=== PATIENT | female | born 1940 | race Caucasian/White ===

== ENCOUNTER 2023-12-08 14:39 | Outpatient (AMB) | payer OTHER, SELFPAY ==
[2023-12-08 15:06] VITALS: BP 145/82; PULSE 72; RESP 16; O2SAT 90; BMI 27.3
--- NOTE | 2023-12-08 15:06 | A.OFFVIS_ITS ---
Intake Vital Signs 3 12/08/23 15:06 Height 4 ft 11 in Weight 135 lb BMI 27.3 BP 145/82 H Blood Pressure Location Lt brachial Position Sitting Respiration 16 Pulse 72 Pulse Source Pulse Oximeter Pulse Oximetry (%) 90 L Oxygen Delivery Method Room Air Intake Visit Reasons: B/l SI Joint Pain HPI HPI Comments 2 History of Present Illness0 Details Kait is a very pleasant 83-year-old female who presents the office today for evaluation management of her chronic lower back pain. Patient was seen at [facility], she was referred here for treatment. Complaining of pain across the lower back into bilateral thighs. This has been going on for 3 years and started after a fall. Pain is worse with sitting, standing, walking. Increased pain with lumbar extension Denies pain past the level of the knee, denies shooting, stinging, burning numbness or tingling. Patient has tried msrp-znp-zhpoofl medications, nonsteroidal anti-inflammatory medications, physical therapy, reports that it does not work. She is doing home exercise program but reports difficulty secondary to pain. Up into 1 year ago she was going to a chiropractor which did provide a little help. She is currently taking gabapentin and Vicodin for pain. Recently discussed with her primary care doctor and Vicodin dose was increased. She states that she has been on Vicodin for many years and is not receiving much benefit from the medication. Pain today is rated as 10/10, aching and stabbing. She was offered injections with local anesthetic at [facility], she states she has tried that in the past and suffering terribly. She requested referral here to have injections under sedation and also for potential radiofrequency ablation to treat the lumbar arthropathy. Patient denies red flag symptoms including new loss of bowel, bladder or saddle anesthesia In terms of muscle damage condition is described as aching, stabbing, dull, sore, hurting, heavy. Pain is negatively impacting patient's sleep, ability to perform activities of daily living, ability to function normally. Patient has a history of COPD, she is currently using oxygen at 2 L nasal cannula while at rest and 4 L nasal cannula with ambulation [facility] Medical History (Updated 12/08/23 @ 16:33 by Salome Roa, HEAD GRINDER, [employer] SHARPSHOOTER) Degeneration of lumbar or lumbosacral intervertebral disc Chronic pain syndrome Review of Systems Const All systems reviewed & are unremarkable except as noted in HPI and below Physical Exam Vital Signs: Last Vital Signs Pulse 72 12/08/23 15:06 Resp 16 12/08/23 15:06 BP 145/82 H 12/08/23 15:06 Pulse Ox 90 L 12/08/23 15:06 Oxygen Delivery Method Room Air 12/08/23 15:06 BMI result Body Mass Index 27.3 General: awake, alert, oriented. Answers questions appropriately. Fully engaged in examination. Skin: warm, dry, intact HEENT: Normocephalic. Hearing intact. Cardiac: External chest normal in appearance. Respiratory: No cough, audible wheezing or stridor. Wearing continuous oxygen at 2 L nasal cannula, 4 L with ambulation Abdomen: without gross distension. MS: No obvious swelling or deformities. Able to transition from sit to stand unassisted. Ambulates with bilaterally normal heel strike and toe off Strength: 5/5 BLE Sensation: intact and symmetric BLE Tender to palpation over lumbar paraspinal muscles Doris finger test is positive bilaterally Gaenslen test is positive bilaterally Antonio test is positive bilaterally SI compression positive bilaterally SLR is negative bilaterally. Facet loading test is positive bilaterally. Neurological: Oriented to person, place, time and situation. Thought process intact. No gait abnormalities appreciated. Psychiatric: Appropriate mood and affect. Good judgment and insight. Results Reviewed Results Reviewed: Assessment & Plan Assessment & Plan (1) Sacroiliac joint dysfunction of both sides: Code(s): M53.3 - Sacrococcygeal disorders, not elsewhere classified (2) Lumbar spondylosis: Code(s): M47.816 - Spondylosis without myelopathy or radiculopathy, lumbar region Plan Kait yap is an 83-year-old female who presented to the office today for evaluation management of her chronic lower back pain History, physical exam and provocative testing consistent with bilateral sacroiliac joint dysfunction and lumbar spondylosis Patient would like to focus on her sacroiliac joint dysfunction 1st and then proceed with treatment for her lumbar axial back pain Patient has exhausted conservative therapy including rmlq-xpi-orsxnwz medications, nonsteroidal anti-inflammatory medications, PT, chiropractor, home exercise program, prescription medications and opioid medications Discussed in length the patient's diagnosis and options for treatment including diagnostic interventional testing, epidural steroid injections, peripheral nerve stimulation with Sprint, RFA and more permanent neuromodulation. Will schedule for fluoroscopy guided bilateral diagnostic sacroiliac joint injections with propofol sedation. All questions and concerns have been answered and patient agrees with the plan. Follow up after injections and sooner if needed. Coding Level of Care Code New Pt Level 4 (33830) Diagnoses Sacroiliac joint dysfunction of both sides M53.3 Lumbar spondylosis M47.816
== END 2023-12-08 15:46 | disposition home or self-care (01) ==
PROVIDERS: Visit Provider Registered Nurse Emergency
DX: M53.3 Sacrococcygeal disorders, not elsewhere classified (principal); M47.816 Spondylosis without myelopathy or radiculopathy, lumbar region
CPT/HCPCS: 99204

== ENCOUNTER → 2023-12-08 14:39 | Outpatient (BNVA) | payer OTHER, SELFPAY | PROVIDERS: Visit Provider Registered Nurse Emergency | DX: M53.3 Sacrococcygeal disorders, not elsewhere classified (principal); M47.816 Spondylosis without myelopathy or radiculopathy, lumbar region | CPT/HCPCS: 99202 ==

== ENCOUNTER 2024-04-14 05:49 | Day surgery (SDC) | payer OTHER, SELFPAY ==
--- NOTE | 2024-04-12 13:50 | P.CONAN_ITS ---
Documented by User: Chetna Marques NP 04/12/24 13:53 HPI - Anesthesia Eval Consult details Narrative: 83yo F for Bilateral Diagnostic Sacroiliac Joint Steroid Injection PMFSH Active Problems Active Problems: All Active Problems Lumbar spondylosis (Acute) Sacroiliac joint dysfunction of both sides (Acute) Past Medical History Medical History (Updated 04/12/24 @ 13:53 by Chetna Marques NP) Salivary gland tumor Osteoporosis HTN (hypertension) Hypothyroid Degeneration of lumbar or lumbosacral intervertebral disc Chronic pain syndrome Social History Social History Patient Tobacco Use Status: Former Tobacco user Use of substances other than those prescribed or required for medical reasons: No Are you DNR?: No Advance Directives: No Advance Directives Information Provided: Yes Meds Allergies Allergy/AdvReac Type Severity Reaction Status Date / Time alendronate sodium Allergy Unknown Unknown Verified 04/14/24 06:28 amoxicillin Allergy Unknown Unknown Verified 04/14/24 06:28 ibuprofen [From Motrin] Allergy Unknown Unknown Verified 04/14/24 06:28 Penicillins Allergy Unknown Unknown Verified 04/14/24 06:28 pregabalin [From Lyrica] Allergy Unknown Unknown Verified 04/14/24 06:28 metoprolol AdvReac Unknown Unknown Verified 04/14/24 06:28 Home Medications ?Medication ?Instructions ?Recorded ?Confirmed ?Last Taken ?Type alprazolam 0.5 mg tablet 0.5 mg PO DAILY 12/08/23 04/14/24 Unknown History buspirone 15 mg tablet 15 mg PO TID 12/08/23 04/14/24 Unknown History cetirizine 10 mg tablet 10 mg PO DAILY PRN allergies 12/08/23 04/14/24 Unknown History famotidine 40 mg tablet 40 mg PO DAILY 12/08/23 04/14/24 Unknown History gabapentin 300 mg capsule 300 mg PO TID 12/08/23 04/14/24 04/14/24 History levothyroxine 112 mcg capsule 112 mcg PO DAILY 12/08/23 04/14/24 04/14/24 History lisinopril 40 mg tablet 40 mg PO DAILY 12/08/23 04/14/24 Unknown History montelukast 10 mg tablet 10 mg PO DAILY 12/08/23 04/14/24 Unknown History simvastatin 40 mg tablet 40 mg PO DAILY 12/08/23 04/14/24 Unknown History trazodone 150 mg tablet 150 mg PO BEDTIME PRN Insomnia 12/08/23 04/14/24 Unknown History Assessment and Plan Assessment Anesthesia Assessment: Chart Reviewed Documented by User: Dennis Ladd MD 04/14/24 07:20 [facility] Past Medical History Medical History (Updated 04/12/24 @ 13:53 by Chetna Marques NP) Salivary gland tumor Osteoporosis HTN (hypertension) Hypothyroid Degeneration of lumbar or lumbosacral intervertebral disc Chronic pain syndrome Family History Family history of problems with anesthesia: No Surgical History History of Problems with Anesthesia: No Social History Social History Patient Tobacco Use Status: Former Tobacco user Use of substances other than those prescribed or required for medical reasons: No Are you DNR?: No Advance Directives: No Advance Directives Information Provided: Yes Meds Allergies Allergy/AdvReac Type Severity Reaction Status Date / Time alendronate sodium Allergy Unknown Unknown Verified 04/14/24 06:28 amoxicillin Allergy Unknown Unknown Verified 04/14/24 06:28 ibuprofen [From Motrin] Allergy Unknown Unknown Verified 04/14/24 06:28 Penicillins Allergy Unknown Unknown Verified 04/14/24 06:28 pregabalin [From Lyrica] Allergy Unknown Unknown Verified 04/14/24 06:28 metoprolol AdvReac Unknown Unknown Verified 04/14/24 06:28 Home Medications ?Medication ?Instructions ?Recorded ?Confirmed ?Last Taken ?Type alprazolam 0.5 mg tablet 0.5 mg PO DAILY 12/08/23 04/14/24 Unknown History buspirone 15 mg tablet 15 mg PO TID 12/08/23 04/14/24 Unknown History cetirizine 10 mg tablet 10 mg PO DAILY PRN allergies 12/08/23 04/14/24 Unknown History famotidine 40 mg tablet 40 mg PO DAILY 12/08/23 04/14/24 Unknown History gabapentin 300 mg capsule 300 mg PO TID 12/08/23 04/14/24 04/14/24 History levothyroxine 112 mcg capsule 112 mcg PO DAILY 12/08/23 04/14/24 04/14/24 History lisinopril 40 mg tablet 40 mg PO DAILY 12/08/23 04/14/24 Unknown History montelukast 10 mg tablet 10 mg PO DAILY 12/08/23 04/14/24 Unknown History simvastatin 40 mg tablet 40 mg PO DAILY 12/08/23 04/14/24 Unknown History trazodone 150 mg tablet 150 mg PO BEDTIME PRN Insomnia 12/08/23 04/14/24 Unknown History Exam Airway Mallampati Class: III TM Dist: >3cm Neck ROM: Limited Denture: Upper and Lower Assessment and Plan Assessment Anesthesia Assessment: Anesthesia Plan Discussed Final Anesthetic Review Family History of Problems with Anesthesia: No History of Problems with Anesthesia: No NPO: Yes ASA Class: IV Final Preanesthetic Review: No Changes in Pt Med Stat, Meds/Allgs Chart Reviewed, Consent Obtained/Reviewed and Anes Risks/Benef Reviewed Patient Risk: High Procedure Risk: Low Anesthetic Plan Anesthetic Plan: TIVA Disposition: Standard PACU
--- NOTE | ~2024-04-14 | FL_ITS ---
EXAMINATION: XR FLUOROSCOPY WITH IMAGES CLINICAL INFORMATION: Bilateral SI joint steroid injection COMPARISON: None available. TECHNIQUE: Fluoroscopy provided to: Dr. Humphrey Fluoroscopy time: 0.2 minutes DAP: 0.988 Gycm2 Images: 2 FINDINGS: 2 images demonstrate needles laced within the central bilateral SI joints with contrast injection and venous intravasation. FL/FL guidance in OR IMPRESSION: Fluoroscopic guidance. Please refer to the full operative report for details. Electronically signed by: Jean Block MD 06/14/2024 04:45 PM EDT
[2024-04-14 06:30] VITALS: BP 159/92; PULSE 65; RESP 20; TEMP 36.2; O2SAT 95; BMI 25.2
--- NOTE | 2024-04-14 07:03 | MHC.SHP ---
Pre-Procedural Eval Section A - 24 Hr Update-Section A only Date of Service: 04/14/24 The patient is an INPATIENT: No Changes since office visit: Yes Patient answered all questions The patient has been examined within 24 hours of the surgical procedure. The History & Physical has been completed within 30 days and I have reviewed it.: No Section B - Complete if H&P > 30 days Chief Complaint: Sacrococcygeal disorders, not elsewhere classified Details of Present Illness: as above Relevant Family History (Specify if Yes): No Relevant Social History: None Present Medications: None Medical History: No relevant PMH History of Previous Operations: No relevant previous surgery Allergies: Allergies Allergy/AdvReac Type Severity Reaction Status Date / Time alendronate sodium Allergy Unknown Unknown Verified 04/14/24 06:28 amoxicillin Allergy Unknown Unknown Verified 04/14/24 06:28 ibuprofen [From Motrin] Allergy Unknown Unknown Verified 04/14/24 06:28 Penicillins Allergy Unknown Unknown Verified 04/14/24 06:28 pregabalin [From Lyrica] Allergy Unknown Unknown Verified 04/14/24 06:28 metoprolol AdvReac Unknown Unknown Verified 04/14/24 06:28 Review of Systems Sugical H&P ROS: Negative: Constitution, Cardiovascular, Neurological, Psychiatric, Hem-Onc, Allergic/Immunologic, Gastrointestinal, Genitourinary, Integumentary, Endocrine and Eyes/Ears/Nose/Throat and Yes, Specify: Respiratory (COPD) and Musculoskeletal (sacroiliitis, spondylosdis lumbar) Exam Surgical H&P Exam: Normal: HEENT, Normal: Heart, Normal: Extremities, Normal: Abdomen, Normal: Skin and Normal: Neurological and Significant Findings: Lungs (on oxygen 4 l/ min.) Plan Diagnosis/Plan: Unchanged I have reviewed the history and physical and performed a pertinent physical examination on my patient. No changes have occurred unless specified. Time Spent With Patient Time: Total time managing care of this patient today ____ minutes.
[2024-04-14] MEDS: Lactated Ringers 1,000 ML 100 ML IVCONT (07:12)
[2024-04-14 08:08] VITALS: BP 186/86; PULSE 71; RESP 16; TEMP 36.6; O2SAT 97
--- NOTE | 2024-04-14 08:16 | PM.OP ---
Brief Operative Note Date of Service: 04/14/24 Pre-op diagnosis: sacroiliitis Post-op diagnosis: same Procedure: bilateral sacroiliac joint diagnostic injection. Surgeon: Paul Humphrey MD Was an Tree Trimming Supervisor used for this Procedure?: No Estimated blood loss (mL): 1 Condition: stable Disposition: PACU
[2024-04-14 08:23] VITALS: BP 192/82; PULSE 69; RESP 16; O2SAT 96
--- NOTE | 2024-04-14 08:26 | W.PM.OPN ---
Operative Note Operative Note Date of Service: 04/14/24 Narrative: Bilateral diagnostic sacroiliac joint injection. Informed consent was explained thoroughly to the patient. All questions about benefits and risks for the procedure were answered. Patient came to the operating room and was positioned prone on the operating table with the pillow under the pelvis. ASA monitors were applied and the patient was deeply sedated. Time out was performed delineating name and of the patient, allergies and the nature of the procedure. The lower back and buttocks of the patient were prepped with ChloraPrep prepped and draped with sterile utility towels. C-arm was brought over the operating field and sq picture of patient's pelvis was demonstrated on the screen. For the right joint tilting C-arm contralateral to the site of the joint the most posterior portion of the joints was superimposed with anterior silhouette of the joint. Skin was injected in the projection of the joint slightly medial to the location of the joint with 25 gauge 1/2 inch needle using local lidocaine 2% .After that 22 gauge 3 and 1/2 inch needle was driven to the right joint in tunnel vision fashion. When needle entered the joint capsule injection of the contrast was performed demonstrating intra-articular and minimally periarticular spread of the contrast. After that 4 cc. of ropivacaine 0.5% was injected into the joint. Upon completion of the injections the needle was removed and procedure was repeated on the left sacroiliac joint in mirroring fashion. Sterile dressing was applied. Upon completion of the injection patient was taken outside of the operating room to the recovery room where recovered uneventfully.
== END 2024-04-14 10:00 | disposition home or self-care (01) ==
PROVIDERS: PCP Family Medicine; Visit Provider Anesthesiology
PROC: 3E0U33Z Introduction of Anti-inflammatory into Joints, Percutaneous Approach (ICD-10-PCS; CPT 27096; principal; 2024-04-14 07:30)
DX: M53.3 Sacrococcygeal disorders, not elsewhere classified (principal); G89.4 Chronic pain syndrome; M47.816 Spondylosis without myelopathy or radiculopathy, lumbar region; I10 Essential (primary) hypertension; J44.9 Chronic obstructive pulmonary disease, unspecified; Z99.81 Dependence on supplemental oxygen; Z79.899 Other long term (current) drug therapy; Z88.0 Allergy status to penicillin; Z88.6 Allergy status to analgesic agent; Z88.8 Allergy status to other drugs, medicaments and biological substances; Z87.891 Personal history of nicotine dependence
CPT/HCPCS: G0260; J0665; J2704; J3301; Q9967

== ENCOUNTER → 2024-04-14 05:49 | Outpatient (BNV) | payer OTHER, SELFPAY | PROVIDERS: PCP Family Medicine; Visit Provider Anesthesiology | DX: M53.3 Sacrococcygeal disorders, not elsewhere classified (principal) | CPT/HCPCS: 27096 ==

== ENCOUNTER 2024-04-21 15:00 | Outpatient (AMB) | payer OTHER, SELFPAY ==
--- NOTE | 2024-04-21 15:04 | MHC.OFFVIS ---
Vital Signs 04/21/24 15:09 Height 5 ft 2 in BP 156/65 H Blood Pressure Location Rt brachial Position Sitting Pulse 76 Pulse Source Pulse Oximeter Intake Visit Reasons: S/p B/l Dx SI Injection 04/14/24 Intake Note: Pain today 02/27 Certified Prosthetist/Orthotist Required: No Accompanied by: Family/Other Allergies alendronate sodium Allergy (Unknown, Verified 04/21/24 15:10) Unknown amoxicillin Allergy (Unknown, Verified 04/21/24 15:10) Unknown ibuprofen [From Motrin] Allergy (Unknown, Verified 04/21/24 15:10) Unknown Penicillins Allergy (Unknown, Verified 04/21/24 15:10) Unknown pregabalin [From Lyrica] Allergy (Unknown, Verified 04/21/24 15:10) Unknown metoprolol Adverse Reaction (Unknown, Verified 04/21/24 15:10) Unknown HPI Comments Details: Patient presents back to the office today for follow-up, one-week status post bilateral diagnostic sacroiliac joint injections Reports 100% pain relief in the 8 hours after the procedure. 24 hours after the procedure patient had 90% pain relief with improvement in functional mobility. She was able to assist the telephone coin box collector with cleaning of the home and she has been walking more. Denies any untoward effects of the injection She would like to proceed with therapeutic injections with sedation Prior: Kait is a very pleasant 83-year-old female who presents the office today for evaluation management of her chronic lower back pain. Patient was seen at [facility], she was referred here for treatment. Complaining of pain across the lower back into bilateral thighs. This has been going on for 3 years and started after a fall. Pain is worse with sitting, standing, walking. Increased pain with lumbar extension Denies pain past the level of the knee, denies shooting, stinging, burning numbness or tingling. Patient has tried abrs-pma-stxrxzi medications, nonsteroidal anti-inflammatory medications, physical therapy, reports that it does not work. She is doing home exercise program but reports difficulty secondary to pain. Up into 1 year ago she was going to a chiropractor which did provide a little help. She is currently taking gabapentin and Vicodin for pain. Recently discussed with her primary care doctor and Vicodin dose was increased. She states that she has been on Vicodin for many years and is not receiving much benefit from the medication. Pain today is rated as 10/10, aching and stabbing. She was offered injections with local anesthetic at [facility], she states she has tried that in the past and suffering terribly. She requested referral here to have injections under sedation and also for potential radiofrequency ablation to treat the lumbar arthropathy. Patient denies red flag symptoms including new loss of bowel, bladder or saddle anesthesia In terms of muscle damage condition is described as aching, stabbing, dull, sore, hurting, heavy. Pain is negatively impacting patient's sleep, ability to perform activities of daily living, ability to function normally. Patient has a history of COPD, she is currently using oxygen at 2 L nasal cannula while at rest and 4 L nasal cannula with ambulation [facility] Medical History (Updated 04/12/24 @ 13:53 by Chetna Marques NP) Salivary gland tumor Osteoporosis HTN (hypertension) Hypothyroid Degeneration of lumbar or lumbosacral intervertebral disc Chronic pain syndrome Social History Patient Tobacco Use Status: Former Tobacco user Review of Systems Const All systems reviewed & are unremarkable except as noted in HPI and below Physical Exam Vital Signs: Last Vital Signs Pulse 76 04/21/24 15:09 BP 156/65 H 04/21/24 15:09 General: awake, alert, oriented. Answers questions appropriately. Fully engaged in examination. Skin: warm, dry, intact HEENT: Normocephalic. Hearing intact. Cardiac: External chest normal in appearance. Respiratory: No cough, audible wheezing or stridor. Wearing continuous oxygen at 2 L nasal cannula, 4 L with ambulation Abdomen: without gross distension. MS: No obvious swelling or deformities. Able to transition from sit to stand unassisted. Gaenslen test is positive bilaterally Thigh thrust is positive bilaterally SI compression positive bilaterally SLR is negative bilaterally. Neurological: Oriented to person, place, time and situation. Thought process intact. Utilizing wheelchair Psychiatric: Appropriate mood and affect. Good judgment and insight. Results Reviewed Results Reviewed: Assessment & Plan Assessment & Plan (1) Sacroiliac joint dysfunction of both sides: Code(s): M53.3 - Sacrococcygeal disorders, not elsewhere classified Category: Medical (2) Lumbar spondylosis: Code(s): M47.816 - Spondylosis without myelopathy or radiculopathy, lumbar region Category: Medical Plan Kait presented back to the office today for follow-up, one-week status post bilateral diagnostic sacroiliac joint injections under sedation Reports 100% pain relief in the 10 hours after the procedure with improvement in functional mobility. Denies any untoward effects. Patient has exhausted conservative therapy including krez-chi-qeuqsed medications, nonsteroidal anti-inflammatory medications, PT, chiropractor, home exercise program, prescription medications and opioid medications Discussed in length the patient's diagnosis and options for treatment including diagnostic interventional testing, epidural steroid injections, peripheral nerve stimulation with Sprint, RFA and more permanent neuromodulation. Will schedule for fluoroscopy guided bilateral therapeutic sacroiliac joint injections with propofol sedation. All questions and concerns have been answered and patient agrees with the plan. Follow up after injections and sooner if needed. Coding Level of Care Code Est Pt Level 3 (96180) Diagnoses Sacroiliac joint dysfunction of both sides M53.3 Lumbar spondylosis M47.816
[2024-04-21 15:09] VITALS: BP 156/65; PULSE 76
== END 2024-04-21 15:32 | disposition home or self-care (01) ==
PROVIDERS: PCP Family Medicine; Visit Provider Registered Nurse Emergency
DX: M53.3 Sacrococcygeal disorders, not elsewhere classified (principal); M47.816 Spondylosis without myelopathy or radiculopathy, lumbar region
CPT/HCPCS: 99213

== ENCOUNTER → 2024-04-21 15:00 | Outpatient (BNVA) | payer OTHER, SELFPAY | PROVIDERS: PCP Family Medicine; Visit Provider Registered Nurse Emergency | DX: M53.3 Sacrococcygeal disorders, not elsewhere classified (principal); M47.816 Spondylosis without myelopathy or radiculopathy, lumbar region | CPT/HCPCS: 99212 ==

== ENCOUNTER 2024-06-30 12:34 | Outpatient (BNV) | payer OTHER, SELFPAY | END 2024-07-10 07:00 | PROVIDERS: Admitting Provider Internal Medicine Critical Care Medicine; PCP Family Medicine; Visit Provider Internal Medicine Cardiovascular Disease | DX: I42.8 Other cardiomyopathies (principal) | CPT/HCPCS: 93308 ==

== ENCOUNTER 2024-06-30 12:34 | Outpatient (BNV) | payer OTHER, SELFPAY | END 2024-07-08 09:15 | PROVIDERS: Admitting Provider Internal Medicine Critical Care Medicine; PCP Family Medicine; Visit Provider Internal Medicine | DX: R00.0 Tachycardia, unspecified (principal); I44.4 Left anterior fascicular block | CPT/HCPCS: 93010 ==

== ENCOUNTER 2024-06-30 12:34 | Outpatient (BNV) | payer OTHER, SELFPAY | END 2024-07-01 10:38 | PROVIDERS: Admitting Provider Internal Medicine Critical Care Medicine; PCP Family Medicine; Visit Provider Internal Medicine Cardiovascular Disease | DX: R94.31 Abnormal electrocardiogram [ECG] [EKG] (principal) | CPT/HCPCS: 93010 ==

== ENCOUNTER 2024-06-30 12:34 | Outpatient (BNV) | payer OTHER, SELFPAY | END 2024-07-03 07:46 | PROVIDERS: Admitting Provider Internal Medicine Critical Care Medicine; PCP Family Medicine; Visit Provider Internal Medicine | DX: R00.0 Tachycardia, unspecified (principal); I44.4 Left anterior fascicular block | CPT/HCPCS: 93010 ==

== ENCOUNTER 2024-06-30 12:34 | Inpatient (IN) | payer OTHER, SELFPAY ==
[2024-06-28 09:57] VITALS: BMI 25.2
--- NOTE | 2024-06-29 13:00 | P.CONAN_ITS ---
Documented by User: Chetna Marques NP 06/29/24 13:02 HPI - Anesthesia Eval Consult details Narrative: 83yo F for Bilateral Therapeutic Sacroiliac Joint Steroid Injection COPD, O2 dependant @ 2L at rest, 4L with activity s/p Bilateral Diagnostic Sacroiliac Joint Steroid Injection 03/2024 with TIVA PMFSH Active Problems Active Problems: All Active Problems Lumbar spondylosis (Acute) Sacroiliac joint dysfunction of both sides (Acute) Past Medical History Medical History Oxygen dependent COPD (chronic obstructive pulmonary disease) Elevated cholesterol Salivary gland tumor Osteoporosis HTN (hypertension) Hypothyroid Degeneration of lumbar or lumbosacral intervertebral disc Chronic pain syndrome Family History Family history of problems with anesthesia: No Surgical History Surgical History Hx of excision of mass History of surgery History of Problems with Anesthesia: No Social History Social History Patient Tobacco Use Status: Former Tobacco user Use of substances other than those prescribed or required for medical reasons: No Are you DNR?: No Advance Directives: No Advance Directives Information Provided: Yes Recently lost weight without trying: No Nutrition Risks: No Nutritional Risk Meds Allergies Allergy/AdvReac Type Severity Reaction Status Date / Time alendronate sodium Allergy Unknown Unknown Verified 04/21/24 15:10 amoxicillin Allergy Unknown Unknown Verified 04/21/24 15:10 ibuprofen [From Motrin] Allergy Unknown Unknown Verified 04/21/24 15:10 Penicillins Allergy Unknown Unknown Verified 04/21/24 15:10 pregabalin [From Lyrica] Allergy Unknown Unknown Verified 04/21/24 15:10 metoprolol AdvReac Unknown Unknown Verified 04/21/24 15:10 Home Medications ?Medication ?Instructions ?Recorded ?Confirmed ?Last Taken ?Type alprazolam 0.5 mg tablet 0.5 mg PO DAILY 12/08/23 06/28/24 Unknown History buspirone 15 mg tablet 15 mg PO TID 12/08/23 06/28/24 Unknown History cetirizine 10 mg tablet 10 mg PO DAILY PRN allergies 12/08/23 06/28/24 Unknown History famotidine 40 mg tablet 40 mg PO DAILY 12/08/23 06/28/24 Unknown History gabapentin 300 mg capsule 300 mg PO TID 12/08/23 06/28/24 04/14/24 History levothyroxine 112 mcg capsule 112 mcg PO DAILY 12/08/23 06/28/24 04/14/24 History lisinopril 40 mg tablet 40 mg PO DAILY 12/08/23 06/28/24 Unknown History montelukast 10 mg tablet 10 mg PO DAILY 12/08/23 06/28/24 Unknown History simvastatin 40 mg tablet 40 mg PO DAILY 12/08/23 06/28/24 Unknown History trazodone 150 mg tablet 150 mg PO BEDTIME PRN Insomnia 12/08/23 06/28/24 Unknown History diclofenac sodium 1 % topical gel 1 ea topical BID 04/21/24 06/28/24 Unknown History loratadine 10 mg tablet 10 mg PO DAILY 04/21/24 06/28/24 Unknown History naloxone 4 mg/actuation nasal spray intranasal 04/21/24 Unknown History umeclidinium 62.5 mcg/actuation 1 inh inhalation DAILY 04/21/24 06/28/24 Unknown History blister powder for inhalation (Incruse Ellipta) Exam Height,Weight and Vital Signs: Height 5 ft 2 in Weight 62.596 kg Assessment and Plan Assessment Anesthesia Assessment: Chart Reviewed Final Anesthetic Review Family History of Problems with Anesthesia: No History of Problems with Anesthesia: No Documented by User: Kimmy Eubanks MD 06/30/24 11:05 [facility] Past Medical History Medical History Oxygen dependent COPD (chronic obstructive pulmonary disease) Elevated cholesterol Salivary gland tumor Osteoporosis HTN (hypertension) Hypothyroid Degeneration of lumbar or lumbosacral intervertebral disc Chronic pain syndrome Surgical History Surgical History Hx of excision of mass History of surgery Social History Social History Patient Tobacco Use Status: Former Tobacco user Use of substances other than those prescribed or required for medical reasons: No Are you DNR?: No Advance Directives: No Advance Directives Information Provided: Yes Recently lost weight without trying: No Nutrition Risks: No Nutritional Risk Meds Allergies Allergy/AdvReac Type Severity Reaction Status Date / Time alendronate sodium Allergy Unknown Unknown Verified 04/21/24 15:10 amoxicillin Allergy Unknown Unknown Verified 04/21/24 15:10 ibuprofen [From Motrin] Allergy Unknown Unknown Verified 04/21/24 15:10 Penicillins Allergy Unknown Unknown Verified 04/21/24 15:10 pregabalin [From Lyrica] Allergy Unknown Unknown Verified 04/21/24 15:10 metoprolol AdvReac Unknown Unknown Verified 04/21/24 15:10 Home Medications ?Medication ?Instructions ?Recorded ?Confirmed ?Last Taken ?Type alprazolam 0.5 mg tablet 0.5 mg PO DAILY 12/08/23 06/28/24 Unknown History buspirone 15 mg tablet 15 mg PO TID 12/08/23 06/28/24 Unknown History cetirizine 10 mg tablet 10 mg PO DAILY PRN allergies 12/08/23 06/28/24 Unknown History famotidine 40 mg tablet 40 mg PO DAILY 12/08/23 06/28/24 Unknown History gabapentin 300 mg capsule 300 mg PO TID 12/08/23 06/28/24 04/14/24 History levothyroxine 112 mcg capsule 112 mcg PO DAILY 12/08/23 06/28/24 04/14/24 History lisinopril 40 mg tablet 40 mg PO DAILY 12/08/23 06/28/24 Unknown History montelukast 10 mg tablet 10 mg PO DAILY 12/08/23 06/28/24 Unknown History simvastatin 40 mg tablet 40 mg PO DAILY 12/08/23 06/28/24 Unknown History trazodone 150 mg tablet 150 mg PO BEDTIME PRN Insomnia 12/08/23 06/28/24 Unknown History diclofenac sodium 1 % topical gel 1 ea topical BID 04/21/24 06/28/24 Unknown History loratadine 10 mg tablet 10 mg PO DAILY 04/21/24 06/28/24 Unknown History naloxone 4 mg/actuation nasal spray intranasal 04/21/24 Unknown History umeclidinium 62.5 mcg/actuation 1 inh inhalation DAILY 04/21/24 06/28/24 Unknown History blister powder for inhalation (Incruse Ellipta) Exam Airway Mallampati Class: II TM Dist: >3cm Neck ROM: Limited Heart: rrr Assessment and Plan Assessment Anesthesia Assessment: Anesthesia Plan Discussed Final Anesthetic Review NPO: Yes ASA Class: III Final Preanesthetic Review: No Changes in Pt Med Stat, Meds/Allgs Chart Reviewed, Consent Obtained/Reviewed and Anes Risks/Benef Reviewed Procedure Risk: Low Anesthetic Plan Anesthetic Plan: MAC: Disposition: Standard PACU
[2024-06-30] VITALS (22 sets, daily range): BP systolic 103–167; BP diastolic 54–86; PULSE 66–133; RESP 12–20; TEMP 34.5–36.4; O2SAT 87–99; BMI 26.0
--- NOTE | 2024-06-30 | ECG_ITS ---
Test Reason : NSTEMI Blood Pressure : / mmHG Vent. Rate : 072 BPM Atrial Rate : 072 BPM P-R Int : 216 ms QRS Dur : 096 ms QT Int : 468 ms P-R-T Axes : 061 -45 -70 degrees QTc Int : 512 ms Sinus rhythm with 1st degree A-V block Left anterior fascicular block Cannot rule out Inferior infarct (masked by fascicular block?) , age undetermined T wave abnormality, consider lateral ischemia Prolonged QT Abnormal ECG When compared to the previous EKG of No significant changes seen Referred By: Gilmar Celaya Electronically Signed By:JULEE GOSS MD
--- NOTE | 2024-06-30 | ECG_ITS ---
Test Reason : NSTEMI Blood Pressure : / mmHG Vent. Rate : 074 BPM Atrial Rate : 074 BPM P-R Int : 212 ms QRS Dur : 098 ms QT Int : 450 ms P-R-T Axes : 078 -51 -81 degrees QTc Int : 499 ms Sinus rhythm with 1st degree A-V block Left axis deviation Minimal voltage criteria for LVH, may be normal variant ( Devon product ) Inferior infarct (cited on or before 30-JUN-2024) T wave abnormality, consider lateral ischemia Abnormal ECG When compared with ECG of 30-JUN-2024 11:33, Vent. rate has decreased Right bundle branch block is no longer Present Questionable change in initial forces of Inferior leads Referred By: Oh Jeffries Electronically Signed By:JULEE GOSS MD
--- NOTE | ~2024-06-30 | XR_ITS ---
EXAMINATION: XR CHEST CLINICAL INFORMATION: Intubated COMPARISON: None available. TECHNIQUE: Frontal view of the chest was obtained. FINDINGS: Endotracheal tube in good position above the level of padma. Dense airspace consolidation and small pleural effusion seen in the left lung base. Diffuse interstitial thickening and diffuse groundglass. Heart is top normal in size. Atherosclerotic calcifications seen in the thoracic aorta. XR/XR chest 1V IMPRESSION: 1. Endotracheal tube in good position. 2. Dense airspace consolidation and small pleural effusion in the left lung base. Diffuse interstitial thickening and groundglass opacities. Electronically signed by: Santo Hwang MD 06/30/2024 08:18 PM EDT
--- NOTE | ~2024-06-30 | XR_ITS ---
EXAMINATION: XR CHEST CLINICAL INFORMATION: Shortness of breath. COMPARISON: Chest x-ray and CT dated June 30, 2024. TECHNIQUE: Portable AP view of the chest was obtained. FINDINGS: The study is limited by portable technique and overlying leads. Diffuse, coarse, bilateral interstitial prominence appears grossly similar compared with 2 days prior. Small bibasilar patchy and hazy densities suggest superimposed pleural fluid, pleural thickening, atelectasis, and/or infiltrates, also grossly similar. Bilateral emphysema appears similar. The cardiac silhouette is suboptimally evaluated. Mildly atherosclerotic aorta. Amorphous calcification projecting over the expected location of the right supraspinatus tendon on the humeral head suggests calcific bursitis versus calcific tendinitis. Removal of previously seen endotracheal tube. XR/XR chest 1V IMPRESSION: Findings as above. Electronically signed by: Hermilo Ho MD 07/02/2024 10:53 AM EDT
--- NOTE | ~2024-06-30 | CT_ITS ---
EXAMINATION: CT ABDOMEN AND PELVIS WITH CONTRAST CLINICAL INFORMATION: Lactic acidosis COMPARISON: None available. TECHNIQUE: Multidetector volumetric images were obtained from the superior aspect of the liver through the pubic symphysis following administration 85 mL of Omnipaque 350 intravenous contrast. Sagittal and coronal reformatted images were obtained on the technologist's workstation. Oral contrast: No This CT examination was performed using dose optimization techniques as appropriate, variously including the following: *Automated exposure control *Adjustment of mA and/or kV according to patient size (this includes techniques or standardized protocols for targeted exams where dose is matched to indication/reason for exam; i.e. extremities or head) *Use of iterative reconstruction technique DLP: 849 mGy-cm FINDINGS: LUNG BASES: Consolidation seen in the bilateral lung bases. LIVER, GALLBLADDER, AND BILIARY TREE: The liver is normal in size, shape, and attenuation. No focal hepatic lesion is present. Calcified stones seen within the gallbladder. Gallbladder is nondistended without significant wall thickening. Common bile duct is dilated measuring 1 cm. There is intrahepatic biliary ductal dilatation. PANCREAS: Unremarkable. SPLEEN: There is a patchy enhancement of the spleen which could represent underlying splenic infarcts. ADRENAL GLANDS: Unremarkable. KIDNEYS AND URETERS: Lateral kidneys demonstrate areas of cortical scarring and thinning. There is a simple cyst in the upper pole of the right kidney measuring 1.8 cm. There is a simple cyst in the lower pole of the left kidney measuring 1.1 cm. No follow-up indicated. There is nonenhancement and mild cortical atrophy in the upper pole of the left kidney consistent with a subacute infarct. BLADDER: Decompressed by a Drummond catheter GASTROINTESTINAL TRACT: The small bowel are unremarkable. Scattered diverticula seen in the sigmoid colon without wall thickening or inflammatory stranding. The appendix is unremarkable. ABDOMINAL WALL: No significant hernia is appreciated. LYMPH NODES: Normal. VASCULAR: Extensive calcified and noncalcified atherosclerotic plaque throughout the abdominal aorta and branch vessels. There is a severe focal infrarenal abdominal aortic stenosis at the level of the inferior mesenteric artery. Calcified plaque at the celiac artery with mild stenosis. There is severe calcified plaque in the splenic artery and cannot exclude areas of short segment occlusion. Calcified and noncalcified plaque at the ostium of the superior mesenteric artery with moderate to severe stenosis. Distal branches all appear patent. Inferior mesenteric artery appears patent. Heavily calcified plaque is seen at the aortoiliac bifurcation with areas of severe/critical stenosis. PELVIC VISCERA: Uterus is atrophied with a few small calcified fibroids. No adnexal mass lesions. OSSEOUS STRUCTURES: No acute process. Degenerative disc disease at L1/2 CT/CT abdomen pelvis w IV con IMPRESSION: 1. Extensive atherosclerotic disease throughout the abdominal aorta and branch vessels. There is a focal severe stenosis of the infrarenal abdominal aorta at the level of the inferior mesenteric artery. There is severe calcified plaque in the splenic artery and cannot exclude areas of short segment occlusion. There is moderate to severe stenosis at the ostium of the superior mesenteric artery. Distal branches all appear patent. 2. Patchy enhancement of the spleen which could represent underlying splenic infarcts. 3. 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 4. Cholelithiasis. Intrahepatic and extrahepatic biliary ductal dilatation. 5. Bilateral lower lobe consolidation. Electronically signed by: Santo Hwang MD 06/30/2024 08:15 PM EDT
--- NOTE | ~2024-06-30 | CT_ITS ---
EXAMINATION: CT ANGIOGRAM OF THE CHEST WITH AND WITHOUT CONTRAST (CT PULMONARY ANGIOGRAM FOR PE) CLINICAL INFORMATION: Respiratory distress, rule out PE COMPARISON: None available. TECHNIQUE: Prior to contrast administration, noncontrast localization images were obtained. Subsequently, multidetector volumetric imaging was performed from the thoracic inlet to below the diaphragms following the administration of 85 mL Omnipaque 350 intravenous contrast. No contrast reaction reported Sagittal, coronal, and MIP oblique sagittal reformatted images were obtained on the CT workstation, uploaded to PACS, and reviewed. This CT examination was performed using dose optimization techniques as appropriate, variously including the following: *Automated exposure control *Adjustment of mA and/or kV according to patient size (this includes techniques or standardized protocols for targeted exams where dose is matched to indication/reason for exam; i.e. extremities or head) *Use of iterative reconstruction technique Total exam dose-length product 446 mGy-cm FINDINGS: QUALITY OF STUDY/CONTRAST BOLUS: Satisfactory. PULMONARY ARTERIES: No pulmonary emboli. THORACIC AORTA: No aneurysm. Diffuse atherosclerotic wall calcifications LUNG: Endotracheal tube in good position. Severe paraseptal and centrilobular emphysema. Airspace consolidations seen in the dependent portions of the bilateral lower lobes. PLEURA: No pleural effusion or pneumothorax. MEDIASTINUM: Normal heart size. No pericardial effusion. No hilar or mediastinal lymphadenopathy. No evidence of septal bowing or right heart strain. CORONARY ARTERY CALCIFICATION: Severe CHEST WALL/AXILLA: No axillary or internal mammary lymphadenopathy. OSSEOUS STRUCTURES: No acute or suspicious osseous abnormality. UPPER ABDOMEN: There is a 1.7 cm simple fluid density cyst in the upper pole of the right kidney. No reflux of contrast into the hepatic veins to suggest elevated right heart pressures. CT/CT angio chest PE protocol IMPRESSION: 1. No evidence of pulmonary embolism. 2. Severe emphysema. Bilateral lower lobe airspace consolidations. VTE: negative. Electronically signed by: Santo Hwang MD 06/30/2024 07:56 PM EDT
--- OUTSIDE RECORDS SUMMARY | 2024-06-30 09:51 | XMS_ITS | Continuity of Care Document ---
Author Organization [facility] Address [address] [place] [address]- Care Team Providers Care Chick Grader Name Role Phone Jeffrey ANDREW, Margot Lowe Primary Care Physician [phone] [place] [facility] [place] 07/[place]/23 [facility] [address] [place] [address]- Allergies, Adverse Reactions, Alerts Substance Reaction Severity Status NSAIDs Entire stomach Active Medications acetaminophen-hydrocodone 325 mg-10 mg oral tablet 1 tablet, By Mouth, Every 8 hours, PRN Pain , Moderate, 0 Refills, Maintenance, 03/31/23 16:59:00 EDT, Partial fill upon patient request if the prescription is for a schedule II opioid drug. Start Date: 03/31/23 Status: Ordered albuterol CFC free 90 mcg/inh inhalation aerosol 180 mcg, 2, puffs, Inhalation, Every 4 hours, PRN, # 18 Gm, Refills 1, Tot. Refills 1, Maintenance,04/02/23 10:37:00 EDT, Inhaler, Route to Pharmacy Electronically, [id number][id number], 153, cm, 04/02/23 7:38:00 EDT, Height,... Start Date: 04/02/23 Stop Date: 06/01/23 Status: Ordered ALPRAZolam 0.5 mg oral tablet 0.25 mg, 0.5, tablet, By Mouth, Daily at bedtime, PRN, Refills 0, Maintenance, Insomnia, 03/31/23 16:59:00 EDT, Partial fill upon patient request if the prescription is for a schedule II opioid drug. Start Date: 03/31/23 Status: Ordered busPIRone 10 mg oral tablet 10 mg, 1, tablet, By Mouth, 2 times a day, PRN, Refills 0, Maintenance, Anxiety, 03/31/23 17:00:00 EDT, Partial fill upon patient request if the prescription is for a schedule II opioid drug. Start Date: 03/31/23 Status: Ordered Cetirizine = 10 mg, Daily, 0 Refills, Maintenance, 03/31/23 17:00:00 EDT, Partial fill upon patient request ifthe prescription is for a schedule II opioid drug. Start Date: 03/31/23 Status: Ordered DilTIAZem (Eqv-Dilacor XR) 120 mg/24 hours oral capsule, extended release 1 capsule = 120 mg, By Mouth, Daily, 0 Refills, Maintenance, 03/31/23 17:05:00 EDT, Partial fill upon patient request if the prescription is for a schedule II opioid drug. Start Date: 03/31/23 Status: Ordered famotidine 20 mg oral tablet 20 mg, 1, tablet, By Mouth, Daily, Refills 0, Maintenance, 04/01/23 15:05:00 EDT, Partial fill uponpatient request if the prescription is for a schedule II opioid drug. Start Date: 04/01/23 Status: Ordered Flonase 2 sprays, Daily, 0 Refills, Maintenance, 03/31/23 17:01:00 EDT, Partial fill upon patient request if the prescription is for a schedule II opioid drug. Start Date: 03/31/23 Status: Ordered gabapentin 300 mg oral capsule 300 mg, 1, capsule, By Mouth, 2 times a day, Refills 0, Maintenance, 03/31/23 17:01:00 EDT, Partialfill upon patient request if the prescription is for a schedule II opioid drug. Start Date: 03/31/23 Status: Ordered Incruse Ellipta 62.5 mcg/inh inhalation powder 1 each, Inhalation, Every 24 hours, doses should be taken at least 24 hours apart, # 1 each, 11 Refills, Maintenance, 06/14/23 15:32:00 EDT, [facility], Partial fill upon patient request if the prescription is for a schedule II opioid... Start Date: 06/14/23 Stop Date: 06/08/24 Status: Ordered levothyroxine 0.112 mg oral tablet 1 tablet = 112 mcg, By Mouth, Daily, 0 Refills, Maintenance, 03/31/23 17:01:00 EDT, Partial fill upon patient request if the prescription is for a schedule II opioid drug. Start Date: 03/31/23 Status: Ordered Lisinopril = 40 mg, By Mouth, Daily, 0 Refills, Maintenance, 04/01/23 15:04:00 EDT, Partial fill upon patient request if the prescription is for a schedule II opioid drug. Start Date: 04/01/23 Status: Ordered Montelukast = 10 mg, By Mouth, Daily at bedtime, 0 Refills, Maintenance, 03/31/23 17:02:00 EDT, Partial fill upon patient request if the prescription is for a schedule II opioid drug. Start Date: 03/31/23 Status: Ordered Omeprazole = 20 mg, By Mouth, Daily, 0 Refills, Maintenance, 03/31/23 17:02:00 EDT, Partial fill upon patient request if the prescription is for a schedule II opioid drug. Start Date: 03/31/23 Status: Ordered POC Evaluation POC Evaluation, See Instructions, # 1 each, Refills 0, Tot. Refills 0, Maintenance, DME: [facility]. Diagnosis: COPD, J44.9. Please evaluate the patient for a portable oxygen concentrator, maintain O2 saturation greater than 90%. Please dispe... Start Date: 06/07/23 Status: Ordered Simvastatin = 40 mg, By Mouth, Daily, 0 Refills, Maintenance, 03/31/23 17:02:00 EDT, Partial fill upon patient request if the prescription is for a schedule II opioid drug. Start Date: 03/31/23 Status: Ordered Trazodone = 150 mg, By Mouth, Daily at bedtime, 0 Refills, Maintenance, 03/31/23 17:02:00 EDT, Partial fill upon patient request if the prescription is for a schedule II opioid drug. Start Date: 03/31/23 Status: Ordered Problem List Condition Confirmation Course Effective Dates Status Health St atus Informant Anxiety Confirmed Active Fibromyalgia Confirmed Active Hypertension Confirmed Active Hypothyroidism Confirmed Active Patient Care team information Care Team Personnel Name: Margot Murphy MD Position: S Outreach Member Role: PCP Address: Address: [address] [place] [address] Care Team Related Persons Name: BELLA LEO Address: home [address] [facility] [address] [place] [address] Name: KARELY LANIER Address: [place] [address]
--- OUTSIDE RECORDS SUMMARY | 2024-06-30 09:51 | XMS_ITS | Continuity of Care Document ---
Author Organization [facility] Address [address] [place] [address]- Care Team Providers Care Chief Arson Division Name Role Phone Jeffrey ANDREW, Margot Lowe Primary Care Physician [phone] Encounter [facility] [place] Date(s): 04/18/24 - 05/18/24 [facility] [address] [place] [id number] Allergies, Adverse Reactions, Alerts Substance Reaction Severity [...] 10:37:00 EDT, Inhaler, Route to Pharmacy Electronically, NCPDP_[id number], [id number], 153, cm, 04/02/23 7:38:00 EDT, Height,... Start [...] Ordered Incruse Ellipta 62.5 mcg/inh inhalation powder See Instructions, INHALE 1 INHALATION EVERY 24 HOURS INSTR: DOSES SHOULD BE TAKEN AT LEAST 24 HOURSAPART (BULK), # 30 each, 11 Refills, Maintenance, 04/18/24 14:04:00 EDT, [facility], 153, cm, 12/20/23 15:30:00 EDT, Height, 36.8, kg, 03/31/23... Start Date: 04/18/24 Status: Ordered levothyroxine 0.112 mg oral tablet [...] Refills 0, Tot. Refills 0, Maintenance, DME: [facility]. Diagnosis: COPD, J44.9. Please evaluate the [...] Team Personnel Name: Margot Murphy MD Position: [facility] Outreach Member Role: PCP Address: Address: [address] [place], [place] [address] [address]- Care Team Related Persons Name: BELLA LEO Address: home [address] [facility] [address] [place] [address] Name: KARELY LANIER Address: [place] [address]
--- OUTSIDE RECORDS SUMMARY | 2024-06-30 09:51 | XMS_ITS | Continuity of Care Document ---
Author Organization [facility] [place] [address] [facility] [place] [address] [place] [address]- Care Team Providers Care Linseed Oil Boiler Name Role Phone Jeffrey ANDREW, Margot Lowe Primary Care Physician Encounter 05/11/24 - 05/18/24 [facility] [address], [facility] [address] [place] [address]- Attending Physician: Kimo Reinoso MD Admitting Physician: Kimo Reinoso MD Referring Physician: Kimo Reinoso MD Allergies, Adverse Reactions, Alerts Substance Reaction Severity [...] 10:37:00 EDT, Inhaler, Route to Pharmacy Electronically, NCPDP[facility][id number], [id number], 153, cm, 04/02/23 7:38:00 EDT, Height,... Start [...] each, 11 Refills, Maintenance, 04/18/24 14:04:00 EDT, [facility], 153, cm, 12/20/23 15:30:00 EDT, Height, [...] Refills 0, Tot. Refills 0, Maintenance, DME: [facility]. Diagnosis: COPD, J44.9. Please evaluate the patient [...] Active Hypertension Confirmed Active Hypothyroidism Confirmed Active Results Radiology Reports * Exam Date Time Procedure Performing Provider Status 05/11/24 3:[address] Chest W/O Contrast Jose Nix; [facility] (Verified) Notes: (CT Chest W/O Contrast) Reason For Exam: Undiagnosed Mass/Nodule RESULT: CT Chest W/O Contrast CT Chest W/O Contrast INDICATION: Reason: Undiagnosed Mass Nodule TECHNIQUE: Helical CT scan of the chest without IV contrast, formatted in 3 planes. Weight-based protocol was performed using automatic exposure control. CTDIvol Body: 10.04 mGy, DLP Body: 361 mGy*cm. COMPARISON: CTA of chest 03/31/2023 FINDINGS: Welder Journeyman view findings, lines and tubes: None. Trachea and airways: Patent without evidence of tracheal or endobronchial lesion. Lungs and pleura: Severe centrilobular emphysema. Mild bilateral lower lobe scarring. 4 mm noncalcified nodule in the superior segment of the right lower lobe in series 3 image 35, unchanged. 6 mm nodule in the medial aspect of the right lower lobe in image 42, abutting the pleura, unchanged 5 mm nodule in the right major interlobar fissure in image 49, likely a lymph node, unchanged. 10 mm slightly linear area of opacification in the periphery of the right lower lobe in image 61, unchanged. Stable 7 mm pleural-based nodular density in the anterior aspect of the lung in image 62. 3 mm nodule in the left lower lobe in series 3 image 53, unchanged. No effusion or pneumothorax. Mediastinum and spencer: No mass or hematoma. No mediastinal or hilar lymphadenopathy. No esophageal abnormality. Normal thyroid. Heart: Heart is normal in size. No pericardial effusion. Severe coronary artery calcification. Aorta: No aortic aneurysm. Pulmonary arteries: Normal caliber. Chest wall soft tissues: No acute abnormality. Diaphragm: Intact. Upper abdomen: Multiple small calcified granulomata in the spleen. Exophytic cyst in the upper poleof the right kidney. Extensive renal vascular calcification. Bones: No acute abnormality. IMPRESSION: No acute abnormality. Stable extensive centrilobular emphysema. Mild bilateral lower lobe scarring. Multiple stable small noncalcified nodules in both lungs. No new or enlarging nodule is apparent. Multiple calcified granulomata in the spleen. WSN: [id number] Ordering Physician: Kimo Reinoso Dictated By: John Hollingsworth MD Dictated Date/Time: 05/11/24 4:17 pm Reviewed By: John Hollingsworth MD Signed By: John Hollingsworth MD Signed Date/Time: 05/11/24 4:17 pm Transcribed By: GORDON Transcribed Date/Time: 05/11/24 3:57 pm Patient Care team information Care Team Personnel Name: Margot Murphy MD Position: [facility] Outreach Member Role: PCP Address: Address: [address] [place] [address]- Name: Kimo Reinoso MD Position: [facility] Physician - Pulm/Critical Care Med Service: Pulmonology Member Role: Referring Physician Address: Address: [address] [facility], 1st [address] [facility] [place] [address]- Care Team Related Persons Name: BELLA LEO Address: home [address] [place] [address] [address] [place] [address] Name: KARELY LANIER Address: [place] [address]
--- OUTSIDE RECORDS SUMMARY | 2024-06-30 09:51 | XMS_ITS | Continuity of Care Document ---
Author Organization [facility] Address [address] [place] [address]- Care Team Providers Care Chief Librarian Circulation Department Name Role Phone Jeffrey ANDREW, Margot Lowe Primary Care Physician [place] [facility] [place]): 06/10/23 - 07/10/23 [facility] [address] [place] [id number] Allergies, Adverse Reactions, Alerts Substance Reaction [...] 10:37:00 EDT, Inhaler, Route to Pharmacy Electronically, NCPDP_ID-[id number], [facility] #[id number], 153, cm, 04/02/23 7:38:00 EDT, Height,... Start [...] 11 Refills, Maintenance, 06/14/23 15:32:00 EDT, Powder, [facility], Partial fill upon patient request if [...] Refills 0, Tot. Refills 0, Maintenance, DME: [facility]. Diagnosis: COPD, J44.9. Please evaluate the [...] Team Personnel Name: Margot Murphy MD Position: [facility] Outreach Member Role: PCP Address: Address: [address] [place] [address] Care Team Related Persons Name: BELLA LEO Address: home [address] [facility] [address] [place] [address] Name: KARELY LANIER Address: [place] [address]
--- OUTSIDE RECORDS SUMMARY | 2024-06-30 09:51 | XMS_ITS | Continuity of Care Document ---
Author Organization [facility] Address [address] [place] [address]- Care Team Providers Care Research Executive Name Role Phone Jeffrey ANDREW, Margot Lowe Primary Care Physician [place] [facility] [place]07[place]23 [facility] [address] [place] [id number] Allergies, Adverse Reactions, Alerts Substance [...] 10:37:00 EDT, Inhaler, Route to Pharmacy Electronically, NCPDP_[id number], [facility] #[id number], 153, cm, 04/02/23 7:38:00 EDT, Height,... Start [...] Refills 0, Tot. Refills 0, Maintenance, DME: [facility]. Diagnosis: COPD, J44.9. Please evaluate the [...] Team Personnel Name: Margot Murphy MD Position: [facility] Outreach Member Role: PCP Address: Address: [address] [place] [address] Care Team Related Persons Name: BELLA LEO Address: home [address] [facility] [address] [place] [address] Name: KARELY LANIER Address: [place] [address]
--- OUTSIDE RECORDS SUMMARY | 2024-06-30 09:51 | XMS_ITS | Continuity of Care Document ---
Author Organization [facility] Address [address] [place] [address]- Care Team Providers Care Ceramic Tile Setter Name Role Phone Jeffrey ANDREW, Margot Lowe Primary Care Physician [place] [facility] [place](s): 06/14/23 - 07/14/23 [facility] [address] [place] [id number] Allergies, Adverse Reactions, Alerts Substance Reaction Severity [...] 10:37:00 EDT, Inhaler, Route to Pharmacy Electronically, NCPDP_[id number], [facility] #[id number], 153, cm, 04/02/23 7:38:00 EDT, Height,... Start [...] Refills 0, Tot. Refills 0, Maintenance, DME: [facility]. Diagnosis: COPD, J44.9. Please evaluate [...] Team Personnel Name: Margot Murphy MD Position: [facility] Outreach Member Role: PCP Address: Address: [address] [place] [address] Care Team Related Persons Name: BELLA LEO Address: home [address] [facility] [address] [place] [address] Name: KARELY LANIER Address: [place] [address]
[2024-06-30] MEDS: Lactated Ringers 1,000 ML 100 ML IVCONT (10:38)
--- NOTE | 2024-06-30 10:49 | MHC.SHP ---
Pre-Procedural Eval Section A - 24 Hr Update-Section A only Date of Service: 06/30/24 The patient is an INPATIENT: No Changes since office visit: Yes Patient answered all questions The patient has been examined within 24 hours of the surgical procedure. The History & Physical has been completed within 30 days and I have reviewed it.: No Section B - Complete if H&P > 30 days Chief Complaint: Sacrococcygeal disorders, not elsewhere classified Details of Present Illness: As above Relevant Family History (Specify if Yes): No Relevant Social History: None Present Medications: see Short Stay Collaborative assessment Medical History: No relevant PMH History of Previous Operations: No relevant previous surgery Allergies: Allergies Allergy/AdvReac Type Severity Reaction Status Date / Time alendronate sodium Allergy Unknown Unknown Verified 04/21/24 15:10 amoxicillin Allergy Unknown Unknown Verified 04/21/24 15:10 ibuprofen [From Motrin] Allergy Unknown Unknown Verified 04/21/24 15:10 Penicillins Allergy Unknown Unknown Verified 04/21/24 15:10 pregabalin [From Lyrica] Allergy Unknown Unknown Verified 04/21/24 15:10 metoprolol AdvReac Unknown Unknown Verified 04/21/24 15:10 Review of Systems Sugical H&P ROS: Negative: Constitution, Cardiovascular, Neurological, Psychiatric, Hem-Onc, Allergic/Immunologic, Gastrointestinal, Genitourinary, Musculoskeletal, Integumentary, Endocrine and Eyes/Ears/Nose/Throat and Yes, Specify: Respiratory (COPD) Exam Surgical H&P Exam: Normal: HEENT, Normal: Heart, Normal: Lungs, Normal: Extremities, Normal: Abdomen, Normal: Skin and Normal: Neurological Plan Diagnosis/Plan: Unchanged I have reviewed the history and physical and performed a pertinent physical examination on my patient. No changes have occurred unless specified. Time Spent With Patient Time: Total time managing care of this patient today ____ minutes.
--- NOTE | 2024-06-30 11:34 | ECG_ITS ---
Test Reason : CARD ARREST Blood Pressure : / mmHG Vent. Rate : 164 BPM Atrial Rate : 000 BPM P-R Int : 000 ms QRS Dur : 140 ms QT Int : 270 ms P-R-T Axes : 000 -80 070 degrees QTc Int : 445 ms Sinus tachycardia Left axis deviation Right bundle branch block Inferior infarct , age undetermined Abnormal ECG No previous ECGs available Referred By: Paul Humphrey Electronically Signed By:JULEE GOSS MD
[2024-06-30 11:58] LABS: MANUAL DIFF FLAG NO
[2024-06-30 12:00] LABS: Basophils Absolute Auto 0.1 X10*3/uL (0.0-0.2); Basophils Percent Auto 0.8 % (0-2); Eosinophils Absolute Auto 0.3 X10*3/uL (0.0-0.4); Eosinophils Percent Auto 2.3 % (0-4); Hematocrit 36.1 % (37.0-47.0); Hemoglobin 11.9 g/dl (12.0-16.0); Imm Gran Abs Auto 0.27 X10*3/uL (0.00-0.03); Imm Gran Pct Auto 2.2 % (0.0-0.4); Lymphocytes Percent Auto 40.9 % (20-40); Mean Corpuscular Hemoglobin 30.6 pg (27.0-33.0); Mean Corpuscular Volume 92.8 fL (80.0-98.0); Mean Platelet Volume 8.6 fL (9.4-12.3); Monocytes Absolute Auto 0.4 X10*3/uL (0.1-1.2); Monocytes Percent Auto 3.2 % (2-11); Neutrophils Absolute Auto 6.1 x10*3/uL (2.0-8.3); Neutrophils Percent Auto 50.6 % (45-73); Platelet Count 145 X10*3/uL (160-400); Red Blood Count 3.89 X10*6/uL (4.20-5.50); Red Cell Distribution Width 13.3 % (11.0-16.0); White Blood Count 12.1 X10*3/uL (4.8-10.8)
--- NOTE | 2024-06-30 12:10 | CA_ITS ---
Transthoracic Echocardiogram Patient (Last, First, Middle): Kait Pickard, Gender: Female Date of : 1940 Age: 83 Procedure Date: 06/30/2024 Procedure Type: Transthoracic Echocardiogram Location: ICU Height: 157.48 cm Weight: 64.41 kg BSA: 1.65 m2 Heart Rate: bpm BP: 153 / 82 mmHg Health Information Managers: Referring MD: Paul Humphrey MD Dynamics Ax Technical Architect: Ej Kraft MD Symptoms: CARDIAC ARREST Study Quality: Fair ECG Rhythm: Sinus tachycardia Conclusions: - 1. Normal biventricular function with moderate left ventricular hypertrophy 2. Calcific aortic valve changes noted with severe mitral annular calcification with normal cardiac valvular Dopplers 3. Upper limits of normal RV systolic pressure 4. Trivial pericardial effusion Findings Left Ventricle Normal left ventricular size and systolic function. There is moderately increased left ventricular wall thickness. The visually estimated ejection fraction is between 65-70%. Diastolic function is indeterminate on the basis of available data. Right Ventricle Normal right ventricular cavity size and systolic function. Atria The left atrium is normal in size. There is no evidence of interatrial shunt. The right atrium is normal in size. Aortic Valve There is mild calcification of the aortic valve. There is mild thickening of the aortic valve. There is no aortic valve stenosis. There is no aortic valve regurgitation. Mitral Valve There is mild anterior and severe posterior mitral leaflet thickening. There is severe mitral annular calcification. There is trace mitral valve regurgitation. There is no mitral valve stenosis. Pulmonic Valve The pulmonic valve was not well visualized. There is trace pulmonic valve regurgitation. Tricuspid Valve Normal tricuspid valve structure. There is mild tricuspid valve regurgitation. The right ventricular systolic pressure is normal. The right ventricular systolic pressure is 39 mmHg. Normal right atrial pressure. There is no evidence of pulmonary hypertension. Great Vessels All visible segments of the aorta are normal in size. The pulmonary artery was not well visualized. There is no dilatation of the ascending aorta measuring 3.20 cm. Venous The inferior vena cava is normal in size and collapses greater than 50% with inspiration. Pericardium/Pleural There is a trivial circumferential pericardial effusion. Prior Study Comparison No prior study available for comparison. Measurements 2D Linear Measurements IVSd: 1.55 0.6-0.9/0.6-1.0 cm LVIDd: 2.79 3.9-5.3/4.2-5.9 cm LVIDd Index: 1.69 2.4-3.2/2.2-3.1 cm/m2 LVIDs: 1.92 2.0-3.6 cm LVPWd: 1.44 0.7-1.1 cm Ao Root: 2.70 2.1-3.5 cm LA Diam: 3.50 2.7-3.8/3.0-4.0 cm LAIDs Index: 2.12 1.5-2.3 cm/m2 LV Mass: 178.24 67-162/88-224 g LV Mass Index: 108.02 43-95/49-115 g/m2 LVOT Diam: 2.00 3.0+(-)1.3 cm Mitral Valve MV VTI: 0.14 MV Pk Mamadou: 1.25 MV Mn Mamadou: 0.76 MV Pk Grad: 6.00 MV Mn Grad: 3.00 MV Pk E: 1.41 MV Decel Time: 108.00 E'Lateral: 9.46 E'Medial: 6.09 E/E' Med: 23.20 E/E' Lat: 14.90 PHT: 32.00 MVA PHT: 6.88 MVA Continuity: 4.33 Decel Kerr: 13.08 Aortic Valve AoV Pk Mamadou: 1.17 AoV Mn Mamadou: 0.77 AoV VTI: 0.21 AoV Pk Grad: 5.00 Aov Mn Grad: 3.00 POLY Cont.VTI: 3.02 LVOT LVOT Pk Mamadou: 0.91 LVOT Mn Mamadou: 0.66 LVOT VTI: 0.20 LVOT Pk Grad: 3.00 LVOT Mn Grad: 2.00 LVOT Diam: 2.00 LVOT Area: 3.14 Diastolic Function MV Pk E: 1.41 E'Medial: 6.09 E/E' Med: 23.20 E' Laterial: 9.46 E/E' Lat: 14.90 Tricuspid Valve TR Pk Mamadou: 3.02 TR Pk Grad: 36.00 RA Press: 3.00 RVSP: 39.00 Great Vessels Aorta Ao Root-2D: 2.70 2.0-3.7 cm Ao Asc: 3.20 2.1-3.4 cm Pulmonary Valve PV Pk Mamadou: 1.45 Peak PV Grad: 8.00 Updated in Other Vendor System with Status of Final Ej Kraft MD electronically signed on 06/30/2024 3:42:20 PM with status of Final
[2024-06-30 12:12] LABS: Anion Gap 14 (12-20); Carbon Dioxide 24 mmol/L (22-29); Chloride 106 mmol/L (96-108); Potassium 3.9 mmol/L (3.3-5.1); Sodium 140 mmol/L (135-145)
[2024-06-30 12:22] LABS: B Type Natriuretic Peptide 125 pg/mL (<100)
[2024-06-30 12:24] LABS: Troponin-I High Sensitivity 14.7 ng/L (<3.5-17.0)
[2024-06-30 12:32] LABS: Glucose, i-STAT 43 mg/dL (60-115); HCO3 Bedside Calculated < 8 mmol/L (22-26); Hematocrit Bedside < 15 %PCV (37-47); Sodium Bedside 132 mmol/L (135-145); pCO2 Bedside 21 mmhg (35-48); pH Bedside 7.06 (7.35-7.45)
--- NOTE | 2024-06-30 12:36 | PM.OP ---
Brief Operative Note Date of Service: 06/30/24 Pre-op diagnosis: Sacroiliitis bilateral sacroiliac joint pain. Post-op diagnosis: same Procedure: Sacroiliac joint steroid injection bilateral, cardiopulmonary resuscitation. Surgeon: Paul Humphrey MD Anesthesia: MAC Was an Tunnel Kiln Firer used for this Procedure?: No Estimated blood loss (mL): 0 Condition: critical Disposition: ICU Complications (if any): Bradycardia, respiratory arrest, cardiopulmonary resuscitation.
--- NOTE | 2024-06-30 12:38 | P.OP_ITS ---
Operative Note Operative Note Date of Service: 06/30/24 Narrative: Bilateral therapeutic sacroiliac joint injection. Informed consent was explained thoroughly to the patient.? All questions about benefits and risks for the procedure were answered. Patient came to the operating room and was positioned prone on the operating table with the pillow under the abdomen. [employer] monitors were applied and patient was deeply sedated. Time-out was performed delineating correct side and site of the procedure name and date of of the patient nature of the procedure, allergies of the patient. The lower back and buttocks of the patient were prepped with ChloraPrep prepped and draped with sterile utility towels.? Sterilely draped C-arm was brought over the operating field and sq picture of patient's pelvis was demonstrated on the screen.? For the right joint tilting C-arm contralateral to the site of the joint the most posterior portion of the joints was superimposed with anterior silhouette of the joint.? Skin was injected in the projection of the joint slightly medial to the location of the joint with 25 gauge 1/2 inch needle using local lidocaine 2% . After that 22 gauge 3 and 1/2 inch needle was driven to the right joint in tunnel vision fashion.? When needle entered the joint capsule injection of the contrast was performed demonstrating intravascular spread of the contrast, the needle was repositioned and driven slightly more cephalad. This time intra- articular and minimally periarticular spread of the contrast was demonstrated.? After that 4 cc. of ropivacaine 0.5% mixed with Kenalog 40 mg was injected in the joint. After that procedure was repeated on the left side in mirroring fashion. No intravascular injection was observed on the left side.. Same dose of ropivacaine and Kenalog was injected into the joint. Upon completion of the injections the needle was removed and Band-Aid was applied. I stepped out of the room and then I was called back because patient became bradycardic and cyanotic. We quickly flipped the patient on the stretcher and because her heart rate was below 20 started chest compressions. Ventilation was applied and resuscitation started. Epinephrine and atropine were injected by anesthesia per protocol. Patient was endotracheally intubated, cardiology consult was called stat labs were obtained and patient was transferred to ICU for further evaluation and continuous treatment. After the procedure I spoke with the niece of the patient who told me that patient might have taken although did not disclose it to anesthesia the night before the procedure extended release morphine. Attention was attracted that prescription of naloxine was given to the patient. I examined [facility] and on [facility] she was prescribed extended-release morphine for 28 days on May 30 and then on June 09 ten days later the patient was prescribed hydrocodone 10 mg for another 28 days.
[2024-06-30] MEDS: dexmedeTOMIDidine HCL/NS 400 MCG/100 ML INFUS..BTL 16.1 MCG IVCONT (12:48)
[2024-06-30] MEDS: Phenylephrine HCL 20 MG in 0.9 % Sodium Chloride 250 ML 24.35 MG IVCONT (12:48)
--- NOTE | 2024-06-30 12:56 | PM.CCHP ---
History of Present Illness Date of Service: 06/30/24 Chief Complaint: Cardiac arrest 83-year-old lady past medical history of COPD, hypertension, hypothyroidism chronic pain syndrome was seen by pain medicine for bilateral sacroiliac joint pain. She was brought to the hospital for an elective sacroiliac joint injections, patient received propofol for sedation for the procedure, during the patient procedure well the patient was turned around she went into PEA cardiac arrest, code lasted for about 5 minutes before ROSC receiving 2 doses of epinephrine and intubated during the code. She was also found to be hypotensive post code received few pushes of phenylephrine and is being transferred to medical ICU Review of Systems Review of Systems: Yes Unobtainable due to mental condition and Unobtainable due to mental status PMFSH Past Medical History Medical History Oxygen dependent COPD (chronic obstructive pulmonary disease) Elevated cholesterol Salivary gland tumor Osteoporosis HTN (hypertension) Hypothyroid Degeneration of lumbar or lumbosacral intervertebral disc Chronic pain syndrome Surgical History Surgical History Hx of excision of mass History of surgery Social History Social History Household Members: Unknown / Unable to assess Housing: Unknown / Unable to assess Unable to assess alcohol history related to: Unable to respond Patient Tobacco Use Status: Former Tobacco user Use of substances other than those prescribed or required for medical reasons: Unknown Are you DNR?: No Advance Directives: No Advance Directives Information Provided: Yes Recently lost weight without trying: Unsure Nutrition Risks: No Nutritional Risk Patient : No Meds Allergies Allergy/AdvReac Type Severity Reaction Status Date / Time alendronate sodium Allergy Unknown Unknown Verified 04/21/24 15:10 amoxicillin Allergy Unknown Unknown Verified 04/21/24 15:10 ibuprofen [From Motrin] Allergy Unknown Unknown Verified 04/21/24 15:10 Penicillins Allergy Unknown Unknown Verified 04/21/24 15:10 pregabalin [From Lyrica] Allergy Unknown Unknown Verified 04/21/24 15:10 metoprolol AdvReac Unknown Unknown Verified 04/21/24 15:10 Active Medications: Current Medications Albuterol Sulfate (Albuterol Sulfate (0.083%) 2.5 Mg/3 Ml Vial.Neb) 2.5 mg INHALE ONCE PRN PRN Reason: Shortness of Breath/Wheezing Buspirone HCl (Buspirone Hcl 5 Mg Tablet) 15 mg PO TID [facility] Enoxaparin Sodium (Enoxaparin Sodium 30 Mg/0.3 Ml Syringe) 30 mg SUBCUT Q24H [facility] Gabapentin (Gabapentin 300 Mg Capsule) 300 mg PO TID [facility] Dexmedetomidine HCl (Precedex) 400 mcg in 100 mls @ 0 mls/hr IVCONT .Q0M [facility]; Protocol Last Admin: 06/30/24 12:48 Dose: 1 mcg/kg/hr, 16.1 mls/hr Phenylephrine HCl 20 mg/ (Sodium Chloride) 252 mls @ 0 mls/hr IVCONT .Q0M [facility]; Protocol Last Admin: 06/30/24 12:48 Dose: 0.5 mcg/kg/min, 24.35 mls/hr Piperacillin Sod/Tazobactam (Sod 4.5 gm/ Sodium Chloride) 100 mls @ 200 mls/hr IV Q6H [facility] Lactated Ringer's (Lr) 1,932.3 mls @ 1,932.3 mls/hr 30 ml/kg infuse over 1 hr (1932.3 ml) IV .Q1H ONE Stop: 06/30/24 13:48 Levothyroxine Sodium (Levothyroxine Sodium 112 Mcg Tablet) 112 mcg PO DAILY [facility] Naloxone HCl (Naloxone Hcl 0.4 Mg/Ml Vial) 0.04 mg IVPUSH Q5M PRN PRN Reason: Excessive sedation or RR < 8 Non-Formulary Medication (Simvastatin) 40 mg PO DAILY [facility] Pantoprazole Sodium (Pantoprazole Sodium 40 Mg/10 Ml Vial) 40 mg IVPUSH DAILY@0630 [facility] Home Medications ?Medication ?Instructions ?Recorded ?Confirmed ?Last Taken ?Type alprazolam 0.5 mg tablet 0.5 mg PO DAILY 12/08/23 06/28/24 Unknown History buspirone 15 mg tablet 15 mg PO TID 12/08/23 06/28/24 Unknown History cetirizine 10 mg tablet 10 mg PO DAILY PRN allergies 12/08/23 06/28/24 Unknown History famotidine 40 mg tablet 40 mg PO DAILY 12/08/23 06/28/24 Unknown History gabapentin 300 mg capsule 300 mg PO TID 12/08/23 06/28/24 04/14/24 History levothyroxine 112 mcg capsule 112 mcg PO DAILY 12/08/23 06/28/24 04/14/24 History lisinopril 40 mg tablet 40 mg PO DAILY 12/08/23 06/28/24 Unknown History montelukast 10 mg tablet 10 mg PO DAILY 12/08/23 06/28/24 Unknown History simvastatin 40 mg tablet 40 mg PO DAILY 12/08/23 06/28/24 Unknown History trazodone 150 mg tablet 150 mg PO BEDTIME PRN Insomnia 12/08/23 06/28/24 Unknown History diclofenac sodium 1 % topical gel 1 ea topical BID 04/21/24 06/28/24 Unknown History loratadine 10 mg tablet 10 mg PO DAILY 04/21/24 06/28/24 Unknown History naloxone 4 mg/actuation nasal spray intranasal 04/21/24 Unknown History umeclidinium 62.5 mcg/actuation 1 inh inhalation DAILY 04/21/24 06/28/24 Unknown History blister powder for inhalation (Incruse Ellipta) Physical Exam Vital Signs: Vital Signs: Last Vital Signs Temp 97.5 F 06/30/24 10:35 Pulse 124 H 06/30/24 12:48 Resp 18 06/30/24 12:30 BP 125/76 06/30/24 12:48 Pulse Ox 92 06/30/24 12:39 O2 Del Method Mechanical Ventil ation 06/30/24 12:39 O2 Flow Rate 4 06/30/24 10:35 FiO2 60 06/30/24 12:34 BMI result Body Mass Index 26.0 General: Patient isn't acute distress, ill appearing and tired appearing Nutritional Appearance: well nourished and normal weight Eyes: appearance normal, both eyes and all related structures; Alignment and Position: alignment normal and position normal Neck: No lymphadenopathy, no thyromegaly Resp: bilateral air entry equal, occasional wheezes heard bilaterally Cardio: Regular rate, regular rhythm; Heart sounds: S1 normal heart sound present and S2 normal heart sound present GI: soft, nontender, no guarding, no hepatosplenomegaly : bladder normal to inspection, bladder normal to palpation, no renal angle tenderness Skin: no rashes or lesions noted and elasticity normal Neuro: Unresponsive, stuporous, paralyzed in the OR. Unable to do a complete neurological assessment Results Labs 06/30/24 11:53 06/30/24 11:53 Labs: Laboratory Results - last 24 hr 06/30/24 06/30/24 11:46 11:53 POC Hgb (Calc) TNP POC Hct < 15 L* MCV 92.8 MCH 30.6 MCHC 33.0 RDW 13.3 Plt Count 145 L MPV 8.6 L Immature Gran % (Auto) 2.2 H Neut % (Auto) 50.6 Lymph % (Auto) 40.9 H Bent % (Auto) 3.2 Eos % (Auto) 2.3 Baso % (Auto) 0.8 Lymph # (Auto) 5.0 H Bent # (Auto) 0.4 Eos # (Auto) 0.3 Baso # (Auto) 0.1 Abs Immat Gran (auto) 0.27 H Absolute Neuts (auto) 6.1 Absolute Nucleated RBC 0.000 Nucleated RBC % (auto) 0.0 POC Std Base Excess TNP POC O2 Sat (Calc) TNP POC ABG Total CO2 TNP POC Capillary pH 7.06 L* POC Capillary pCO2 21 L POC Cap HCO3 (Calc) < 8 L POC Sodium 132 L POC Potassium 4.0 Anion Gap 14 POC Glucose 43 L* Troponin I High Sens 14.7 B-Natriuretic Peptide 125 H Assessment and Plan (1) Cardiac arrest: Status: Acute (2) Cardiogenic shock: Status: Acute (3) Acute hypoxemic respiratory failure: Status: Acute (4) Lumbar spondylosis: Status: Acute Plan Neuro: Acute encephalopathy possibly due to medication. Risk for hypoxic ischemic injury is low given the short duration of the code and happened in the operating room intubated immediately and circulation maintained. If the patient has very poor mental status we will get a CT or MRI of the brain Precedex drip for anxiolysis and sedation Close neurological status monitoring in the ICU every hour Unable to access neurological status as the patient is paralyzed with rocuronium in the OR. Cardiac: Cardiogenic Shock: Possibly secondary to cardiac arrest Bedside echo showed small RV, collapsing IVCs We will give her 30 mL/kg of IV fluids Started on Noah-Synephrine for vasopressor support as the patient is tachycardic, titrate to keep the map above 65 mm Hg Cardiac arrest: PE cardiac arrest with downtime of about 5 minutes receiving 2 doses of epinephrine Bedside echo showing normal LV systolic function, small RV, collapsing IVCs Possible reason for the code is poor venous return Respiratory: Acute hypoxemic respiratory failure due to aspiration pneumonia Currently on ventilator support On PRVC mode FiO2 50%, PEEP 5,, TV 350, RR 20 Peak pressures and plateau pressures are under the curve Ventilator management bundle with head end elevation, aspiration precaution, chlorhexidine mouthwash, daily awakening trials, daily spontaneous breathing trials If the patient's mental status improves we will put her on pressor support for weaning from ventilator GI: We will start on tube feeds tomorrow Renal: Baseline creatinine normal We will closely monitor I's and O's Avoid nephrotoxic medications Heme: Chronic anemia, closely monitor H&H, transfuse for hemoglobin less than 7 grams/deciliter Endocrine: Blood sugars under control Sliding scale insulin as needed Hypothyroidism: We will restart home levothyroxine Infectious disease: We will send pancultures Started on Zosyn for empiric antibiotics Initial lactate and lactate after 6 hours sent Sepsis dose of IV fluid boluses ordered Musculoskeletal: Decubitus ulcer prevention protocol Lines: Peripheral Prophylaxis: Lovenox, pantoprazole This patient is critical ill status post cardiac arrest on ventilator support, in shock needing vasopressor support. Total critical care time spent is about 60 on evaluating and admitting the patient to critical care unit, formulating critical care plan and management, chart review, review of images, ventilator management, sedation management, post cardiac arrest resuscitation, close hemodynamic monitoring, vasopressor management Total time managing care of this patient today: 60 minutes.
[2024-06-30 12:57] LABS: Glucose, Whole Blood 190 mg/dL (60-115)
[2024-06-30] MEDS: Enoxaparin Sodium 30 MG/0.3 ML SYRINGE SUBCUT (12:57)
[2024-06-30] MEDS: Pantoprazole Sodium 40 MG/10 ML VIAL IVPUSH (12:58)
--- NOTE | 2024-06-30 13:17 | P.CONCA_ITS ---
History of Present Illness History of Present Illness Date of Service: 06/30/24 Requesting physician: Kimmy Eubanks Consult reason: other (Cardiac arrest) Chief complaint: cardiac arrest Narrative: I was consulted emergently to see this patient in the operating room after patient had hypoxemic events leading to bradycardic arrest. Patient with past medical history appears to be severe COPD on home oxygen, hypertension, hypothyroidism, hyperlipidemia. Other history not available from the chart. Patient was intubated by the time he came to the patient's bedside in the operating room. Patient had already received some CPR due to slow heart rate and subsequently received 2 rounds of epinephrine and atropine and by the time I came to patient's bedside her heart rate was 130 sinus tachycardia along with systolic blood pressure about 100. Patient was already intubated and received paralytics as well as sedation. Patient remained tachycardic with soft blood pressure. No other history is available at this point time. Sequence of events seems like patient came as an outpatient on oxygen for sacroiliac injection. Patient on in prone position received sedation with propofol 100 mg and subsequently while turning over patient became cyanotic and very quickly her pulse dropped to the 10. There was also hypotension. CPR was started although patient never lost the pulse. Patient was then immediately treated by the OR team and revived very quickly after quick intubation oxygen initially improve. After quick epinephrine atropine in the heart rate improved and blood pressure improved. After resuscitation we performed at bedside echo, which rhythm generally shows normal biventricular function collapsible IVC despite positive pressure ventilation suggestive of low preload. Patient remains borderline hypotensive with persistent sinus tachycardia receiving IV fluids Review of Systems 2 Review of Systems: Yes unobtainable due to endotracheal tube PMFSH Past Medical History Medical History Oxygen dependent COPD (chronic obstructive pulmonary disease) Elevated cholesterol Salivary gland tumor Osteoporosis HTN (hypertension) Hypothyroid Degeneration of lumbar or lumbosacral intervertebral disc Chronic pain syndrome Surgical History Surgical History Hx of excision of mass History of surgery Social History Social History Household Members: Unknown / Unable to assess Housing: Unknown / Unable to assess Unable to assess alcohol history related to: Unable to respond Patient Tobacco Use Status: Former Tobacco user Use of substances other than those prescribed or required for medical reasons: Unknown Are you DNR?: No Advance Directives: No Advance Directives Information Provided: Yes Recently lost weight without trying: Unsure Nutrition Risks: No Nutritional Risk Patient : No Meds Allergies Allergy/AdvReac Type Severity Reaction Status Date / Time alendronate sodium Allergy Unknown Unknown Verified 04/21/24 15:10 amoxicillin Allergy Unknown Unknown Verified 04/21/24 15:10 ibuprofen [From Motrin] Allergy Unknown Unknown Verified 04/21/24 15:10 Penicillins Allergy Unknown Unknown Verified 04/21/24 15:10 pregabalin [From Lyrica] Allergy Unknown Unknown Verified 04/21/24 15:10 metoprolol AdvReac Unknown Unknown Verified 04/21/24 15:10 Active Medications: Current Medications Albuterol Sulfate (Albuterol Sulfate (0.083%) 2.5 Mg/3 Ml Vial.Neb) 2.5 mg INHALE ONCE PRN PRN Reason: Shortness of Breath/Wheezing Buspirone HCl (Buspirone Hcl 5 Mg Tablet) 15 mg PO TID SURYA Enoxaparin Sodium (Enoxaparin Sodium 30 Mg/0.3 Ml Syringe) 30 mg SUBCUT Q24H SURYA Last Admin: 06/30/24 12:57 Dose: 30 mg Gabapentin (Gabapentin 300 Mg Capsule) 300 mg PO TID SURYA Dexmedetomidine HCl (Precedex) 400 mcg in 100 mls @ 0 mls/hr IVCONT .Q0M SURYA; Protocol Last Admin: 06/30/24 12:48 Dose: 1 mcg/kg/hr, 16.1 mls/hr Phenylephrine HCl 20 mg/ (Sodium Chloride) 252 mls @ 0 mls/hr IVCONT .Q0M SURYA; Protocol Last Admin: 06/30/24 12:48 Dose: 0.5 mcg/kg/min, 24.35 mls/hr Piperacillin Sod/Tazobactam (Sod 4.5 gm/ Sodium Chloride) 100 mls @ 200 mls/hr IV Q6H SURYA Lactated Ringer's (Lr) 1,932.3 mls @ 1,932.3 mls/hr 30 ml/kg infuse over 1 hr (1932.3 ml) IV .Q1H ONE Stop: 06/30/24 13:48 Last Admin: 06/30/24 12:58 Dose: 1,932.3 mls/hr Levothyroxine Sodium (Levothyroxine Sodium 112 Mcg Tablet) 112 mcg PO DAILY@0600 [facility] Naloxone HCl (Naloxone Hcl 0.4 Mg/Ml Vial) 0.04 mg IVPUSH Q5M PRN PRN Reason: Excessive sedation or RR < 8 Non-Formulary Medication (Simvastatin) 40 mg PO DAILY [facility] Pantoprazole Sodium (Pantoprazole Sodium 40 Mg/10 Ml Vial) 40 mg IVPUSH DAILY@0630 [facility] Last Admin: 06/30/24 12:58 Dose: 40 mg Home Medications ?Medication ?Instructions ?Recorded ?Confirmed ?Last Taken ?Type alprazolam 0.5 mg tablet 0.5 mg PO DAILY 12/08/23 06/28/24 Unknown History buspirone 15 mg tablet 15 mg PO TID 12/08/23 06/28/24 Unknown History cetirizine 10 mg tablet 10 mg PO DAILY PRN allergies 12/08/23 06/28/24 Unknown History famotidine 40 mg tablet 40 mg PO DAILY 12/08/23 06/28/24 Unknown History gabapentin 300 mg capsule 300 mg PO TID 12/08/23 06/28/24 04/14/24 History levothyroxine 112 mcg capsule 112 mcg PO DAILY 12/08/23 06/28/24 04/14/24 History lisinopril 40 mg tablet 40 mg PO DAILY 12/08/23 06/28/24 Unknown History montelukast 10 mg tablet 10 mg PO DAILY 12/08/23 06/28/24 Unknown History simvastatin 40 mg tablet 40 mg PO DAILY 12/08/23 06/28/24 Unknown History trazodone 150 mg tablet 150 mg PO BEDTIME PRN Insomnia 12/08/23 06/28/24 Unknown History diclofenac sodium 1 % topical gel 1 ea topical BID 04/21/24 06/28/24 Unknown History loratadine 10 mg tablet 10 mg PO DAILY 04/21/24 06/28/24 Unknown History naloxone 4 mg/actuation nasal spray intranasal 04/21/24 Unknown History umeclidinium 62.5 mcg/actuation 1 inh inhalation DAILY 04/21/24 06/28/24 Unknown History blister powder for inhalation (Incruse Ellipta) Physical Exam 2 Vital Signs: Vital Signs: Last Vital Signs Temp 96.7 F L 06/30/24 13:00 Pulse 118 H 06/30/24 13:00 Resp 16 06/30/24 13:00 BP 122/76 06/30/24 13:00 Pulse Ox 94 06/30/24 13:00 O2 Del Method Mechanical Ventil ation 06/30/24 13:00 O2 Flow Rate 4 06/30/24 10:35 FiO2 60 06/30/24 12:34 BMI result Body Mass Index 26.0 Const: General: other (Intubated and sedated) Nutritional Appearance: a verage body habitus HEENT: Head: Yes normocephalic and Yes atraumatic Neck: Neck: Yes trachea midline, Yes supple and Yes no JVD Resp: Effort & Inspection: other (Intubated) Auscultation: no rales, no wheezes and diminished lung sounds Cardio: Jugular venous distension: no JVD Rate: tachycardic Rhythm: r egular rhythm Heart sounds: S1 normal heart sound present, S2 normal heart sound present, no click, no gallops, no murmurs and no rubs GI: Auscultation: normal bowel sounds Skin: General skin exam: no rashes or lesions noted Extrem: General: Yes no clubbing, cyanosis or edema Objective Labs and Meds 06/30/24 11:53 06/30/24 13:09 Lab results: Laboratory Results - last 24 hr 06/30/24 06/30/24 06/30/24 11:46 11:53 12:49 WBC 12.1 H RBC 3.89 L Hgb 11.9 L POC Hgb (Calc) TNP Hct 36.1 L POC Hct < 15 L* MCV 92.8 MCH 30.6 MCHC 33.0 RDW 13.3 Plt Count 145 L MPV 8.6 L Immature Gran % (Auto) 2.2 H Neut % (Auto) 50.6 Lymph % (Auto) 40.9 H [place] % (Auto) 3.2 Eos % (Auto) 2.3 Baso % (Auto) 0.8 Lymph # (Auto) 5.0 H [place] # (Auto) 0.4 Eos # (Auto) 0.3 Baso # (Auto) 0.1 Abs Immat Gran (auto) 0.27 H Absolute Neuts (auto) 6.1 Absolute Nucleated RBC 0.000 Nucleated RBC % (auto) 0.0 POC Std Base Excess TNP POC O2 Sat (Calc) TNP POC ABG Total CO2 TNP POC Capillary pH 7.06 L* POC Capillary pCO2 21 L POC Cap HCO3 (Calc) < 8 L POC Sodium 132 L Sodium 140 POC Potassium 4.0 Potassium 3.9 Chloride 106 Carbon Dioxide 24 Anion Gap 14 POC Glucose 43 L* 190 H Troponin I High Sens 14.7 B-Natriuretic Peptide 125 H Assessment and Plan (1) Cardiac arrest: Status: Acute Patient had bradycardia arrest which was quickly aborted by quick action by the anesthesia and OR team most likely related to acute hypoxemic event and respiratory failure probably in a patient with advanced COPD receiving sedation. Possibility of mucus plug and V/Q mismatch causing hypoxemia exist. Patient was quickly revived with epinephrine and atropine and responded appropriately now having sinus tachycardia and borderline blood pressure. Echocardiogram reveals collapsible IVC suggestive of decreased preload most likely from vaso dilatation from anesthetic agents and relative hypovolemia. I would continue with supportive respiratory care at this point in time with positive facet ventilation maintaining her oxygen status. Agree with IV hydration. I do not think patient has any evidence of cardiac event. Less likely that she has a pulmonary embolism. There is no evidence of pericardial effusion. The no wall motion abnormality suggestive of any ischemic event. Supportive care. Greater than 1 hours was spent in managing this patient's care at bedside and reviewing her test. Will sign of the care to ICU team Procedures Date of Service Date of Service: 06/30/24
--- NOTE | 2024-06-30 13:19 | PC.NURSE ---
Addendum entered by Masoud Lugo RN 06/30/24 17:10: placed blank per verbal order for critical output monitoring. informed md of pt's core temp. and ABGs. per do not start ashish hugger at this time Addendum entered by Masoud Lugo RN 06/30/24 16:26: Per MD, plan is to keep pt intubated, start prop and d/c dex, complete CT Addendum entered by Masoud Lugo RN 06/30/24 14:48: informed md of pt's bp. per d/c dip Addendum entered by Masoud Lugo RN 06/30/24 14:41: per do not place OGT or blank at this time Original Note: pt arrived from OR. team at bedside. drips started pr md verbal order. family member at bedside soon after the echo was completed. MD updated family member. per md plan is to extubate pt this afternoon if pt is awake and stable
--- NOTE | 2024-06-30 13:22 | PHA.MEDREC ---
Pharmacy Consult ? Medication Reconciliation RN has completed the medication reconciliation,pharmacy reviewed.
[2024-06-30 13:41] LABS: Alanine Aminotransferase 143 U/L (0-31); Albumin Level 4.1 g/dL (3.5-5.0); Alkaline Phosphatase 73 U/L (39-117); Anion Gap 16 (12-20); Aspartate Amino Transferase 183 U/L (5-31); Bilirubin Total 0.3 mg/dL (0.0-1.0); Blood Urea Nitrogen 13 mg/dL (9-16); Calcium 9.7 mg/dL (8.4-10.2); Carbon Dioxide 27 mmol/L (22-29); Chloride 103 mmol/L (96-108); Creatinine Clr Calc Pharmacy 31.3; Estimated Glomerular Filt Rate 42; Glucose Random 189 mg/dL (60-115); Magnesium 1.8 mg/dL (1.6-2.6); Phosphorus 3.3 mg/dL (2.7-4.5); Potassium 3.6 mmol/L (3.3-5.1); Sodium 142 mmol/L (135-145)
--- NOTE | 2024-06-30 13:42 | P.ENANES_ITS ---
Anesthesia Event Note Date of Service: 06/30/24 Event Note: called to OR stat, found patient supine, blue, CPR in progress, epinephrine apparantly given prior to calling for help x 2 doses as pt was bradycardic HR 20, and trending down still prone soon after procedure completed. immediately intubated , hooked to ventillator, CPR suspended for one sec to assess rythm and pulse, noted to have pulse, AND IN S.TACH. B.P ADEQUATE, NO WHEEZE OR RASH cpr STOPPED 12 LEAD EKG ORDERED HR noted to be trending down again and atropine was given i.v 1mg.. Continued monitoring of vitals which now noted to be stable but with ST AND CHANGES SUGGESTIVE OF EPI EFFECT. [facility] CALLED FOR BEDSIDE ECHO TO RULE OUT WALL MOTION ABN SUSPECT PT WITH VERY LOW PULM RESERVE AND VQ MISMATCH,??? HYPOXIA AND OR BRADYCARDIA LEADING TO THE EVENT PT TRANSFERRED TO ICU INTUBATED, PARALYSED AND SEDATED PHENYLEPHRINE 2 DOSES GIVEN 100 MCGS EACH PRIOR TO TRANSPORT to ICU FOR SBP _90 . report given to installation manager.bedside echo by cards in icu. was able to reach her niece and talk to her , it was relayed that pt took unknown dose of unprescribed morphine prior coming to hospital for procedure today. This combined with intra op propofol for sedation could decrease her resp effort overall further decreasing her reserve increasing risk of hypoxia ppt by a short vasovagal event due to procedure. Time Spent With Patient Time: Total time managing care of this patient today ____ minutes.
[2024-06-30 13:50] LABS: Lactic Acid 2.8 mmol/L (0.5-2.0)
[2024-06-30] MEDS: Piperacillin Sodium/Tazobactam 4.5 GM in 0.9 % Sodium Chloride 100 ML IV ×2 (14:37→22:52)
[2024-06-30 15:14] LABS: Reflex Lactate? Lactic Acid Added
[2024-06-30 16:20] LABS: ~Lactic Acid-LAB USE ONLY 3.5 mmol/L (0.5-2.0)
[2024-06-30 16:49] LABS: ABG Base Excess 2.4 mmol/L; ABG HCO3 28 mmol/L (22-26); ABG pCO2 47 mmHg (32-45); ABG pH 7.38 (7.35-7.45); ABG pO2 79 mmHg (83-108)
[2024-06-30] MEDS: propofoL 1,000 MG/100 ML VIAL 11.59 MG IVCONT ×2 (17:00→21:17)
[2024-06-30 17:53] LABS: Appearance Urine Clear; Color Urine Yellow; Glucose Urine UA Negative (Negative); Leukocyte Esterase Urine Negative (Negative); Nitrite Urine Negative (Negative); Specific Gravity - Urine <= 1.005 (1.005-1.025); UMIC TRIGGER UA YES; Urine Blood Trace (Negative); Urine Ketones Negative (Negative); Urine Protein Trace mg/dL (Neg-Trace)
[2024-06-30 17:59] LABS: Reflex Lactate? 2 Y
[2024-06-30 17:59] LABS: Bacteria Urine None Seen (None Seen); Hyaline Casts Urine 0-2 /LPF (0-2); Squamous Epithelial Cell Urine 0-2 /HPF (0-2); WBC Urine 0-5 /HPF (0-5)
[2024-06-30 18:43] LABS: ~Lactic Acid-LAB USE ONLY 3.8 mmol/L (0.5-2.0)
[2024-06-30] MEDS: iohexoL 350 MG/ML 100 ML INFUS..BTL IV (18:48)
[2024-06-30 19:11] LABS: ABG Refer to POC result
[2024-06-30 19:36] LABS: Glucose, Whole Blood 185 mg/dL (60-115)
[2024-06-30] MEDS: Lactated Ringers 1,000 ML 80 ML IVCONT (20:12)
[2024-06-30 20:56] LABS: MANUAL DIFF FLAG NO
[2024-06-30 20:57] LABS: Basophils Absolute Auto 0.1 X10*3/uL (0.0-0.2); Basophils Percent Auto 0.4 % (0-2); Eosinophils Percent Auto 0.1 % (0-4); Hematocrit 38.2 % (37.0-47.0); Hemoglobin 12.6 g/dl (12.0-16.0); Imm Gran Abs Auto 0.09 X10*3/uL (0.00-0.03); Imm Gran Pct Auto 0.7 % (0.0-0.4); Lymphocytes Absolute Auto 0.8 X10*3/uL (1.2-4.9); Lymphocytes Percent Auto 6.2 % (20-40); Mean Corpuscular Hemoglobin 29.9 pg (27.0-33.0); Mean Corpuscular Volume 90.7 fL (80.0-98.0); Mean Platelet Volume 8.4 fL (9.4-12.3); Monocytes Absolute Auto 0.5 X10*3/uL (0.1-1.2); Monocytes Percent Auto 3.9 % (2-11); Neutrophils Absolute Auto 11.5 x10*3/uL (2.0-8.3); Neutrophils Percent Auto 88.7 % (45-73); Platelet Count 157 X10*3/uL (160-400); Red Blood Count 4.21 X10*6/uL (4.20-5.50); Red Cell Distribution Width 13.2 % (11.0-16.0)
[2024-06-30 21:00] LABS: VBG Base Excess 2.5 mmol/L; VBG HCO3 26 mmol/L (22-26); VBG pCO2 39 mmHg; VBG pH 7.43 (7.32-7.43); VBG pO2 162 mmHg
[2024-06-30 21:01] LABS: Venous Blood Gas Refer to POC result
[2024-06-30 21:19] LABS: Alanine Aminotransferase 114 U/L (0-31); Albumin Level 3.8 g/dL (3.5-5.0); Alkaline Phosphatase 67 U/L (39-117); Anion Gap 16 (12-20); Aspartate Amino Transferase 117 U/L (5-31); Bilirubin Total 0.4 mg/dL (0.0-1.0); Blood Urea Nitrogen 13 mg/dL (9-16); Calcium 9.2 mg/dL (8.4-10.2); Carbon Dioxide 25 mmol/L (22-29); Chloride 101 mmol/L (96-108); Creatinine Clr Calc Pharmacy 30.3; Estimated Glomerular Filt Rate 41; Glucose Random 169 mg/dL (60-115); Magnesium 1.8 mg/dL (1.6-2.6); Phosphorus 2.5 mg/dL (2.7-4.5); Potassium 4.3 mmol/L (3.3-5.1); Sodium 138 mmol/L (135-145); Total Protein 6.5 g/dL (6.5-8.0)
[2024-06-30 21:36] LABS: Troponin-I High Sensitivity 1387.6 ng/L (<3.5-17.0)
[2024-06-30 22:12] LABS: PTT Heparin Drip 31.4 SEC (53-77.9)
[2024-06-30] MEDS: Heparin Sodium,Porcine 5,000 UNIT/ML VIAL 3900 UNIT IVPUSH (22:13)
[2024-06-30] MEDS: Heparin Sodium,Porcine/1/2NS 25,000 UNIT/250 ML IV.SOLN 7.73 UNIT IVCONT (22:18)
[2024-07-01] VITALS (37 sets, daily range): BP systolic 110–190; BP diastolic 53–109; PULSE 62–119; RESP 14–35; TEMP 34.7–38; O2SAT 88–95; BMI 26.6
--- NOTE | 2024-07-01 | ECG_ITS ---
Test Reason : nstemi Blood Pressure : / mmHG Vent. Rate : 075 BPM Atrial Rate : 075 BPM P-R Int : 208 ms QRS Dur : 098 ms QT Int : 474 ms P-R-T Axes : 100 228 -83 degrees QTc Int : 529 ms Suspect limb lead reversal, interpretation assumes no reversal Normal sinus rhythm Right superior axis deviation Pulmonary disease pattern Inferior infarct (cited on or before 30-JUN-2024) T wave abnormality, consider anterolateral ischemia Prolonged QT Abnormal ECG When compared with ECG of 30-JUN-2024 21:52, No significant change was found Referred By: Oh Jeffries Electronically Signed By:JULEE GOSS MD
[2024-07-01] MEDS: propofoL 1,000 MG/100 ML VIAL 15.46 MG IVCONT (02:36)
[2024-07-01] MEDS: fentaNYL citrate/PF 100 MCG/2 ML VIAL 25 MCG IVPUSH ×5 (03:45→23:28)
[2024-07-01 04:42] LABS: MANUAL DIFF FLAG NO
[2024-07-01 04:44] LABS: Basophils Absolute Auto 0.1 X10*3/uL (0.0-0.2); Basophils Percent Auto 0.4 % (0-2); Hematocrit 35.6 % (37.0-47.0); Imm Gran Abs Auto 0.07 X10*3/uL (0.00-0.03); Imm Gran Pct Auto 0.6 % (0.0-0.4); Lymphocytes Absolute Auto 1.1 X10*3/uL (1.2-4.9); Lymphocytes Percent Auto 9.4 % (20-40); Mean Corpuscular HGB Conc 33.7 g/dl (31.0-35.0); Mean Corpuscular Hemoglobin 30.1 pg (27.0-33.0); Mean Corpuscular Volume 89.2 fL (80.0-98.0); Mean Platelet Volume 8.6 fL (9.4-12.3); Monocytes Absolute Auto 0.7 X10*3/uL (0.1-1.2); Monocytes Percent Auto 5.7 % (2-11); Neutrophils Absolute Auto 9.8 x10*3/uL (2.0-8.3); Neutrophils Percent Auto 83.9 % (45-73); Platelet Count 158 X10*3/uL (160-400); Red Blood Count 3.99 X10*6/uL (4.20-5.50); Red Cell Distribution Width 13.2 % (11.0-16.0); White Blood Count 11.7 X10*3/uL (4.8-10.8)
[2024-07-01 04:46] LABS: VBG Base Excess 3.4 mmol/L; VBG HCO3 28 mmol/L (22-26); VBG pCO2 45 mmHg; VBG pO2 56 mmHg
[2024-07-01 04:49] LABS: Venous Blood Gas Refer to POC result
[2024-07-01 04:59] LABS: PTT Heparin Drip 105.7 SEC (53-77.9)
[2024-07-01 05:02] LABS: Alanine Aminotransferase 100 U/L (0-31); Albumin Level 3.9 g/dL (3.5-5.0); Alkaline Phosphatase 68 U/L (39-117); Anion Gap 16 (12-20); Aspartate Amino Transferase 87 U/L (5-31); Bilirubin Total 0.4 mg/dL (0.0-1.0); Blood Urea Nitrogen 14 mg/dL (9-16); Calcium 9.8 mg/dL (8.4-10.2); Carbon Dioxide 28 mmol/L (22-29); Chloride 99 mmol/L (96-108); Creatinine Clr Calc Pharmacy 30.8; Estimated Glomerular Filt Rate 41; Glucose Random 141 mg/dL (60-115); Magnesium 1.7 mg/dL (1.6-2.6); Potassium 4.2 mmol/L (3.3-5.1); Sodium 139 mmol/L (135-145); Total Protein 6.9 g/dL (6.5-8.0)
[2024-07-01 05:07] LABS: Troponin-I High Sensitivity 1533.8 ng/L (<3.5-17.0)
[2024-07-01] MEDS: Pantoprazole Sodium 40 MG/10 ML VIAL IVPUSH (05:45)
[2024-07-01] MEDS: Piperacillin Sodium/Tazobactam 4.5 GM in 0.9 % Sodium Chloride 100 ML IV ×3 (06:34→22:23)
[2024-07-01] MEDS: propofoL 1,000 MG/100 ML VIAL 19.32 MG IVCONT (06:40)
--- NOTE | 2024-07-01 07:14 | PC.NURSE ---
Assumed care at 1900. 2136- critical lab reported to this RN of troponin 1,387.6. HERIBERTO Celaya notified. EKG ordered, HERIBERTO Celaya interpreted EKG changes and initiated NSTEMI Heparin protocol. 3900 units Heparin IVP given per MAR, Heparin gtt started per protocol, see NOV. Pt tolerating, no s/s bleeding. 0507- critical lab reported to this RN of repeat troponin 1,533.8. HERIBERTO Celaya notified, continue heparin gtt protocol. Patient repositioned Q2HR for comfort, bed locked in lowest position, HCP updated on plan of care.
[2024-07-01 08:59] LABS: MRSA Nasal PCR NEGATIVE (Negative); SA Nasal PCR NEGATIVE (Negative)
--- NOTE | 2024-07-01 09:11 | PC.NURSE ---
Primary contact Alicia expressed mild frustration that she is currently the only point of contact for patient. She states she does not want any decision-making power and that power should be with pt's daughter. Education given regarding to whom staff is allowed to give information. Alicia stated that family will be arriving late Wednesday and hope that this issue can be resolved then.
[2024-07-01] MEDS: Lactated Ringers 1,000 ML 80 ML IVCONT ×2 (09:36→22:03)
--- NOTE | 2024-07-01 10:07 | HO.POSTANES ---
Post Anesthesia Evaluation Post Anesthesia Evaluation Date of Service: 07/01/24 Vital Signs: Vital Signs Temp Pulse Resp BP Pulse Ox O2 Del Method FiO2 07/01/24 10:00 98.1 F 70 25 H 161/72 H 95 Mechanical Ventilation 60 07/01/24 08:59 97.9 F 74 18 161/83 H 92 Mechanical Ventilation 60 07/01/24 08:00 50 07/01/24 08:00 95 50 07/01/24 08:00 97.9 F 91 18 110/55 L Mechanical Ventilation 60 07/01/24 07:00 97.7 F 66 20 148/68 H 92 Mechanical Ventilation 60 07/01/24 06:00 97.7 F 67 18 153/75 H 92 Mechanical Ventilation 60 07/01/24 05:00 97.7 F 65 17 148/74 H 92 Mechanical Ventilation 60 07/01/24 04:51 60 07/01/24 04:17 14 07/01/24 04:00 93 60 07/01/24 04:00 97.7 F 66 14 153/71 H 93 Mechanical Ventilation 60 07/01/24 03:45 24 H 07/01/24 03:00 97.7 F 70 18 156/70 H 93 Mechanical Ventilation 60 07/01/24 02:46 81 24 H 157/69 H 93 07/01/24 02:00 96.8 F 77 15 149/71 H 95 Mechanical Ventilation 60 07/01/24 01:00 97.3 F 70 15 155/79 H 95 Mechanical Ventilation 60 07/01/24 00:00 94 60 07/01/24 00:00 96.8 F 71 20 163/83 H 93 Mechanical Ventilation 60 06/30/24 23:00 96.9 F 73 17 155/82 H 99 Mechanical Ventilation 60 06/30/24 22:55 60 Anesthesia: TIVA Mental Status: Sedated Pain Control: Satisfactory Nausea/Vomiting: None Hydration: Adequate Anesthesia-Related Issues: No Anes. Related Issues Comments: still intubated, plans to extubate today, otherwiswe stable
--- NOTE | 2024-07-01 10:31 | PM.CCPN ---
Subjective Subjective Date of Service: 07/01/24 Critical Care Time (minutes): 40 Comment: On ventilator support this morning Propofol for sedation Improvement in ventilator settings Physical Exam Vital Signs: Vital Signs: Last Vital Signs Temp 98.1 F 07/01/24 10:00 Pulse 62 07/01/24 10:15 Resp 25 H 07/01/24 10:00 BP 161/72 H 07/01/24 10:15 Pulse Ox 95 07/01/24 10:00 O2 Del Method Mechanical Ventil ation 07/01/24 10:00 O2 Flow Rate 4 06/30/24 10:35 FiO2 60 07/01/24 10:00 BMI result Body Mass Index 26.6 General: Not in acute distress, ill appearing Nutritional Appearance: well nourished and overweight Eyes: appearance normal, both eyes and all related structures; Alignment and Position: alignment normal and position normal Neck: No lymphadenopathy, no thyromegaly Resp: bilateral air entry equal, occasional added sounds present Cardio: Regular rate, regular rhythm; Heart sounds: S1 normal heart sound present and S2 normal heart sound present GI: soft, nontender, no guarding, no hepatosplenomegaly : bladder normal to inspection, bladder normal to palpation, no renal angle tenderness Skin: no rashes or lesions noted and elasticity normal Neuro: More awake, no focal deficits and moves all extremities Objective Data Labs 07/01/24 04:29 07/01/24 04:29 Labs: Laboratory Results - last 24 hr 06/30/24 06/30/24 06/30/24 11:46 11:53 12:49 WBC 12.1 H RBC 3.89 L Hgb 11.9 L POC Hgb (Calc) TNP Hct 36.1 L POC Hct < 15 L* MCV 92.8 MCH 30.6 MCHC 33.0 RDW 13.3 Plt Count 145 L MPV 8.6 L Immature Gran % (Auto) 2.2 H Neut % (Auto) 50.6 Lymph % (Auto) 40.9 H [place] % (Auto) 3.2 Eos % (Auto) 2.3 Baso % (Auto) 0.8 Lymph # (Auto) 5.0 H [place] # (Auto) 0.4 Eos # (Auto) 0.3 Baso # (Auto) 0.1 Abs Immat Gran (auto) 0.27 H Absolute Neuts (auto) 6.1 Absolute Nucleated RBC 0.000 Nucleated RBC % (auto) 0.0 aPTT Heparin Protocol POC Std Base Excess TNP POC O2 Sat (Calc) TNP O2 Saturation ABG pH at Pt Temp ABG pCO2 at Pt Temp ABG pO2 at Pt Temp ABG HCO3 POC ABG Total CO2 TNP ABG Base Excess (Actual) VBG pH VBG pCO2 VBG pO2 VBG HCO3 VBG O2 Saturation VBG Base Excess POC Capillary pH 7.06 L* POC Capillary pCO2 21 L POC Cap HCO3 (Calc) < 8 L POC Sodium 132 L Sodium 140 POC Potassium 4.0 Potassium 3.9 Chloride 106 Carbon Dioxide 24 Anion Gap 14 BUN Creatinine Estim Creat Clear Calc Estimated GFR POC Glucose 43 L* 190 H Random Glucose Lactic Acid Lactic Acid F/U @ 2Hr Lactic Acid F/U @ 4Hr Calcium Phosphorus Magnesium Total Bilirubin AST ALT Alkaline Phosphatase Troponin I High Sens 14.7 B-Natriuretic Peptide 125 H Total Protein Albumin Urine Color Urine Appearance Urine pH Ur Specific [place] Urine Protein Urine Glucose (UA) Urine Ketones Urine Blood Urine Nitrite Ur Leukocyte Esterase Urine RBC Urine WBC Ur Squamous Epith Cells Urine Bacteria Hyaline Casts Nasal Screen MRSA (PCR) Nasal S. aureus Screen Nasal MRSA/S.aureus Interp 06/30/24 06/30/24 06/30/24 13:09 15:51 16:39 WBC RBC Hgb POC Hgb (Calc) Hct POC Hct MCV MCH MCHC RDW Plt Count MPV Immature Gran % (Auto) Neut % (Auto) Lymph % (Auto) [place] % (Auto) Eos % (Auto) Baso % (Auto) Lymph # (Auto) [place] # (Auto) Eos # (Auto) Baso # (Auto) Abs Immat Gran (auto) Absolute Neuts (auto) Absolute Nucleated RBC Nucleated RBC % (auto) aPTT Heparin Protocol POC Std Base Excess POC O2 Sat (Calc) O2 Saturation 96.0 ABG pH at Pt Temp 7.38 ABG pCO2 at Pt Temp 47 H ABG pO2 at Pt Temp 79 L ABG HCO3 28 H POC ABG Total CO2 ABG Base Excess (Actual) 2.4 VBG pH VBG pCO2 VBG pO2 VBG HCO3 VBG O2 Saturation VBG Base Excess POC Capillary pH POC Capillary pCO2 POC Cap HCO3 (Calc) POC Sodium Sodium 142 POC Potassium Potassium 3.6 Chloride 103 Carbon Dioxide 27 Anion Gap 16 BUN 13 Creatinine 1.22 Estim Creat Clear Calc 31.3 Estimated GFR 42 POC Glucose Random Glucose 189 H Lactic Acid 2.8 H* Lactic Acid F/U @ 2Hr 3.5 H* Lactic Acid F/U @ 4Hr Calcium 9.7 Phosphorus 3.3 Magnesium 1.8 Total Bilirubin 0.3 AST 183 H ALT 143 H Alkaline Phosphatase 73 Troponin I High Sens 406.0 H* D B-Natriuretic Peptide Total Protein 7.0 Albumin 4.1 Urine Color Urine Appearance Urine pH Ur Specific [place] Urine Protein Urine Glucose (UA) Urine Ketones Urine Blood Urine Nitrite Ur Leukocyte Esterase Urine RBC Urine WBC Ur Squamous Epith Cells Urine Bacteria Hyaline Casts Nasal Screen MRSA (PCR) Nasal S. aureus Screen Nasal MRSA/S.aureus Interp 06/30/24 06/30/24 06/30/24 17:14 17:24 18:12 WBC RBC Hgb POC Hgb (Calc) Hct POC Hct MCV MCH MCHC RDW Plt Count MPV Immature Gran % (Auto) Neut % (Auto) Lymph % (Auto) [place] % (Auto) Eos % (Auto) Baso % (Auto) Lymph # (Auto) [place] # (Auto) Eos # (Auto) Baso # (Auto) Abs Immat Gran (auto) Absolute Neuts (auto) Absolute Nucleated RBC Nucleated RBC % (auto) aPTT Heparin Protocol POC Std Base Excess POC O2 Sat (Calc) O2 Saturation ABG pH at Pt Temp ABG pCO2 at Pt Temp ABG pO2 at Pt Temp ABG HCO3 POC ABG Total CO2 ABG Base Excess (Actual) VBG pH VBG pCO2 VBG pO2 VBG HCO3 VBG O2 Saturation VBG Base Excess POC Capillary pH POC Capillary pCO2 POC Cap HCO3 (Calc) POC Sodium Sodium POC Potassium Potassium Chloride Carbon Dioxide Anion Gap BUN Creatinine Estim Creat Clear Calc Estimated GFR POC Glucose Random Glucose Lactic Acid Lactic Acid F/U @ 2Hr Lactic Acid F/U @ 4Hr 3.8 H* Calcium Phosphorus Magnesium Total Bilirubin AST ALT Alkaline Phosphatase Troponin I High Sens B-Natriuretic Peptide Total Protein Albumin Urine Color Yellow Urine Appearance Clear Urine pH 8.0 Ur Specific [place] <= 1.005 Urine Protein Trace Urine Glucose (UA) Negative Urine Ketones Negative Urine Blood Trace H Urine Nitrite Negative Ur Leukocyte Esterase Negative Urine RBC 3-5 H Urine WBC 0-5 Ur Squamous Epith Cells 0-2 Urine Bacteria None Seen Hyaline Casts 0-2 Nasal Screen MRSA (PCR) NEGATIVE Nasal S. aureus Screen NEGATIVE Nasal MRSA/S.aureus Interp SEE NOTE 06/30/24 06/30/24 06/30/24 19:31 20:47 20:56 WBC 13.0 H RBC 4.21 Hgb 12.6 POC Hgb (Calc) Hct 38.2 POC Hct MCV 90.7 MCH 29.9 MCHC 33.0 RDW 13.2 Plt Count 157 L MPV 8.4 L Immature Gran % (Auto) 0.7 H Neut % (Auto) 88.7 H Lymph % (Auto) 6.2 L [place] % (Auto) 3.9 Eos % (Auto) 0.1 Baso % (Auto) 0.4 Lymph # (Auto) 0.8 L [place] # (Auto) 0.5 Eos # (Auto) 0.0 Baso # (Auto) 0.1 Abs Immat Gran (auto) 0.09 H Absolute Neuts (auto) 11.5 H Absolute Nucleated RBC 0.000 Nucleated RBC % (auto) 0.0 aPTT Heparin Protocol POC Std Base Excess POC O2 Sat (Calc) O2 Saturation ABG pH at Pt Temp ABG pCO2 at Pt Temp ABG pO2 at Pt Temp ABG HCO3 POC ABG Total CO2 ABG Base Excess (Actual) VBG pH 7.43 VBG pCO2 39 VBG pO2 162 VBG HCO3 26 VBG O2 Saturation 100.0 VBG Base Excess 2.5 POC Capillary pH POC Capillary pCO2 POC Cap HCO3 (Calc) POC Sodium Sodium 138 POC Potassium Potassium 4.3 Chloride 101 Carbon Dioxide 25 Anion Gap 16 BUN 13 Creatinine 1.26 Estim Creat Clear Calc 30.3 Estimated GFR 41 POC Glucose 185 H Random Glucose 169 H Lactic Acid Lactic Acid F/U @ 2Hr Lactic Acid F/U @ 4Hr Calcium 9.2 Phosphorus 2.5 L Magnesium 1.8 Total Bilirubin 0.4 AST 117 H ALT 114 H Alkaline Phosphatase 67 Troponin I High Sens 1387.6 H* D B-Natriuretic Peptide Total Protein 6.5 Albumin 3.8 Urine Color Urine Appearance Urine pH Ur Specific [place] Urine Protein Urine Glucose (UA) Urine Ketones Urine Blood Urine Nitrite Ur Leukocyte Esterase Urine RBC Urine WBC Ur Squamous Epith Cells Urine Bacteria Hyaline Casts Nasal Screen MRSA (PCR) Nasal S. aureus Screen Nasal MRSA/S.aureus Interp 06/30/24 07/01/24 07/01/24 21:58 04:29 04:36 WBC 11.7 H RBC 3.99 L Hgb 12.0 POC Hgb (Calc) Hct 35.6 L POC Hct MCV 89.2 MCH 30.1 MCHC 33.7 RDW 13.2 Plt Count 158 L MPV 8.6 L Immature Gran % (Auto) 0.6 H Neut % (Auto) 83.9 H Lymph % (Auto) 9.4 L [place] % (Auto) 5.7 Eos % (Auto) 0.0 Baso % (Auto) 0.4 Lymph # (Auto) 1.1 L [place] # (Auto) 0.7 Eos # (Auto) 0.0 Baso # (Auto) 0.1 Abs Immat Gran (auto) 0.07 H Absolute Neuts (auto) 9.8 H Absolute Nucleated RBC 0.000 Nucleated RBC % (auto) 0.0 aPTT Heparin Protocol 31.4 L 105.7 H D POC Std Base Excess POC O2 Sat (Calc) O2 Saturation ABG pH at Pt Temp ABG pCO2 at Pt Temp ABG pO2 at Pt Temp ABG HCO3 POC ABG Total CO2 ABG Base Excess (Actual) VBG pH 7.40 VBG pCO2 45 VBG pO2 56 VBG HCO3 28 H VBG O2 Saturation 86.0 VBG Base Excess 3.4 POC Capillary pH POC Capillary pCO2 POC Cap HCO3 (Calc) POC Sodium Sodium 139 POC Potassium Potassium 4.2 Chloride 99 Carbon Dioxide 28 Anion Gap 16 BUN 14 Creatinine 1.24 Estim Creat Clear Calc 30.8 Estimated GFR 41 POC Glucose Random Glucose 141 H Lactic Acid Lactic Acid F/U @ 2Hr Lactic Acid F/U @ 4Hr Calcium 9.8 D Phosphorus Magnesium 1.7 Total Bilirubin 0.4 AST 87 H ALT 100 H Alkaline Phosphatase 68 Troponin I High Sens 1533.8 H* B-Natriuretic Peptide Total Protein 6.9 Albumin 3.9 Urine Color Urine Appearance Urine pH Ur Specific [place] Urine Protein Urine Glucose (UA) Urine Ketones Urine Blood Urine Nitrite Ur Leukocyte Esterase Urine RBC Urine WBC Ur Squamous Epith Cells Urine Bacteria Hyaline Casts Nasal Screen MRSA (PCR) Nasal S. aureus Screen Nasal MRSA/S.aureus Interp 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: Status: Acute Plan Neuro: Acute encephalopathy possibly due to medication. Risk for hypoxic ischemic injury is low given the short duration of the code and happened in the operating room intubated immediately and circulation maintained. If the patient has very poor mental status we will get a CT or MRI of the brain On propofol for sedation this morning, we will wean off propofol to assist with pressor support trials Close neurological status monitoring in the ICU every hour Cardiac: Cardiogenic Shock: Improved, Possibly secondary to cardiac arrest. Currently off vasopressor support NSTEMI: Troponin continued to increase, most recent being 1500 EKG shows poor progression of R-wave and inverted T-waves in the lateral leads TTE showed no regional wall motion abnormalities Started on heparin drip, continue heparin drip Cardiac arrest: PE cardiac arrest with downtime of about 5 minutes receiving 2 doses of epinephrine Bedside echo showing normal LV systolic function, small RV, collapsing IVCs Possible reason for the code is poor venous return Respiratory: Acute hypoxemic respiratory failure due to aspiration pneumonia Currently on ventilator support On PRVC mode FiO2 50%, PEEP 5,, TV 350, RR 20 placed on pressor support trials if she does well we will extubate the patient Peak pressures and plateau pressures are under the curve Ventilator management bundle with head end elevation, aspiration precaution, chlorhexidine mouthwash, daily awakening trials, daily spontaneous breathing trials CTA ruled out any pulmonary embolism, shows bilateral aspiration pneumonia in the lung bases GI: No issues Renal: Baseline creatinine normal We will closely monitor I's and O's Avoid nephrotoxic medications Heme: Chronic anemia, closely monitor H&H, transfuse for hemoglobin less than 7 grams/deciliter Endocrine: Blood sugars under control Sliding scale insulin as needed Hypothyroidism: We will restart home levothyroxine Infectious disease: Pending pancultures on Zosyn for aspiration pneumonia Musculoskeletal: Decubitus ulcer prevention protocol Lines: Peripheral Prophylaxis: Lovenox, pantoprazole This patient is critical ill status post cardiac arrest on ventilator support, in shock needing vasopressor support. Total critical care time spent is about 45 on evaluating and admitting the patient to critical care unit, formulating critical care plan and management, chart review, review of images, ventilator management, sedation management, close hemodynamic monitoring, weaning trials, postextubation care Quality Stroke Does the patient have a stroke diagnosis?: No VTE Prior VTE?: No VTE Risk Level:: Medical - low VTE Device Contraindication: N/A - Device Ordered VTE Drug Contraindication: N/A - Med Ordered
--- NOTE | 2024-07-01 11:07 | PC.NURSE ---
Sedation stopped at 1014. Pt sson able to follow commands and indicate yes/no appropriately. MD ordered extubatyion. Concrete Floater and RT at bedside. Oral suction provided upon extubation. Pt able to cough. Pt placed on 4L via nasal cannula.
[2024-07-01] MEDS: Heparin Sodium,Porcine 5,000 UNIT/ML VIAL 2600 UNIT IVPUSH (12:12)
[2024-07-01] MEDS: busPIRone HCl 5 MG TABLET 15 MG PO ×2 (13:47→20:53)
[2024-07-01] MEDS: Gabapentin 300 MG CAPSULE PO ×2 (13:47→20:53)
[2024-07-01] MEDS: Atorvastatin Calcium 40 MG TABLET 20 MG PO (13:47)
[2024-07-01] MEDS: Albuterol/Iprat 2.5/0.5MG 3 ML AMPUL.NEB INHALE ×2 (15:04→19:00)
[2024-07-01] MEDS: oxyCODONE HCl Immed Release 5 MG TABLET 10 MG PO ×2 (15:07→20:54)
[2024-07-01] MEDS: Acetaminophen 325 MG TABLET PO ×2 (15:09→20:53)
[2024-07-01] MEDS: Sodium,Potassium Phosphates POWD.PACK 2 PACKET PO (15:15)
[2024-07-01 18:30] LABS: PTT Heparin Drip 64.6 SEC (53-77.9)
[2024-07-01] MEDS: hydrALAZINE HCl 20 MG/ML VIAL 10 MG IVPUSH (21:19)
[2024-07-01] MEDS: Heparin Sodium,Porcine/1/2NS 25,000 UNIT/250 ML IV.SOLN 7.09 UNIT IVCONT (22:30)
[2024-07-01] MEDS: ALPRAZolam 0.5 MG TABLET PO (23:19)
[2024-07-02] VITALS (34 sets, daily range): BP systolic 118–181; BP diastolic 50–104; PULSE 98–136; RESP 17–37; TEMP 36.1–38.4; O2SAT 88–95; BMI 30.8
--- NOTE | 2024-07-02 | ECG_ITS ---
Test Reason : NSTEMI Blood Pressure : / mmHG Vent. Rate : 121 BPM Atrial Rate : 121 BPM P-R Int : 144 ms QRS Dur : 092 ms QT Int : 370 ms P-R-T Axes : 000 -43 157 degrees QTc Int : 525 ms Artifact in tracing Sinus tachycardia Left axis deviation Inferior infarct (cited on or before 30-JUN-2024) T wave abnormality, consider anterolateral ischemia Abnormal ECG When compared with ECG of 01-JUL-2024 10:38, Vent. rate has increased BY 46 BPM Questionable change in QRS axis Referred By: Jory Lyman Electronically Signed By:LUIS MANUEL THORNTON
[2024-07-02 00:45] LABS: PTT Heparin Drip 50.3 SEC (53-77.9)
[2024-07-02] MEDS: Heparin Sodium,Porcine 5,000 UNIT/ML VIAL 2600 UNIT IVPUSH ×2 (00:54→12:52)
[2024-07-02] MEDS: fentaNYL citrate/PF 100 MCG/2 ML VIAL 25 MCG IVPUSH ×5 (03:29→21:16)
[2024-07-02] MEDS: Ketorolac Tromethamine 15 MG/ML VIAL IVPUSH (04:09)
[2024-07-02] MEDS: hydrALAZINE HCl 20 MG/ML VIAL 10 MG IVPUSH (04:10)
[2024-07-02 04:42] LABS: VBG Base Excess 3.3 mmol/L; VBG HCO3 25 mmol/L (22-26); VBG pCO2 30 mmHg; VBG pH 7.53 (7.32-7.43); VBG pO2 76 mmHg
[2024-07-02 04:56] LABS: Venous Blood Gas Refer to POC result
[2024-07-02 05:37] LABS: MANUAL DIFF FLAG NO
[2024-07-02 05:43] LABS: Basophils Absolute Auto 0.1 X10*3/uL (0.0-0.2); Basophils Percent Auto 0.5 % (0-2); Eosinophils Percent Auto 0.1 % (0-4); Hematocrit 35.7 % (37.0-47.0); Hemoglobin 11.9 g/dl (12.0-16.0); Imm Gran Abs Auto 0.17 X10*3/uL (0.00-0.03); Lymphocytes Absolute Auto 1.3 X10*3/uL (1.2-4.9); Lymphocytes Percent Auto 7.3 % (20-40); Mean Corpuscular HGB Conc 33.3 g/dl (31.0-35.0); Mean Corpuscular Hemoglobin 29.2 pg (27.0-33.0); Mean Corpuscular Volume 87.7 fL (80.0-98.0); Mean Platelet Volume 9.4 fL (9.4-12.3); Monocytes Absolute Auto 1.5 X10*3/uL (0.1-1.2); Monocytes Percent Auto 8.4 % (2-11); Neutrophils Absolute Auto 14.5 x10*3/uL (2.0-8.3); Neutrophils Percent Auto 82.7 % (45-73); Platelet Count 181 X10*3/uL (160-400); Red Blood Count 4.07 X10*6/uL (4.20-5.50); Red Cell Distribution Width 14.1 % (11.0-16.0); White Blood Count 17.5 X10*3/uL (4.8-10.8)
[2024-07-02] MEDS: Levothyroxine Sodium 112 MCG TABLET PO (05:53)
[2024-07-02] MEDS: Omeprazole 20 MG CAPSULE.DR PO (05:53)
[2024-07-02 05:59] LABS: Alanine Aminotransferase 64 U/L (0-31); Albumin Level 3.9 g/dL (3.5-5.0); Alkaline Phosphatase 68 U/L (39-117); Anion Gap 17 (12-20); Aspartate Amino Transferase 53 U/L (5-31); Bilirubin Total 0.4 mg/dL (0.0-1.0); Blood Urea Nitrogen 14 mg/dL (9-16); Calcium 9.4 mg/dL (8.4-10.2); Carbon Dioxide 25 mmol/L (22-29); Chloride 101 mmol/L (96-108); Creatinine Clr Calc Pharmacy 32.4; Estimated Glomerular Filt Rate 43; Glucose Random 133 mg/dL (60-115); Magnesium 1.6 mg/dL (1.6-2.6); Phosphorus 3.3 mg/dL (2.7-4.5); Potassium 3.1 mmol/L (3.3-5.1); Sodium 140 mmol/L (135-145); Total Protein 6.7 g/dL (6.5-8.0)
[2024-07-02 06:08] LABS: PTT Heparin Drip 107.6 SEC (53-77.9)
[2024-07-02] MEDS: Piperacillin Sodium/Tazobactam 4.5 GM in 0.9 % Sodium Chloride 100 ML IV ×3 (07:29→23:31)
[2024-07-02] MEDS: Potassium Chloride Packet 20 MEQ PACKET 40 MEQ PO (07:30)
[2024-07-02] MEDS: busPIRone HCl 5 MG TABLET 15 MG PO ×3 (08:04→21:19)
[2024-07-02] MEDS: Gabapentin 300 MG CAPSULE PO ×3 (08:04→21:20)
[2024-07-02] MEDS: Atorvastatin Calcium 40 MG TABLET 20 MG PO (08:04)
[2024-07-02] MEDS: Albuterol/Iprat 2.5/0.5MG 3 ML AMPUL.NEB INHALE ×3 (08:42→20:34)
--- NOTE | 2024-07-02 10:09 | P.PNCC_ITS ---
Subjective Subjective Date of Service: 07/02/24 Critical Care Time (minutes): 35 Comment: Complaints of shortness of breath this morning Also complains of pain in her lower ribs Physical Exam 2 Vital Signs: Vital Signs: Last Vital Signs Temp 99.9 F 07/02/24 10:00 Pulse 115 H 07/02/24 09:00 Resp 30 H 07/02/24 09:00 BP 165/75 H 07/02/24 10:00 Pulse Ox 91 L 07/02/24 10:00 O2 Del Method Nasal Cannula, Ox ymask 07/02/24 10:00 O2 Flow Rate 10 07/02/24 10:00 FiO2 60 07/01/24 10:00 BMI result Body Mass Index 26.6 General: In mild acute distress, tired appearing Nutritional Appearance: well nourished and normal weight Eyes: appearance normal, both eyes and all related structures; Alignment and Position: alignment normal and position normal Neck: No lymphadenopathy, no thyromegaly Resp: bilateral air entry equal, bilateral lung base crackles heard Cardio: Regular rate, regular rhythm; Heart sounds: S1 normal heart sound present and S2 normal heart sound present GI: soft, nontender, no guarding, no hepatosplenomegaly : bladder normal to inspection, bladder normal to palpation, no renal angle tenderness Skin: no rashes or lesions noted and elasticity normal Neuro: oriented to person, oriented to place, oriented to time and moves all extremities Objective Data Labs 07/02/24 04:29 07/02/24 04:30 Labs: Laboratory Results - last 24 hr 07/01/24 07/01/24 07/02/24 11:12 18:16 00:25 WBC RBC Hgb Hct MCV MCH MCHC RDW Plt Count MPV Immature Gran % (Auto) Neut % (Auto) Lymph % (Auto) [place] % (Auto) Eos % (Auto) Baso % (Auto) Lymph # (Auto) [place] # (Auto) Eos # (Auto) Baso # (Auto) Abs Immat Gran (auto) Absolute Neuts (auto) Absolute Nucleated RBC Nucleated RBC % (auto) aPTT Heparin Protocol 51.0 L D 64.6 D 50.3 L D VBG pH VBG pCO2 VBG pO2 VBG HCO3 VBG O2 Saturation VBG Base Excess Sodium Potassium Chloride Carbon Dioxide Anion Gap BUN Creatinine Estim Creat Clear Calc Estimated GFR Random Glucose Calcium Phosphorus Magnesium Total Bilirubin AST ALT Alkaline Phosphatase Total Protein Albumin 07/02/24 07/02/24 07/02/24 04:29 04:30 04:32 WBC 17.5 H RBC 4.07 L Hgb 11.9 L Hct 35.7 L MCV 87.7 MCH 29.2 MCHC 33.3 RDW 14.1 Plt Count 181 MPV 9.4 Immature Gran % (Auto) 1.0 H Neut % (Auto) 82.7 H Lymph % (Auto) 7.3 L [place] % (Auto) 8.4 Eos % (Auto) 0.1 Baso % (Auto) 0.5 Lymph # (Auto) 1.3 [place] # (Auto) 1.5 H Eos # (Auto) 0.0 Baso # (Auto) 0.1 Abs Immat Gran (auto) 0.17 H Absolute Neuts (auto) 14.5 H Absolute Nucleated RBC 0.000 Nucleated RBC % (auto) 0.0 aPTT Heparin Protocol 107.6 H* D VBG pH 7.53 H VBG pCO2 30 VBG pO2 76 VBG HCO3 25 VBG O2 Saturation 96.0 VBG Base Excess 3.3 Sodium 140 Potassium 3.1 L D Chloride 101 Carbon Dioxide 25 Anion Gap 17 BUN 14 Creatinine 1.19 Estim Creat Clear Calc 32.4 Estimated GFR 43 Random Glucose 133 H Calcium 9.4 Phosphorus 3.3 Magnesium 1.6 Total Bilirubin 0.4 AST 53 H ALT 64 H Alkaline Phosphatase 68 Total Protein 6.7 Albumin 3.9 Microbiology Microbiology Results: Microbiology 06/30/24 13:09 Blood - Venous Blood Culture - Preliminary No growth after 24 hours. 06/30/24 13:09 Blood - Venous Blood Culture - Preliminary No growth after 24 hours. 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: Status: Acute Plan NSTEMI: Troponin continued to increase, most recent being 1500 EKG shows poor progression of R-wave and inverted T-waves in the lateral leads TTE showed no regional wall motion abnormalities on heparin drip, continue heparin drip will add aspirin and atorvastatin Cardiac arrest: PE cardiac arrest with downtime of about 5 minutes receiving 2 doses of epinephrine Bedside echo showing normal LV systolic function, small RV, collapsing IVCs Possible reason for the code is poor venous return Hypertension: Started on lisinopril yesterday, dose increased to 20 mg today As needed p.r.n. hydralazine Respiratory: Acute hypoxemic respiratory failure due to aspiration pneumonia CTA ruled out any pulmonary embolism, shows bilateral aspiration pneumonia in the lung bases Complaints of shortness of breaths this morning, IV fluid stopped. Given her a push of Lasix GI: On oral feeds Renal: Baseline creatinine normal We will closely monitor I's and O's Avoid nephrotoxic medications Heme: Chronic anemia, closely monitor H&H, transfuse for hemoglobin less than 7 grams/deciliter Endocrine: Blood sugars under control Sliding scale insulin as needed Hypothyroidism: Continue home levothyroxine Infectious disease: Leukocytosis this morning to 17,000 Pending pancultures on Zosyn for aspiration pneumonia Musculoskeletal: Decubitus ulcer prevention protocol Lines: Peripheral Prophylaxis: Lovenox, pantoprazole Quality Stroke Does the patient have a stroke diagnosis?: No VTE Prior VTE?: No VTE Risk Level:: Medical - low VTE Device Contraindication: N/A - Device Ordered VTE Drug Contraindication: N/A - Med Ordered
[2024-07-02] MEDS: lisinopriL 20 MG TABLET PO (10:12)
[2024-07-02] MEDS: oxyCODONE HCl Immed Release 5 MG TABLET 10 MG PO ×3 (10:12→23:19)
[2024-07-02] MEDS: Furosemide 40 MG/4 ML VIAL IVPUSH (10:33)
[2024-07-02] MEDS: Aspirin 81 MG TAB.CHEW PO (10:34)
[2024-07-02 12:36] LABS: PTT Heparin Drip 43.6 SEC (53-77.9)
[2024-07-02] MEDS: ALPRAZolam 0.5 MG TABLET PO (13:02)
--- NOTE | 2024-07-02 14:29 | MHC.CM.PN ---
Met with patient in regards to discharge planning. Patient lives alone, ambulates with a walker occasionally, has a PYROGLAZER through [facility] and gets oxygen through [employer]. PCP verified. Copy of HCP obtained from [facility] and verified. IMM explained and signed. Patient states her niece will transport her home when medically stable. Patient denies ever going to short term rehab and doesn't feel it will be necessary. Physical therapy for home safety should be ordered when medically stable. Continue to monitor for d/c needs.
[2024-07-02] MEDS: Acetaminophen 325 MG TABLET PO ×2 (17:03→23:19)
[2024-07-02 19:15] LABS: PTT Heparin Drip 58.4 SEC (53-77.9)
[2024-07-02 19:26] LABS: Troponin-I High Sensitivity 1466.4 ng/L (<3.5-17.0)
[2024-07-02] MEDS: traZODone HCL 50 MG TABLET 150 MG PO (21:20)
[2024-07-02] MEDS: Heparin Sodium,Porcine/1/2NS 25,000 UNIT/250 ML IV.SOLN 7.73 UNIT IVCONT (23:42)
[2024-07-03] VITALS (24 sets, daily range): BP systolic 119–168; BP diastolic 48–95; PULSE 97–116; RESP 20–33; TEMP 36.6–38; O2SAT 88–95; BMI 28.1; BMI 29.3
[2024-07-03] MEDS: fentaNYL citrate/PF 100 MCG/2 ML VIAL 25 MCG IVPUSH ×3 (01:18→05:49)
[2024-07-03 01:37] LABS: PTT Heparin Drip 48.1 SEC (53-77.9)
[2024-07-03] MEDS: Heparin Sodium,Porcine 5,000 UNIT/ML VIAL 2600 UNIT IVPUSH (01:46)
[2024-07-03 02:00] LABS: Troponin-I High Sensitivity 1315.1 ng/L (<3.5-17.0)
[2024-07-03] MEDS: Lidocaine 4 % Patch ADH..PATCH 1 PATCH TRANSDERMA (03:55)
[2024-07-03] MEDS: oxyCODONE HCl Immed Release 5 MG TABLET 10 MG PO ×3 (04:53→19:51)
[2024-07-03] MEDS: Levothyroxine Sodium 112 MCG TABLET PO (04:55)
[2024-07-03] MEDS: Acetaminophen 325 MG TABLET PO (04:55)
[2024-07-03 05:05] LABS: VBG HCO3 28 mmol/L (22-26); VBG pCO2 35 mmHg; VBG pH 7.51 (7.32-7.43); VBG pO2 104 mmHg
[2024-07-03] MEDS: Omeprazole 20 MG CAPSULE.DR PO (05:05)
[2024-07-03 05:09] LABS: Venous Blood Gas Refer to POC result
[2024-07-03 05:17] LABS: MANUAL DIFF FLAG NO
[2024-07-03 05:21] LABS: Basophils Absolute Auto 0.1 X10*3/uL (0.0-0.2); Basophils Percent Auto 0.5 % (0-2); Eosinophils Percent Auto 0.1 % (0-4); Hematocrit 34.7 % (37.0-47.0); Hemoglobin 11.9 g/dl (12.0-16.0); Imm Gran Abs Auto 0.19 X10*3/uL (0.00-0.03); Imm Gran Pct Auto 1.2 % (0.0-0.4); Lymphocytes Absolute Auto 1.3 X10*3/uL (1.2-4.9); Lymphocytes Percent Auto 8.1 % (20-40); Mean Corpuscular HGB Conc 34.3 g/dl (31.0-35.0); Mean Corpuscular Hemoglobin 30.1 pg (27.0-33.0); Mean Corpuscular Volume 87.6 fL (80.0-98.0); Mean Platelet Volume 9.6 fL (9.4-12.3); Monocytes Absolute Auto 1.3 X10*3/uL (0.1-1.2); Monocytes Percent Auto 8.1 % (2-11); Neutrophils Absolute Auto 12.9 x10*3/uL (2.0-8.3); Platelet Count 151 X10*3/uL (160-400); Red Blood Count 3.96 X10*6/uL (4.20-5.50); White Blood Count 15.7 X10*3/uL (4.8-10.8)
[2024-07-03 05:38] LABS: Alanine Aminotransferase 42 U/L (0-31); Albumin Level 3.7 g/dL (3.5-5.0); Alkaline Phosphatase 67 U/L (39-117); Anion Gap 18 (12-20); Aspartate Amino Transferase 30 U/L (5-31); Bilirubin Total 0.7 mg/dL (0.0-1.0); Blood Urea Nitrogen 16 mg/dL (9-16); Carbon Dioxide 27 mmol/L (22-29); Chloride 99 mmol/L (96-108); Creatinine Clr Calc Pharmacy 35.8; Estimated Glomerular Filt Rate 45; Glucose Random 133 mg/dL (60-115); Potassium 3.2 mmol/L (3.3-5.1); Sodium 141 mmol/L (135-145); Total Protein 6.8 g/dL (6.5-8.0)
[2024-07-03 05:43] LABS: B Type Natriuretic Peptide 1766 pg/mL (<100)
--- NOTE | 2024-07-03 07:46 | ECG_ITS ---
Test Reason : Troponinemia Blood Pressure : / mmHG Vent. Rate : 112 BPM Atrial Rate : 112 BPM P-R Int : 178 ms QRS Dur : 096 ms QT Int : 330 ms P-R-T Axes : 063 -45 105 degrees QTc Int : 450 ms Sinus tachycardia Left anterior fascicular block Minimal voltage criteria for LVH, may be normal variant ( [place] product ) Cannot rule out Inferior infarct (cited on or before 30-JUN-2024) T wave abnormality, consider lateral ischemia Abnormal ECG When compared with ECG of 02-JUL-2024 11:30, No significant changes seen Referred By: Jory Lyman Electronically Signed By:LUIS MANUEL THORNTON
--- NOTE | 2024-07-03 07:49 | P.PNCC_ITS ---
Subjective Subjective Date of Service: 07/03/24 Critical Care Time (minutes): 0 Physical Exam 2 Vital Signs: Vital Signs: Last Vital Signs Temp 100.2 F 07/03/24 07:00 Pulse 104 H 07/03/24 07:00 Resp 24 H 07/03/24 07:00 BP 153/85 H 07/03/24 07:00 Pulse Ox 93 07/03/24 07:00 O2 Del Method Nasal Cannula 07/03/24 07:00 O2 Flow Rate 8 07/03/24 07:00 FiO2 60 07/01/24 10:00 Oxygen Flow Rate 8 07/02/24 11:00 BMI result Body Mass Index 28.1 Const: General: cooperative, healthy appearing, comfortable, no acute distress, well developed, alert, awake and Physically active O rientation/consciousness: patient oriented x3 HEENT: Head: Yes normal to inspection, Yes normocephalic and Yes atraumatic Eyes: General: appearance normal, both eyes and all related structures Neck: Neck: Yes normal visual inspection, Yes full ROM, Yes no meningeal signs, Yes trachea midline and Yes supple Chest: Chest palpation & inspection: normal inspection of the chest Resp: Other: no appreciable rales, rhonchi, wheezing Effort & Inspection: normal respiratory effort Cardio: Rate: regular rate Rhythm: regular rhythm GI: Inspection: Yes normal to inspection, No Abdominal wall edema and No distended Palpation (GI): Soft to palpation, not firm, nontender, no guarding and not rigid Skin: General skin exam: no rashes or lesions noted Neuro: General: patient oriented x3, tone normal, moves all extremities, no meningeal signs and no focal motor deficits Extrem: General: Yes normal to inspection, Yes full ROM and Yes capillary refill normal Psych: Appearance: grossly normal Objective Data Labs 07/03/24 04:41 07/03/24 04:41 Labs: Laboratory Results - last 24 hr 07/02/24 07/02/24 07/03/24 12:11 18:55 00:59 WBC RBC Hgb Hct MCV MCH MCHC RDW Plt Count MPV Immature Gran % (Auto) Neut % (Auto) Lymph % (Auto) [place] % (Auto) Eos % (Auto) Baso % (Auto) Lymph # (Auto) [place] # (Auto) Eos # (Auto) Baso # (Auto) Abs Immat Gran (auto) Absolute Neuts (auto) Absolute Nucleated RBC Nucleated RBC % (auto) Hold Purple Top SEE NOTE SEE NOTE aPTT Heparin Protocol 43.6 L D 58.4 D 48.1 L VBG pH VBG pCO2 VBG pO2 VBG HCO3 VBG O2 Saturation VBG Base Excess Sodium Potassium Chloride Carbon Dioxide Anion Gap BUN Creatinine Estim Creat Clear Calc Estimated GFR Random Glucose Calcium Total Bilirubin AST ALT Alkaline Phosphatase Troponin I High Sens 1729.0 H* 1466.4 H* 1315.1 H* B-Natriuretic Peptide Total Protein Albumin 07/03/24 07/03/24 07/03/24 04:40 04:41 04:54 WBC 15.7 H RBC 3.96 L Hgb 11.9 L Hct 34.7 L MCV 87.6 MCH 30.1 MCHC 34.3 RDW 14.0 Plt Count 151 L MPV 9.6 Immature Gran % (Auto) 1.2 H Neut % (Auto) 82.0 H Lymph % (Auto) 8.1 L [place] % (Auto) 8.1 Eos % (Auto) 0.1 Baso % (Auto) 0.5 Lymph # (Auto) 1.3 [place] # (Auto) 1.3 H Eos # (Auto) 0.0 Baso # (Auto) 0.1 Abs Immat Gran (auto) 0.19 H Absolute Neuts (auto) 12.9 H Absolute Nucleated RBC 0.000 Nucleated RBC % (auto) 0.0 Hold Purple Top aPTT Heparin Protocol VBG pH 7.51 H VBG pCO2 35 VBG pO2 104 VBG HCO3 28 H VBG O2 Saturation 99.0 VBG Base Excess 6.0 Sodium 141 Potassium 3.2 L Chloride 99 Carbon Dioxide 27 Anion Gap 18 BUN 16 Creatinine 1.16 Estim Creat Clear Calc 35.8 Estimated GFR 45 Random Glucose 133 H Calcium 9.0 Total Bilirubin 0.7 AST 30 ALT 42 H Alkaline Phosphatase 67 Troponin I High Sens B-Natriuretic Peptide 1766 H Total Protein 6.8 Albumin 3.7 Microbiology Microbiology Results: Microbiology 06/30/24 13:09 Blood - Venous Blood Culture - Preliminary No growth after 48 hours. 06/30/24 13:09 Blood - Venous Blood Culture - Preliminary No growth after 48 hours. Progress Note: A&P Assessment and plan (1) Cardiac arrest: Status: Acute Plan Patient is a 83 Y F w/ hypertension, hypothyroidism, COPD, and chronic pain, presenting initially on 06/30 for elective sacroiliac joint injection, c/b PEA in setting of propofol gtt N: no acute issues CV: PEA on 06/30, c/b hypotension, improved; troponinemia, peaked at 1700; on heparin gtt; cardiology consulted R: no acute issues GI: cardiac diet : no acute issues H: on heparin gtt in setting of possible ACS; mild anemia, thrombocytopenia, to monitor ID: possible aspiration pneumonia, on empiric zosyn E: hypothyrodism, on home levothyroxine P: chronic pain; judicious use of pain medications in advanced age Quality Stroke Does the patient have a stroke diagnosis?: No VTE Prior VTE?: No VTE Risk Level:: Medical - moderate - high VTE Device Contraindication: N/A - Device Ordered VTE Drug Contraindication: N/A - Med Ordered
[2024-07-03] MEDS: Furosemide 40 MG/4 ML VIAL IVPUSH (07:57)
[2024-07-03] MEDS: Piperacillin Sodium/Tazobactam 4.5 GM in 0.9 % Sodium Chloride 100 ML IV ×3 (07:58→22:37)
[2024-07-03] MEDS: Albuterol/Iprat 2.5/0.5MG 3 ML AMPUL.NEB INHALE ×3 (08:00→19:26)
[2024-07-03] MEDS: Potassium Chloride ER 20 MEQ TAB.ER.PRT 40 MEQ PO (08:00)
[2024-07-03] MEDS: Lidocaine 4 % Patch ADH..PATCH 2 PATCH TRANSDERMA (08:01)
[2024-07-03] MEDS: Aspirin 81 MG TAB.CHEW PO (08:02)
[2024-07-03] MEDS: Atorvastatin Calcium 40 MG TABLET 20 MG PO (08:02)
[2024-07-03] MEDS: lisinopriL 20 MG TABLET PO (08:02)
[2024-07-03] MEDS: busPIRone HCl 5 MG TABLET 15 MG PO (08:02)
[2024-07-03] MEDS: ALPRAZolam 0.5 MG TABLET PO (08:02)
[2024-07-03] MEDS: Gabapentin 300 MG CAPSULE PO ×3 (08:02→19:52)
[2024-07-03 08:35] LABS: Magnesium 1.6 mg/dL (1.6-2.6); Phosphorus 3.1 mg/dL (2.7-4.5)
[2024-07-03 08:43] LABS: PTT Heparin Drip 66.3 SEC (53-77.9)
[2024-07-03 11:17] LABS: Troponin-I High Sensitivity 787.9 ng/L (<3.5-17.0)
[2024-07-03] MEDS: Heparin Sodium,Porcine/1/2NS 25,000 UNIT/250 ML IV.SOLN 9.02 UNIT IVCONT (12:05)
--- NOTE | 2024-07-03 12:59 | P.EN_ITS ---
Event Note Date of Service: 07/03/24 Event Note: Chart reviewed. Patient remains on IV heparin drip. Case discussed with cardiology who will see the patient tomorrow. For now recommended discontinuation of IV heparin. Continue remainder of care as outlined in the wildlife ecology professor note. Time Spent With Patient Time: Total time managing care of this patient today ____ minutes.
[2024-07-03] MEDS: Acetaminophen 325 MG TABLET 975 MG PO (15:18)
[2024-07-03 15:30] LABS: pO2 Bedside < 50 mmhg (83-108)
[2024-07-03 16:47] LABS: Glucose, Whole Blood 124 mg/dL (60-115)
[2024-07-04] VITALS (12 sets, daily range): BP systolic 115–162; BP diastolic 56–99; PULSE 103–142; RESP 16–24; TEMP 36.2–36.8; O2SAT 83–98; BMI 28.7
[2024-07-04] MEDS: oxyCODONE HCl Immed Release 5 MG TABLET 10 MG PO ×3 (04:15→22:19)
[2024-07-04] MEDS: Acetaminophen 325 MG TABLET 975 MG PO ×3 (04:17→20:02)
[2024-07-04] MEDS: Omeprazole 20 MG CAPSULE.DR PO (06:30)
[2024-07-04] MEDS: Levothyroxine Sodium 112 MCG TABLET PO (06:30)
[2024-07-04 07:10] LABS: MANUAL DIFF FLAG NO
[2024-07-04 07:14] LABS: Basophils Absolute Auto 0.1 X10*3/uL (0.0-0.2); Basophils Percent Auto 0.6 % (0-2); Eosinophils Absolute Auto 0.1 X10*3/uL (0.0-0.4); Eosinophils Percent Auto 0.9 % (0-4); Hematocrit 34.4 % (37.0-47.0); Hemoglobin 11.6 g/dl (12.0-16.0); Imm Gran Abs Auto 0.26 X10*3/uL (0.00-0.03); Imm Gran Pct Auto 1.9 % (0.0-0.4); Lymphocytes Absolute Auto 1.2 X10*3/uL (1.2-4.9); Lymphocytes Percent Auto 8.6 % (20-40); Mean Corpuscular HGB Conc 33.7 g/dl (31.0-35.0); Mean Corpuscular Hemoglobin 29.7 pg (27.0-33.0); Mean Corpuscular Volume 88.2 fL (80.0-98.0); Mean Platelet Volume 9.9 fL (9.4-12.3); Monocytes Absolute Auto 1.1 X10*3/uL (0.1-1.2); Monocytes Percent Auto 8.2 % (2-11); NRBC Pct Auto 0.1 /100WBC (0.0-0.2); Neutrophils Absolute Auto 11.1 x10*3/uL (2.0-8.3); Neutrophils Percent Auto 79.8 % (45-73); Platelet Count 164 X10*3/uL (160-400); Red Cell Distribution Width 13.9 % (11.0-16.0); White Blood Count 13.9 X10*3/uL (4.8-10.8)
[2024-07-04] MEDS: Albuterol/Iprat 2.5/0.5MG 3 ML AMPUL.NEB INHALE ×3 (07:20→19:19)
[2024-07-04 07:34] LABS: Anion Gap 16 (12-20); Blood Urea Nitrogen 21 mg/dL (9-16); Calcium 9.9 mg/dL (8.4-10.2); Carbon Dioxide 26 mmol/L (22-29); Chloride 100 mmol/L (96-108); Estimated Glomerular Filt Rate 41; Glucose Random 126 mg/dL (60-115); Magnesium 1.7 mg/dL (1.6-2.6); Phosphorus 3.1 mg/dL (2.7-4.5); Potassium 3.3 mmol/L (3.3-5.1); Sodium 139 mmol/L (135-145)
[2024-07-04] MEDS: Atorvastatin Calcium 40 MG TABLET 20 MG PO (07:57)
[2024-07-04] MEDS: Gabapentin 300 MG CAPSULE PO ×3 (07:57→20:02)
[2024-07-04] MEDS: busPIRone HCl 5 MG TABLET 15 MG PO ×2 (07:57→20:03)
[2024-07-04] MEDS: ALPRAZolam 0.5 MG TABLET PO (07:57)
[2024-07-04] MEDS: Furosemide 40 MG/4 ML VIAL IVPUSH (07:58)
[2024-07-04] MEDS: Piperacillin Sodium/Tazobactam 4.5 GM in 0.9 % Sodium Chloride 100 ML IV ×3 (07:58→22:14)
[2024-07-04] MEDS: Aspirin 81 MG TAB.CHEW PO (07:58)
[2024-07-04] MEDS: lisinopriL 20 MG TABLET PO (07:58)
[2024-07-04] MEDS: Lidocaine 4 % Patch ADH..PATCH 2 PATCH TRANSDERMA (07:58)
[2024-07-04] MEDS: Tamsulosin HCL 0.4 MG CAPSULE PO (10:17)
--- NOTE | 2024-07-04 10:20 | MHC.CM.PN ---
Per ROUNDS discussion, Patient is not yet medically cleared for dc (still hypoxic); Patient may benefit from a PT Eval to assist with disposition. CM will follow.
--- NOTE | 2024-07-04 10:46 | PM.PNCARD ---
Subjective Subjective Date of Service: 07/04/24 Interval history: Requested by hospitalist to follow-up on this patient. Initial consultation and events reviewed. Patient currently denying any chest pain and denies any previous cardiac history as well. She just says she is tired from all the events. Review of Systems Review of Systems Yes all other systems are reviewed and are negative Constitutional: Reports as per HPI and Reports no additional constitutional complaints Eyes: Reports as per HPI and Denies no additional eye complaints Denies system reviewed and no additional complaints, except as documented and Reports as per HPI Cardiovascular: Reports as per HPI, Reports no additional cardiovascular complaints, Denies acrocyanosis, Denies cool extremities, Denies chest pain, Denies leg edema, Denies lightheadedness, Denies palpitations and Denies dyspnea Respiratory: Reports as per HPI, Denies no additional respiratory complaints and Denies dyspnea Gastrointestinal: Reports as per HPI and Denies no additional gastrointestinal complaints Genitourinary: Reports as per HPI Musculoskeletal: Reports no additional musculoskeletal complaints and Reports as per HPI Skin/Breast: Reports system reviewed and no additional complaints, except as docu Reports system reviewed and no additional complaints, except as documented and Reports as per HPI Psychiatric: Reports no additional psychiatric complaints and Reports as per HPI Endocrine: Reports no additional endocrine complaints, Reports as per HPI and Denies palpitations Hematologic/Lymphatic: Reports no additional hematologic/lymphatic complaints and Reports as per HPI Allergic/Immunologic: Reports no additional allergic/immunologic complaints and Reports as per HPI Physical Exam Vital Signs: Last Vital Signs Temp 97.2 F 07/04/24 07:43 Pulse 107 H 07/04/24 07:43 Resp 18 07/04/24 07:43 BP 152/72 H 07/04/24 07:43 Pulse Ox 91 L 07/04/24 07:43 O2 Del Method Nasal Cannula 07/04/24 07:43 O2 Flow Rate 5 07/04/24 07:43 FiO2 60 07/01/24 10:00 Oxygen Flow Rate 8 07/02/24 11:00 BMI result Body Mass Index 28.7 Const General: comfortable and no acute distress Orientation/consciousness: patient oriented x3 HEENT Other: Unremarkable Head: Yes normal to inspection Neck Neck: Yes normal visual inspection Chest Chest palpation & inspection: normal inspection of the chest Resp Auscultation: diminished lung sounds Cardio Palpation: normal PMI Heart sounds: S1 normal heart sound present, S2 normal heart sound present, no gallops, no murmurs and no rubs GI Palpation (GI): Soft to palpation Back/Spine/Pelvis Other: unremarkable Skin General skin exam: no rashes or lesions noted Neuro General: patient oriented x3 Extrem General: Yes normal to inspection Psych Mental Status: mental status grossly normal Objective Labs and Meds 07/04/24 06:33 07/04/24 06:33 Lab results: Laboratory Results - last 24 hr 06/30/24 07/03/24 07/03/24 11:46 08:16 10:38 WBC RBC Hgb Hct MCV MCH MCHC RDW Plt Count MPV Immature Gran % (Auto) Neut % (Auto) Lymph % (Auto) [place] % (Auto) Eos % (Auto) Baso % (Auto) Lymph # (Auto) [place] # (Auto) Eos # (Auto) Baso # (Auto) Abs Immat Gran (auto) Absolute Neuts (auto) Absolute Nucleated RBC Nucleated RBC % (auto) Hold Purple Top SEE NOTE POC ABG pO2 < 50 L* Sodium Potassium Chloride Carbon Dioxide Anion Gap BUN Creatinine Estim Creat Clear Calc Estimated GFR POC Glucose Random Glucose Calcium Phosphorus Magnesium Troponin I High Sens 787.9 H* 07/03/24 07/04/24 16:35 06:33 WBC 13.9 H RBC 3.90 L Hgb 11.6 L Hct 34.4 L MCV 88.2 MCH 29.7 MCHC 33.7 RDW 13.9 Plt Count 164 MPV 9.9 Immature Gran % (Auto) 1.9 H Neut % (Auto) 79.8 H Lymph % (Auto) 8.6 L [place] % (Auto) 8.2 Eos % (Auto) 0.9 Baso % (Auto) 0.6 Lymph # (Auto) 1.2 [place] # (Auto) 1.1 Eos # (Auto) 0.1 Baso # (Auto) 0.1 Abs Immat Gran (auto) 0.26 H Absolute Neuts (auto) 11.1 H Absolute Nucleated RBC 0.020 H Nucleated RBC % (auto) 0.1 Hold Purple Top POC ABG pO2 Sodium 139 Potassium 3.3 Chloride 100 Carbon Dioxide 26 Anion Gap 16 BUN 21 H Creatinine 1.26 Estim Creat Clear Calc 32.0 Estimated GFR 41 POC Glucose 124 H Random Glucose 126 H Calcium 9.9 D Phosphorus 3.1 Magnesium 1.7 Troponin I High Sens Progress Note: A&P Assessment and plan (1) Cardiac arrest: Status: Acute (2) Acute hypoxemic respiratory failure: Status: Acute (3) NSTEMI (non-ST elevated myocardial infarction): Status: Acute Plan Suspected second-degree NSTEMI in the setting of a acute hypoxic respiratory failure in the setting of advanced lung disease. Patient denies any prior cardiac history but suspect that she probably does have some coronary disease especially with her age and comorbidities. At the current time, she has completed several days IV heparin and does not have any chest pain or any clear cardiac symptoms. Echocardiogram with preserved LVEF, 65-70%; severe mitral annular calcification. She remains on aspirin and statins. With advanced lung disease, overall guarded prognosis. Additionally, workup for any concurrent cardiac issues including obstructive CAD we will also be limited. Most likely, will need to just treat empirically for underlying coronary disease. Continue her usual blood pressure medications; statins. We will arrange follow-up in clinic. Time Spent With Patient Time: Total time managing care of this patient today ____ minutes. Progress Note: Quality Stroke Does the patient have a stroke diagnosis?: No Procedures Date of Service Date of Service: 07/04/24
--- NOTE | 2024-07-04 14:23 | PC.NURSE ---
Patient blank removed 07/03, pt straight cathed twice overnight. pt feels the need to void but unable to void. dr. ocx made aware, flomax ordered and given, pt still cannot void despite walking and sitting on toilet. bladder scanned for 840mls. order for blank. blank replaced. initial output 600mls clear yellow urine no odor
--- NOTE | 2024-07-04 15:41 | MHC.CM.PN ---
Per PT, Patient may benefit from inpatient pulmonary rehab; CM will follow.
--- NOTE | 2024-07-04 15:44 | P.PNIM_ITS ---
Subjective Subjective Date of Service: 07/04/24 Interval History: ahrf s/p cardiac arrest Review of Systems sob somewhat improving Physical Exam 2 Vital Signs: Vital Signs: Last Vital Signs Temp 97.5 F 07/04/24 15:37 Pulse 103 H 07/04/24 15:37 Resp 19 07/04/24 15:37 BP 115/56 L 07/04/24 15:37 Pulse Ox 94 07/04/24 15:37 O2 Del Method Nasal Cannula 07/04/24 15:37 O2 Flow Rate 6 07/04/24 15:37 FiO2 60 07/01/24 10:00 Oxygen Flow Rate 8 07/02/24 11:00 BMI result Body Mass Index 28.7 Appearance: Alert.? Oriented X3.?sob seems somewhat improving cvs: rrr, [id number] . res: air entry fair , few faint rhonchii at bases. abd: no rebound or guarding ,nt, bs present. ext pulses present , no cyanosis. neuro: axo3 , nonfocal. Objective Data Active Medications Acetaminophen (Acetaminophen 325 Mg Tablet) 975 mg PO Q6H PRN PRN Reason: Pain, Moderate(Pain Scale 4-6) Last Admin: 07/04/24 10:17 Dose: 975 mg Documented By: JOANNE Albuterol Sulfate (Albuterol Sulfate (0.083%) 2.5 Mg/3 Ml Vial.Neb) 2.5 mg INHALE ONCE PRN PRN Reason: Shortness of Breath/Wheezing Albuterol/Ipratropium (Albuterol/Iprat 2.5/0.5mg 3 Ml Ampul.Neb) 3 ml INHALE RQ6H WHILE AWAKE [facility] Last Admin: 07/04/24 13:04 Dose: 3 ml Documented By: SORAIDA Alprazolam (Alprazolam 0.5 Mg Tablet) 0.5 mg PO DAILY [facility] Last Admin: 07/04/24 07:57 Dose: 0.5 mg Documented By: JOANNE Aspirin (Aspirin 81 Mg Tab.Chew) 81 mg PO DAILY [facility] Last Admin: 07/04/24 07:58 Dose: 81 mg Documented By: JOANNE Atorvastatin Calcium (Atorvastatin Calcium 40 Mg Tablet) 20 mg PO DAILY [facility] Last Admin: 07/04/24 07:57 Dose: 20 mg Documented By: JOANNE Buspirone HCl (Buspirone Hcl 5 Mg Tablet) 15 mg PO TID PRN PRN Reason: Anxiety Last Admin: 07/04/24 07:57 Dose: 15 mg Documented By: COTEMA Furosemide (Furosemide 40 Mg/4 Ml Vial) 40 mg IVPUSH DAILY [facility]; Protocol Last Admin: 07/04/24 07:58 Dose: 40 mg Documented By: COTEMA Gabapentin (Gabapentin 300 Mg Capsule) 300 mg PO TID [facility] Last Admin: 07/04/24 14:38 Dose: 300 mg Documented By: COTEMA Hydralazine HCl (Hydralazine Hcl 20 Mg/Ml Vial) 10 mg IVPUSH Q4H PRN; Protocol PRN Reason: SBP > 160 Last Admin: 07/02/24 04:10 Dose: 10 mg Documented By: SUPPLEK Piperacillin Sod/Tazobactam (Sod 4.5 gm/ Sodium Chloride) 100 mls @ 200 mls/hr IV Q8H [facility] Last Infusion: 07/04/24 15:19 Dose: Infused Documented By: JOANNE Levothyroxine Sodium (Levothyroxine Sodium 112 Mcg Tablet) 112 mcg PO DAILY@0600 [facility] Last Admin: 07/04/24 06:30 Dose: 112 mcg Documented By: BONITA Lidocaine (Lidocaine 4 % Patch Adh..Patch) 2 patch TRANSDERMA DAILY [facility] Last Admin: 07/04/24 07:58 Dose: 2 patch Documented By: COTEMA Lisinopril (Lisinopril 20 Mg Tablet) 20 mg PO DAILY [facility]; Protocol Last Admin: 07/04/24 07:58 Dose: 20 mg Documented By: JOANNE Omeprazole (Omeprazole 20 Mg Capsule.Dr) 20 mg PO DAILY@0630 [facility] Last Admin: 07/04/24 06:30 Dose: 20 mg Documented By: BONITA Oxycodone HCl (Oxycodone Hcl Immed Release 5 Mg Tablet) 10 mg PO QID PRN PRN Reason: Pain, Moderate(Pain Scale 4-6) Last Admin: 07/04/24 10:17 Dose: 10 mg Documented By: DAVIDEMA Tamsulosin HCl (Tamsulosin Hcl 0.4 Mg Capsule) 0.4 mg PO DAILY [facility] Last Admin: 07/04/24 10:17 Dose: 0.4 mg Documented By: COTARGENIS Trazodone HCl (Trazodone Hcl 50 Mg Tablet) 150 mg PO BEDTIME PRN PRN Reason: Insomnia Last Admin: 07/02/24 21:20 Dose: 150 mg Documented By: NAUMOC Labs 07/04/24 06:33 07/04/24 06:33 Labs: Laboratory Results - last 24 hr 07/03/24 07/04/24 16:35 06:33 MCV 88.2 MCH 29.7 MCHC 33.7 RDW 13.9 Plt Count 164 MPV 9.9 Immature Gran % (Auto) 1.9 H Neut % (Auto) 79.8 H Lymph % (Auto) 8.6 L [place] % (Auto) 8.2 Eos % (Auto) 0.9 Baso % (Auto) 0.6 Lymph # (Auto) 1.2 [place] # (Auto) 1.1 Eos # (Auto) 0.1 Baso # (Auto) 0.1 Abs Immat Gran (auto) 0.26 H Absolute Neuts (auto) 11.1 H Absolute Nucleated RBC 0.020 H Nucleated RBC % (auto) 0.1 Anion Gap 16 Estim Creat Clear Calc 32.0 Estimated GFR 41 POC Glucose 124 H Random Glucose 126 H Calcium 9.9 D Phosphorus 3.1 Magnesium 1.7 Microbiology Microbiology Results: Microbiology 07/03/24 03:40 Gram Stain - Final Sputum - Expectorated Sputum Culture - Preliminary Culture in progress. Assessment and Plan (1) Acute hypoxemic respiratory failure: Status: Acute Assessment and Plan: day-5 83-year-old lady past medical history of COPD, hypertension, hypothyroidism chronic pain syndrome was seen by pain medicine for bilateral sacroiliac joint pain. She was brought to the hospital for an elective sacroiliac joint injections, patient received propofol for sedation for the procedure, during the patient procedure well the patient was turned around she went into PEA cardiac arrest, code lasted for about 5 minutes before ROSC receiving 2 doses of epinephrine and intubated during the code. She was also found to be hypotensive post code received few pushes of phenylephrine and is being transferred to medical ICU. Acute metabolic encephalopathy possibly due to medication. per chart review from icu-Risk for hypoxic ischemic injury is low given the short duration of the code and happened in the operating room intubated immediately and circulation maintained. mental status seems improving nstemi -Suspected second-degree NSTEMI in the setting of a acute hypoxic respiratory failure in the setting of advanced lung disease and s/p cardiac arrest. echo showed small RV, collapsing IVCs off heparin drip, continue asa ,added lipid panel for am. Cardiology evaluation Acute hypoxemic respiratory failure due to aspiration pneumonia-intubated and extubated ,tranferred to floor continue zosyn(intiated on 06/30/24), tpaer oxygen, nebs htn : on lisinopril Hypothyroidism: on levothyroxine Prophylaxis: Lovenox, pantoprazole Ongoing need of hospitalization: Acute hypoxemic respiratory failure secondary to aspiration pneumonia: Need IV antibiotics, oxygen tapering, cardiology evaluation Quality Stroke Does the patient have a stroke diagnosis?: No VTE Prior VTE?: No VTE Risk Level:: Medical - moderate - high VTE Device Contraindication: N/A - Device Ordered VTE Drug Contraindication: N/A - Med Ordered
--- NOTE | 2024-07-04 15:59 | PC.NURSE ---
PT wears home oxygen 2L at rest and 4L with ambulation. Per Dr. cox O2 sat goal 88%-92%. Pt placed on 4L NC current O2 sat 88%.
[2024-07-05] VITALS (8 sets, daily range): BP systolic 115–172; BP diastolic 67–92; PULSE 92–135; RESP 20; TEMP 36.2–36.6; O2SAT 88–93
[2024-07-05] MEDS: Acetaminophen 325 MG TABLET 975 MG PO ×2 (02:06→20:02)
[2024-07-05] MEDS: Levothyroxine Sodium 112 MCG TABLET PO (06:31)
[2024-07-05] MEDS: Omeprazole 20 MG CAPSULE.DR PO (06:31)
[2024-07-05 06:58] LABS: MANUAL DIFF FLAG NO
[2024-07-05 07:09] LABS: Basophils Absolute Auto 0.1 X10*3/uL (0.0-0.2); Basophils Percent Auto 0.8 % (0-2); Eosinophils Absolute Auto 0.3 X10*3/uL (0.0-0.4); Eosinophils Percent Auto 2.2 % (0-4); Hematocrit 35.1 % (37.0-47.0); Hemoglobin 11.5 g/dl (12.0-16.0); Imm Gran Abs Auto 0.26 X10*3/uL (0.00-0.03); Imm Gran Pct Auto 2.1 % (0.0-0.4); Lymphocytes Absolute Auto 1.2 X10*3/uL (1.2-4.9); Lymphocytes Percent Auto 9.9 % (20-40); Mean Corpuscular HGB Conc 32.8 g/dl (31.0-35.0); Mean Corpuscular Hemoglobin 29.1 pg (27.0-33.0); Mean Corpuscular Volume 88.9 fL (80.0-98.0); Mean Platelet Volume 10.2 fL (9.4-12.3); Monocytes Absolute Auto 1.1 X10*3/uL (0.1-1.2); Monocytes Percent Auto 8.6 % (2-11); Neutrophils Absolute Auto 9.5 x10*3/uL (2.0-8.3); Neutrophils Percent Auto 76.4 % (45-73); Platelet Count 196 X10*3/uL (160-400); Red Blood Count 3.95 X10*6/uL (4.20-5.50); Red Cell Distribution Width 13.8 % (11.0-16.0); White Blood Count 12.4 X10*3/uL (4.8-10.8)
[2024-07-05] MEDS: Albuterol/Iprat 2.5/0.5MG 3 ML AMPUL.NEB INHALE ×2 (07:22→18:49)
[2024-07-05 07:27] LABS: Cholesterol 185 mg/dL (<200); HDL Cholesterol 59 mg/dL (>40); LDL Cholesterol Calculated 91 mg/dL (<100); Triglycerides 177 mg/dL (<150)
[2024-07-05 07:34] LABS: Anion Gap 17 (12-20); Blood Urea Nitrogen 22 mg/dL (9-16); Carbon Dioxide 26 mmol/L (22-29); Chloride 99 mmol/L (96-108); Estimated Glomerular Filt Rate 41; Glucose Random 121 mg/dL (60-115); Magnesium 1.7 mg/dL (1.6-2.6); Phosphorus 3.4 mg/dL (2.7-4.5); Potassium 3.4 mmol/L (3.3-5.1); Sodium 139 mmol/L (135-145)
[2024-07-05] MEDS: Furosemide 40 MG/4 ML VIAL IVPUSH (08:09)
[2024-07-05] MEDS: Lidocaine 4 % Patch ADH..PATCH 2 PATCH TRANSDERMA (08:09)
[2024-07-05] MEDS: Atorvastatin Calcium 40 MG TABLET 20 MG PO (08:10)
[2024-07-05] MEDS: Tamsulosin HCL 0.4 MG CAPSULE PO (08:10)
[2024-07-05] MEDS: Aspirin 81 MG TAB.CHEW PO (08:10)
[2024-07-05] MEDS: Gabapentin 300 MG CAPSULE PO ×3 (08:10→20:02)
[2024-07-05] MEDS: lisinopriL 20 MG TABLET PO (08:10)
[2024-07-05] MEDS: ALPRAZolam 0.5 MG TABLET PO ×2 (08:10→12:44)
[2024-07-05] MEDS: Piperacillin Sodium/Tazobactam 4.5 GM in 0.9 % Sodium Chloride 100 ML IV ×3 (08:16→23:38)
--- NOTE | 2024-07-05 10:38 | MHC.CM.PN ---
PT recommends Pulmonary rehab at discharge. The patient prefers to discharge to home. A call was placed to the patients Alicia alexander. Alicia states that prior to this admission the patient was registered for outpatient pulmonary rehab at [facility]. The patient lives alone but family members will stay with her overnight @ discharge. The DP is home with family support and transport. Pulmonary rehab @ [facility]. Alicia will provide transportation to outpt pulmonary rehab. A Vascular surgery consult is planned prior to discharge.
[2024-07-05 12:27] LABS: Adenovirus F 40/41 Not Detected (Not Detect.); Astrovirus Not Detected (Not Detect.); Campylobacter Not Detected (Not Detect.); Cryptosporidium Not Detected (Not Detect.); Cyclospora cayetanensis Not Detected (Not Detect.); E. coli EAEC Not Detected (Not Detect.); E. coli EPEC Not Detected (Not Detect.); E. coli ETEC Not Detected (Not Detect.); E. coli STEC Not Detected (Not Detect.); Entamoeba histolytica Not Detected (Not Detect.); Giardia lamblia Not Detected (Not Detect.); Norovirus GI/GII Not Detected (Not Detect.); Plesiomonas shigelloides Not Detected (Not Detect.); Rotavirus A Not Detected (Not Detect.); Salmonella Not Detected (Not Detect.); Sapovirus Not Detected (Not Detect.); Shigella sp./EIEC Not Detected (Not Detect.); Vibrio Not Detected (Not Detect.); Vibrio Cholerae Not Detected (Not Detect.); Yersinia enterocolitica Not Detected (Not Detect.)
--- NOTE | 2024-07-05 12:29 | P.CONGS_ITS ---
<Statement entered by Víctor Mcclure MD - 07/06/24 09:27> I have seen and evaluated the patient and agree with history, findings, assessment and plan documented by Leticia Guillen PA-c. Patient with significant atherosclerotic disease. Does not appear to be an acute issue. We can follow- up as an outpatient. Thank you for allowing us to assist in her care History of Present Illness Consult details Consult date: 07/05/24 Narrative: Consulted by Hospitalist team due to findings on abd CT of several areas of stenosis with the abdominal aorta, splenic artery, ostium of the SMA, and at the aortoiliac bifurcation. The pt initially presented for a procedure and had a reaction to medication and went into cardiac arrest. She remains on O2. She denies any abd pain, nausea, vomiting. She does endorse all over weakness but states she has not been out of bed/chair much. She states prior to this procedure she denied any abd pain/nausea/weakness. She is a former smoker, quit about 8-10y ago but was a 1ppd smoker for 40+ years. She is not a diabetic. Review of Systems 2 Constitutional: Constitutional: Reports as per HPI and Reports weakness ENT: Reports Normal hearing present and Denies dizziness Cardiovascular: Cardiovascular: Reports as per HPI, Denies chest pain, Denies chest pain at rest, Denies chest pain with activity, Denies dyspnea and Denies dyspnea on exertion Respiratory: Respiratory: Reports as per HPI, Denies cough, Denies dyspnea and Denies dyspnea on exertion Gastrointestinal: Gastrointestinal: Reports as per HPI, Denies abdominal pain, Denies nausea and Denies vomiting Musculoskeletal: Musculoskeletal: Denies numbness Integumentary/Breasts: Skin/Breast: Reports as per HPI, Denies erythema and Denies wounds Neurologic: Reports Normal hearing present, Denies dizziness, Denies numbness, Denies Sensory deficit (Neuro) and Reports weakness Psychiatric: Psychiatric: Reports no additional psychiatric complaints Endocrine: Endocrine: Reports no additional endocrine complaints [facility] Past Medical History Medical History (Updated 07/05/24 @ 12:48 by Leticia Guillen PA-C) Oxygen dependent COPD (chronic obstructive pulmonary disease) Elevated cholesterol Salivary gland tumor Osteoporosis HTN (hypertension) Hypothyroid Degeneration of lumbar or lumbosacral intervertebral disc Chronic pain syndrome Surgical History Surgical History Hx of excision of mass History of surgery Social History Social History Household Members: Unknown / Unable to assess Housing: Unknown / Unable to assess Unable to assess alcohol history related to: Unable to respond Patient Tobacco Use Status: Former Tobacco user service: No Meds Allergies Allergy/AdvReac Type Severity Reaction Status Date / Time alendronate sodium Allergy Unknown Unknown Verified 06/30/24 13:34 pregabalin [From Lyrica] Allergy Unknown Unknown Verified 06/30/24 13:34 metoprolol AdvReac Unknown Unknown Verified 06/30/24 13:34 Active Medications: Current Medications Acetaminophen (Acetaminophen 325 Mg Tablet) 975 mg PO Q6H PRN PRN Reason: Pain, Moderate(Pain Scale 4-6) Last Admin: 07/05/24 02:06 Dose: 975 mg Albuterol Sulfate (Albuterol Sulfate (0.083%) 2.5 Mg/3 Ml Vial.Neb) 2.5 mg INHALE ONCE PRN PRN Reason: Shortness of Breath/Wheezing Albuterol/Ipratropium (Albuterol/Iprat 2.5/0.5mg 3 Ml Ampul.Neb) 3 ml INHALE RQ6H WHILE AWAKE [facility] Last Admin: 07/05/24 07:22 Dose: 3 ml Alprazolam (Alprazolam 0.5 Mg Tablet) 0.5 mg PO DAILY [facility] Last Admin: 07/05/24 08:10 Dose: 0.5 mg Aspirin (Aspirin 81 Mg Tab.Chew) 81 mg PO DAILY [facility] Last Admin: 07/05/24 08:10 Dose: 81 mg Atorvastatin Calcium (Atorvastatin Calcium 40 Mg Tablet) 20 mg PO DAILY [facility] Last Admin: 07/05/24 08:10 Dose: 20 mg Buspirone HCl (Buspirone Hcl 5 Mg Tablet) 15 mg PO TID PRN PRN Reason: Anxiety Last Admin: 07/04/24 20:03 Dose: 15 mg Furosemide (Furosemide 40 Mg/4 Ml Vial) 40 mg IVPUSH DAILY [facility]; Protocol Last Admin: 07/05/24 08:09 Dose: 40 mg Gabapentin (Gabapentin 300 Mg Capsule) 300 mg PO TID [facility] Last Admin: 07/05/24 08:10 Dose: 300 mg Hydralazine HCl (Hydralazine Hcl 20 Mg/Ml Vial) 10 mg IVPUSH Q4H PRN; Protocol PRN Reason: SBP > 160 Last Admin: 07/02/24 04:10 Dose: 10 mg Piperacillin Sod/Tazobactam (Sod 4.5 gm/ Sodium Chloride) 100 mls @ 200 mls/hr IV Q8H [facility] Last Infusion: 07/05/24 08:59 Dose: Infused Levothyroxine Sodium (Levothyroxine Sodium 112 Mcg Tablet) 112 mcg PO DAILY@0600 [facility] Last Admin: 07/05/24 06:31 Dose: 112 mcg Lidocaine (Lidocaine 4 % Patch Adh..Patch) 2 patch TRANSDERMA DAILY [facility] Last Admin: 07/05/24 08:09 Dose: 2 patch Lisinopril (Lisinopril 20 Mg Tablet) 20 mg PO DAILY [facility]; Protocol Last Admin: 07/05/24 08:10 Dose: 20 mg Omeprazole (Omeprazole 20 Mg Capsule.Dr) 20 mg PO DAILY@0630 [facility] Last Admin: 07/05/24 06:31 Dose: 20 mg Oxycodone HCl (Oxycodone Hcl Immed Release 5 Mg Tablet) 10 mg PO QID PRN PRN Reason: Pain, Moderate(Pain Scale 4-6) Last Admin: 07/04/24 22:19 Dose: 10 mg Tamsulosin HCl (Tamsulosin Hcl 0.4 Mg Capsule) 0.4 mg PO DAILY [facility] Last Admin: 07/05/24 08:10 Dose: 0.4 mg Trazodone HCl (Trazodone Hcl 50 Mg Tablet) 150 mg PO BEDTIME PRN PRN Reason: Insomnia Last Admin: 07/02/24 21:20 Dose: 150 mg Home Medications ?Medication ?Instructions ?Recorded ?Confirmed ?Last Taken ?Type alprazolam 0.5 mg tablet 0.5 mg PO DAILY 12/08/23 06/30/24 06/29/24 History buspirone 15 mg tablet 15 mg PO TID 12/08/23 06/30/24 06/29/24 History cetirizine 10 mg tablet 10 mg PO DAILY PRN allergies 12/08/23 06/30/24 06/29/24 History famotidine 40 mg tablet 40 mg PO DAILY 12/08/23 06/28/24 Unknown History gabapentin 300 mg capsule 300 mg PO TID 12/08/23 06/30/24 06/29/24 History levothyroxine 112 mcg capsule 112 mcg PO DAILY 12/08/23 06/30/24 06/29/24 History lisinopril 40 mg tablet 40 mg PO DAILY 12/08/23 06/30/24 06/29/24 History montelukast 10 mg tablet 10 mg PO DAILY 12/08/23 06/30/24 06/29/24 History simvastatin 40 mg tablet 40 mg PO DAILY 12/08/23 06/30/24 06/29/24 History trazodone 150 mg tablet 150 mg PO BEDTIME PRN Insomnia 12/08/23 06/30/24 06/29/24 History diclofenac sodium 1 % topical gel 1 ea topical BID 04/21/24 06/28/24 Unknown History loratadine 10 mg tablet 10 mg PO DAILY 04/21/24 06/30/24 06/29/24 History naloxone 4 mg/actuation nasal spray intranasal 04/21/24 Unknown History umeclidinium 62.5 mcg/actuation 1 inh inhalation DAILY 04/21/24 06/30/24 06/29/24 History blister powder for inhalation (Incruse Ellipta) hydrocodone 10 mg-acetaminophen 1 tab PO QID PRN Pain 06/30/24 06/30/24 06/30/24 History 325 mg tablet Physical Exam 2 Vital Signs: Vital Signs: Last Vital Signs Temp 97.2 F 07/05/24 12:00 Pulse 135 H 07/05/24 12:02 Resp 20 07/05/24 12:00 BP 126/78 07/05/24 12:00 Pulse Ox 88 L 07/05/24 12:02 O2 Del Method Nasal Cannula 07/05/24 12:00 O2 Flow Rate 4 07/05/24 12:00 FiO2 60 07/01/24 10:00 Oxygen Flow Rate 8 07/02/24 11:00 BMI result Body Mass Index 28.7 Const: General: healthy appearing and no acute distress O rientation/consciousness: patient oriented x3 HEENT: Head: Yes normal to inspection Ears: hearing grossly normal bilaterally Mouth: Normal oral and palatal mucosa present Resp: Effort & Inspection: normal respiratory effort and able to speak in complete sentences Auscultation: clear to auscultation bilaterally Cardio: Jugular venous distension: no JVD Rate: regular rate Rhythm: r egular rhythm Heart sounds: S1 normal heart sound present and S2 normal heart sound present Bruits: no abdominal aortic bruits, no carotid bruits, no femoral bruits and no renal bruits Peripheral pulses: Peripheral pulses 2+ throughout GI: Inspection: Yes normal to inspection Palpation (GI): No Abdominal aortic bruit present Skin: Other: Bilateral palpable DP/PT pulses. General skin exam: no rashes or lesions noted Wounds: no wounds Hair: normal Neuro: General: patient oriented x3 Cranial nerves: Yes Normal hearing present Cognition (Neuro): normal cognition Gait exam (Neuro): Normal gait present Motor exam (neuro): 5/5 motor strength present throughout Sensory Exam: No Sensory deficit (Neuro) Extrem: General: Yes normal to inspection, Yes full ROM, Yes capillary refill normal and Yes normal gait Results Labs 07/05/24 06:25 07/05/24 06:25 Labs: Abnormal lab results 07/05/24 Range/Units 06:25 WBC 12.4 H (4.8-10.8) X10*3/uL RBC 3.95 L (4.20-5.50) X10*6/uL Hgb 11.5 L (12.0-16.0) g/dl Hct 35.1 L (37.0-47.0) % Immature Gran % (Auto) 2.1 H (0.0-0.4) % Neut % (Auto) 76.4 H (45-73) % Lymph % (Auto) 9.9 L (20-40) % Abs Immat Gran (auto) 0.26 H (0.00-0.03) X10*3/uL Absolute Neuts (auto) 9.5 H (2.0-8.3) x10*3/uL BUN 22 H (9-16) mg/dL Random Glucose 121 H (60-115) mg/dL Triglycerides 177 H (<150) mg/dL Short CBC 07/05/24 Range/Units 06:25 WBC 12.4 H (4.8-10.8) X10*3/uL Hgb 11.5 L (12.0-16.0) g/dl Hct 35.1 L (37.0-47.0) % Plt Count 196 (160-400) X10*3/uL BMP 07/05/24 06:25 Sodium 139 Potassium 3.4 Chloride 99 Carbon Dioxide 26 BUN 22 H Creatinine 1.25 Calcium 10.0 Urine 06/30/24 Range/Units 17:24 Urine Color Yellow Urine Appearance Clear Urine pH 8.0 (5.0-9.0) Ur Specific [place] <= 1.005 (1.005-1.025) Urine Protein Trace (Neg-Trace) mg/dL Urine Glucose (UA) Negative (Negative) mg/dL All other labs normal. Assessment and Plan (1) Atherosclerosis of abdominal aorta: Status: Acute Plan Kait remains stable from a vascular standpoint. At this point there is no acute intervention required. We would like to follow her outpatient, once she recovers from the resp failure and pneumonia. If the pt becomes symptomatic, we would gladly see her again. We would like her to continue on the ASA and statin. We would like her to follow up with us in the office appx 2w after discharge. We can determine at that point if there is further imaging to be done. If there are other questions or concerns, please do hesitate to reach out to us.Thank you for allowing us to participate in her care. Total time managing care of this patient today: 25 minutes. Procedures Date of Service Date of Service: 07/05/24
--- NOTE | 2024-07-05 15:34 | P.PNIM_ITS ---
Subjective Subjective Date of Service: 07/05/24 Interval History: ahrf Review of Systems sob somewhat improving seems anxious also,hr flactuates Physical Exam 2 Vital Signs: Vital Signs: Last Vital Signs Temp 97.2 F 07/05/24 12:00 Pulse 135 H 07/05/24 12:02 Resp 20 07/05/24 12:00 BP 126/78 07/05/24 12:00 Pulse Ox 88 L 07/05/24 12:02 O2 Del Method Nasal Cannula 07/05/24 12:00 O2 Flow Rate 4 07/05/24 12:00 FiO2 60 07/01/24 10:00 Oxygen Flow Rate 8 07/02/24 11:00 BMI result Body Mass Index 28.7 Appearance: Alert.? Oriented X3.?sob seems somewhat improving cvs: rrr, [id number] . res: air entry fair , few faint rhonchii at bases. abd: no rebound or guarding ,nt, bs present. ext pulses present , no cyanosis. neuro: axo3 , nonfocal. Objective Data Active Medications Acetaminophen (Acetaminophen 325 Mg Tablet) 975 mg PO Q6H PRN PRN Reason: Pain, Moderate(Pain Scale 4-6) Last Admin: 07/05/24 02:06 Dose: 975 mg Documented By: ASHLEY Albuterol Sulfate (Albuterol Sulfate (0.083%) 2.5 Mg/3 Ml Vial.Neb) 2.5 mg INHALE ONCE PRN PRN Reason: Shortness of Breath/Wheezing Albuterol/Ipratropium (Albuterol/Iprat 2.5/0.5mg 3 Ml Ampul.Neb) 3 ml INHALE RQ6H WHILE AWAKE [facility] Last Admin: 07/05/24 13:43 Dose: Not Given Documented By: SORAIDA Non-Admin Reason: pt eating, refused Alprazolam (Alprazolam 0.5 Mg Tablet) 0.5 mg PO DAILY [facility] Last Admin: 07/05/24 08:10 Dose: 0.5 mg Documented By: KYLAH Aspirin (Aspirin 81 Mg Tab.Chew) 81 mg PO DAILY [facility] Last Admin: 07/05/24 08:10 Dose: 81 mg Documented By: KYLAH Atorvastatin Calcium (Atorvastatin Calcium 40 Mg Tablet) 20 mg PO DAILY [facility] Last Admin: 07/05/24 08:10 Dose: 20 mg Documented By: KYLAH Buspirone HCl (Buspirone Hcl 5 Mg Tablet) 15 mg PO TID PRN PRN Reason: Anxiety Last Admin: 07/04/24 20:03 Dose: 15 mg Documented By: ASHLEY Furosemide (Furosemide 40 Mg/4 Ml Vial) 40 mg IVPUSH DAILY [facility]; Protocol Last Admin: 07/05/24 08:09 Dose: 40 mg Documented By: KYLAH Gabapentin (Gabapentin 300 Mg Capsule) 300 mg PO TID [facility] Last Admin: 07/05/24 08:10 Dose: 300 mg Documented By: KYLAH Hydralazine HCl (Hydralazine Hcl 20 Mg/Ml Vial) 10 mg IVPUSH Q4H PRN; Protocol PRN Reason: SBP > 160 Last Admin: 07/02/24 04:10 Dose: 10 mg Documented By: VERNELL Piperacillin Sod/Tazobactam (Sod 4.5 gm/ Sodium Chloride) 100 mls @ 200 mls/hr IV Q8H [facility] Last Infusion: 07/05/24 08:59 Dose: Infused Documented By: KYLAH Levothyroxine Sodium (Levothyroxine Sodium 112 Mcg Tablet) 112 mcg PO DAILY@0600 [facility] Last Admin: 07/05/24 06:31 Dose: 112 mcg Documented By: ASHLEY Lidocaine (Lidocaine 4 % Patch Adh..Patch) 2 patch TRANSDERMA DAILY [facility] Last Admin: 07/05/24 08:09 Dose: 2 patch Documented By: KYLAH Lisinopril (Lisinopril 20 Mg Tablet) 20 mg PO DAILY [facility]; Protocol Last Admin: 07/05/24 08:10 Dose: 20 mg Documented By: KYLAH Omeprazole (Omeprazole 20 Mg Capsule.Dr) 20 mg PO DAILY@0630 [facility] Last Admin: 07/05/24 06:31 Dose: 20 mg Documented By: ASHLEY Oxycodone HCl (Oxycodone Hcl Immed Release 5 Mg Tablet) 10 mg PO QID PRN PRN Reason: Pain, Moderate(Pain Scale 4-6) Last Admin: 07/04/24 22:19 Dose: 10 mg Documented By: ASHLEY Tamsulosin HCl (Tamsulosin Hcl 0.4 Mg Capsule) 0.4 mg PO DAILY [facility] Last Admin: 07/05/24 08:10 Dose: 0.4 mg Documented By: KYLAH Trazodone HCl (Trazodone Hcl 50 Mg Tablet) 150 mg PO BEDTIME PRN PRN Reason: Insomnia Last Admin: 07/02/24 21:20 Dose: 150 mg Documented By: ROBIN Labs 07/05/24 06:25 07/05/24 06:25 Labs: Laboratory Results - last 24 hr 07/05/24 07/05/24 06:25 10:18 MCV 88.9 MCH 29.1 MCHC 32.8 RDW 13.8 Plt Count 196 MPV 10.2 Immature Gran % (Auto) 2.1 H Neut % (Auto) 76.4 H Lymph % (Auto) 9.9 L [place] % (Auto) 8.6 Eos % (Auto) 2.2 Baso % (Auto) 0.8 Lymph # (Auto) 1.2 [place] # (Auto) 1.1 Eos # (Auto) 0.3 Baso # (Auto) 0.1 Abs Immat Gran (auto) 0.26 H Absolute Neuts (auto) 9.5 H Absolute Nucleated RBC 0.000 Nucleated RBC % (auto) 0.0 Anion Gap 17 Estim Creat Clear Calc 32.0 Estimated GFR 41 Random Glucose 121 H Calcium 10.0 Phosphorus 3.4 Magnesium 1.7 Triglycerides 177 H Cholesterol 185 LDL Cholesterol, Calc 91 HDL Cholesterol 59 Stl C. cayetanensis PCR Not Detected Stool Rotavirus A PCR Not Detected Stl Adenov F 40/41 PCR Not Detected Stool Astrovirus (PCR) Not Detected Stool Campylobacter PCR Not Detected Stool Cryptosporidium PCR Not Detected Stl Sh Tox Pr E STEC PCR Not Detected Stool E coli O157 PCR Not applicable Stl Enterotoxigenic E PCR Not Detected Stool EPEC (PCR) Not Detected Stool EAEC (PCR) Not Detected Stl E. histolytica PCR Not Detected Stool Giardia Lamblia PCR Not Detected Stl P. shigelloides PCR Not Detected Stool Salmonella PCR Not Detected Stool Sapovirus (PCR) Not Detected Stl Shigella/EIEC PCR Not Detected St Y.enterocolitica PCR Not Detected Stool Vibrio (PCR) Not Detected Stl Vibrio cholerae PCR Not Detected Stl Norovirus GI/GII PCR Not Detected Microbiology Microbiology Results: Microbiology 06/30/24 13:09 Blood Culture - Final Blood - Venous No growth after 5 days. 06/30/24 13:09 Blood Culture - Final Blood - Venous No growth after 5 days. 07/03/24 03:40 Gram Stain - Final Sputum - Expectorated Sputum Culture - Final Assessment and Plan (1) Acute hypoxemic respiratory failure: Status: Acute Assessment and Plan: day-6 83-year-old lady past medical history of COPD, hypertension, hypothyroidism chronic pain syndrome was seen by pain medicine for bilateral sacroiliac joint pain. She was brought to the hospital for an elective sacroiliac joint injections, patient received propofol for sedation for the procedure, during the patient procedure well the patient was turned around she went into PEA cardiac arrest, code lasted for about 5 minutes before ROSC receiving 2 doses of epinephrine and intubated during the code. She was also found to be hypotensive post code received few pushes of phenylephrine and is being transferred to medical ICU. Acute metabolic encephalopathy possibly due to medication. per chart review from icu-Risk for hypoxic ischemic injury is low given the short duration of the code and happened in the operating room intubated immediately and circulation maintained. mental status seems improving nstemi -Suspected second-degree NSTEMI in the setting of a acute hypoxic respiratory failure in the setting of advanced lung disease and s/p cardiac arrest. echo :1. Normal biventricular function with moderate left ventricular hypertrophy 2. Calcific aortic valve changes noted with severe mitral annular calcification with normal cardiac valvular Dopplers 3. Upper limits of normal RV systolic pressure 4. Trivial pericardial effusion off heparin drip, continue asa ,added lipid panel for am. Cardiology evaluation noted -likely demand nstemi as above. Acute hypoxemic respiratory failure due to aspiration pneumonia-intubated and extubated ,tranferred to floor continue zosyn(intiated on 06/30/24), taper oxygen, nebs tachycardia likely realted to anxiety and sob,diarrhae cta on 06/30: no pulm embolism echo as above. added tsh levels plan:continue alprazolam incidental on ct abd (06/30/24):abd CT of several areas of stenosis with the abdominal aorta, splenic artery, ostium of the SMA, and at the aortoiliac bifurcation(renal left side subacute infracts) vacular reviewed imaging -recomended no acute intervention -continue asa ,statin ,vascular follow up outpatient. diarrhae : ? viral,no abd pain or nausea or vomiting gip panel neg check respiratory viral panel added loperamide htn : on lisinopril Hypothyroidism: on levothyroxine Prophylaxis: Lovenox, pantoprazole Ongoing need of hospitalization: Acute hypoxemic respiratory failure secondary to aspiration pneumonia: Need IV antibiotics, oxygen tapering. Quality Stroke Does the patient have a stroke diagnosis?: No VTE Prior VTE?: No VTE Risk Level:: Medical - moderate - high VTE Device Contraindication: N/A - Device Ordered VTE Drug Contraindication: N/A - Med Ordered
[2024-07-05] MEDS: Loperamide HCl 2 MG CAPSULE PO (16:06)
[2024-07-05] MEDS: oxyCODONE HCl Immed Release 5 MG TABLET 10 MG PO (16:06)
[2024-07-05 16:29] LABS: Thyroid Stimulating Hormone 1.41 uIU/mL (0.32-4.0)
[2024-07-05] MEDS: busPIRone HCl 5 MG TABLET 15 MG PO (20:02)
[2024-07-05] MEDS: traZODone HCL 50 MG TABLET 150 MG PO (23:38)
[2024-07-06] VITALS (10 sets, daily range): BP systolic 98–165; BP diastolic 57–76; PULSE 95–111; RESP 16–20; TEMP 36.2–37; O2SAT 90–94; BMI 28.2
[2024-07-06] MEDS: Omeprazole 20 MG CAPSULE.DR PO (05:03)
[2024-07-06] MEDS: Levothyroxine Sodium 112 MCG TABLET PO (05:03)
[2024-07-06] MEDS: oxyCODONE HCl Immed Release 5 MG TABLET 10 MG PO ×3 (05:03→20:49)
[2024-07-06 06:22] LABS: MANUAL DIFF FLAG NO
[2024-07-06 06:26] LABS: Basophils Absolute Auto 0.1 X10*3/uL (0.0-0.2); Basophils Percent Auto 0.9 % (0-2); Eosinophils Absolute Auto 0.5 X10*3/uL (0.0-0.4); Eosinophils Percent Auto 4.8 % (0-4); Hematocrit 33.3 % (37.0-47.0); Hemoglobin 11.1 g/dl (12.0-16.0); Imm Gran Abs Auto 0.38 X10*3/uL (0.00-0.03); Imm Gran Pct Auto 3.6 % (0.0-0.4); Lymphocytes Absolute Auto 1.1 X10*3/uL (1.2-4.9); Mean Corpuscular HGB Conc 33.3 g/dl (31.0-35.0); Mean Corpuscular Hemoglobin 29.5 pg (27.0-33.0); Mean Corpuscular Volume 88.6 fL (80.0-98.0); Mean Platelet Volume 9.6 fL (9.4-12.3); Monocytes Absolute Auto 1.3 X10*3/uL (0.1-1.2); Monocytes Percent Auto 12.4 % (2-11); Neutrophils Absolute Auto 7.2 x10*3/uL (2.0-8.3); Neutrophils Percent Auto 68.3 % (45-73); Platelet Count 215 X10*3/uL (160-400); Red Blood Count 3.76 X10*6/uL (4.20-5.50); Red Cell Distribution Width 13.8 % (11.0-16.0); White Blood Count 10.5 X10*3/uL (4.8-10.8)
[2024-07-06] MEDS: Piperacillin Sodium/Tazobactam 4.5 GM in 0.9 % Sodium Chloride 100 ML IV ×3 (06:41→23:52)
[2024-07-06 06:44] LABS: Anion Gap 14 (12-20); Blood Urea Nitrogen 24 mg/dL (9-16); Calcium 9.7 mg/dL (8.4-10.2); Carbon Dioxide 28 mmol/L (22-29); Chloride 100 mmol/L (96-108); Creatinine Clr Calc Pharmacy 31.8; Estimated Glomerular Filt Rate 41; Glucose Random 130 mg/dL (60-115); Magnesium 1.7 mg/dL (1.6-2.6); Phosphorus 3.6 mg/dL (2.7-4.5); Sodium 139 mmol/L (135-145)
[2024-07-06] MEDS: Albuterol/Iprat 2.5/0.5MG 3 ML AMPUL.NEB INHALE ×2 (07:32→19:55)
[2024-07-06] MEDS: Tamsulosin HCL 0.4 MG CAPSULE PO (08:39)
[2024-07-06] MEDS: Potassium Chloride ER 20 MEQ TAB.ER.PRT 40 MEQ PO (08:39)
--- NOTE | 2024-07-06 08:39 | HO.VASCPN ---
Subjective Subjective Date of Service: 07/06/24 Interval history: Kait is doing well. She states she is sleeping well. She is maintained on O2 and denies any shortness of breath. She does endorse some tight breathing and rib pain. She denies any abd pain/nausea/vomiting. She has been getting up and out of bed into the chair. Physical Exam Vital Signs: Vital Signs: Last Vital Signs Temp 97.2 F 07/06/24 07:54 Pulse 100 07/06/24 07:54 Resp 18 07/06/24 07:54 BP 141/70 H 07/06/24 07:54 Pulse Ox 91 L 07/06/24 07:54 O2 Del Method Nasal Cannula 07/06/24 07:54 O2 Flow Rate 3 07/06/24 07:54 FiO2 60 07/01/24 10:00 Oxygen Flow Rate 8 07/02/24 11:00 BMI result Body Mass Index 28.2 Const: General: healthy appearing and no acute distress Orientation/consciousness: patient oriented x3 HEENT: Head: Yes normal to inspection Ears: hearing grossly normal bilaterally Mouth: Normal oral and palatal mucosa present Resp: Effort & Inspection: normal respiratory effort and able to speak in complete sentences Auscultation: clear to auscultation bilaterally Cardio: Jugular venous distension: no JVD Rate: regular rate Rhythm: regular rhythm Heart sounds: S1 normal heart sound present and S2 normal heart sound present Bruits: no abdominal aortic bruits, no carotid bruits, no femoral bruits and no renal bruits Peripheral pulses: Peripheral pulses 2+ throughout GI: Inspection: Yes normal to inspection Palpation (GI): No Abdominal aortic bruit present Skin: General skin exam: no rashes or lesions noted Wounds: no wounds Hair: normal Neuro: General: patient oriented x3 Cranial nerves: Yes CN's II-XII intact bilaterally and Yes Normal hearing present Cognition (Neuro): normal cognition Gait exam (Neuro): Normal gait present Motor exam (neuro): 5/5 motor strength present throughout Sensory Exam: No Sensory deficit (Neuro) Extrem: General: Yes normal to inspection, Yes full ROM, Yes capillary refill normal and Yes normal gait Progress Note: A&P Assessment and plan (1) Atherosclerosis of abdominal aorta: Status: Acute Plan Kait has been doing well. From vascular standpoint there is no need for acute intervention. We will see her outpatient with possible further imaging as needed. For any questions or concerns please reach out to us. At this point vascular will sign off on the patient. Thank you for allowing us to care for this patient. Time Spent With Patient Time: Total time managing care of this patient today _20__ minutes. Procedures Date of Service Date of Service: 07/06/24 Quality Stroke Does the patient have a stroke diagnosis?: No VTE Prior VTE?: No VTE Risk Level:: Medical - moderate - high VTE Device Contraindication: N/A - Device Ordered VTE Drug Contraindication: N/A - Med Ordered
[2024-07-06] MEDS: Atorvastatin Calcium 40 MG TABLET 20 MG PO (08:44)
[2024-07-06] MEDS: Lidocaine 4 % Patch ADH..PATCH 2 PATCH TRANSDERMA (08:44)
[2024-07-06] MEDS: ALPRAZolam 0.5 MG TABLET PO (08:44)
[2024-07-06] MEDS: Gabapentin 300 MG CAPSULE PO ×3 (08:44→20:49)
[2024-07-06] MEDS: lisinopriL 20 MG TABLET PO (08:44)
[2024-07-06] MEDS: Aspirin 81 MG TAB.CHEW PO (08:44)
[2024-07-06] MEDS: Furosemide 40 MG/4 ML VIAL IVPUSH (08:44)
[2024-07-06 09:52] LABS: Adenovirus PCR Not Detected (Not Detect.); Bordetella parapertussis PCR Not Detected (Not Detect.); Bordetella pertussis PCR Not Detected (Not Detect.); Chlamydia pneumoniae PCR Not Detected (Not Detect.); Coronavirus 229E PCR Not Detected (Not Detect.); Coronavirus HKU1 PCR Not Detected (Not Detect.); Coronavirus NL63 PCR Not Detected (Not Detect.); Coronavirus OC43 PCR Not Detected (Not Detect.); Human metapneumovirus PCR Not Detected (Not Detect.); Influenza A PCR Not Detected (Not Detect.); Influenza B PCR Not Detected (Not Detect.); Mycoplasma pneumoniae PCR Not Detected (Not Detect.); Parainfluenza 1 PCR Not Detected (Not Detect.); Parainfluenza 2 PCR Not Detected (Not Detect.); Parainfluenza 3 PCR Not Detected (Not Detect.); Parainfluenza 4 PCR Not Detected (Not Detect.); RSV PCR Not Detected (Not Detect.); Rhino/Enterovirus PCR Not Detected (Not Detect.)
[2024-07-06 09:53] LABS: SARS-CoV-2 PCR Not Detected (Not Detect.)
--- NOTE | 2024-07-06 14:52 | HO.PM.IMPN ---
Subjective Subjective Date of Service: 07/06/24 Interval History: Ahrf diarrhae Review of Systems sob and diarrhae improving has ch pains and feels anxious Physical Exam Vital Signs: Vital Signs: Last Vital Signs Temp 97.4 F 07/06/24 12:00 Pulse 111 H 07/06/24 12:00 Resp 20 07/06/24 12:00 BP 98/57 L 07/06/24 12:00 Pulse Ox 93 07/06/24 12:00 O2 Del Method Nasal Cannula 07/06/24 12:00 O2 Flow Rate 4 07/06/24 12:00 FiO2 60 07/01/24 10:00 Oxygen Flow Rate 8 07/02/24 11:00 BMI result Body Mass Index 28.2 Appearance: Alert.? Oriented X3.?sob seems somewhat improving cvs: rrr, [id number] . res: air entry fair , few faint rhonchii at bases. abd: no rebound or guarding ,nt, bs present. ext pulses present , no cyanosis. neuro: axo3 , nonfocal. Objective Data Active Medications Acetaminophen (Acetaminophen 325 Mg Tablet) 975 mg PO Q6H PRN PRN Reason: Pain, Moderate(Pain Scale 4-6) Last Admin: 07/05/24 20:02 Dose: 975 mg Documented By: ASHLEY Albuterol Sulfate (Albuterol Sulfate (0.083%) 2.5 Mg/3 Ml Vial.Neb) 2.5 mg INHALE ONCE PRN PRN Reason: Shortness of Breath/Wheezing Albuterol/Ipratropium (Albuterol/Iprat 2.5/0.5mg 3 Ml Ampul.Neb) 3 ml INHALE RQ6H WHILE AWAKE [facility] Last Admin: 07/06/24 14:33 Dose: Not Given Documented By: QUIQUE Non-Admin Reason: Patient Refused Alprazolam (Alprazolam 0.5 Mg Tablet) 0.5 mg PO DAILY [facility] Last Admin: 07/06/24 08:44 Dose: 0.5 mg Documented By: KYLAH Aspirin (Aspirin 81 Mg Tab.Chew) 81 mg PO DAILY [facility] Last Admin: 07/06/24 08:44 Dose: 81 mg Documented By: KYLAH Atorvastatin Calcium (Atorvastatin Calcium 40 Mg Tablet) 20 mg PO DAILY [facility] Last Admin: 07/06/24 08:44 Dose: 20 mg Documented By: KYLAH Buspirone HCl (Buspirone Hcl 5 Mg Tablet) 15 mg PO TID PRN PRN Reason: Anxiety Last Admin: 07/05/24 20:02 Dose: 15 mg Documented By: ASHLEY Gabapentin (Gabapentin 300 Mg Capsule) 300 mg PO TID [facility] Last Admin: 07/06/24 08:44 Dose: 300 mg Documented By: KYLAH Piperacillin Sod/Tazobactam (Sod 4.5 gm/ Sodium Chloride) 100 mls @ 200 mls/hr IV Q8H [facility] Last Infusion: 07/06/24 07:17 Dose: Infused Documented By: KYLAH Levothyroxine Sodium (Levothyroxine Sodium 112 Mcg Tablet) 112 mcg PO DAILY@0600 [facility] Last Admin: 07/06/24 05:03 Dose: 112 mcg Documented By: ASHLEY Lisinopril (Lisinopril 20 Mg Tablet) 20 mg PO DAILY [facility]; Protocol Last Admin: 07/06/24 08:44 Dose: 20 mg Documented By: KYLAH Loperamide HCl (Loperamide Hcl 2 Mg Capsule) 2 mg PO Q4H PRN PRN Reason: Diarrhea Last Admin: 07/05/24 16:06 Dose: 2 mg Documented By: KYLAH Omeprazole (Omeprazole 20 Mg Capsule.Dr) 20 mg PO DAILY@0630 [facility] Last Admin: 07/06/24 05:03 Dose: 20 mg Documented By: ASHLEY Oxycodone HCl (Oxycodone Hcl Immed Release 5 Mg Tablet) 10 mg PO QID PRN PRN Reason: Pain, Moderate(Pain Scale 4-6) Last Admin: 07/06/24 05:03 Dose: 10 mg Documented By: ASHLEY Trazodone HCl (Trazodone Hcl 50 Mg Tablet) 150 mg PO BEDTIME PRN PRN Reason: Insomnia Last Admin: 07/05/24 23:38 Dose: 150 mg Documented By: ASHLEY Labs 07/06/24 05:58 07/06/24 05:58 Labs: Laboratory Results - last 24 hr 07/05/24 07/05/24 07/06/24 06:25 17:51 05:58 MCV 88.6 MCH 29.5 MCHC 33.3 RDW 13.8 Plt Count 215 MPV 9.6 Immature Gran % (Auto) 3.6 H Neut % (Auto) 68.3 Lymph % (Auto) 10.0 L [place] % (Auto) 12.4 H Eos % (Auto) 4.8 H Baso % (Auto) 0.9 Lymph # (Auto) 1.1 L [place] # (Auto) 1.3 H Eos # (Auto) 0.5 H Baso # (Auto) 0.1 Abs Immat Gran (auto) 0.38 H Absolute Neuts (auto) 7.2 Absolute Nucleated RBC 0.000 Nucleated RBC % (auto) 0.0 Anion Gap 14 Estim Creat Clear Calc 31.8 Estimated GFR 41 Random Glucose 130 H Calcium 9.7 Phosphorus 3.6 Magnesium 1.7 TSH 1.41 Respiratory Panel [place] See Note Adenovirus (Rapid PCR) Not Detected B.pert (TEM-PCR) Not Detected B.parapertussis DNA PCR Not Detected C. pneumoniae DNA (PCR) Not Detected Coronavirus OC43 (PCR) Not Detected Coronavirus HKU1 (PCR) Not Detected Coronavirus 229E (PCR) Not Detected Coronavirus NL63 (PCR) Not Detected Human Metapneumovir PCR Not Detected Influenza A (RT-PCR) Not Detected Influenza B (RT-PCR) Not Detected M. pneumoniae (PCR) Not Detected Parainfluenza 1 (PCR) Not Detected Parainfluenza 2 (PCR) Not Detected Parainfluenza 3 (PCR) Not Detected Parainfluenza 4 (PCR) Not Detected RSV (PCR) Not Detected Entero/Rhino (PCR) Not Detected SARS-CoV-2 RNA (RT-PCR) Not Detected Microbiology Microbiology Results: Microbiology 06/30/24 13:09 Blood Culture - Final Blood - Venous No growth after 5 days. 06/30/24 13:09 Blood Culture - Final Blood - Venous No growth after 5 days. Assessment and Plan (1) Acute hypoxemic respiratory failure: Status: Acute Assessment and Plan: day-7 83-year-old lady past medical history of COPD, hypertension, hypothyroidism chronic pain syndrome was seen by pain medicine for bilateral sacroiliac joint pain. She was brought to the hospital for an elective sacroiliac joint injections, patient received propofol for sedation for the procedure, during the patient procedure well the patient was turned around she went into PEA cardiac arrest, code lasted for about 5 minutes before ROSC receiving 2 doses of epinephrine and intubated during the code. She was also found to be hypotensive post code received few pushes of phenylephrine and is being transferred to medical ICU. Acute metabolic encephalopathy possibly due to medication. per chart review from icu-Risk for hypoxic ischemic injury is low given the short duration of the code and happened in the operating room intubated immediately and circulation maintained. mental status seems improving nstemi -Suspected second-degree NSTEMI in the setting of a acute hypoxic respiratory failure in the setting of advanced lung disease and s/p cardiac arrest. echo :1. Normal biventricular function with moderate left ventricular hypertrophy 2. Calcific aortic valve changes noted with severe mitral annular calcification with normal cardiac valvular Dopplers 3. Upper limits of normal RV systolic pressure 4. Trivial pericardial effusion off heparin drip, continue asa ,statin Cardiology evaluation noted -likely demand nstemi as above. Acute hypoxemic respiratory failure due to aspiration pneumonia-intubated and extubated ,tranferred to floor continue zosyn(intiated on 06/30/24), taper oxygen, nebs tachycardia likely realted to anxiety and sob,diarrhae cta on 06/30: no pulm embolism echo as above. tsh levels normal plan:continue alprazolam, pain control with oxycodone. incidental on ct abd (06/30/24):abd CT of several areas of stenosis with the abdominal aorta, splenic artery, ostium of the SMA, and at the aortoiliac bifurcation(renal left side subacute infracts) vacular reviewed imaging -recomended no acute intervention -continue asa ,statin ,vascular follow up outpatient. diarrhae : ? viral,no abd pain or nausea or vomiting diarrhae improving gip panel neg respiratory viral panel-negative continue loperamide htn : blood pressure softer side -due to diarrhae ,dec po intake and htn meds hold bp meds Hypothyroidism: on levothyroxine Prophylaxis: Lovenox, pantoprazole generalised weak -added pt eval. Ongoing need of hospitalization: Acute hypoxemic respiratory failure secondary to aspiration pneumonia: Need IV antibiotics, oxygen tapering. Quality Stroke Does the patient have a stroke diagnosis?: No VTE Prior VTE?: No VTE Risk Level:: Medical - moderate - high VTE Device Contraindication: N/A - Device Ordered VTE Drug Contraindication: N/A - Med Ordered
[2024-07-06] MEDS: traZODone HCL 50 MG TABLET 150 MG PO (20:48)
[2024-07-06] MEDS: busPIRone HCl 5 MG TABLET 15 MG PO (20:48)
[2024-07-07] VITALS (13 sets, daily range): BP systolic 122–192; BP diastolic 61–104; PULSE 90–114; RESP 18–20; TEMP 36.2–36.7; O2SAT 90–95
[2024-07-07] MEDS: oxyCODONE HCl Immed Release 5 MG TABLET 10 MG PO ×2 (03:31→20:57)
[2024-07-07] MEDS: Omeprazole 20 MG CAPSULE.DR PO (06:49)
[2024-07-07] MEDS: Levothyroxine Sodium 112 MCG TABLET PO (06:49)
[2024-07-07] MEDS: Piperacillin Sodium/Tazobactam 4.5 GM in 0.9 % Sodium Chloride 100 ML IV (06:50)
[2024-07-07 06:55] LABS: MANUAL DIFF FLAG NO
[2024-07-07 06:59] LABS: Basophils Absolute Auto 0.1 X10*3/uL (0.0-0.2); Basophils Percent Auto 0.9 % (0-2); Eosinophils Absolute Auto 0.8 X10*3/uL (0.0-0.4); Eosinophils Percent Auto 6.8 % (0-4); Hemoglobin 10.5 g/dl (12.0-16.0); Imm Gran Abs Auto 0.29 X10*3/uL (0.00-0.03); Imm Gran Pct Auto 2.4 % (0.0-0.4); Lymphocytes Absolute Auto 1.1 X10*3/uL (1.2-4.9); Lymphocytes Percent Auto 9.5 % (20-40); Mean Corpuscular HGB Conc 32.8 g/dl (31.0-35.0); Mean Corpuscular Hemoglobin 29.4 pg (27.0-33.0); Mean Corpuscular Volume 89.6 fL (80.0-98.0); Mean Platelet Volume 9.8 fL (9.4-12.3); Monocytes Absolute Auto 1.3 X10*3/uL (0.1-1.2); Neutrophils Absolute Auto 8.3 x10*3/uL (2.0-8.3); Neutrophils Percent Auto 69.4 % (45-73); Platelet Count 241 X10*3/uL (160-400); Red Blood Count 3.57 X10*6/uL (4.20-5.50); Red Cell Distribution Width 13.9 % (11.0-16.0)
[2024-07-07 07:20] LABS: Anion Gap 13 (12-20); Blood Urea Nitrogen 23 mg/dL (9-16); Carbon Dioxide 29 mmol/L (22-29); Chloride 100 mmol/L (96-108); Creatinine Clr Calc Pharmacy 33.1; Estimated Glomerular Filt Rate 43; Glucose Random 131 mg/dL (60-115); Magnesium 1.6 mg/dL (1.6-2.6); Phosphorus 3.3 mg/dL (2.7-4.5); Potassium 3.2 mmol/L (3.3-5.1); Sodium 139 mmol/L (135-145)
[2024-07-07] MEDS: Magnesium Oxide 400 MG TABLET PO ×2 (08:08→17:56)
[2024-07-07] MEDS: Potassium Chloride ER 20 MEQ TAB.ER.PRT 40 MEQ PO (08:08)
[2024-07-07] MEDS: Atorvastatin Calcium 40 MG TABLET 20 MG PO (08:09)
[2024-07-07] MEDS: Aspirin 81 MG TAB.CHEW PO (08:11)
[2024-07-07] MEDS: Gabapentin 300 MG CAPSULE PO ×3 (08:11→20:58)
[2024-07-07] MEDS: Acetaminophen 325 MG TABLET 975 MG PO (08:12)
[2024-07-07] MEDS: busPIRone HCl 5 MG TABLET 15 MG PO (08:13)
[2024-07-07] MEDS: Albuterol/Iprat 2.5/0.5MG 3 ML AMPUL.NEB INHALE ×3 (08:28→19:26)
--- NOTE | 2024-07-07 10:16 | MHC.CM.PN ---
Per ROUNDS discussion, Patient is not yet medically cleared for dc (still hypoxic and still tachycardic); PT is recommending Inpatient Pulmonary rehab(Patient wants outpatient Pulmonary Rehab) and CM will continue to follow.
[2024-07-07] MEDS: amLODIPine Besylate 2.5 MG TABLET PO (12:12)
[2024-07-07] MEDS: Tamsulosin HCL 0.4 MG CAPSULE PO (12:14)
--- NOTE | 2024-07-07 14:28 | HO.PM.IMPN ---
Subjective Subjective Date of Service: 07/07/24 Interval History: Ahrf htn Review of Systems sob and diarrhae improving Physical Exam Vital Signs: Vital Signs: Last Vital Signs Temp 97.1 F 07/07/24 11:02 Pulse 96 07/07/24 11:28 Resp 20 07/07/24 11:02 BP 192/98 H 07/07/24 11:28 Pulse Ox 93 07/07/24 11:28 O2 Del Method Nasal Cannula 07/07/24 11:02 O2 Flow Rate 3 07/07/24 11:02 FiO2 60 07/01/24 10:00 Oxygen Flow Rate 8 07/02/24 11:00 BMI result Body Mass Index 28.2 Appearance: Alert.? Oriented X3.?sob improving cvs: rrr, [id number] . res: air entry fair , few faint rhonchii at bases. abd: no rebound or guarding ,nt, bs present. ext pulses present , no cyanosis. neuro: axo3 , nonfocal. Objective Data Active Medications Acetaminophen (Acetaminophen 325 Mg Tablet) 975 mg PO Q6H PRN PRN Reason: Pain, Moderate(Pain Scale 4-6) Last Admin: 07/07/24 08:12 Dose: 975 mg Documented By: NANCY Albuterol Sulfate (Albuterol Sulfate (0.083%) 2.5 Mg/3 Ml Vial.Neb) 2.5 mg INHALE ONCE PRN PRN Reason: Shortness of Breath/Wheezing Albuterol/Ipratropium (Albuterol/Iprat 2.5/0.5mg 3 Ml Ampul.Neb) 3 ml INHALE RQ6H WHILE AWAKE [facility] Last Admin: 07/07/24 08:28 Dose: 3 ml Documented By: TEE Alprazolam (Alprazolam 0.5 Mg Tablet) 0.5 mg PO BEDTIME [facility] Aspirin (Aspirin 81 Mg Tab.Chew) 81 mg PO DAILY [facility] Last Admin: 07/07/24 08:11 Dose: 81 mg Documented By: NANCY Atorvastatin Calcium (Atorvastatin Calcium 40 Mg Tablet) 20 mg PO DAILY [facility] Last Admin: 07/07/24 08:09 Dose: 20 mg Documented By: NANCY Buspirone HCl (Buspirone Hcl 5 Mg Tablet) 15 mg PO TID PRN PRN Reason: Anxiety Last Admin: 07/07/24 08:13 Dose: 15 mg Documented By: NANCY Gabapentin (Gabapentin 300 Mg Capsule) 300 mg PO TID [facility] Last Admin: 07/07/24 08:11 Dose: 300 mg Documented By: NANCY Piperacillin Sod/Tazobactam (Sod 4.5 gm/ Sodium Chloride) 100 mls @ 200 mls/hr IV Q8H [facility] Last Infusion: 07/07/24 07:30 Dose: Infused Documented By: NANCY Levothyroxine Sodium (Levothyroxine Sodium 112 Mcg Tablet) 112 mcg PO DAILY@0600 [facility] Last Admin: 07/07/24 06:49 Dose: 112 mcg Documented By: NASH Loperamide HCl (Loperamide Hcl 2 Mg Capsule) 2 mg PO Q4H PRN PRN Reason: Diarrhea Last Admin: 07/05/24 16:06 Dose: 2 mg Documented By: KYLAH Magnesium Oxide (Magnesium Oxide 400 Mg Tablet) 400 mg PO BIDPC [facility] Last Admin: 07/07/24 08:08 Dose: 400 mg Documented By: NANCY Omeprazole (Omeprazole 20 Mg Capsule.Dr) 20 mg PO DAILY@0630 [facility] Last Admin: 07/07/24 06:49 Dose: 20 mg Documented By: NASH Oxycodone HCl (Oxycodone Hcl Immed Release 5 Mg Tablet) 10 mg PO QID PRN PRN Reason: Pain, Moderate(Pain Scale 4-6) Last Admin: 07/07/24 03:31 Dose: 10 mg Documented By: NASH Trazodone HCl (Trazodone Hcl 50 Mg Tablet) 150 mg PO BEDTIME PRN PRN Reason: Insomnia Last Admin: 07/06/24 20:48 Dose: 150 mg Documented By: NASH Labs 07/07/24 06:02 07/07/24 06:02 Labs: Laboratory Results - last 24 hr 07/07/24 06:02 MCV 89.6 MCH 29.4 MCHC 32.8 RDW 13.9 Plt Count 241 MPV 9.8 Immature Gran % (Auto) 2.4 H Neut % (Auto) 69.4 Lymph % (Auto) 9.5 L [place] % (Auto) 11.0 Eos % (Auto) 6.8 H Baso % (Auto) 0.9 Lymph # (Auto) 1.1 L [place] # (Auto) 1.3 H Eos # (Auto) 0.8 H Baso # (Auto) 0.1 Abs Immat Gran (auto) 0.29 H Absolute Neuts (auto) 8.3 Absolute Nucleated RBC 0.000 Nucleated RBC % (auto) 0.0 Anion Gap 13 Estim Creat Clear Calc 33.1 Estimated GFR 43 Random Glucose 131 H Calcium 10.0 Phosphorus 3.3 Magnesium 1.6 Assessment and Plan (1) Acute hypoxemic respiratory failure: Status: Acute Assessment and Plan: day-8 83-year-old lady past medical history of COPD, hypertension, hypothyroidism chronic pain syndrome was seen by pain medicine for bilateral sacroiliac joint pain. She was brought to the hospital for an elective sacroiliac joint injections, patient received propofol for sedation for the procedure, during the patient procedure well the patient was turned around she went into PEA cardiac arrest, code lasted for about 5 minutes before ROSC receiving 2 doses of epinephrine and intubated during the code. She was also found to be hypotensive post code received few pushes of phenylephrine and is being transferred to medical ICU. Acute metabolic encephalopathy possibly due to medication. per chart review from icu-Risk for hypoxic ischemic injury is low given the short duration of the code and happened in the operating room intubated immediately and circulation maintained. mental status seems improving nstemi -Suspected second-degree NSTEMI in the setting of a acute hypoxic respiratory failure in the setting of advanced lung disease and s/p cardiac arrest. echo :1. Normal biventricular function with moderate left ventricular hypertrophy 2. Calcific aortic valve changes noted with severe mitral annular calcification with normal cardiac valvular Dopplers 3. Upper limits of normal RV systolic pressure 4. Trivial pericardial effusion off heparin drip, continue asa ,statin Cardiology evaluation noted -likely demand nstemi as above. Acute hypoxemic respiratory failure due to aspiration pneumonia-intubated and extubated ,tranferred to floor completed antibiotics zosyn(intiated on 06/30/24-07/07/24), taper oxygen, nebs tachycardia likely realted to anxiety and sob,diarrhae cta on 06/30: no pulm embolism echo as above. tsh levels normal plan:continue alprazolam, pain control with oxycodone. incidental on ct abd (06/30/24):abd CT of several areas of stenosis with the abdominal aorta, splenic artery, ostium of the SMA, and at the aortoiliac bifurcation(renal left side subacute infracts) vacular reviewed imaging -recomended no acute intervention -continue asa ,statin ,vascular follow up outpatient. diarrhae : ? viral,no abd pain or nausea or vomiting diarrhae improving gip panel neg respiratory viral panel-negative continue loperamide htn : suboptimal added amlodipine 2.5 mg daily. moniter closely bp-if needed add lisinopril. Hypothyroidism: on levothyroxine Prophylaxis: Lovenox, pantoprazole generalised weak -pt rec-pulm rehab Ongoing need of hospitalization: awaiting placement. Quality Stroke Does the patient have a stroke diagnosis?: No VTE Prior VTE?: No VTE Risk Level:: Medical - moderate - high VTE Device Contraindication: N/A - Device Ordered VTE Drug Contraindication: N/A - Med Ordered
--- NOTE | 2024-07-07 16:01 | HO.WOUND ---
Wound Consult: Initial 83yr old?female admitted to [facility] on 06/30/24 - See progress notes and H&P for detailed history.? Wound consult placed for Bilateral arm bruising and redness to buttock.? Patient agreeable to assessment and photo documentation.? Arms noted for bruising - no s/s of pressure related injury no topical interventions needed at this time. The buttock and sacrum were assessed - no redness at this time - there are two small bandaids inplace from a procedure but no drainage noted. no s/s of MASD or pressure injury at this time. Waffle cushion in recliner chair to aid in pressure redistribution. No further topical orders needed at this time. Recommendations: 1. Off Load all bony prominences with use of pillows and heel boots if needed.? Apply Preventative foams where needed. ? 2. Monitor for incontinence and moisture control, use barrier creams when needed for prevention and treatment. 3. Provide adequate and supplemental nutrition if needed.? Re-consult wound care Nurse for wound development.
[2024-07-07] MEDS: ALPRAZolam 0.5 MG TABLET PO (20:59)
[2024-07-07] MEDS: Labetalol HCL 100 MG/20 ML VIAL 10 MG IVPUSH (21:06)
[2024-07-08] VITALS (10 sets, daily range): BP systolic 130–189; BP diastolic 66–95; PULSE 94–111; RESP 18–24; TEMP 36.3–37.7; O2SAT 91–96
--- NOTE | 2024-07-08 | ECG_ITS ---
Test Reason : chest pain Blood Pressure : / mmHG Vent. Rate : 105 BPM Atrial Rate : 105 BPM P-R Int : 176 ms QRS Dur : 104 ms QT Int : 376 ms P-R-T Axes : 068 -52 139 degrees QTc Int : 496 ms Sinus tachycardia Left anterior fascicular block Left ventricular hypertrophy with repolarization abnormality ( R in aVL , [place] product ) Abnormal ECG When compared with ECG of 03-JUL-2024 07:55, T wave inversion now evident in Inferior leads T wave inversion more evident in Anterolateral leads Referred By: Italo López Electronically Signed By:LUIS MANUEL THORNTON
[2024-07-08] MEDS: oxyCODONE HCl Immed Release 5 MG TABLET 10 MG PO ×3 (04:25→16:15)
[2024-07-08] MEDS: Levothyroxine Sodium 112 MCG TABLET PO (04:28)
[2024-07-08] MEDS: Omeprazole 20 MG CAPSULE.DR PO (04:29)
[2024-07-08 06:24] LABS: MANUAL DIFF FLAG NO
[2024-07-08 06:30] LABS: Basophils Absolute Auto 0.1 X10*3/uL (0.0-0.2); Basophils Percent Auto 0.8 % (0-2); Eosinophils Absolute Auto 0.9 X10*3/uL (0.0-0.4); Eosinophils Percent Auto 5.8 % (0-4); Hematocrit 33.1 % (37.0-47.0); Hemoglobin 11.1 g/dl (12.0-16.0); Imm Gran Pct Auto 2.6 % (0.0-0.4); Lymphocytes Absolute Auto 1.4 X10*3/uL (1.2-4.9); Mean Corpuscular HGB Conc 33.5 g/dl (31.0-35.0); Mean Corpuscular Hemoglobin 29.7 pg (27.0-33.0); Mean Corpuscular Volume 88.5 fL (80.0-98.0); Mean Platelet Volume 9.4 fL (9.4-12.3); Monocytes Absolute Auto 1.4 X10*3/uL (0.1-1.2); Monocytes Percent Auto 9.3 % (2-11); Neutrophils Absolute Auto 10.9 x10*3/uL (2.0-8.3); Neutrophils Percent Auto 72.5 % (45-73); Platelet Count 298 X10*3/uL (160-400); Red Blood Count 3.74 X10*6/uL (4.20-5.50); Red Cell Distribution Width 13.6 % (11.0-16.0); White Blood Count 15.1 X10*3/uL (4.8-10.8)
[2024-07-08 06:47] LABS: Anion Gap 13 (12-20); Blood Urea Nitrogen 17 mg/dL (9-16); Calcium 9.7 mg/dL (8.4-10.2); Carbon Dioxide 28 mmol/L (22-29); Chloride 101 mmol/L (96-108); Creatinine Clr Calc Pharmacy 46.7; Estimated Glomerular Filt Rate > 60; Glucose Random 122 mg/dL (60-115); Magnesium 1.8 mg/dL (1.6-2.6); Potassium 3.8 mmol/L (3.3-5.1); Sodium 138 mmol/L (135-145)
[2024-07-08] MEDS: Albuterol/Iprat 2.5/0.5MG 3 ML AMPUL.NEB INHALE ×3 (07:38→20:24)
[2024-07-08] MEDS: Atorvastatin Calcium 40 MG TABLET 20 MG PO (09:03)
[2024-07-08] MEDS: Enoxaparin Sodium 40 MG/0.4 ML SYRINGE SUBCUT (09:03)
[2024-07-08] MEDS: Acetaminophen 325 MG TABLET 975 MG PO (09:03)
[2024-07-08] MEDS: Gabapentin 300 MG CAPSULE PO ×3 (09:03→19:58)
[2024-07-08] MEDS: Magnesium Oxide 400 MG TABLET PO ×2 (09:03→16:15)
[2024-07-08] MEDS: Aspirin 81 MG TAB.CHEW PO (09:04)
[2024-07-08] MEDS: busPIRone HCl 5 MG TABLET 15 MG PO (09:04)
[2024-07-08] MEDS: amLODIPine Besylate 2.5 MG TABLET PO (09:09)
[2024-07-08 09:59] LABS: Troponin-I High Sensitivity 75.5 ng/L (<3.5-17.0)
--- NOTE | 2024-07-08 12:26 | HO.PM.IMPN ---
Subjective Subjective Date of Service: 07/08/24 Interval History: Ahrf htn Review of Systems hypoxia seems imporved to baseline has some chest soarness,reproducable ( since had cardiac arrest and coded for 5 min -please see ICu note from 06/30/24) Physical Exam Vital Signs: Vital Signs: Last Vital Signs Temp 98.0 F 07/08/24 11:51 Pulse 102 H 07/08/24 11:51 Resp 20 07/08/24 11:51 BP 163/70 H 07/08/24 11:51 Pulse Ox 93 07/08/24 11:51 O2 Del Method Nasal Cannula 07/08/24 11:51 O2 Flow Rate 2 07/08/24 11:51 FiO2 60 07/01/24 10:00 Oxygen Flow Rate 8 07/02/24 11:00 BMI result Body Mass Index 28.2 Appearance: Alert.? Oriented X3.?sob improving cvs: rrr, [id number] . res: air entry fair , few faint rhonchii at bases. abd: no rebound or guarding ,nt, bs present. ext pulses present , no cyanosis. neuro: axo3 , nonfocal. Objective Data Active Medications Acetaminophen (Acetaminophen 325 Mg Tablet) 975 mg PO Q6H PRN PRN Reason: Pain, Moderate(Pain Scale 4-6) Last Admin: 07/08/24 09:03 Dose: 975 mg Documented By: MIHAI Albuterol Sulfate (Albuterol Sulfate (0.083%) 2.5 Mg/3 Ml Vial.Neb) 2.5 mg INHALE ONCE PRN PRN Reason: Shortness of Breath/Wheezing Albuterol/Ipratropium (Albuterol/Iprat 2.5/0.5mg 3 Ml Ampul.Neb) 3 ml INHALE RQ6H WHILE AWAKE [facility] Last Admin: 07/08/24 07:38 Dose: 3 ml Documented By: TERESA Alprazolam (Alprazolam 0.5 Mg Tablet) 0.5 mg PO BEDTIME [facility] Last Admin: 07/07/24 20:59 Dose: 0.5 mg Documented By: ROMULO Amlodipine Besylate (Amlodipine Besylate 2.5 Mg Tablet) 2.5 mg PO DAILY [facility]; Protocol Last Admin: 07/08/24 09:09 Dose: 2.5 mg Documented By: MIHAI Aspirin (Aspirin 81 Mg Tab.Chew) 81 mg PO DAILY [facility] Last Admin: 07/08/24 09:04 Dose: 81 mg Documented By: MIHAI Atorvastatin Calcium (Atorvastatin Calcium 40 Mg Tablet) 20 mg PO DAILY [facility] Last Admin: 07/08/24 09:03 Dose: 20 mg Documented By: MIHAI Buspirone HCl (Buspirone Hcl 5 Mg Tablet) 15 mg PO TID PRN PRN Reason: Anxiety Last Admin: 07/08/24 09:04 Dose: 15 mg Documented By: MIHAI Enoxaparin Sodium (Enoxaparin Sodium 40 Mg/0.4 Ml Syringe) 40 mg SUBCUT Q24H [facility] Last Admin: 07/08/24 09:03 Dose: 40 mg Documented By: MIHAI Fluticasone Propionate (Fluticasone Propionate Nasal 16 Gm [place]) 1 spray NOSTRIL-B DAILY [facility] Gabapentin (Gabapentin 300 Mg Capsule) 300 mg PO TID [facility] Last Admin: 07/08/24 09:03 Dose: 300 mg Documented By: MIHAI Levothyroxine Sodium (Levothyroxine Sodium 112 Mcg Tablet) 112 mcg PO DAILY@0600 [facility] Last Admin: 07/08/24 04:28 Dose: 112 mcg Documented By: ROMULO Comments: per pt. request to take now I don't want to be woken up again , give it now please per pt. Loperamide HCl (Loperamide Hcl 2 Mg Capsule) 2 mg PO Q4H PRN PRN Reason: Diarrhea Last Admin: 07/05/24 16:06 Dose: 2 mg Documented By: KYLAH Magnesium Oxide (Magnesium Oxide 400 Mg Tablet) 400 mg PO BIDPC [facility] Last Admin: 07/08/24 09:03 Dose: 400 mg Documented By: MIHAI Omeprazole (Omeprazole 20 Mg Capsule.) 20 mg PO DAILY@0630 [facility] Last Admin: 07/08/24 04:29 Dose: 20 mg Documented By: ROMULO Comments: given at this time per pt. request I don't want to be woken up again give it to me now please. Oxycodone HCl (Oxycodone Hcl Immed Release 5 Mg Tablet) 10 mg PO QID PRN PRN Reason: Pain, Moderate(Pain Scale 4-6) Last Admin: 07/08/24 04:25 Dose: 10 mg Documented By: ROMULO Trazodone HCl (Trazodone Hcl 50 Mg Tablet) 150 mg PO BEDTIME PRN PRN Reason: Insomnia Last Admin: 07/06/24 20:48 Dose: 150 mg Documented By: NASH Labs 07/08/24 06:02 07/08/24 06:02 Labs: Laboratory Results - last 24 hr 07/08/24 06:02 MCV 88.5 MCH 29.7 MCHC 33.5 RDW 13.6 Plt Count 298 MPV 9.4 Immature Gran % (Auto) 2.6 H Neut % (Auto) 72.5 Lymph % (Auto) 9.0 L [place] % (Auto) 9.3 Eos % (Auto) 5.8 H Baso % (Auto) 0.8 Lymph # (Auto) 1.4 [place] # (Auto) 1.4 H Eos # (Auto) 0.9 H Baso # (Auto) 0.1 Abs Immat Gran (auto) 0.40 H Absolute Neuts (auto) 10.9 H Absolute Nucleated RBC 0.000 Nucleated RBC % (auto) 0.0 Anion Gap 13 Estim Creat Clear Calc 46.7 Estimated GFR > 60 Random Glucose 122 H Calcium 9.7 Phosphorus 3.0 Magnesium 1.8 Troponin I High Sens 75.5 H* D Assessment and Plan (1) Acute hypoxemic respiratory failure: Status: Acute Assessment and Plan: day-9 83-year-old lady past medical history of COPD, hypertension, hypothyroidism chronic pain syndrome was seen by pain medicine for bilateral sacroiliac joint pain. She was brought to the hospital for an elective sacroiliac joint injections, patient received propofol for sedation for the procedure, during the patient procedure well the patient was turned around she went into PEA cardiac arrest, code lasted for about 5 minutes before ROSC receiving 2 doses of epinephrine and intubated during the code. She was also found to be hypotensive post code received few pushes of phenylephrine and is being transferred to medical ICU. Acute metabolic encephalopathy possibly due to medication. per chart review from icu-Risk for hypoxic ischemic injury is low given the short duration of the code and happened in the operating room intubated immediately and circulation maintained. mental status seems improving nstemi -Suspected second-degree NSTEMI in the setting of a acute hypoxic respiratory failure in the setting of advanced lung disease and s/p cardiac arrest. echo :1. Normal biventricular function with moderate left ventricular hypertrophy 2. Calcific aortic valve changes noted with severe mitral annular calcification with normal cardiac valvular Dopplers 3. Upper limits of normal RV systolic pressure 4. Trivial pericardial effusion Cardiology evaluation noted -likely demand nstemi as above. off heparin drip. trop seems much imprved,ekg similar to previous , chest soarness reproducable/positional. continue asa ,statin Acute hypoxemic respiratory failure due to aspiration pneumonia-intubated and extubated ,tranferred to floor completed antibiotics zosyn(intiated on 06/30/24-07/07/24), taper oxygen, nebs tachycardia likely realted to anxiety and sob,diarrhae cta on 06/30: no pulm embolism echo as above. tsh levels normal plan:continue alprazolam, pain control with oxycodone. incidental on ct abd (06/30/24):abd CT of several areas of stenosis with the abdominal aorta, splenic artery, ostium of the SMA, and at the aortoiliac bifurcation(renal left side subacute infracts) vacular reviewed imaging -recomended no acute intervention -continue asa ,statin ,vascular follow up outpatient. diarrhae : ? viral,no abd pain or nausea or vomiting diarrhae improving gip panel neg respiratory viral panel-negative continue loperamide htn : suboptimal added amlodipine 2.5 mg daily. moniter closely bp-if needed add lisinopril. Hypothyroidism: on levothyroxine Prophylaxis: Lovenox, pantoprazole generalised weak -pt rec-pulm rehab Ongoing need of hospitalization: awaiting placement. Quality Stroke Does the patient have a stroke diagnosis?: No VTE Prior VTE?: No VTE Risk Level:: Medical - moderate - high VTE Device Contraindication: N/A - Device Ordered VTE Drug Contraindication: N/A - Med Ordered
[2024-07-08] MEDS: Fluticasone Propionate Nasal 16 GM SPRAY 1 SPRAY NOSTRIL-B (12:27)
[2024-07-08] MEDS: ALPRAZolam 0.5 MG TABLET PO (19:59)
[2024-07-08] MEDS: traZODone HCL 50 MG TABLET 150 MG PO (20:00)
[2024-07-09] VITALS (7 sets, daily range): BP systolic 128–179; BP diastolic 69–91; PULSE 93–108; RESP 18–20; TEMP 36.1–36.9; O2SAT 91–95
[2024-07-09] MEDS: Omeprazole 20 MG CAPSULE.DR PO (06:03)
[2024-07-09] MEDS: Levothyroxine Sodium 112 MCG TABLET PO (06:03)
[2024-07-09] MEDS: oxyCODONE HCl Immed Release 5 MG TABLET 10 MG PO ×3 (06:04→21:03)
[2024-07-09 06:15] LABS: MANUAL DIFF FLAG NO
[2024-07-09 06:18] LABS: Basophils Absolute Auto 0.1 X10*3/uL (0.0-0.2); Eosinophils Absolute Auto 0.8 X10*3/uL (0.0-0.4); Eosinophils Percent Auto 6.5 % (0-4); Hematocrit 33.3 % (37.0-47.0); Hemoglobin 11.2 g/dl (12.0-16.0); Imm Gran Abs Auto 0.41 X10*3/uL (0.00-0.03); Imm Gran Pct Auto 3.5 % (0.0-0.4); Lymphocytes Absolute Auto 1.4 X10*3/uL (1.2-4.9); Lymphocytes Percent Auto 12.1 % (20-40); Mean Corpuscular HGB Conc 33.6 g/dl (31.0-35.0); Mean Corpuscular Hemoglobin 29.8 pg (27.0-33.0); Mean Corpuscular Volume 88.6 fL (80.0-98.0); Mean Platelet Volume 9.2 fL (9.4-12.3); Monocytes Absolute Auto 1.1 X10*3/uL (0.1-1.2); Monocytes Percent Auto 9.3 % (2-11); Neutrophils Absolute Auto 7.8 x10*3/uL (2.0-8.3); Neutrophils Percent Auto 67.6 % (45-73); Platelet Count 342 X10*3/uL (160-400); Red Blood Count 3.76 X10*6/uL (4.20-5.50); Red Cell Distribution Width 13.6 % (11.0-16.0); White Blood Count 11.6 X10*3/uL (4.8-10.8)
[2024-07-09 06:34] LABS: Anion Gap 13 (12-20); Blood Urea Nitrogen 18 mg/dL (9-16); Calcium 9.4 mg/dL (8.4-10.2); Carbon Dioxide 28 mmol/L (22-29); Chloride 100 mmol/L (96-108); Creatinine Clr Calc Pharmacy 38.2; Estimated Glomerular Filt Rate 51; Glucose Random 136 mg/dL (60-115); Magnesium 1.8 mg/dL (1.6-2.6); Phosphorus 3.5 mg/dL (2.7-4.5); Potassium 3.6 mmol/L (3.3-5.1); Sodium 137 mmol/L (135-145)
[2024-07-09] MEDS: Albuterol/Iprat 2.5/0.5MG 3 ML AMPUL.NEB INHALE ×2 (07:56→20:11)
[2024-07-09] MEDS: busPIRone HCl 5 MG TABLET 15 MG PO (08:52)
[2024-07-09] MEDS: Aspirin 81 MG TAB.CHEW PO (08:54)
[2024-07-09] MEDS: Metoprolol Tartrate 12.5 MG HALFTAB PO ×2 (08:54→21:04)
[2024-07-09] MEDS: Gabapentin 300 MG CAPSULE PO ×3 (08:55→21:03)
[2024-07-09] MEDS: Acetaminophen 325 MG TABLET 975 MG PO (08:55)
[2024-07-09] MEDS: Atorvastatin Calcium 40 MG TABLET 20 MG PO (08:55)
[2024-07-09] MEDS: amLODIPine Besylate 2.5 MG TABLET PO (08:56)
[2024-07-09] MEDS: Enoxaparin Sodium 40 MG/0.4 ML SYRINGE SUBCUT (08:56)
[2024-07-09] MEDS: Magnesium Oxide 400 MG TABLET PO ×2 (08:56→18:40)
[2024-07-09] MEDS: Fluticasone Propionate Nasal 16 GM SPRAY 1 SPRAY NOSTRIL-B (08:59)
[2024-07-09 09:41] LABS: Anion Gap 13 (12-20); Blood Urea Nitrogen 17 mg/dL (9-16); Calcium 9.2 mg/dL (8.4-10.2); Carbon Dioxide 28 mmol/L (22-29); Chloride 100 mmol/L (96-108); Creatinine Clr Calc Pharmacy 37.4; Estimated Glomerular Filt Rate 50; Glucose Random 130 mg/dL (60-115); Magnesium 1.8 mg/dL (1.6-2.6); Potassium 3.8 mmol/L (3.3-5.1); Sodium 137 mmol/L (135-145)
--- NOTE | 2024-07-09 10:23 | ECG_ITS ---
Test Reason : chest pain Blood Pressure : / mmHG Vent. Rate : 091 BPM Atrial Rate : 091 BPM P-R Int : 182 ms QRS Dur : 092 ms QT Int : 428 ms P-R-T Axes : 070 -60 206 degrees QTc Int : 526 ms Normal sinus rhythm Left anterior fascicular block Moderate voltage criteria for LVH, may be normal variant ( R in aVL , [place] product ) Marked T wave abnormality, consider anterolateral ischemia Prolonged QT Abnormal ECG When compared with ECG of 08-JUL-2024 09:15, T wave inversion more evident in Anterior leads Referred By: Luis Manuel Thornton Electronically Signed By:LUIS MANUEL THORNTON
--- NOTE | 2024-07-09 10:44 | PM.PNCARD ---
Subjective Subjective Date of Service: 07/09/24 Interval history: She has some pain at the site of chest compressions but otherwise okay. Generally weak. Review of Systems Review of Systems Yes all other systems are reviewed and are negative Constitutional: Reports as per HPI and Reports no additional constitutional complaints Eyes: Reports as per HPI and Denies no additional eye complaints Denies system reviewed and no additional complaints, except as documented and Reports as per HPI Cardiovascular: Reports as per HPI, Reports no additional cardiovascular complaints, Denies acrocyanosis, Denies cool extremities, Reports chest pain, Denies leg edema, Denies lightheadedness, Denies palpitations and Denies dyspnea Respiratory: Reports as per HPI, Denies no additional respiratory complaints and Denies dyspnea Gastrointestinal: Reports as per HPI and Denies no additional gastrointestinal complaints Genitourinary: Reports as per HPI Musculoskeletal: Reports no additional musculoskeletal complaints and Reports as per HPI Skin/Breast: Reports system reviewed and no additional complaints, except as docu Reports system reviewed and no additional complaints, except as documented and Reports as per HPI Psychiatric: Reports no additional psychiatric complaints and Reports as per HPI Endocrine: Reports no additional endocrine complaints, Reports as per HPI and Denies palpitations Hematologic/Lymphatic: Reports no additional hematologic/lymphatic complaints and Reports as per HPI Allergic/Immunologic: Reports no additional allergic/immunologic complaints and Reports as per HPI Physical Exam Vital Signs: Last Vital Signs Temp 98.5 F 07/09/24 07:13 Pulse 100 07/09/24 07:58 Resp 18 07/09/24 07:58 BP 179/86 H 07/09/24 07:13 Pulse Ox 91 L 07/09/24 07:13 O2 Del Method Nasal Cannula 07/09/24 07:13 O2 Flow Rate 3 07/09/24 07:13 FiO2 60 07/01/24 10:00 Oxygen Flow Rate 8 07/02/24 11:00 BMI result Body Mass Index 28.2 Const General: comfortable and no acute distress Orientation/consciousness: patient oriented x3 HEENT Other: Unremarkable Head: Yes normal to inspection Neck Neck: Yes normal visual inspection Chest Chest palpation & inspection: normal inspection of the chest Resp Auscultation: clear to auscultation bilaterally Cardio Palpation: normal PMI Heart sounds: S1 normal heart sound present, S2 normal heart sound present, no gallops, no murmurs and no rubs GI Palpation (GI): Soft to palpation Back/Spine/Pelvis Other: unremarkable Skin General skin exam: no rashes or lesions noted Neuro General: patient oriented x3 Extrem General: Yes normal to inspection Psych Mental Status: mental status grossly normal Objective Labs and Meds 07/09/24 05:34 07/09/24 08:42 Lab results: Laboratory Results - last 24 hr 07/09/24 07/09/24 05:34 08:42 WBC 11.6 H RBC 3.76 L Hgb 11.2 L Hct 33.3 L MCV 88.6 MCH 29.8 MCHC 33.6 RDW 13.6 Plt Count 342 MPV 9.2 L Immature Gran % (Auto) 3.5 H Neut % (Auto) 67.6 Lymph % (Auto) 12.1 L [place] % (Auto) 9.3 Eos % (Auto) 6.5 H Baso % (Auto) 1.0 Lymph # (Auto) 1.4 [place] # (Auto) 1.1 Eos # (Auto) 0.8 H Baso # (Auto) 0.1 Abs Immat Gran (auto) 0.41 H Absolute Neuts (auto) 7.8 Absolute Nucleated RBC 0.000 Nucleated RBC % (auto) 0.0 Hold Purple Top SEE NOTE Sodium 137 137 Potassium 3.6 3.8 Chloride 100 100 Carbon Dioxide 28 28 Anion Gap 13 13 BUN 18 H 17 H Creatinine 1.04 1.06 Estim Creat Clear Calc 38.2 37.4 Estimated GFR 51 50 Random Glucose 136 H 130 H Calcium 9.4 9.2 Phosphorus 3.5 Magnesium 1.8 1.8 Progress Note: A&P Assessment and plan (1) Cardiac arrest: Status: Acute (2) Acute hypoxemic respiratory failure: Status: Acute (3) NSTEMI (non-ST elevated myocardial infarction): Status: Acute Plan Suspected second-degree NSTEMI in the setting of a acute hypoxic respiratory failure in the setting of advanced lung disease. Echocardiogram with preserved LVEF, 65-70%; severe mitral annular calcification. Her complaints of chest pain seem to be secondary to the chest compressions and not anginal. However, EKG does show anterior T inversions. Again not clear if it is related to the hypoxic event from the arrest or something else. Continue aspirin and statins. Blood pressure medications. Will discuss with Interventional. Time Spent With Patient Time: Total time managing care of this patient today ____ minutes. Progress Note: Quality Stroke Does the patient have a stroke diagnosis?: No Procedures Date of Service Date of Service: 07/09/24
--- NOTE | 2024-07-09 11:51 | P.PNIM_ITS ---
Subjective Subjective Date of Service: 07/09/24 Interval History: nsvt episode denines new c/o. sob improving Review of Systems Review of Systems: Yes all other systems are reviewed and are negative Physical Exam 2 Vital Signs: Vital Signs: Last Vital Signs Temp 98.5 F 07/09/24 07:13 Pulse 100 07/09/24 07:58 Resp 18 07/09/24 07:58 BP 179/86 H 07/09/24 07:13 Pulse Ox 91 L 07/09/24 07:13 O2 Del Method Nasal Cannula 07/09/24 07:13 O2 Flow Rate 3 07/09/24 07:13 FiO2 60 07/01/24 10:00 Oxygen Flow Rate 8 07/02/24 11:00 BMI result Body Mass Index 28.2 Appearance: Alert.? Oriented X3.?sob improving cvs: rrr, [id number] . res: air entry fair , few faint rhonchii at bases. abd: no rebound or guarding ,nt, bs present. ext pulses present , no cyanosis. neuro: axo3 , nonfocal. Objective Data Active Medications Acetaminophen (Acetaminophen 325 Mg Tablet) 975 mg PO Q6H PRN PRN Reason: Pain, Moderate(Pain Scale 4-6) Last Admin: 07/09/24 08:55 Dose: 975 mg Documented By: MARIE Albuterol Sulfate (Albuterol Sulfate (0.083%) 2.5 Mg/3 Ml Vial.Neb) 2.5 mg INHALE ONCE PRN PRN Reason: Shortness of Breath/Wheezing Albuterol/Ipratropium (Albuterol/Iprat 2.5/0.5mg 3 Ml Ampul.Neb) 3 ml INHALE RQ6H WHILE AWAKE [facility] Last Admin: 07/09/24 07:56 Dose: 3 ml Documented By: LEOLA Alprazolam (Alprazolam 0.5 Mg Tablet) 0.5 mg PO BEDTIME [facility] Last Admin: 07/08/24 19:59 Dose: 0.5 mg Documented By: ROMULO Amlodipine Besylate (Amlodipine Besylate 2.5 Mg Tablet) 2.5 mg PO DAILY [facility]; Protocol Last Admin: 07/09/24 08:56 Dose: 2.5 mg Documented By: MARIE Aspirin (Aspirin 81 Mg Tab.Chew) 81 mg PO DAILY [facility] Last Admin: 07/09/24 08:54 Dose: 81 mg Documented By: MARIE Atorvastatin Calcium (Atorvastatin Calcium 40 Mg Tablet) 20 mg PO DAILY [facility] Last Admin: 07/09/24 08:55 Dose: 20 mg Documented By: MARIE Buspirone HCl (Buspirone Hcl 5 Mg Tablet) 15 mg PO TID PRN PRN Reason: Anxiety Last Admin: 07/09/24 08:52 Dose: 15 mg Documented By: MARIE Enoxaparin Sodium (Enoxaparin Sodium 40 Mg/0.4 Ml Syringe) 40 mg SUBCUT Q24H [facility] Last Admin: 07/09/24 08:56 Dose: 40 mg Documented By: MARIE Fluticasone Propionate (Fluticasone Propionate Nasal 16 Gm [place]) 1 spray NOSTRIL-B DAILY [facility] Last Admin: 07/09/24 08:59 Dose: 1 spray Documented By: MARIE Gabapentin (Gabapentin 300 Mg Capsule) 300 mg PO TID [facility] Last Admin: 07/09/24 08:55 Dose: 300 mg Documented By: MARIE Magnesium Sulfate/Dextrose (Magnesium Sulfate/D5w) 1 gm in 100 mls @ 100 mls/hr IV ONCE ONE Stop: 07/09/24 12:21 Levothyroxine Sodium (Levothyroxine Sodium 112 Mcg Tablet) 112 mcg PO DAILY@0600 [facility] Last Admin: 07/09/24 06:03 Dose: 112 mcg Documented By: ROMULO Loperamide HCl (Loperamide Hcl 2 Mg Capsule) 2 mg PO Q4H PRN PRN Reason: Diarrhea Last Admin: 07/05/24 16:06 Dose: 2 mg Documented By: KYLAH Magnesium Oxide ([facility]esium Oxide 400 Mg Tablet) [facility] Last Admin: 07/09/24 08:56 Dose: 400 mg Documented By: MARIE Metoprolol Tartrate (Metoprolol Tartrate 12.5 Mg Halftab) 12.5 mg PO BID [facility]; Protocol Last Admin: 07/09/24 08:54 Dose: 12.5 mg Documented By: MARIE Omeprazole (Omeprazole 20 Mg Capsule.) 20 mg PO DAILY@0630 [facility] Last Admin: 07/09/24 06:03 Dose: 20 mg Documented By: ROMULO Oxycodone HCl (Oxycodone Hcl Immed Release 5 Mg Tablet) 10 mg PO QID PRN PRN Reason: Pain, Moderate(Pain Scale 4-6) Last Admin: 07/09/24 06:04 Dose: 10 mg Documented By: ROMULO Trazodone HCl (Trazodone Hcl 50 Mg Tablet) 150 mg PO BEDTIME PRN PRN Reason: Insomnia Last Admin: 07/08/24 20:00 Dose: 150 mg Documented By: ROMULO Labs 07/09/24 05:34 07/09/24 08:42 Labs: Laboratory Results - last 24 hr 07/09/24 07/09/24 05:34 08:42 MCV 88.6 MCH 29.8 MCHC 33.6 RDW 13.6 Plt Count 342 MPV 9.2 L Immature Gran % (Auto) 3.5 H Neut % (Auto) 67.6 Lymph % (Auto) 12.1 L [place] % (Auto) 9.3 Eos % (Auto) 6.5 H Baso % (Auto) 1.0 Lymph # (Auto) 1.4 [place] # (Auto) 1.1 Eos # (Auto) 0.8 H Baso # (Auto) 0.1 Abs Immat Gran (auto) 0.41 H Absolute Neuts (auto) 7.8 Absolute Nucleated RBC 0.000 Nucleated RBC % (auto) 0.0 Hold Purple Top SEE NOTE Anion Gap 13 13 Estim Creat Clear Calc 38.2 37.4 Estimated GFR 51 50 Random Glucose 136 H 130 H Calcium 9.4 9.2 Phosphorus 3.5 Magnesium 1.8 1.8 Assessment and Plan (1) Acute hypoxemic respiratory failure: Status: Acute Assessment and Plan: day-10 83-year-old lady past medical history of COPD, hypertension, hypothyroidism chronic pain syndrome was seen by pain medicine for bilateral sacroiliac joint pain. She was brought to the hospital for an elective sacroiliac joint injections, patient received propofol for sedation for the procedure, during the patient procedure well the patient was turned around she went into PEA cardiac arrest, code lasted for about 5 minutes before ROSC receiving 2 doses of epinephrine and intubated during the code. She was also found to be hypotensive post code received few pushes of phenylephrine and is being transferred to medical ICU. Acute metabolic encephalopathy possibly due to medication. per chart review from icu-Risk for hypoxic ischemic injury is low given the short duration of the code and happened in the operating room intubated immediately and circulation maintained. mental status seems improved. nstemi -Suspected second-degree NSTEMI in the setting of a acute hypoxic respiratory failure in the setting of advanced lung disease and s/p cardiac arrest. echo :1. Normal biventricular function with moderate left ventricular hypertrophy 2. Calcific aortic valve changes noted with severe mitral annular calcification with normal cardiac valvular Dopplers 3. Upper limits of normal RV systolic pressure 4. Trivial pericardial effusion Cardiology evaluation noted -likely demand nstemi as above. off heparin drip. trop seems much imprved,ekg similar to previous , chest soarness reproducable/positional. Nsvt episode last evening(07/08/24)-added potasium and magnesium ( keep potassium >4,mag>2).ekg t waves inversions more pronounced in anteriolateral leads discussed above with cardio, ekg changes (? could be related to earlier cardiac arrest vs hypoxemic situation)-continue asa ,statin,bb added , cardiology followup in am. Acute hypoxemic respiratory failure due to aspiration pneumonia-intubated and extubated ,tranferred to floor completed antibiotics zosyn(intiated on 06/30/24-07/07/24), taper oxygen, nebs tachycardia likely realted to anxiety and sob,diarrhae-seems improved. cta on 06/30: no pulm embolism echo as above. tsh levels normal plan:continue alprazolam, pain control with oxycodone. incidental on ct abd (06/30/24):abd CT of several areas of stenosis with the abdominal aorta, splenic artery, ostium of the SMA, and at the aortoiliac bifurcation(renal left side subacute infracts) vacular reviewed imaging -recomended no acute intervention -continue asa ,statin ,vascular follow up outpatient. diarrhae : ? viral,no abd pain or nausea or vomiting diarrhae improving gip panel neg respiratory viral panel-negative continue loperamide htn : suboptimal added amlodipine 2.5 mg daily. moniter closely bp-if needed add lisinopril. Hypothyroidism: on levothyroxine Prophylaxis: Lovenox, pantoprazole generalised weak -pt rec-pulm rehab Ongoing need of hospitalization: nsvt, ekg chnages more pronounced - need tele monitering as well as moniter for new cardiac symptoms ,cardiology followup Quality Stroke Does the patient have a stroke diagnosis?: No VTE Prior VTE?: No VTE Risk Level:: Medical - moderate - high VTE Device Contraindication: N/A - Device Ordered VTE Drug Contraindication: N/A - Med Ordered
[2024-07-09] MEDS: Potassium Chloride ER 20 MEQ TAB.ER.PRT PO (12:02)
--- NOTE | 2024-07-09 14:37 | MHC.CM.PN ---
CM met with pt and her niece at their request. Pt stated that she really wants to go home and not to [facility]. We discussed what assistance she has at home and VNA services. Her niece will be with her as much as possible. MARTÍNEZ can call [facility] to request increased hours of [employer] (she currently has 12 hours a week). [facility] is her choice, referral in. Anticipate DC to home with services on 07/10/24.
[2024-07-09] MEDS: Magnesium Sulfate/D5W 1 GM/100 ML PIGGYBACK IV (14:57)
[2024-07-09] MEDS: ALPRAZolam 0.5 MG TABLET PO (21:03)
[2024-07-10] VITALS (11 sets, daily range): BP systolic 130–164; BP diastolic 71–92; PULSE 82–108; RESP 16–20; TEMP 36.3–37.2; O2SAT 92–96
[2024-07-10] MEDS: Acetaminophen 325 MG TABLET 975 MG PO ×2 (01:18→20:19)
[2024-07-10] MEDS: busPIRone HCl 5 MG TABLET 15 MG PO (04:15)
[2024-07-10] MEDS: Levothyroxine Sodium 112 MCG TABLET PO (05:41)
[2024-07-10] MEDS: Omeprazole 20 MG CAPSULE.DR PO (05:42)
[2024-07-10 06:23] LABS: MANUAL DIFF FLAG NO
[2024-07-10 06:29] LABS: Basophils Absolute Auto 0.2 X10*3/uL (0.0-0.2); Basophils Percent Auto 1.3 % (0-2); Eosinophils Absolute Auto 0.9 X10*3/uL (0.0-0.4); Eosinophils Percent Auto 7.3 % (0-4); Hematocrit 33.6 % (37.0-47.0); Hemoglobin 11.1 g/dl (12.0-16.0); Imm Gran Abs Auto 0.37 X10*3/uL (0.00-0.03); Lymphocytes Absolute Auto 1.9 X10*3/uL (1.2-4.9); Lymphocytes Percent Auto 15.2 % (20-40); Mean Corpuscular Hemoglobin 29.4 pg (27.0-33.0); Mean Corpuscular Volume 88.9 fL (80.0-98.0); Mean Platelet Volume 9.3 fL (9.4-12.3); Monocytes Absolute Auto 1.1 X10*3/uL (0.1-1.2); Monocytes Percent Auto 8.8 % (2-11); Neutrophils Percent Auto 64.4 % (45-73); Platelet Count 396 X10*3/uL (160-400); Red Blood Count 3.78 X10*6/uL (4.20-5.50); Red Cell Distribution Width 13.5 % (11.0-16.0); White Blood Count 12.5 X10*3/uL (4.8-10.8)
[2024-07-10 06:41] LABS: Anion Gap 14 (12-20); Blood Urea Nitrogen 18 mg/dL (9-16); Calcium 9.9 mg/dL (8.4-10.2); Carbon Dioxide 27 mmol/L (22-29); Chloride 99 mmol/L (96-108); Creatinine Clr Calc Pharmacy 36.4; Estimated Glomerular Filt Rate 48; Glucose Random 109 mg/dL (60-115); Magnesium 2.2 mg/dL (1.6-2.6); Phosphorus 3.6 mg/dL (2.7-4.5); Potassium 4.3 mmol/L (3.3-5.1); Sodium 136 mmol/L (135-145)
--- NOTE | 2024-07-10 07:00 | CA_ITS ---
Transthoracic Echocardiogram Patient (Last, First, Middle): Kait Pickard, Gender: Female Date of : 1940 Age: 83 Procedure Date: 07/10/2024 Procedure Type: Transthoracic Echocardiogram Location: [facility] [place] Height: 157.48 cm Weight: 69.85 kg BSA: 1.71 m2 Heart Rate: bpm BP: 134 / 71 mmHg [employer]: SB Referring MD: Vern Watkins MD Symptoms: Chest pain, abnormal EKG, evaluate EF/WMA Study Quality: Adequate with contrast Conclusions: - Normal left ventricular cavity size. The left ventricular systolic function is moderately decreased. The visually estimated ejection fraction is between 30-35%. - The mid anterior, mid inferior, mid anterolateral, and mid inferoseptal segments are hypokinetic. - The entire apex is akinetic. 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 Findings Procedure Information Contrast agent, definity, is being given per protocol without apparent complications. Left Ventricle Normal left ventricular cavity size. The left ventricular systolic function is moderately decreased. The visually estimated ejection fraction is between 30-35%. Wall Motion Rest Echo Findings The mid anterior, mid inferior, mid anterolateral, and mid inferoseptal segments are hypokinetic. The entire apex is akinetic. Venous The inferior vena cava is normal in size and collapses greater than 50% with inspiration. Pericardium/Pleural There is no evidence of pericardial effusion. Prior Study Comparison Changes noted compared to prior study dated: 06/30/2024. EF 30-35% with RWMA. Measurements 2D Linear Measurements IVSd: 1.28 0.6-0.9/0.6-1.0 cm LVIDd: 4.66 3.9-5.3/4.2-5.9 cm LVIDd Index: 2.73 2.4-3.2/2.2-3.1 cm/m2 LVIDs: 2.99 2.0-3.6 cm LVPWd: 0.75 0.7-1.1 cm LV Mass: 205.73 67-162/88-224 g LV Mass Index: 120.31 43-95/49-115 g/m2 LVOT Diam: 2.20 3.0+(-)1.3 cm 2D Systolic Function EF 4C: 40.70 >55% EF 2C: 32.10 >55% EF BiP: 38.80 >55% LVOT LVOT Pk Mamadou: 0.78 LVOT Mn Mamadou: 0.52 LVOT VTI: 0.14 LVOT Pk Grad: 2.00 LVOT Mn Grad: 1.00 LVOT Diam: 2.20 LVOT Area: 3.80 Updated in Other Vendor System with Status of Final Edgar Kim MD electronically signed on 07/10/2024 10:45:21 AM with status of Final
[2024-07-10] MEDS: Albuterol/Iprat 2.5/0.5MG 3 ML AMPUL.NEB INHALE ×3 (07:28→19:47)
[2024-07-10] MEDS: Aspirin 81 MG TAB.CHEW PO (08:47)
[2024-07-10] MEDS: Atorvastatin Calcium 40 MG TABLET 20 MG PO (08:47)
[2024-07-10] MEDS: Magnesium Oxide 400 MG TABLET PO ×2 (08:48→17:52)
[2024-07-10] MEDS: Fluticasone Propionate Nasal 16 GM SPRAY 1 SPRAY NOSTRIL-B (08:48)
[2024-07-10] MEDS: Metoprolol Tartrate 12.5 MG HALFTAB PO ×2 (08:48→20:19)
[2024-07-10] MEDS: Gabapentin 300 MG CAPSULE PO ×3 (08:48→20:19)
[2024-07-10] MEDS: amLODIPine Besylate 2.5 MG TABLET PO (08:48)
[2024-07-10] MEDS: Enoxaparin Sodium 40 MG/0.4 ML SYRINGE SUBCUT (08:49)
--- NOTE | 2024-07-10 09:49 | PM.PNCARD ---
Subjective Subjective Date of Service: 07/10/24 Interval history: Seen examined at bedside. Currently asymptomatic and denying any chest discomfort. She is on supplemental oxygen at home. Physical Exam Vital Signs: Last Vital Signs Temp 98.3 F 07/10/24 08:00 Pulse 100 07/10/24 08:00 Resp 20 07/10/24 08:00 BP 164/72 H 07/10/24 08:48 Pulse Ox 92 07/10/24 08:00 O2 Del Method Nasal Cannula 07/10/24 08:00 O2 Flow Rate 3 07/10/24 08:00 FiO2 60 07/01/24 10:00 Oxygen Flow Rate 8 07/02/24 11:00 BMI result Body Mass Index 28.2 GENERAL APPEARANCE: in no acute distress, pleasant. On supplemental oxygen. NECK: no carotid bruit, no jugular venous distention. SKIN: no suspicious lesions, warm and dry. HEART: no murmurs, regular rate and rhythm. Tachycardic. LUNGS: clear to auscultation bilaterally. ABDOMEN: soft, nontender. EXTREMITIES: no edema. PERIPHERAL PULSES: equal. NEUROLOGIC: No gross deficits, AAO X 3 Objective Labs and Meds 07/10/24 05:53 07/10/24 05:53 Lab results: Laboratory Results - last 24 hr 07/10/24 05:53 WBC 12.5 H RBC 3.78 L Hgb 11.1 L Hct 33.6 L MCV 88.9 MCH 29.4 MCHC 33.0 RDW 13.5 Plt Count 396 MPV 9.3 L Immature Gran % (Auto) 3.0 H Neut % (Auto) 64.4 Lymph % (Auto) 15.2 L [place] % (Auto) 8.8 Eos % (Auto) 7.3 H Baso % (Auto) 1.3 Lymph # (Auto) 1.9 [place] # (Auto) 1.1 Eos # (Auto) 0.9 H Baso # (Auto) 0.2 Abs Immat Gran (auto) 0.37 H Absolute Neuts (auto) 8.0 Absolute Nucleated RBC 0.000 Nucleated RBC % (auto) 0.0 Sodium 136 Potassium 4.3 Chloride 99 Carbon Dioxide 27 Anion Gap 14 BUN 18 H Creatinine 1.09 Estim Creat Clear Calc 36.4 Estimated GFR 48 Random Glucose 109 Calcium 9.9 D Phosphorus 3.6 Magnesium 2.2 Progress Note: A&P Assessment and plan (1) Cardiac arrest: Status: Acute (2) NSTEMI (non-ST elevated myocardial infarction): Status: Acute Plan [age] year female who had PEA arrest. She was given propofol and was getting sacroiliac joint injections. She was quickly revived after CPR and was intubated. Initial echocardiogram was normal but she had clear NSTEMI which is felt to be type 2 injury. Her EKGs abnormal with deep T-wave inversions in the precordial leads. I have discussed with the patient that the differentials are stress-induced cardiomyopathy versus LAD ischemia. She does not have any significant symptoms although she has baseline respiratory issues with shortness of breath and uses oxygen. She has been walking in the hallways with oxygen and denying any symptoms currently. We will look at the echocardiogram and will have further discussions. If she truly had wall motion abnormalities then I will discuss with her about a diagnostic angiogram. Continue supportive care otherwise. She is on baby aspirin which should be continued for now. Thank you for allowing me to participate in the care of your patient. Please feel free to contact me if you have any questions. Time Spent With Patient Time: Total time managing care of this patient today ____ minutes. Progress Note: Quality Stroke Does the patient have a stroke diagnosis?: No Procedures Date of Service Date of Service: 07/10/24
--- NOTE | 2024-07-10 10:21 | P.PNIM_ITS ---
Subjective Subjective Date of Service: 07/10/24 Interval History: abnormal ekg Review of Systems sob seems improved, now at her baseline oxygen Review of Systems: Yes all other systems are reviewed and are negative Physical Exam 2 Vital Signs: Vital Signs: Last Vital Signs Temp 98.3 F 07/10/24 08:00 Pulse 100 07/10/24 08:00 Resp 20 07/10/24 08:00 BP 164/72 H 07/10/24 08:48 Pulse Ox 92 07/10/24 08:00 O2 Del Method Nasal Cannula 07/10/24 08:00 O2 Flow Rate 3 07/10/24 08:00 FiO2 60 07/01/24 10:00 Oxygen Flow Rate 8 07/02/24 11:00 BMI result Body Mass Index 28.2 Objective Data Active Medications Acetaminophen (Acetaminophen 325 Mg Tablet) 975 mg PO Q6H PRN PRN Reason: Pain, Moderate(Pain Scale 4-6) Last Admin: 07/10/24 01:18 Dose: 975 mg Documented By: ARYAN Albuterol Sulfate (Albuterol Sulfate (0.083%) 2.5 Mg/3 Ml Vial.Neb) 2.5 mg INHALE ONCE PRN PRN Reason: Shortness of Breath/Wheezing Albuterol/Ipratropium (Albuterol/Iprat 2.5/0.5mg 3 Ml Ampul.Neb) 3 ml INHALE RQ6H WHILE AWAKE [facility] Last Admin: 07/10/24 07:28 Dose: 3 ml Documented By: TERESA Alprazolam (Alprazolam 0.5 Mg Tablet) 0.5 mg PO BEDTIME [facility] Last Admin: 07/09/24 21:03 Dose: 0.5 mg Documented By: TAYLOR Amlodipine Besylate (Amlodipine Besylate 2.5 Mg Tablet) 2.5 mg PO DAILY [facility]; Protocol Last Admin: 07/10/24 08:48 Dose: 2.5 mg Documented By: SHA Aspirin (Aspirin 81 Mg Tab.Chew) 81 mg PO DAILY [facility] Last Admin: 07/10/24 08:47 Dose: 81 mg Documented By: SHA Atorvastatin Calcium (Atorvastatin Calcium 40 Mg Tablet) 20 mg PO DAILY [facility] Last Admin: 07/10/24 08:47 Dose: 20 mg Documented By: SHA Buspirone HCl (Buspirone Hcl 5 Mg Tablet) 15 mg PO TID PRN PRN Reason: Anxiety Last Admin: 07/10/24 04:15 Dose: 15 mg Documented By: ARYAN Enoxaparin Sodium (Enoxaparin Sodium 40 Mg/0.4 Ml Syringe) 40 mg SUBCUT Q24H [facility] Last Admin: 07/10/24 08:49 Dose: 40 mg Documented By: SHA Fluticasone Propionate (Fluticasone Propionate Nasal 16 Gm [place]) 1 spray NOSTRIL-B DAILY [facility] Last Admin: 07/10/24 08:48 Dose: 1 spray Documented By: SHA Gabapentin (Gabapentin 300 Mg Capsule) 300 mg PO TID [facility] Last Admin: 07/10/24 08:48 Dose: 300 mg Documented By: SHA Levothyroxine Sodium (Levothyroxine Sodium 112 Mcg Tablet) 112 mcg PO DAILY@0600 [facility] Last Admin: 07/10/24 05:41 Dose: 112 mcg Documented By: ARYAN Lisinopril (Lisinopril 10 Mg Tablet) 10 mg PO DAILY [facility]; Protocol Loperamide HCl (Loperamide Hcl 2 Mg Capsule) 2 mg PO Q4H PRN PRN Reason: Diarrhea Last Admin: 07/05/24 16:06 Dose: 2 mg Documented By: KYLAH Magnesium Oxide (Magnesium Oxide 400 Mg Tablet) 400 mg PO BIDPC [facility] Last Admin: 07/10/24 08:48 Dose: 400 mg Documented By: SHA Metoprolol Tartrate (Metoprolol Tartrate 12.5 Mg Halftab) 12.5 mg PO BID [facility]; Protocol Last Admin: 07/10/24 08:48 Dose: 12.5 mg Documented By: SHA Omeprazole (Omeprazole 20 Mg Capsule.Dr) 20 mg PO DAILY@0630 [facility] Last Admin: 07/10/24 05:42 Dose: 20 mg Documented By: ARYAN Oxycodone HCl (Oxycodone Hcl Immed Release 5 Mg Tablet) 2.5 mg PO QID PRN PRN Reason: Pain, Moderate(Pain Scale 4-6) Trazodone HCl (Trazodone Hcl 50 Mg Tablet) 150 mg PO BEDTIME PRN PRN Reason: Insomnia Last Admin: 07/08/24 20:00 Dose: 150 mg Documented By: ROMULO Labs 07/10/24 05:53 07/10/24 05:53 Labs: Laboratory Results - last 24 hr 07/10/24 05:53 MCV 88.9 MCH 29.4 MCHC 33.0 RDW 13.5 Plt Count 396 MPV 9.3 L Immature Gran % (Auto) 3.0 H Neut % (Auto) 64.4 Lymph % (Auto) 15.2 L Sac % (Auto) 8.8 Eos % (Auto) 7.3 H Baso % (Auto) 1.3 Lymph # (Auto) 1.9 Sac # (Auto) 1.1 Eos # (Auto) 0.9 H Baso # (Auto) 0.2 Abs Immat Gran (auto) 0.37 H Absolute Neuts (auto) 8.0 Absolute Nucleated RBC 0.000 Nucleated RBC % (auto) 0.0 Anion Gap 14 Estim Creat Clear Calc 36.4 Estimated GFR 48 Random Glucose 109 Calcium 9.9 D Phosphorus 3.6 Magnesium 2.2 Assessment and Plan (1) Acute hypoxemic respiratory failure: Status: Acute Assessment and Plan: day-11 83-year-old lady past medical history of COPD, hypertension, hypothyroidism chronic pain syndrome was seen by pain medicine for bilateral sacroiliac joint pain. She was brought to the hospital for an elective sacroiliac joint injections, patient received propofol for sedation for the procedure, during the patient procedure well the patient was turned around she went into PEA cardiac arrest, code lasted for about 5 minutes before ROSC receiving 2 doses of epinephrine and intubated during the code. She was also found to be hypotensive post code received few pushes of phenylephrine and is being transferred to medical ICU. Acute metabolic encephalopathy possibly due to medication. per chart review from icu-Risk for hypoxic ischemic injury is low given the short duration of the code and happened in the operating room intubated immediately and circulation maintained. mental status seems improved. nstemi -Suspected second-degree NSTEMI in the setting of a acute hypoxic respiratory failure in the setting of advanced lung disease and s/p cardiac arrest. echo :1. Normal biventricular function with moderate left ventricular hypertrophy 2. Calcific aortic valve changes noted with severe mitral annular calcification with normal cardiac valvular Dopplers 3. Upper limits of normal RV systolic pressure 4. Trivial pericardial effusion Cardiology evaluation noted -likely demand nstemi as above. off heparin drip. trop seems much imprved,ekg similar to previous , chest soarness reproducable/positional. Nsvt episode last evening(07/08/24)-added potasium and magnesium ( keep potassium >4,mag>2).ekg t waves inversions more pronounced in anteriolateral leads discussed above with cardio, ekg changes (? could be related to earlier cardiac arrest vs hypoxemic situation)-continue asa ,statin,bb added , cardiology followup in am. Repeat echo today-EF is 30-35%, also multiple area of akinesia-? Question of takotsubo versus underlying ischemia Currently patient is asymptomatic, cardiology will discuss in [facility] for possible transfer to [facility] tomorrow Acute hypoxemic respiratory failure due to aspiration pneumonia-intubated and extubated ,tranferred to floor completed antibiotics zosyn(intiated on 06/30/24-07/07/24), taper oxygen, nebs tachycardia likely realted to anxiety and sob,diarrhae-seems improved. cta on 06/30: no pulm embolism echo as above. tsh levels normal plan:continue alprazolam, pain control with oxycodone. incidental on ct abd (06/30/24):abd CT of several areas of stenosis with the abdominal aorta, splenic artery, ostium of the SMA, and at the aortoiliac bifurcation(renal left side subacute infracts) vacular reviewed imaging -recomended no acute intervention -continue asa ,statin ,vascular follow up outpatient. diarrhae : ? viral,no abd pain or nausea or vomiting diarrhae improving gip panel neg respiratory viral panel-negative continue loperamide htn : suboptimal added amlodipine 2.5 mg daily. moniter closely bp-if needed add lisinopril. Hypothyroidism: on levothyroxine Prophylaxis: Lovenox, pantoprazole generalised weak -pt rec-pulm rehab Ongoing need of hospitalization: nsvt, ekg chnages more pronounced - need tele monitering as well as moniter for new cardiac symptoms ,cardiology followup Quality Stroke Does the patient have a stroke diagnosis?: No VTE Prior VTE?: No VTE Risk Level:: Medical - moderate - high VTE Device Contraindication: N/A - Device Ordered VTE Drug Contraindication: N/A - Med Ordered
--- NOTE | 2024-07-10 11:53 | MHC.CM.PN ---
Patient is not yet medically cleared for dc (requires tele monitoring); Patient now wants to go home with [facility](rather than outpatient pulmonary rehab). CM will follow.
[2024-07-10] MEDS: lisinopriL 10 MG TABLET PO (12:11)
[2024-07-10] MEDS: oxyCODONE HCl Immed Release 5 MG TABLET 2.5 MG PO (12:15)
[2024-07-10] MEDS: ALPRAZolam 0.5 MG TABLET PO (20:19)
[2024-07-11] VITALS (10 sets, daily range): BP systolic 155–180; BP diastolic 70–99; PULSE 82–98; RESP 17–20; TEMP 36.1–36.7; O2SAT 91–95; BMI 26.4
[2024-07-11] MEDS: oxyCODONE HCl Immed Release 5 MG TABLET 2.5 MG PO ×2 (03:02→13:03)
[2024-07-11] MEDS: Omeprazole 20 MG CAPSULE.DR PO (06:40)
[2024-07-11] MEDS: Levothyroxine Sodium 112 MCG TABLET PO (06:40)
[2024-07-11] MEDS: Albuterol/Iprat 2.5/0.5MG 3 ML AMPUL.NEB INHALE ×2 (07:31→15:07)
[2024-07-11] MEDS: lisinopriL 10 MG TABLET PO (09:36)
[2024-07-11] MEDS: Acetaminophen 325 MG TABLET 975 MG PO (09:36)
[2024-07-11] MEDS: Atorvastatin Calcium 40 MG TABLET 20 MG PO (09:36)
[2024-07-11] MEDS: amLODIPine Besylate 2.5 MG TABLET PO ×2 (09:36→13:03)
[2024-07-11] MEDS: Enoxaparin Sodium 40 MG/0.4 ML SYRINGE SUBCUT (09:36)
[2024-07-11] MEDS: Aspirin 81 MG TAB.CHEW PO (09:36)
[2024-07-11] MEDS: Magnesium Oxide 400 MG TABLET PO (09:37)
[2024-07-11] MEDS: Metoprolol Tartrate 12.5 MG HALFTAB PO (09:37)
[2024-07-11] MEDS: Fluticasone Propionate Nasal 16 GM SPRAY 1 SPRAY NOSTRIL-B (09:37)
[2024-07-11] MEDS: Gabapentin 300 MG CAPSULE PO ×2 (09:37→15:35)
[2024-07-11] MEDS: busPIRone HCl 5 MG TABLET 15 MG PO (13:04)
--- NOTE | 2024-07-11 14:48 | P.DS_ITS ---
DS: Providers Provider Date of Service: 07/11/24 Date of admission: 06/30/24 12:34 Primary care physician: Margot Murphy MD Consults: 06/30/24 13:06 Consult to Cardiology Routine Consulting Provider: [facility] Reason for consultation: Cardiac arrest 07/05/24 07:39 Consult to Vascular Surgery Routine Consulting Provider: [facility] Reason for consultation: severe atherosclerotic plaque abdominal aorta ,?splenic/renal infracts Has provider been notified: No 07/07/24 12:36 Consult to Wound Care Routine Reason for consultation: scattered bruising on arms. [place] blanchable buttocks DS: Diagnosis Discharge Diagnosis (1) Acute hypoxemic respiratory failure: Status: Acute DS: Summary Hospital Course Hospital Course: History of presenting illness Date of Service: 06/30/24 Chief Complaint: Cardiac arrest 83-year-old lady past medical history of COPD, hypertension, hypothyroidism chronic pain syndrome was seen by pain medicine for bilateral sacroiliac joint pain. She was brought to the hospital for an elective sacroiliac joint injections, Sequence of events seems like patient came as an outpatient on oxygen for sacroiliac injection. Patient in prone position received sedation with propofol 100 mg and subsequently while turning over patient became cyanotic and very quickly her pulse dropped to 10. There was also hypotension. CPR was started although patient never lost the pulse. Patient was then immediately treated by the OR team and revived very quickly after quick intubation oxygen initially improve. After epinephrine/ atropine heart rate and blood pressure improved with ROSC She was also found to be hypotensive post code received few pushes of phenylephrine and transferred to medical ICU,bedside echo, showed normal biventricular function collapsible IVC despite positive pressure ventilation suggestive of low preload. Hospital course: Acute metabolic encephalopathy resolved. Likely due to hypoxia and infection. Nstemi -likely secondary MT in the setting of acute hypoxic respiratory failure,/cardiac arrest, echocardiogram showed EF 30-35%, with mid anterior, mid inferior, mid anterolateral and mid inferior septal hypokinetic segments, the entire apex is akinetic differential includes takotsubo cardiomyopathy versus ischemic cardiomyopathy, due to significant wall motion abnormality, green building design specialist recommend cardiac catheterization therefore she is being transferred to [facility], will continue aspirin, statin and beta- blockers, patient currently is asymptomatic with no chest pain, no shortness of breath but feels tired due to lack of sleep. Patient underwent CTA chest on 06/30 due to tachycardia noted to have no PE, TSH is normal. Patient noted to have elevated blood pressures therefore amlodipine 5 mg added continue lisinopril 20 mg and beta-blockers. Patient noted to have urinary retention therefore indwelling Drummond catheter placed. Acute hypoxemic respiratory failure due to aspiration pneumonia-patient status post intubation, successfully extubated and finished 7 day course of IV Zosyn continue oxygen and nebulizers Incidental findings on ct abd (06/30/24):several areas of stenosis within the abdominal aorta, splenic artery, ostium of the SMA, and at the aortoiliac bifurcation(renal left side subacute infarcts) vacular reviewed imaging -recommended no acute intervention -continue asa ,statin ,vascular follow up outpatient. Hypothyroidism: Continue levothyroxine. Mood disorder continue home medications. Time Attestation Discharge Coordination Time (in mins): 40 Quality: Safe Use of Opioids Does Pt have an Active Cancer Diagnosis on the Problem List?: No Quality: Stroke Does the patient have a stroke diagnosis?: No Physical Exam Vital Signs: Vital Signs: Last Vital Signs Temp 98.0 F 07/11/24 11:38 Pulse 82 07/11/24 11:38 Resp 20 07/11/24 11:38 BP 155/74 H 07/11/24 11:38 Pulse Ox 91 L 07/11/24 11:38 O2 Del Method Nasal Cannula 07/11/24 11:38 O2 Flow Rate 2 07/11/24 11:38 FiO2 60 07/01/24 10:00 Oxygen Flow Rate 8 07/02/24 11:00 BMI result Body Mass Index 26.4 Const: Other: General sitting comfortably in no acute distress. Neck no JVD. CVS regular rate rhythm, Respiratory lungs clear to auscultation, no respiratory distress, no wheeze, no rhonchi. Gastrointestinal abdomen soft, non tender, bowel sounds audible, no guarding , no rigidity. Extremities no edema. Neuro non focal Skin no rash Psych anxious Discharge Plan Discharge Anticipated Discharge Date/Time: 07/11/24 14:47 Patient Disposition: Xfer Acute Care Hospital Discharge Diagnosis: Cardiac arrest Referrals: [facility] [Other] - 1 Week Margot Murphy MD [Primary Care Provider] - 1 Week Discharge Medications: New atorvastatin 40 mg Tablet 40 mg PO DAILY Qty: 30 0RF omeprazole 20 mg Capsule,Delayed Release(Dr/Ec) 20 mg PO DAILY@0630 Qty: 30 0RF enoxaparin 40 mg/0.4 mL Syringe 40 mg subcut Q24H Qty: 4 0RF fluticasone propionate 50 mcg/actuation [place],Suspension 1 spray intranasal DAILY Qty: 16 0RF metoprolol tartrate 25 mg tablet 25 mg PO BID Qty: 60 0RF ipratropium-albuterol 0.5 mg-3 mg(2.5 mg base)/3 mL Solution For Nebulization 3 ml inhalation RQ6H WHILE AWAKE Qty: 90 0RF aspirin 81 mg Tablet,Chewable 81 mg PO DAILY Qty: 30 0RF amlodipine 5 mg Tablet 5 mg PO DAILY Qty: 3 0RF Protocol: Hold for SBP< HOLD for SBP < : 90 lisinopril 20 mg tablet 20 mg PO DAILY Qty: 30 0RF Continued hydrocodone-acetaminophen 10-325 mg tablet 1 tab PO QID PRN (Reason: Pain) Incruse Ellipta 62.5 mcg/actuation blister with device 1 inh inhalation DAILY gabapentin 300 mg capsule 300 mg PO TID levothyroxine 112 mcg capsule 112 mcg PO DAILY buspirone 15 mg tablet 15 mg PO TID montelukast 10 mg tablet 10 mg PO DAILY alprazolam 0.5 mg tablet 0.5 mg PO DAILY trazodone 150 mg tablet 150 mg PO BEDTIME PRN (Reason: Insomnia) Discontinued naloxone 4 mg/actuation spray,non-aerosol intranasal diclofenac sodium 1 % gel 1 ea topical BID loratadine 10 mg tablet 10 mg PO DAILY famotidine 40 mg tablet 40 mg PO DAILY lisinopril 40 mg tablet 40 mg PO DAILY cetirizine 10 mg tablet 10 mg PO DAILY PRN (Reason: allergies) simvastatin 40 mg tablet 40 mg PO DAILY Discharge Orders: Discharge Order (Routine); Ordered 07/11/24 Ordered By: Francisco Javier Woodard Diet: Low fat, low cholesterol Activity on Discharge: bedrest Stand Alone Forms: Patient Portal Discharge page Print Language: Uzbek Care Plan Goals: Non ST-elevation MT with abnormal echocardiogram being transferred to [facility] for cardiac catheterization Indwelling Drummond catheter due to urinary retention Health Concerns: Continue all home medications as above Continue oxygen keep finger oximetry greater than 94 Plan of Treatment: Cardiac catheterization Assessment: As above
--- NOTE | 2024-07-11 14:50 | MHC.CM.PN ---
Per ROUNDS discussion, Patient will transfer to [facility] today.
--- NOTE | 2024-07-19 12:14 | PC.NURSE ---
Late Entry 07/11 @ 0936 patient received PRN Tylenol for reported pain 11/27; pt recieved tylenol per pt request
== END 2024-07-11 17:00 | disposition short-term general hospital (02) | DRG 280 ==
LOC: HO.ICU 12:37 → HO.IMC 07-03 14:18
PROVIDERS: Anesthesiology; Family Medicine; Internal Medicine; Internal Medicine Critical Care Medicine; Physician Assistant Medical; Admitting Provider Internal Medicine Critical Care Medicine; PCP Family Medicine; Visit Provider Hospitalist
PROC: 3E0U33Z Introduction of Anti-inflammatory into Joints, Percutaneous Approach (ICD-10-PCS; CPT 27096; principal; 2024-06-30 11:40)
DX: I97.711 Intraoperative cardiac arrest during other surgery (principal); G92.8 Other toxic encephalopathy; I21.A1 Myocardial infarction type 2; J69.0 Pneumonitis due to inhalation of food and vomit; J96.01 Acute respiratory failure with hypoxia; R57.0 Cardiogenic shock; J44.9 Chronic obstructive pulmonary disease, unspecified; E03.9 Hypothyroidism, unspecified; I70.0 Atherosclerosis of aorta; R33.9 Retention of urine, unspecified; F39 Unspecified mood [affective] disorder; I10 Essential (primary) hypertension; M53.3 Sacrococcygeal disorders, not elsewhere classified; R19.7 Diarrhea, unspecified; Z20.822 Contact with and (suspected) exposure to COVID-19; G89.4 Chronic pain syndrome; D64.9 Anemia, unspecified; Z99.81 Dependence on supplemental oxygen; Z87.891 Personal history of nicotine dependence; Z79.51 Long term (current) use of inhaled steroids; Z79.890 Hormone replacement therapy; Z79.899 Other long term (current) drug therapy
CPT/HCPCS: 36415; 36600; 71045; 71275; 74177; 80048; 80051; 80053; 80061; 81001; 82803; 82947; 83605; 83735; 83880; 84100; 84443; 84484; 85025; 85730; 87040; 87070; 87205; 87507; 87633; 87640; 87641; 93005; 93306; 93308; 94002; 94003; 94640; 97110; 97116; 97162; 97530; 99499; C1758; J0171; J0360; J0461; J1644; J1650; J1885; J1920; J1940; J2003; J2250; J2371; J2470; J2543; J2704; J2795; J3010; J3301; J3475; J7120; Q9957; Q9967

== ENCOUNTER 2024-06-30 12:34 | Outpatient (BNV) | payer OTHER, SELFPAY | END 2024-07-09 10:23 | PROVIDERS: Admitting Provider Internal Medicine Critical Care Medicine; PCP Family Medicine; Visit Provider Internal Medicine | DX: I44.4 Left anterior fascicular block (principal); R94.31 Abnormal electrocardiogram [ECG] [EKG] | CPT/HCPCS: 93010 ==

== ENCOUNTER 2024-06-30 12:34 | Outpatient (BNV) | payer OTHER, SELFPAY | END 2024-07-02 11:30 | PROVIDERS: Admitting Provider Internal Medicine Critical Care Medicine; PCP Family Medicine; Visit Provider Internal Medicine | DX: R00.0 Tachycardia, unspecified (principal) | CPT/HCPCS: 93010 ==

== ENCOUNTER → 2024-06-30 12:34 | Outpatient (BNV) | payer OTHER, SELFPAY | PROVIDERS: Admitting Provider Internal Medicine Critical Care Medicine; PCP Family Medicine; Visit Provider Internal Medicine Cardiovascular Disease | DX: I46.9 Cardiac arrest, cause unspecified (principal); R94.31 Abnormal electrocardiogram [ECG] [EKG] | CPT/HCPCS: 93010; 93306; 99233 ==

== ENCOUNTER → 2024-06-30 12:34 | Outpatient (BNV) | payer OTHER, SELFPAY | PROVIDERS: Admitting Provider Internal Medicine Critical Care Medicine; PCP Family Medicine; Visit Provider Physician Assistant Surgical | DX: I70.0 Atherosclerosis of aorta (principal) | CPT/HCPCS: 99222; 99232 ==

== ENCOUNTER → 2024-06-30 12:34 | Outpatient (BNV) | payer OTHER, SELFPAY | PROVIDERS: Admitting Provider Internal Medicine Critical Care Medicine; PCP Family Medicine; Visit Provider Anesthesiology | DX: M53.3 Sacrococcygeal disorders, not elsewhere classified (principal) | CPT/HCPCS: 27096 ==

== ENCOUNTER → 2024-06-30 12:34 | Outpatient (BNV) | payer OTHER, SELFPAY | PROVIDERS: Admitting Provider Internal Medicine Critical Care Medicine; PCP Family Medicine; Visit Provider Internal Medicine Critical Care Medicine | DX: J96.01 Acute respiratory failure with hypoxia (principal); R57.0 Cardiogenic shock; I46.9 Cardiac arrest, cause unspecified; M47.816 Spondylosis without myelopathy or radiculopathy, lumbar region; M53.3 Sacrococcygeal disorders, not elsewhere classified | CPT/HCPCS: 99223; 99233; 99291 ==

== ENCOUNTER → 2024-06-30 12:34 | Outpatient (BNV) | payer OTHER, SELFPAY | PROVIDERS: Admitting Provider Internal Medicine Critical Care Medicine; PCP Family Medicine; Visit Provider Family Medicine | DX: J96.01 Acute respiratory failure with hypoxia (principal) | CPT/HCPCS: 99231; 99232; 99239; 99499 ==

== ENCOUNTER → 2024-07-12 23:59 | Outpatient (BNV) | payer OTHER, SELFPAY | PROVIDERS: PCP Family Medicine; Visit Provider Internal Medicine Cardiovascular Disease | DX: I50.20 Unspecified systolic (congestive) heart failure (principal); I42.9 Cardiomyopathy, unspecified | CPT/HCPCS: 93458; 93571; 93572; 99152 ==

== ENCOUNTER 2024-07-14 21:37 | Emergency (ER) | payer OTHER, SELFPAY ==
--- NOTE | 2024-07-14 | ECG_ITS ---
Test Reason : SOB Blood Pressure : / mmHG Vent. Rate : 087 BPM Atrial Rate : 087 BPM P-R Int : 194 ms QRS Dur : 098 ms QT Int : 408 ms P-R-T Axes : 050 -54 208 degrees QTc Int : 490 ms Normal sinus rhythm Left anterior fascicular block Moderate voltage criteria for LVH, may be normal variant ( R in aVL , [place] product ) Anterior infarct , age undetermined T wave abnormality, consider inferolateral ischemia Abnormal ECG When compared with ECG of 09-JUL-2024 10:28, T wave inversion less evident in Anterior leads Referred By: Generic ED Physician Electronically Signed By:Edgar Kim
--- NOTE | ~2024-07-14 | XR_ITS ---
EXAMINATION: XR CHEST CLINICAL INFORMATION: Shortness of breath. COMPARISON: July 02, 2024 TECHNIQUE: Frontal view of the chest was obtained. FINDINGS: The cardiomediastinal silhouette is stable. There appears to be minimal atelectasis or scarring at the lung bases. The lungs are otherwise clear. There are no definitive significant pleural effusions. The bony structures and the soft tissues are unremarkable. XR/XR chest 1V IMPRESSION: Minimal atelectasis or scarring at the lung bases. No other significant abnormality seen. Electronically signed by: Cholo Farley MD 07/15/2024 02:19 AM EDT
--- NOTE | ~2024-07-14 | CT_ITS ---
EXAMINATION: CT ANGIOGRAM CHEST CLINICAL INFORMATION: Shortness of breath. Elevated d-dimer. COMPARISON: June 30, 2024 TECHNIQUE: Multiple axial images were obtained through the chest after the administration of 65 mL of Omnipaque 350 intravenous contrast. Extensive vascular post-processing including two-dimensional and three-dimensional reformatted images were created and reviewed on an independent workstation. This CT examination was performed using dose optimization techniques as appropriate, variously including the following: *Automated exposure control *Adjustment of mA and/or kV according to patient size (this includes techniques or standardized protocols for targeted exams where dose is matched to indication/reason for exam; i.e. extremities or head) *Use of iterative reconstruction technique DLP: 214 mGy-cm FINDINGS: QUALITY OF STUDY/CONTRAST BOLUS: Satisfactory. PULMONARY ARTERIES: No pulmonary emboli. THORACIC AORTA: There is atherosclerotic plaque throughout the thoracic aorta. There is no aneurysm or dissection. LUNG: There is diffuse emphysematous change with interstitial coarse and basilar scarring/atelectasis. There is no evidence for active infiltrate. PLEURA: No pleural effusion or pneumothorax. MEDIASTINUM: The heart is mildly enlarged. No pericardial effusion. No hilar or mediastinal lymphadenopathy. No evidence of septal bowing or right heart strain. CORONARY ARTERY CALCIFICATION: Mild to moderate CHEST WALL/AXILLA: No axillary or internal mammary lymphadenopathy. OSSEOUS STRUCTURES: No acute or suspicious osseous abnormality. UPPER ABDOMEN: There is an area of diminished attenuation extending through the spleen. There are right upper pole renal cysts similar to previous. No reflux of contrast into the hepatic veins to suggest elevated right heart pressures. CT/CT angio chest PE protocol IMPRESSION: 1. No evidence of pulmonary embolism. 2. COPD. 3. Area of diminished attenuation extending through the spleen which could represent splenic infarct. Fleischner guidelines were followed. Electronically signed by: Cholo Farley MD 07/15/2024 03:35 AM EDT
[2024-07-14 21:44] VITALS: BP 117/66; BP 195/99; PULSE 94; PULSE 97; RESP 14; TEMP 37.1; O2SAT 95; BMI 26.8
--- OUTSIDE RECORDS SUMMARY | 2024-07-14 21:59 | XMS_ITS | Continuity of Care Document ---
Author Organization [facility] ter Address [address] [place] [id number]- Care Team Providers Care Steel Rule Inspector Name Role Phone Jeffrey ANDREW, Margot Lowe Primary Care Physician Encounter [facility] ACCT R [id number] Date(s): 07/11/24 - 07/13/[address] [address]- Discharge Disposition: A-D/C Home Attending Physician: Kylee ANDREW, Timbo Wright Admitting Physician: Priya Hunter MD Referring Physician: Not on Staff, Referring MD Allergies, Adverse Reactions, Alerts Substance Reaction Severity Status amoxicillin Active penicillin Active metoprolol Active aspirin Unknown Active omeprazole 1 Unknown Active alendronate Active Lyrica Active NSAIDs Entire stomach Active 1Outside Source Comment: Causes Gas Medications Acetaminophen Tablet 650 mg, Tablet, By Mouth, Every 4 hours, PRN for Pain , Mild, Temperature Greater than 100.5, Routine, 07/11/24 18:21:00 EDT Start Date: 07/11/24 Stop Date: 07/14/24 Status: Discontinued acetaminophen-hydrocodone 325 mg-10 mg oral tablet 1 [...] 10:37:00 EDT, Inhaler, Route to Pharmacy Electronically, NCPDP_[id number], [id number], 153, cm, 04/02/23 7:38:00 EDT, Height,... Start Date: 04/02/23 Stop Date: 06/01/23 Status: Ordered ALPRAZolam 0.5 mg oral tablet 0.25 mg, 0.5, tablet, By Mouth, Daily at bedtime, PRN, Refills 0, Maintenance, Insomnia, 03/31/23 16:59:00 EDT, Partial fill upon patient request if the prescription is for a schedule II opioid drug. Start Date: 03/31/23 Status: Ordered aspirin 81 mg oral delayed release tablet 81 mg, By Mouth, Daily, # 30 tablet, Refills 0, Tot. Refills 0, Maintenance, 07/13/24 13:45:00 EDT,Route to Pharmacy Electronically, [facility], Partial fill upon patient request if the prescription is for a schedule II opioid drug., 15... Start Date: 07/13/24 Stop Date: 08/12/24 Status: Ordered busPIRone 10 mg oral tablet [...] gabapentin 300 mg oral capsule 300 mg, Capsule, By Mouth, 07/13/24 14:00:00 EDT Start Date: 07/13/24 Stop Date: 07/13/24 Status: Completed gabapentin 300 mg oral capsule 300 mg, [...] each, 11 Refills, Maintenance, 04/18/24 14:04:00 EDT, [facility], 153, cm, 12/20/23 15:30:00 EDT, Height, 36.8, kg, 03/31/23... Start Date: 04/18/24 Status: Ordered levothyroxine 0.112 mg oral tablet 1 tablet = 112 mcg, By Mouth, Daily, 0 Refills, Maintenance, 03/31/23 17:01:00 EDT, Partial fill upon patient request if the prescription is for a schedule II opioid drug. Start Date: 03/31/23 Status: Ordered Lipitor 40 mg oral tablet 1 tablet = 40 mg, By Mouth, Daily, # 30 tablet, 0 Refills, Maintenance, 07/13/24 14:07:00 EDT, Tablet, [facility], Partial fill upon patient request if the prescription is for a schedule II opioid drug., 150, cm, 07/13/24 11:07:00 EDT, H... Start Date: 07/13/24 Stop Date: 08/12/24 Status: Ordered Lisinopril = 40 mg, By Mouth, Daily, 0 Refills, Maintenance, 04/01/23 15:04:00 EDT, Partial fill upon patient request if the prescription is for a schedule II opioid drug. Start Date: 04/01/23 Status: Ordered lisinopril 20 mg oral tablet 40 mg, Tablet, By Mouth, Hold for: SBP < 120, 07/13/24 9:00:00 EDT Start Date: 07/13/24 Stop Date: 07/13/24 Status: Completed Montelukast = 10 mg, By Mouth, Daily at bedtime, 0 Refills, Maintenance, 03/31/23 17:02:00 EDT, Partial fill upon patient request if the prescription is for a schedule II opioid drug. Start Date: 03/31/23 Status: Ordered POC Evaluation POC Evaluation, See Instructions, # 1 each, Refills 0, Tot. Refills 0, Maintenance, [facility]. Diagnosis: COPD, J44.9. Please evaluate the patient for a portable oxygen concentrator, maintain O2 saturation greater than 90%. Please dispe... Start Date: 06/07/23 Status: Ordered Trazodone = 150 mg, By Mouth, Daily at bedtime, 0 Refills, Maintenance, 03/31/23 17:02:00 EDT, Partial fill upon patient request if the prescription is for a schedule II opioid drug. Start Date: 03/31/23 Status: Ordered Problem List Condition Confirmation Course Effective Dates Status Health St atus Informant Anxiety Confirmed Active Fibromyalgia Confirmed Active Hypertension Confirmed Active Hypothyroidism Confirmed Active Vital Signs Most recent to oldest [Reference Range]: 1 2 3 Height 150 cm (07/13/24 9:58 AM) 150 cm (07/13/24 4:07 AM) 150 cm (07/12/24 9:54 PM) Weight 61.6 kg (07/13/24 4:07 AM) 64.5 kg (07/12/24 6:00 AM) 64.5 kg (07/11/24 5:16 PM) Oxygen Saturation [94-100 %] 93 % *L* (07/13/24 9:58 AM) 92 % *L* (07/13/24 4:07 AM) 100 % (07/12/24 9:54 PM) Pulse Rate [55-90 bpm] 90 bpm (07/13/24 9:58 AM) 98 bpm *H* (07/13/24 4:07 AM) 82 bpm (07/12/24 9:54 PM) Body Mass Index [18.5-24.99 kg/m2] 27.38 kg/m2 *H* (07/13/24 4:07 AM) 28.67 kg/m2 *H* (07/11/24 5:16 PM) Blood Pressure [90-138/55-84 mm Hg] 135/79mm Hg (07/13/24 9:58 AM) 135/79mm Hg (07/13/24 9:47 AM) 142/88mm Hg *H* (07/13/24 4:07 AM) Respiratory Rate [16-30 br/min] 19 br/min (07/13/24 3:13 PM) 18 br/min (07/13/24 2:13 PM) 17 br/min (07/13/24 1:09 PM) Temperature [96.8-100.4 DegF] 98.5 DegF (07/13/24 9:58 AM) 98.1 DegF (07/13/24 4:07 AM) 97.4 DegF (07/12/24 9:54 PM) Liters per Minute 4 L/min (07/13/24 9:58 AM) 4 L/min (07/13/24 4:07 AM) 4 L/min (07/12/24 9:54 PM) Mode of Delivery (Oxygen) Nasal cannula (07/13/24 9:58 AM) Nasal cannula (07/13/24 4:07 AM) Nasal cannula (07/12/24 9:54 PM) Blood pressure sites Arm, left (07/13/24 9:58 AM) Arm, left (07/13/24 4:07 AM) Arm, left (07/12/24 9:54 PM) Temperature Route Oral (07/13/24 9:58 AM) Oral (07/13/24 4:07 AM) Oral (07/12/24 9:54 PM) Dry Weight 64.5 kg (07/11/24 5:16 PM) Note * Zion Rutherford RN: PERFORM, SIGN, VERIFY Event Display: Cardiac Rehab Note Authored Date: Patient: VERONICA SCHMIDT Age: 83 years Sex: Female : 1940 Associated Diagnoses: None Author: Zion Rutherford RN Diagnosis Cardiac Rehab Diagnosis: stress induced cardiomyopathy. Pre-exercise Vitals Vital Signs Comment: Reviewed in CIS. Pre-exercise Physical Examination Neurologic: alert & oriented, oriented to (time, person, place). Cardiovascular: heart rate. Activity Ambulate: patient declined ambulation, encouraged increased activity as tolerated. Activity comment: AROM. Assistive Devices Assistive Device: Wheeled walker. Patient Education Education: Patient alone, Written material included, Phase 2 Cardiac Rehab. Education topic Teachback comprehension 50% Topic: Medication education, Role of exercise, Home activity guidelines/limits. Reinforcement needed: Medication education. Recommendation and Plan Ambulate: 4 times/day, with assist of 1 , with assistive device. Encourage: All education with family present. Patient may benefit from: ADLs, AROM. Outpatient follow up recommended: Oatient declines Phase 2 cardiac Rehab at this time due to lack of transportation and numerous appointments. Information provided to patient if they change mind. Cardiac Rehab: Will sign off at this time. * Berenice Tucker RN: PERFORM Event Display: Discharge/Transfer Note Hospital Authored Date: [id number] Nursing Discharge Note Entered On: 07/13/2024 17:07 EDT Performed On: 07/13/2024 17:05 EDT by Berenice Tucker RN Nursing Discharge Note 2 Discharge Time : 07/13/2024 17:00 EDT Discharge Level of Care at Discharge : Homehealth/VNA Discharge VNA/Hospice/Home Care(v001) : [facility] [phone] Patient Left Unit Via : Wheelchair Patient Accompanied Off Unit with : Significant other DC Instructions Provided & Signed by Pt : Yes Patient Understands D/C Instructions : Yes Patient Instructions Discharge Signed : Yes Discharge Comments : IV & tele removed. left with family member in wheelchair Did Pt have Specialty Bed or Wound Vac : No Berenice Tucker RN - 07/13/2024 17:05 EDT * Kylee ANDREW, Timbo Choudharyt: PERFORM Event Display: Discharge/Transfer Note Hospital Authored Date: [id number] Patient: ??VERONICA SCHMIDT ? Age:??83 Years?Sex:??Female?:??1940?? 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) Elevated troponin (R79.89) _ Discharge Medications Acetaminophen / Hydrocodone (acetaminophen-hydrocodone 325 mg-10 mg oral tablet)?1?tab(s)?By Mouth?Every 8 hours?as needed?Pain , Moderate Albuterol (albuterol CFC free 90 mcg/inh inhalation aerosol)?2?puff(s)?Inhalation?Every4 hours?as needed?for 30?Days?Wheezing/Shortness of Breath Alprazolam (ALPRAZolam 0.5 mg oral tablet)?0.25?Milligram?0.5?tablet?By Mouth?Daily at bedtime?as needed?Insomnia Aspirin (aspirin 81 mg oral delayed release tablet)?81?Milligram?By Mouth?Daily?for 30?Days BusPIRone (busPIRone 10 mg oral tablet)?10?Milligram?1?tablet?By Mouth?2 times a day?as needed?Anxiety Cetirizine?10?Milligram?Daily Durable Medical Equipment (POC Evaluation)?See Instructions?DME: [facility].Diagnosis: COPD, J44.9.Please evaluate the patient for a portable oxygen concentrator, maintain O2 saturation greater than 90%.Please dispense with the patient qualifies.Length of need: Lifetime, 99 Famotidine (famotidine 20 mg oral tablet)?20?Milligram?1?tablet?By Mouth?Daily Fluticasone Nasal (Flonase)?2?spray(s)?Daily Gabapentin (gabapentin 300 mg oral capsule)?300?Milligram?1?capsule?By Mouth?2 times a day Levothyroxine (levothyroxine 0.112 mg oral tablet)?1?tab(s)?112?Microgram?By Mouth?Daily Lisinopril?40?Milligram?By Mouth?Daily Montelukast?10?Milligram?By Mouth?Daily at bedtime Trazodone?150?Milligram?By Mouth?Daily at bedtime umeclidinium (Incruse Ellipta 62.5 mcg/inh inhalation powder)?See Instructions?INHALE 1 INHALATION EVERY 24 HOURS INSTR: DOSES SHOULD BE TAKEN AT LEAST 24 HOURS APART (BULK) ? Quality Measures Chest Pain, AMI Quality Measures:?Beta-Thalia Prescribed at Discharge:??Allergy to Beta-Thalia ?Aspirin Prescribed at Discharge:??Aspirin Prescribed ? Inpatient Medications Medications (26) Active SCHEDULED: (12) Aspirin 81 mg EC Tablet (aspirin 81 mg oral delayed release tablet) ??81 mg, By Mouth, Daily Atorvastatin 40 mg Tablet (Lipitor 20 mg oral tablet) ??40 mg, By Mouth, Daily at bedtime Breo Ellipta 100 mcg / 25 mcg Inhaler (Breo Ellipta 100 mcg-25 mcg Inhaler) ??1 puffs, Inhalation, Daily BusPIRone 10 mg Tablet (busPIRone 10 mg oral tablet) ??15 mg, By Mouth, Daily at supper Cetirizine 5 mg Tablet (Cetirizine Tablet) ??10 mg, By Mouth, Daily Famotidine 20 mg Tablet (famotidine 20 mg oral tablet) ??20 mg, By Mouth, 2 times a day Gabapentin 300 mg Capsule (gabapentin 300 mg oral capsule) ??300 mg, By Mouth, Every 8 hours Heparin 5000 units/mL Inj (1 mL) (Heparin Inj) ??5,000 units 1 mL, Subcutaneous Injection, 2 times a day Levothyroxine 112 mcg Tablet (levothyroxine 0.112 mg oral tablet) ??112 mcg, By Mouth, Daily Lisinopril 20 mg Tablet (lisinopril 20 mg oral tablet) ??40 mg, By Mouth, Daily Montelukast 10 mg Tablet (montelukast 10 mg oral tablet) ??10 mg, By Mouth, Daily at bedtime NaCl 0.9% Flush 3ml (NaCL 0.9% Flush) ??3 mL, IV Push, Every 8 hours CONTINUOUS: (0) PRN: (14) Acetaminophen 325 mg Tablet (Acetaminophen Tablet) ??650 mg, By Mouth, Every 4 hours Albuterol/Ipratropium Inhalation Yaritza 3mL (Duoneb Inhalation Solution) ??1 vials, BAND Nebulizer, Every 4 hours Alprazolam 0.25 mg Tablet (ALPRAZolam 0.25 mg oral tablet) ??0.25 mg, By Mouth, Daily at bedtime Dextromethorphan-Guaifenesin 20 mg-200 mg/10 mL Liqu UD (Robitussin DM Liquid) ??10 mL, By Mouth, Every 4 hours Docusate Sodium 100 mg Capsule (Docusate Sodium Capsule) ??100 mg 1 capsule, By Mouth, 2 times a day hydrALAZINE 20 mg/mL Inj (hydrALAZINE Inj) ??5 mg 0.25 mL, IV Push Slowly, Every 4 hours Hydrocodone 5 mg/Acetaminophen 325 mg Tablet (acetaminophen-HYDROcodone 325 mg-5 mg oral tablet) ??1 tablet, By Mouth, Every 6 hours HYDROmorphone 2 mg Tablet (Dilaudid 2 mg oral tablet) ??1 mg, By Mouth, Every 6 hours Melatonin 3 mg Tablet (Melatonin Tablet) ??3 mg, By Mouth, Daily at bedtime NaCl 0.9% Flush 3ml (NaCL 0.9% Flush) ??3 mL, IV Push, Every 8 hours Polyethylene Glycol 17 Gm Powder (MiraLax Powder) ??17 Gm 1 pack/packet, By Mouth, Daily Senna Tablet ??8.6 mg 1 tablet, By Mouth, 2 times a day Simethicone 80 mg Chewable Tablet (Simethicone Tablet) ??80 mg, Chew, 3 times a day Trazodone 50 mg Tablet (traZODone 50 mg oral tablet) ??150 mg, By Mouth, Daily at bedtime ? Medications Started aspirin 81mg daily Medications Discontinued Diltiazem due to reduced EF. Allergies Allergies ?(Active and Proposed Allergies Only) metoprolol? (Severity: Unknown severity, Onset: Unknown) Lyrica? (Severity: Unknown severity, Onset: Unknown) penicillin? (Severity: Unknown severity, Onset: Unknown) amoxicillin? (Severity: Unknown severity, Onset: Unknown) alendronate? (Severity: Unknown severity, Onset: Unknown) omeprazole? (Severity: Unknown severity, Onset: 04/21/2023) ?Reactions: Unknown ?Comments: Outside Source Comment: Causes Gas NSAIDs? (Severity: Unknown severity, Onset: Unknown) ?Reactions: Entire stomach aspirin? (Severity: Unknown severity, Onset: 01/28/2023) ?Reactions: Unknown ? PCP Follow-Up/Heads-Up Please follow up in 2-3 weeks post hospital discharge. Future Appointments Wednesday 1:20 PM EST ?? With: Kimo Reinoso MD Where: [facility] Status: Pending Hospital Course see below. Objective Assessment and Plan ?? The pt is 83 yo F w pmhx of??COPD, Fibromyalgia, Chronic pain syndrome of bilateral sacroiliac joint pain, HTN, Hypothyroidism, HLP, GERD, Insomnia, ANGELA. She underwent elective sacroiliac??joint injections, received propofol for sedation, went into PEA cardiac arrest, code lasted 5 min, ROSC was achieved receiving 2 doses of Epi and intubated. Post code she was hypotensive and given Noah pushes transferred to MICU at [facility]. She was seen by Vascular surgery for abdominal aorta atherosclerosis and asa/statin and??out pt follow up were??recommended. She was seen by Cardiology. EKG was w deep T wave inversions in the precordial leads. LAD ischemia was concerned.??Initial ECHO on aforementioned event on 06/30 was w normal BiV??function, LVH. Follow up ECHO in 07/10 revealed decreased EF to 30-35% w mid ant, mid inf, mid ant lat, mid inf septal segments hypokinesis. 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 Takotsubo vs ischemic CMP concern were raised. Pt is not having any new CP. She c/o CP, which is from chest compressions, palpable, reproducible. Otherwise she is asymptomatic, She completed 48 hrs of Hep gtt. s/p cath??on 07/12 ??which showed : 40% LM disease??IFR negative,??moderate mid and distal LAD disease??and moderate mid RCA disease. ??Presentation more consistent with stress-induced cardiomyopathy??rather than ischemic cardiomyopathy. Cardiology recommend to continue aspirin 81mg daily and f/u in clinic to repeat echo in 6-8 weeks. She has agreed to start aspirin??81mg daily , no reaction or stomach upset noted during hospital stay. We have switched her simvastatin to atorvastatin during hospital stay and recommend to continue it on discharge. Patient has been doing hemodynamically stable, O2 stable at her baseline, she uses home O2 @ ??2L at rest with 4L on activity. PT evaluated and recommend home with services. Pulmonary rehab evaluatedand her O2 remains at baseline with no increasing O2 requirement. She wants to go home today and she is stable for discharge home with VNA services. Discharge plan discussed with patient and her niece Bella on the phone, both agreed with the plan. ?? Non-ST elevation SC (NSTEMI) ??(I21.4) PEA Arrest as above s/p cath??on 07/12 ??which showed : 40% LM disease??IFR negative,??moderate mid and distal LAD disease??and moderate mid RCA disease. ??Presentation more consistent with stress-induced cardiomyopathy??rather than ischemic cardiomyopathy. Continue medical management. She has agreed to start aspirin??81mg daily , no reaction or stomach upset noted during hospital stay. We have switched her simvastatin to atorvastatin during hospital stay and recommend to continue it on discharge. PMD and cardiology f/u after discharge. Cardiology recommend to repeat echo in 6-8 weeks in outpatient setting. ?? HTN (hypertension) ??(I10) DC diltiazem due to low EF. Continue lisinopril and follow up with PMD in 2-3 weeks post hospital discharge. ?? COPD with asthma ??(J44.89) Plan -Continue home albuterol inhalers prn. -Cont Umeclidinium -Cont cetirizine -Cont Singulair ?? Chronic GERD ??(K21.9) Plan -Cont h2 blk ?? Chronic pain syndrome ??(G89.4) Fibromyalgia ??(M79.7) ANGELA (generalized anxiety disorder) ??(F41.1) -Cont prn Percocet, and Tylenol prn -Cont Ling 300 mg po tid -Cont Xanax, Buspirone ?? Hyperlipidemia ??(E78.5) We have switched her simvastatin to atorvastatin during hospital stay and recommend to continue it on discharge. ?? Hypothyroidism ??(E03.9) Plan -Cont Levothyroxine ?? Insomnia ??(G47.00) Plan -Cont Trazodone prn hs ?? I have evaluated patient today. She denied any active complaints. She wants to go home today. She has remained hemodynamically stable. O2 stable at her baseline, she uses home O2 @ ??2L at rest with 4L on activity. PT evaluated and recommend home with services. Pulmonary rehab evaluated and her O2 remains at baseline with no increasing O2 requirement. Discharge plan discussed with patient and her niece Bella on the phone, both agreed with the plan. ? Measurements?? Height: 150 cm (07/13/24) Weight: 61.6 kg (07/13/24) Dry Weight: 64.5 kg (07/11/24) Body Mass Index:??27.38 kg/m2??High (07/13/24) ? Vital Signs?? Temperature: 98.5 DegF (07/13/24 09:58:00) Temperature Route: Oral (07/13/24 09:58:00) Pulse Rate: 90 bpm (07/13/24 09:58:00) Respiratory Rate: 20 br/min (07/13/24 09:58:00) Systolic Blood Pressure: 135 mm Hg (07/13/24 09:58:00) Diastolic Blood Pressure: 79 mm Hg (07/13/24 09:58:00) Blood pressure sites: Arm, left (07/13/24 09:58:00) Mean Arterial Pressure: 98 mm Hg (07/13/24 09:58:00) Pulse Pressure: 56 mm Hg (07/13/24 09:58:00) Oxygen Saturation:??93 %??Low (07/13/24 09:58:00) Liters per Minute: 4 L/min (07/13/24 09:58:00) Mode of Delivery (Oxygen): Nasal cannula (07/13/24 09:58:00) Early Warning Score: 4 (07/13/24 11:08:37) ? . Physical Exam General : patient is??sitting on the recliner in no apparent acute distress. Respiration : bilateral air entry (+) , no wheezing or crepitations. CVS: S1+S2. Abd: soft, no tenderness. Normoactive bowel sounds. Ext: no pedal edema.?? Consultants ( [place] [facility]) Pending Results CBC ordered on 07/11/2024 Comprehensive Metabolic Panel ordered on 07/11/2024 INR ordered on 07/11/2024 PTT ordered on 07/11/2024 Patient Education Titles [employer] Patient Education - Takotsubo Cardiomyopathy (Broken Heart Syndrome)?? Follow-Up Appointments Added Follow Up ?Time Frame ?Comments Margot Murphy MD?2 to 3 weeks?Please call and schedule follow up appointment in 2-3 weeks post hospital discharge. Patient Instructions For hypertension , we have stopped diltiazem given by your weak heart, please continue lisinopril and follow up with PMD in 2-3 weeks post hospital discharge for further management.?? We have switched your simvastatin to atorvastatin during hospital stay and recommend to continue Atorvastatin??40mg daily??on discharge. Please continue aspirin 81mg daily.?? Please continue the rest of your home medications.?? Please seek immediate medical attention if there is any chest pain, shortness of breath, palpitation, leg swelling or any other concerning symptoms.?? Home Health Face to Face *Denotes mandatory gaviria ?? *I certify that this patient is under my care and that I or an allowed non- physician working with me had a face to face encounter with the patient on this date:??07/13/2024 14:03 ?? 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 *Select the indications for the discipline/s that are being arranged for this patient. Nursing (select all that apply): [_] None [X] Medication management (reconciliation, teaching)?? [X] Chronic disease management?? [_] Wound care and treatment?? [_] Home safety evaluation [_] Administer SQ/IM/IV medications?? [_] Cath care?? [_] Drain care?? [_] Trach or GT care?? Other Occupation Therapy (select all that apply): [_] None [_] ADL Management [_] Fall prevention training [_] Energy conservation [_] Cognitive training Other _ Physical Therapy (select all that apply): [_] None [X] Functional mobility training [X] Home exercise program to strengthen [_] Increase ROM?? [_] Falls prevention training [_] Home maintenance program for chronic disease Other _ Speech Therapy (select all that apply): [_] None [_] Swallow evaluation and training [_] Speech and language training [_] Cognitive training to process, organize, and/or recall information Other _ ? *Homebound due to (select all that apply): [_] Inability to leave home without assistance/supervision [_] Inability to ambulate without assistance [_] Pain [X] Decreased strength and endurance [_] Unsteady gait [_] Severe SOB and fatigue [_] Impaired transfers [_] Inability to negotiate stairs [_] Limited weight bearing [_] Mental status change? *Physician Signature: _NETTA ANDREW ?? *By signing this, I certify that I have personally evaluated the patient and agree with the findings and recommendations as documented above. ? Results Discharge Labs BLOOD COUNT & DIFF WBC 13.4 k/mm3 (High)?? 07/13/2024 06:19 RBC 3.83 m/mm3 (Low)?? 07/13/2024 06:19 Hgb 11.3 Gm/dL (Low)?? 07/13/2024 06:19 Hct 33.3 % (Low)?? 07/13/2024 06:19 MCV 86.9 femtoliters ()?? 07/13/2024 06:19 MCH 29.5 pg ()?? 07/13/2024 06:19 MCHC 33.9 Gm/dL ()?? 07/13/2024 06:19 Platelet Count 440 k/mm3 ()?? 07/13/2024 06:19 RDW-SD 41.6 femtoliters ()?? 07/13/2024 06:19 MPV 8.9 femtoliters (Low)?? 07/13/2024 06:19 Nucleated RBC (Automated) 0.0 #/100 WBC'S ()?? 07/13/2024 06:19 Abs. NRBC 0.0 k/mm3 ()?? 07/13/2024 06:19 ?? CARDIAC High Sensitivity Troponin (HSTnT) 24 ng/L (High)?? 07/12/2024 06:59 ? CHEM GENERAL Sodium 129 mmol/L (Low)?? 07/13/2024 06:19 Potassium 3.9 mmol/L ()?? 07/13/2024 06:19 Chloride 95 mmol/L (Low)?? 07/13/2024 06:19 Bicarbonate Level 21 mmol/L (Low)?? 07/13/2024 06:19 Anion Gap 13 ()?? 07/13/2024 06:19 Glucose Level 122 mg/dL (High)?? 07/12/2024 06:59 Hemoglobin A1C (Monitoring) 6.1 % (High)?? 07/12/2024 06:59 BUN 15 mg/dL ()?? 07/13/2024 06:19 Creatinine-Blood 0.90 mg/dL ()?? 07/13/2024 06:19 Estimated GFR Creatinine 64 ML/MIN/1.73 M2 ()?? 07/13/2024 06:19 Calcium 9.7 mg/dL ()?? 07/12/2024 06:59 Phosphorus 2.8 mg/dL ()?? 07/13/2024 06:19 Magnesium 1.8 mg/dL ()?? 07/13/2024 06:19 Estimated Average Glucose 128 mg/dL ()?? 07/12/2024 06:59 ?? COAG POC ACT-LR 284.0 seconds ()?? 07/12/2024 10:58 ? LIPID STUDIES Cholesterol 181 mg/dL ()?? 07/12/2024 06:59 Triglycerides 168 mg/dL (High)?? 07/12/2024 06:59 HDL Cholesterol 55 mg/dL ()?? 07/12/2024 06:59 LDL Cholesterol 92 mg/dL ()?? 07/12/2024 06:59 Non HDL Cholesterol 126 mg/dL ()?? 07/12/2024 06:59 ? URINE OTHER Est Creatinine Clearance 32.96 mL/min ()?? 07/13/2024 07:13 ? I spent a total of??35 minutes reviewing the chart / medical records, evaluating the patient, evaluating and interpreting laboratory and imaging data, discussing the??management plan with patient?? and niece??Bella, RN, CM , and documenting the encounter.? 35_ minutes spent on discharge * Pili Bhakta RN: PERFORM Event Display: Patient Education/Instruction Authored Date: [id number] Inpatient Adult Discharge Instructions. [address] [id number] Name: VERONICA SCHMIDT : 1940?? Visit: 07/11/2024 17:12?? Current Date: 07/13/2024 15:45 ?? Account: [id number]?? Inpatient Adult Discharge Instructions We would like to thank you for allowing us to assist you with your healthcare needs. The following includes patient education materials and information regarding your injury/illness. Our entire staffstrives to provide an excellent experience for our patients and their families. PLEASE ENSURE YOU FOLLOW-UP PER THE INSTRUCTIONS BELOW! ?? YOUR OPINION IS IMPORTANT TO US! Please complete the survey you may receive by mail or email. Your feedback will be used to make improvements to the healthcare experiences of our patients and their families. Surveys are administered by [employer]. ?? If further treatment with your primary care physician or another doctor is recommended, it is important for you to keep the appointment. Call your primary care physician or return to the Emergency Department immediately if your condition worsens, fails to improve, or new symptoms develop. If you need to find a doctor, you can call [facility] for a referral at [phone] or toll free at [phone] ([phone]) or log in to [email or web address].. ?? [facility], in keeping with [facility] guidance, no longer requires face masks for staff, patientsor visitors in most situations. Similiar to time spent indoors at other locations, there is the chance that you were exposed to repiratory viruses during your time with us (such as flu or COVID-19). If you develop symptoms concerning for a viral respiratory infection, please seek testing (and treatment if indicated) from your medical provider or home test kit. ?? You can view and manage your care through the patient portal or by using a health care erica of your choosing. [employer] is a website that allows you to securely view your medical information including your hospital discharge summary, office visit summaries, medications and follow-up visits. You can also request appointments, renew medications, and request access to your medical information using a health care erica of your choosing, or just ask a question. You can enroll at [email or web address] or register during your next office visit. You have been discharged from [facility], Patient Care Unit: M5??. If you have any questions regarding these instructions, including results of studies pending, afteryou leave, please call us and we will be happy to assist you 12/04. [facility] Your Care Team Attending Physician Timbo Pichardo MD?? Consulting Providers Timbo Pichardo MD?? Discharging Providers Timbo Pichardo MD Your Diagnosis Chronic GERD Chronic pain syndrome COPD with asthma Elevated troponin Fibromyalgia ANGELA (generalized anxiety disorder) HTN (hypertension) Hyperlipidemia Hypothyroidism Insomnia Non-ST elevation SC (NSTEMI) Stress-induced cardiomyopathy Tests Performed Below is a partial list of the tests performed during your hospitalization. You may have had other tests and procedures not included in this list. Please discuss all test results with your provider. Basic Metabolic Panel BUN CBC Creatinine Electrolytes Hemoglobin A1C w/ Estimated Glucose High??Sensitivity??Troponin T Lipid Panel Magnesium Level Phosphorus Level POC Hemochron ACT-LR BUN?? Basic Metabolic Panel?? CBC?? Comprehensive Metabolic Panel?? Creatinine?? Electrolytes?? Hemoglobin A1C w/ Estimated Glucose?? High??Sensitivity??Troponin T?? INR?? Lipid Panel?? Magnesium Level?? POC ACT-LR (POC Hemochron ACT-LR)?? PTT?? Phosphorus Level?? Primary Care Provider Jeffrey ANDREW , Margot Lowe? Advance Directive Health Care Proxy on File Yes - Health Care Proxy Discharge Vitals Temperature: 98.5 DegF Height: 150 cm Pulse Rate: 90 bpm Weight: 61.6 kg Respiratory Rate: 18 br/min Body Mass Index:??27.38 kg/m2??High Systolic Blood Pressure: 135 mm Hg Body surface area: 1.6 Diastolic Blood Pressure: 79 mm Hg ?? Oxygen Saturation:??93 %??Low ?? Studies Pending All studies ordered during this hospital stay have been completed unless listed below. Please discuss all pending results with your provider listed above in these instructions. ?? CBC?? Comprehensive Metabolic Panel?? INR?? PTT?? What to do next Instructions From Your Doctor For hypertension , we have stopped diltiazem given by your weak heart, please continue lisinopril and follow up with PMD in 2-3 weeks post hospital discharge for further management.?? We have switched your simvastatin to atorvastatin during hospital stay and recommend to continue Atorvastatin??40mg daily??on discharge. Please continue aspirin 81mg daily.?? Please continue the rest of your home medications.?? Please seek immediate medical attention if there is any chest pain, shortness of breath, palpitation, leg swelling or any other concerning symptoms.? Orders? 07/13/24 14:10:00 EDT?? Prescriptions??, ??07/13/24 14:10:00 EDT?? Scheduled Follow-Up Appointments Wednesday 1:20 PM EST ?? With: Kimo Reinoso MD Where: [facility] Status: Pending You Need to Schedule the Following Appointments Follow Up with??Margot Murphy MD When:??Within 2 to 3 weeks Why: Please call and schedule follow up appointment in 2-3 weeks post hospital discharge. Where: [address] [place] [phone] (1) Discharge Medications VERONICA SCHMIDT :1940 Visit Date:07/11/2024 Medications: Please continue your medications until treatment is completed or stopped by your provider. Medications not listed below should be discontinued. Discuss any questions related to medications with your provider. What How Much When Instructions Next Dose New Aspirin (aspirin 81 mg oral delayed release tablet) 81 Milligram Oral Daily Duration: 30 Days Pickup at [place] [address] 07/14 9am New Atorvastatin (Lipitor 40 mg oral tablet) 1 tab(s) Oral Daily Duration: 30 Days Pickup at [place] [address] 07/14 9am Unchanged Acetaminophen / Hydrocodone (acetaminophen-hydrocodone 325 mg-10 mg oral tablet) 1 tab(s) Oral Every 8 hours as needed for Pain , Moderate As needed Unchanged Albuterol (albuterol CFC free 90 mcg/ inh inhalation aerosol) 2 puff(s) Inhalation Every 4 hours as needed for Wheezing/Shortness of Breath Duration: 30 Days As needed Unchanged Alprazolam (ALPRAZolam 0.5 mg oral tablet) 0.5 tab(s) Oral Daily at Bedtime as needed for Insomnia As needed Unchanged BusPIRone (busPIRone 10 mg oral tablet) 1 tab(s) Oral Twice a day as needed for Anxiety As needed Unchanged Cetirizine 10 Milligram Daily 07/14 9am Unchanged Durable Medical Equipment (POC Evaluation) See instructions DME: [facility]. Diagnosis: COPD, J44.9. Please evaluate the patient for a portable oxygen concentrator, maintain O2 saturation greater than90%. Please dispense with the patient qualifies. Length of need: Lifetime, 99 ?? Unchanged Famotidine (famotidine 20 mg oral tablet) 1 tab(s) Oral Daily 07/14 9am Unchanged Fluticasone Nasal (Flonase) 2 spray(s) Daily 07/14 9am Unchanged Gabapentin (gabapentin 300 mg oral capsule) 1 capsule Oral Twice a day 07/13 9pm Unchanged Levothyroxine (levothyroxine 0.112 mg oral tablet) 1 tab(s) Oral Daily 07/14 9am Unchanged Lisinopril 40 Milligram Oral Daily 07/14 9am Unchanged Montelukast 10 Milligram Oral Daily at Bedtime 07/13 9pm Unchanged Trazodone 150 Milligram Oral Daily at Bedtime 07/13 9pm Unchanged umeclidinium (Incruse Ellipta 62.5 mcg/ inh inhalation powder) See instructions INHALE 1 INHALATION EVERY 24 HOURS INSTR: DOSES SHOULD BE TAKEN AT LEAST 24 HOURS APART (BULK) ?? As prescribed [facility] [address], [place] [id number] [phone] ?? What How Much When Comments Stop Taking Diltiazem (DilTIAZem (Eqv-Dilacor XR) 120 mg/ 24 hours oral capsule, extended release) 1 capsule Oral Daily Stop Taking Omeprazole 20 Milligram Oral Daily Stop Taking Simvastatin 40 Milligram Oral Daily Prescription Given During Visit Aspirin (aspirin 81 mg oral delayed release tablet) - 81 mg, By Mouth, Daily, # 30 tablet, 0 Refills, [facility], [address] [place] [phone]?? Atorvastatin (Lipitor 40 mg oral tablet) - 1 tablet = 40 mg, By Mouth, Daily, # 30 tablet, 0 Refills, [facility], [address] [place] [phone]?? Laboratory Results Below is a partial list of the most recent Laboratory test results done prior to this discharge. You may have had other tests and procedures not included in this list. Please discuss all test resultswith your provider. Est Creatinine Clearance - 32.96 mL/min (07/13/2024) Basic Metabolic Panel (07/12/2024) ???Sodium - 132 mmol/L???Potassium - 4.2 mmol/L???Chloride - 95 mmol/L???Bicarbonate Level - 23 mmol/L???Anion Gap - 14???Glucose Level - 122 mg/dL???BUN - 12 mg/dL???Creatinine-Blood - 0.91 mg/dL???Estimated GFR Creatinine - 63 ML/MIN/1.73 M2???Calcium - 9.7 mg/dL BUN (07/13/2024) ???BUN - 15 mg/dL CBC (07/13/2024) ???WBC - 13.4 k/mm3???RBC - 3.83 m/mm3???Hgb - 11.3 Gm/dL???Hct - 33.3 %???MCV - 86.9 femtoliters???MCH - 29.5 pg???MCHC - 33.9 Gm/dL???Platelet Count - 440 k/mm3???RDW-SD - 41.6 femtoliters???MPV - 8.9 femtoliters???Nucleated RBC (Automated) - 0.0 #/100 WBC'S???Abs. NRBC - 0.0 k/mm3 Creatinine (07/13/2024) ???Creatinine-Blood - 0.90 mg/dL???Estimated GFR Creatinine - 64 ML/MIN/1.73 M2 Electrolytes (07/13/2024) ???Sodium - 129 mmol/L???Potassium - 3.9 mmol/L???Chloride - 95 mmol/L???Bicarbonate Level - 21 mmol/L???Anion Gap - 13 Hemoglobin A1C w/ Estimated Glucose (07/12/2024) ???Hemoglobin A1C (Monitoring) - 6.1 %???Estimated Average Glucose - 128 mg/dL High??Sensitivity??Troponin T (07/12/2024) ???High Sensitivity Troponin (HSTnT) - 24 ng/L Lipid Panel (07/12/2024) ???Cholesterol - 181 mg/dL???Triglycerides - 168 mg/dL???HDL Cholesterol - 55 mg/dL???LDL Cholesterol - 92 mg/dL???Non HDL Cholesterol - 126 mg/dL Magnesium Level (07/13/2024) ???Magnesium - 1.8 mg/dL Phosphorus Level (07/13/2024) ???Phosphorus - 2.8 mg/dL POC Hemochron ACT-LR (07/12/2024) ???POC ACT-LR - 284.0 seconds You will be contacted within 72 hours with your results. Allergies (NKA means No Known Allergies) Lyrica NSAIDs??(Entire stomach) alendronate amoxicillin aspirin??(Unknown) metoprolol omeprazole??(Unknown) penicillin Problems Active Problems??(4) Anxiety?? Fibromyalgia?? Hypertension?? Hypothyroidism?? Education Materials Below is the list of Educational Leaflet Providered with your Discharge Instructions. [employer] Patient Education - [place]otsubo Cardiomyopathy (Broken Heart Syndrome)?? Valuables and Belongings I fully understand and agree that [facility] accepts no responsibility for all my personal property including clothing, toilet articles, radios, jewelry, dentures, hearing aids, rings, money, or any other property that is in my possession or is brought to me after admission. I understand certain valuables may be placed in a hospital safe for a short period of time. I understand that the hospital is not liable for loss or damage due to accident, fire, or other natural occurrence while said property is in the safe. I accept full responsibility for any personal property that I keep with me, and will not hold the hospital responsible in case of loss or disappearance. I acknowledge that i have been encouraged to send valuables and belongings home. ? Other Discharge Information ? Case Management Discharge Plan?? Discharge Plan?? Discharge Agency Information?? Discharge Level of Care at Discharge: Homehealth/VNA Name of Agency #1: [facility] Discharge Rx Program: Discharge Prescription Program Service Categories #1: Physical Therapy, Long-Term Discharge Transportation Arranged: Family Service Comments #1: [facility] will call you to set up services.If you do Not hear from them, Please call and thank you. Discharge VNA/Hospice/Home Care: [facility] [phone] ? Pulmonary Rehab Status?? Pulmonary Rehab Discharge Status?? Respiratory Rate: 18 br/min ? Cardiac Rehab Assessment?? Cardiac Rehab Inpatient Assessment?? Comments-Education: s/p cardiac cath, home activity guidelines, medication review Comments-Smoking Cessation: na Comments-Exercise Activity: progressive activity as tolerated Comments-Nutrition: per RD Comments-Stress Management: healthy coping techniques Comments-Lipids: diet, exercise, medication per MD Comments-Other plan of care: Encourage Phase 2 Common Emergency Awareness Tips IS IT A STROKE? Act FAST and Check for these signs: FACE Does the face look uneven? ARM Does one arm drift down? SPEECH Does their speech sound strange? TIME Call at any sign of stroke ?? Heart Attack Signs Chest discomfort: Most heart attacks involve discomfort in the center of the chest and lasts more than a few minutes, or goes away and comes back. It can feel like uncomfortable pressure, squeezing, fullness or pain. Discomfort in upper body: Symptoms can include pain or discomfort in one or both arms, back, neck, jaw or stomach. Shortness of breath: With or without discomfort. Other signs: Breaking out in a cold sweat, nausea, or lightheaded. Remember, MINUTES DO MATTER. If you experience any of these heart attack warning signs, call to get immediate medical attention! ?? Smoking can increase your chances of developing chronic health problems and can cause harmful effects to other family members in your house. If you smoke, you are strongly encouraged to quit. Please call [facility] at [phone] or [phone]) or log in to [email or web address] for referrals to smoking cessation programs. ?? 968 Suicide & Crisis Lifeline is available 12/04 if you or someone you know needs to find a reason to keep living. By calling 232 you'll be connected to a skilled, trained counselor at a crisis center in your area. INPATIENT DISCHARGE INSTRUCTIONS SIGNATURE VERONICA RUIZ Location:[facility] Registration Date and Time:07/11/2024 17:12 EDT Primary Care Physician: Margot Murphy MD, Attending Physician: Kylee ANDREW, Timbo Wright, VERONICA MENA, have received the above patient education materials/instructions and have verbalized understanding. If ambulance or transport services are being used I further acknowledge being given a choice of service. ?? If you need to contact me, please call me at this number: . Patient/Biophysics Scientist Name: Patient/Biophysics Scientist Signature: Relationship to Patient: Witness Name/Signature: Date: * Timbo Pichardo MD: PERFORM, SIGN, VERIFY Event Display: Patient Education Handout Authored Date: [id number] * Pili Bhakta RN: PERFORM Event Display: Patient Education Leaflets Authored Date: [id number] Atorvastatin ?? [id number] Atorvastatin Brand Name(s): Atorvaliq??, Lipitor??, Caduet?? (as a combination product containing Amlodipine, Atorvastatin), Lipqozet?? (as a combination product containing Atorvastatin, Ezetimibe), Liptruzet?? (as a combination product containing Atorvastatin, Ezetimibe); also available generically ?? WHY is this medicine prescribed? Atorvastatin is used together with diet, weight loss, and exercise to reduce the risk of heart attack and stroke and to decrease the chance that heart surgery will be needed in people who have heart disease or who are at risk of developing heart disease. Atorvastatin is also used to decrease the amount of fatty substances such as low-density lipoprotein (LDL) cholesterol ('bad cholesterol') and triglycerides in the blood and to increase the amount of high-density lipoprotein (HDL) cholesterol ('good cholesterol') in the blood. Atorvastatin may also be used to decrease the amount of cholesterol and other fatty substances in the blood in children and teenagers 10 to 17 years of age who have familial heterozygous hypercholesterolemia (an inherited condition in which cholesterol cannot be removed from the body normally). Atorvastatin is in a class of medications called HMG-CoA reductase inhibitors (statins). It works by slowing the production of cholesterol in the body to decrease the amount of cholesterol that may build up on the sutherland of the arteries and block blood flow to the heart,brain, and other parts of the body. Accumulation of cholesterol and fats along the sutherland of your arteries (a process known as atherosclerosis) decreases blood flow and, therefore, the oxygen supply to your heart, brain, and other partsof your body. Lowering your blood level of cholesterol and fats with atorvastatin has been shown toprevent heart disease, angina (chest pain), strokes, and heart attacks. HOW should this medicine be used? Atorvastatin comes as a tablet and suspension (liquid) to take by mouth. The tablet is usually taken once a day with or without food. The suspension is usually taken once a day on an empty stomach (at least 1 hour before or 2 hours after a meal).Take atorvastatin at around the same time every day. Follow the directions on your prescription label carefully, and ask your doctor or pharmacist to explain any part you do not understand. Take atorvastatin exactly as directed. Do not take more or lessof it or take it more often than prescribed by your doctor. Your doctor may start you on a low dose of atorvastatin and gradually increase your dose, not more than once every 2 to 4 weeks. If you are taking the suspension, do not use a household spoon to measure your dose. Use a properlymarked measuring device such as a medicine spoon or oral syringe. Ask your doctor or pharmacist if you need help getting or using a measuring device. Continue to take atorvastatin even if you feel well. Do not stop taking atorvastatin without talking to your doctor. Are there OTHER USES for this medicine? This medication may be prescribed for other uses; ask your doctor or pharmacist for more information. What SPECIAL PRECAUTIONS should I follow? Before taking atorvastatin, ??? tell your doctor and pharmacist if you are allergic to atorvastatin, any other medications, or any of the ingredients in atorvastatin tablets and suspension. Ask your pharmacist for a list of theingredients. ??? Tell your doctor and pharmacist what prescription and nonprescription medications, vitamins, nutritional supplements, and herbal products you are taking or plan to take while taking atorvastatin. Your doctor may need to change the doses of your medications or monitor you carefully for side effects. ??? The following nonprescription products may interact with atorvastatin: cimetidine (Tagamet), and niacin. Be sure to let your doctor and pharmacist know that you are taking these medications before you start taking atorvastatin. Do not start any of these medications while takingatorvastatin without discussing with your healthcare provider. ??? tell your doctor if you have or ever had liver disease. Your doctor will order laboratory tests to see how well your liver is working even if you do not think you have liver disease. Your doctor will probably tell you not to take atorvastatin if you have liver disease or if the tests show you may be developing liver disease. ??? tell your doctor if you drink more than 2 alcoholic beverages daily, if you are 65 years of age or older, and if you have or have ever had muscle aches or weakness, diabetes, seizures, low blood pressur e, or thyroid or kidney disease. ??? tell your doctor if you are or plan to become . If you become while taking atorvastatin, stop taking atorvastatin and call your doctor immediately. Atorvastatin may harm the fetus. ??? tell your doctor if you are or plan to breastfeed. You should not breastfeed while you are taking this medication. ??? if you are having surgery, including dental surgery, tell the doctor or dentist that you are taking atorvastatin. If you are hospitalized due to serious injury or infection, tell the doctor who treats you that you are taking atorvastatin. ??? ask your doctor about the safe use of alcoholic beverages while you are taking atorvastatin. Alcohol can increase the risk of serious side effects. What SPECIAL DIETARY instructions should I follow? Eat a low-fat, low-cholesterol diet. Be sure to follow all exercise and dietary recommendations made by your doctor or dietitian. You can also visit the National Cholesterol Education Program (NCEP) website for additional dietary information at https://www.nhlbi.nih.gov/health/public/heart/chol/chol_tlc.pdf. Avoid drinking large amounts [more than 1.2 liter (approximately 1 quart) per day] of grapefruit juice while taking atorvastatin. What should I do IF I FORGET to take a dose? If you miss a dose of the tablet, skip the missed dose and continue your regular dosing schedule. Do not take a double dose to make up for a missed one. If you miss a dose of the suspension, take the missed dose as soon as you remember it. However, if it is less than 12 hours until your next scheduled dose, skip the missed dose and continue your regular dosing schedule. Do not take a double dose to make up for a missed one. What SIDE EFFECTS can this medicine cause? Atorvastatin may cause side effects. Tell your doctor if any of these symptoms are severe or do notgo away: ??? diarrhea ??? heartburn ??? gas ??? joint pain ??? forgetfulness or memory loss ??? confusion ??? Some side effects can be serious. The following symptoms are uncommon, but if you experience any of them, call your doctor or get emergency medical help immediately: ??? muscle pain, tenderness, or weakness ??? lack of energy ??? fever ??? chest pain ??? nausea ??? extreme tiredness ??? weakness ??? unusual bleeding or bruising ??? loss of appetite ??? pain in the upper right part of the stomach??? flu-like symptoms ??? dark colored urine ??? yellowing of the skin or eyes ??? rash ??? hives ??? itching ??? difficulty breathing or swallowing ??? swelling of the face, throat, tongue, lips, eyes, hands, feet, ankles, or lower legs ??? hoarseness Atorvastatin may cause other side effects. Call your doctor if you have any unusual problems while taking this medication. If you experience a serious side effect, you or your doctor may send a report to the Food and Drug Administration's (FDA) MedWatch Adverse Event Reporting program online (https://www.fda.gov/Safety/MedWatch) or by phone ( ). What should I know about STORAGE and DISPOSAL of this medication? Keep this medication in the container it came in, tightly closed, and out of reach of children. Store it at room temperature and away from excess heat and moisture (not in the bathroom). Unneeded medications should be disposed of in special ways to ensure that pets, children, and otherpeople cannot consume them. However, you should not flush this medication down the toilet. Instead,the best way to dispose of your medication is through a medicine take-back program. Talk to your pharmacist or contact your local garbage/recycling department to learn about take-back programs in your community. See the FDA's Safe Disposal of Medicines website (https://goo.gl/c4Rm4p) for more information if you do not have access to a take-back program. It is important to keep all medication out of sight and reach of children as many containers (such as weekly pill minders and those for eye drops, creams, patches, and inhalers) are not child-resistant and young children can open them easily. To protect young children from poisoning, always lock safety caps and immediately place the medication in a safe location ??? one that is up and away and out of their sight and reach. https://www.upandaway.org What should I do in case of OVERDOSE? In case of overdose, call the poison control helpline at . Information is also available online at https://www.poisonhelp.org/help. If the victim has collapsed, had a seizure, has trouble breathing, or can't be awakened, immediately call emergency services at [phone]. What OTHER INFORMATION should I know? Keep all appointments with your doctor and the laboratory. Your doctor may order certain lab tests during your treatment , especially if you develop symptoms of liver damage. Before having any laboratory test, tell your doctor and the laboratory personnel that you are taking atorvastatin. Do not let anyone else take your medication. Ask your pharmacist any questions you have about refilling your prescription. It is important for you to keep a written list of all of the prescription and nonprescription ([id number]-[id number]) medicines you are taking, as well as any products such as vitamins, minerals, or otherdietary supplements. You should bring this list with you each time you visit a doctor or if you areadmitted to a hospital. It is also important information to carry with you in case of emergencies. This report on medications is for your information only, and is not considered individual patient advice. Because of the changing nature of drug information, please consult your physician or pharmacist about specific clinical use. The [employer] represents that the information provided hereunder was formulated with a reasonable standard of care, and in conformity with professional standards in the field. The [employer] makes no representations or warranties, express or implied, including, but not limited to, any implied warranty of merchantability and/or fitness for a particular purpose, with respect to such information and specifically disclaims all such warranties. Users are advised that decisions regarding drug therapy are complex medical decisions requiring the independent, informed decision of an appropriate health animal care taker, and the information is provided for informational purposes only. The entire monograph for a drug should be reviewed for a thorough understanding of the drug's actions, uses and side effects. The [employer] does not endorse or recommend the use of any drug.The information is not a substitute for medical care. AHFS?? Patient Medication Information???. ?? Copyright, 2023. The [employer]??, [address], [address], [place], [place]. All Rights Reserved. Duplication for commercial use must be authorized by [facility]. Selected Revisions: April 08, 2024. AHFS?? Patient Medication Information???. ?? Copyright, 2023 ?? * Pili Bhakta RN: PERFORM Event Display: Patient Education Leaflets Authored Date: [id number] Aspirin ?? [id number] Aspirin Brand Name(s): Acuprin??, Anacin?? Aspirin Regimen, Ascriptin??, Aspergum??, Aspidrox??, Aspir-Mox??, Aspirtab??, Aspir-savanah??, Rogelio?? Aspirin, Bufferin??, Buffex??, Easprin??, Ecotrin??, Empirin??,Entaprin??, Entercote??, Fasprin??, Genacote??, Gennin-FC??, Genprin??, Halfprin??, Magnaprin??, Miniprin??, Minitabs??, Ridiprin??, Sloprin??, Uni-Buff??, Uni-Tren??, Valomag??, Zorprin??, Georgiana-Milton?? (as a combination product containing Aspirin, Citric Acid, Sodium Bicarbonate), Georgiana-Milton??Extra Strength (as a combination product containing Aspirin, Citric Acid, Sodium Bicarbonate), Georgiana-Milton?? Morning Relief (as a combination product containing Aspirin, Caffeine), Georgiana-Milton?? Plus Flu (as a combination product containing Aspirin, Chlorpheniramine, Dextromethorphan), Georgiana-Milton?? PM (as a combination product containing Aspirin, Diphenhydramine), Alor?? (as a combination product containing Aspirin, Hydrocodone), Anacin?? (as a combination product containing Aspirin, Caffeine), Anacin?? Advanced Headache Formula (as a combination product containing Acetaminophen, Aspirin,Caffeine), Aspircaf?? (as a combination product containing Aspirin, Caffeine), Axotal?? (as a combination product containing Aspirin, Butalbital), Azdone?? (as a combination product containing Aspirin, Hydrocodone), Rogelio?? Aspirin Plus Calcium (as a combination product containing Aspirin, Calcium Carbonate), Rogelio?? Aspirin PM (as a combination product containing Aspirin, Diphenhydramine), Rogelio?? Back and Body Pain (as a combination product containing Aspirin, Caffeine), BC Headache (as a combination product containing Aspirin, Caffeine, Salicylamide), BC Powder (as a combination product containing Aspirin, Caffeine, Salicylamide), Damason-P?? (as a combination product containing Aspirin,Hydrocodone), Emagrin?? (as a combination product containing Aspirin, Caffeine, Salicylamide), Endodan?? (as a combination product containing Aspirin, Oxycodone), Equagesic?? (as a combination product containing Aspirin, Meprobamate), Excedrin?? (as a combination product containing Acetaminophen, Aspirin, Caffeine), Excedrin?? Back & Body (as a combination product containing Acetaminophen, Aspirin), Goody's?? Body Pain (as a combination product containing Acetaminophen, Aspirin), Levacet?? (as a combination product containing Acetaminophen, Aspirin, Caffeine, Salicylamide), Lortab?? ASA (as a combination product containing Aspirin, Hydrocodone), Micrainin?? (as a combination product containing Aspirin, Meprobamate), Momentum?? (as a combination product containing Aspirin, Phenyltoloxamine), Norgesic?? (as a combination product containing Aspirin, Caffeine, Orphenadrine), Orphengesic?? (as a combination product containing Aspirin, Caffeine, Orphenadrine), Panasal?? (as a combination product containing Aspirin, Hydrocodone), Percodan?? (as a combination product containing Aspirin, Oxycodone), Robaxisal?? (as a combination product containing Aspirin, Methocarbamol), Roxiprin?? (as a combination product containing Aspirin, Oxycodone), Saleto?? (as a combination product containing Acetaminophen, Aspirin, Caffeine, Salicylamide), Soma?? Compound (as a combination product containing Aspirin, Carisoprodol), Soma?? Compound with Codeine (as a combination product containing Aspirin, Carisoprodol, Codeine), Supac?? (as a combination product containing Acetaminophen, Aspirin, Caffeine), Synalgos-DC?? (as a combination product containing Aspirin, Caffeine, Dihydrocodeine), Talwin? ? Compound (as a combination product containing Aspirin, Pentazocine), Vanquish?? (as a combinationproduct containing Acetaminophen, Aspirin, Caffeine); also available generically ?? Acetylsalicylic acid, ASA WHY is this medicine prescribed? Prescription aspirin is used to relieve the symptoms of rheumatoid arthritis (arthritis caused by swelling of the lining of the joints), osteoarthritis (arthritis caused by breakdown of the lining ofthe joints), systemic lupus erythematosus (condition in which the immune system attacks the joints and organs and causes pain and swelling) and certain other rheumatologic conditions (conditions in which the immune system attacks parts of the body). Nonprescription aspirin is used to reduce fever and to relieve mild to moderate pain from headaches, menstrual periods, arthritis, toothaches, and muscle aches. Nonprescription aspirin is also used to prevent heart attacks in people who have had a heart attack in the past or who have angina (chest pain that occurs when the heart does not get enough oxygen). Nonprescription aspirin is also used to reduce the risk of in people who are experiencing or who have recently experienced a heart attack. Nonprescription aspirin is also used to prevent ischemic strokes (strokes that occur when a blood clot blocks the flow of blood to the brain) ormini-strokes (strokes that occur when the flow of blood to the brain is blocked for a short time) in people who have had this type of stroke or mini-stroke in the past. Aspirin will not prevent hemorrhagic strokes (strokes caused by bleeding in the brain). Aspirin is in a group of medications called salicylates. It works by stopping the production of certain natural substances that cause fever, pain, swelling, and blood clots. Aspirin is also available in combination with other medications such as antacids, pain relievers, and cough and cold medications. This monograph only includes information about the use of aspirin alone. If you are taking a combination product, read the information on the package or prescription label or ask your doctor or pharmacist for more information. HOW should this medicine be used? Prescription aspirin comes as an extended-release (long-acting) tablet. Nonprescription aspirin comes as a regular tablet, a delayed-release (releases the medication in the intestine to prevent damage to the stomach) tablet, a chewable tablet, powder, and a gum to take by mouth. Prescription aspirin is usually taken two or more times a day. Nonprescription aspirin is usually taken once a day to lower the risk of a heart attack or stroke. Nonprescription aspirin is usually taken every 4 to 6 hours as needed to treat fever or pain. Follow the directions on the package or prescription label carefully, and ask your doctor or pharmacist to explain any part you do not understand. Take aspirin exactly as directed. Do not take more or less of it or take it more often than directed by the package label or prescribed by your doctor. Swallow the extended-release tablets whole with a full glass of water. Do not break, crush, or chewthem. Swallow the delayed-release tablets with a full glass of water. Chewable aspirin tablets may be chewed, crushed, or swallowed whole. Drink a full glass of water, immediately after taking these tablets. Ask a doctor before you give aspirin to your child or teenager. Aspirin may cause Nahun's syndrome (a serious condition in which fat builds up on the brain, liver, and other body organs) in children and teenagers, especially if they have a virus such as chicken pox or the flu. If you have had oral surgery or surgery to remove your tonsils in the last 7 days, talk to your doctor about which types of aspirin are safe for you. Delayed-release tablets begin to work some time after they are taken. Do not take delayed-release tablets for fever or pain that must be relieved quickly. Stop taking aspirin and call your doctor if your fever lasts longer than 3 days, if your pain lastslonger than 10 days, or if the part of your body that was painful becomes red or swollen. You may have a condition that must be treated by a doctor. Are there OTHER USES for this medicine? Aspirin is also sometimes used to treat rheumatic fever (a serious condition that may develop aftera strep throat infection and may cause swelling of the heart valves) and Kawasaki disease (an illness that may cause heart problems in children). Aspirin is also sometimes used to lower the risk of blood clots in patients who have artificial heart valves or certain other heart conditions and to prevent certain complications of . What SPECIAL PRECAUTIONS should I follow? Before taking aspirin, ??? tell your doctor and pharmacist if you are allergic to aspirin, other medications for pain or fever, tartrazine dye, or any other medications. ??? tell your doctor and pharmacist what prescription and nonprescription medications, vitamins, nutritional supplements, and herbal products you are fadi ing or plan to take. Be sure to mention any of the following: acetazolamide (Diamox); angiotensin-converting enzyme (CLARK) inhibitors such as benazepril (Lotensin), captopril (Capoten), enalapril (Vasotec), fosinopril (Monopril), lisinopril (Prinivil, Zestril), moexipril (Univasc), perindopril, (Aceon), quinapril (Accupril), ramipril (Altace), and trandolapril (Mavik); anticoagulants ('blood thinners') such as warfarin (Coumadin) and heparin; beta blockers such as atenolol (Tenormin), labetalol (Normodyne), metoprolol (Lopressor, Toprol XL), nadolol (Corgard), and propranolol (Inderal); diuretics ('water pills'); medications for diabetes or arthritis; medications for gout such as probenecid and sulfinpyrazone (Anturane); methotrexate (Trexall); other nonsteroidal anti-inflammatory drugs (NSAIDs) such as naproxen (Aleve, Naprosyn); phenytoin (Dilantin); and valproic acid (Depakene, Depakote). Your doctor may need to change the doses of your medications or monitor you more carefully for side effects. ??? if you are taking aspirin on a regular basis to prevent heart attack or stroke, donot take ibuprofen (Advil, Motrin) to treat pain or fever without talking to your doctor. Your doctor will probably tell you to allow some time to pass between taking your daily dose of aspirin and taking a dose of ibuprofen. ??? tell your doctor if you have or have ever had asthma, frequent stuffed or runny nose, or nasal polyps (growths on the linings of the nose). If you have these conditions,there is a risk that you will have an allergic reaction to aspirin. Your doctor may tell you that you should not take aspirin. ??? tell your doctor if you often have heartburn, upset stomach, or stomach pain and if you have or have ever had ulcers, anemia, bleeding problems such as hemophilia, or kidney or liver disease. ??? tell your doctor if you are , you plan to become , or ifyou are breast-feeding. Low dose aspirin 81-mg may be taken during , but aspirin doses greater that 81 mg may harm the fetus and cause problems with delivery if it is taken around 20 weeks or later during . Do not take aspirin doses greater that 81 mg (e.g., 325 mg) around or after 20 weeks of , unless told to do so by your doctor. If you become while taking aspirin or aspirin containing medications, call your doctor. ??? if you are having surgery, including dental surgery, tell the doctor or dentist that you are taking aspirin. ??? if you drink three or more alcoholic drinks every day, ask your doctor if you should take aspirin or other medications for pain and fever. What SPECIAL DIETARY instructions should I follow? Unless your doctor tells you otherwise, continue your normal diet. What should I do IF I FORGET to take a dose? If your doctor has told you to take aspirin on a regular basis and you miss a dose, take the misseddose as soon as you remember it. However, if it is almost time for the next dose, skip the missed dose and continue your regular dosing schedule. Do not take a double dose to make up for a missed one. What SIDE EFFECTS can this medicine cause? Aspirin may cause side effects. Tell your doctor if any of these symptoms are severe or do not go away: ??? nausea ??? vomiting ??? stomach pain ??? heartburn ??? Some side effects can be serious. If youexperience any of the following symptoms, call your doctor immediately: ??? hives ??? rash ??? swelling of the eyes, face, lips, tongue, or throat ??? wheezing or difficulty breathing ??? hoarseness ??? fast heartbeat ??? fast breathing ??? cold, clammy skin ??? ringing in the ears ??? loss of hearing ??? bloody vomit ??? vomit that looks like coffee grounds ??? bright red blood in stools ??? black or tarry stools Aspirin may cause other side effects. Call your doctor if you experience any unusual problems whileyou are taking this medication. If you experience a serious side effect, you or your doctor may send a report to the Food and Drug Administration's (FDA) MedWatch Adverse Event Reporting program online (https://www.fda.gov/Safety/MedWatch) or by phone ( ). What should I know about STORAGE and DISPOSAL of this medication? Keep this medication in the container it came in, tightly closed, and out of reach of children. Store it at room temperature and away from excess heat and moisture (not in the bathroom). Dispose of any tablets that have a strong vinegar smell. It is important to keep all medication out of sight and reach of children as many containers (such as weekly pill minders and those for eye drops, creams, patches, and inhalers) are not child-resistant and young children can open them easily. To protect young children from poisoning, always lock safety caps and immediately place the medication in a safe location ??? one that is up and away and out of their sight and reach. https://www.[employer].org Unneeded medications should be disposed of in special ways to ensure that pets, children, and otherpeople cannot consume them. However, you should not flush this medication down the toilet. Instead,the best way to dispose of your medication is through a medicine take-back program. Talk to your pharmacist or contact your local garbage/recycling department to learn about take-back programs in your community. See the FDA's Safe Disposal of Medicines website (https://goo.gl/c4Rm4p) for more information if you do not have access to a take-back program. What should I do in case of OVERDOSE? In case of overdose, call the poison control helpline at . Information is also available online at https://www.poisonhelp.org/help. If the victim has collapsed, had a seizure, has trouble breathing, or can't be awakened, immediately call emergency services at [phone]. Symptoms of overdose may include: ??? burning pain in the throat or stomach ??? vomiting ??? decreased urination ??? fever ??? restlessness ??? irritability ??? talking a lot and saying things that do not make sense ??? fear or nervousness ??? dizziness ??? double vision ??? uncontrollable shaking of a part of the body ??? confusion ??? abnormally excited mood ??? hallucination (seeing things or hearing voices that are not there)??? seizures ??? drowsiness ??? loss of consciousness for a period of time What OTHER INFORMATION should I know? Keep all appointments with your doctor. If you are taking prescription aspirin, do not let anyone else take your medication. Ask your pharmacist any questions you have about refilling your prescription. It is important for you to keep a written list of all of the prescription and nonprescription (yqlm-ltv-zhbldtf) medicines you are taking, as well as any products such as vitamins, minerals, or otherdietary supplements. You should bring this list with you each time you visit a doctor or if you areadmitted to a hospital. It is also important information to carry with you in case of emergencies. This report on medications is for your information only, and is not considered individual patient advice. Because of the changing nature of drug information, please consult your physician or pharmacist about specific clinical use. The [employer] represents that the information provided hereunder was formulated with a reasonable standard of care, and in conformity with professional standards in the field. The [employer] makes no representations or warranties, express or implied, including, but not limited to, any implied warranty of merchantability and/or fitness for a particular purpose, with respect to such information and specifically disclaims all such warranties. Users are advised that decisions regarding drug therapy are complex medical decisions requiring the independent, informed decision of an appropriate health animal care taker, and the information is provided for informational purposes only. The entire monograph for a drug should be reviewed for a thorough understanding of the drug's actions, uses and side effects. The [employer] does not endorse or recommend the use of any drug.The information is not a substitute for medical care. AHFS?? Patient Medication Information???. ?? Copyright, 2023. The [employer]??, [address], [address], [place], [place]. All Rights Reserved. Duplication for commercial use must be authorized by [facility]. Selected Revisions: February 01, 2021. AHFS?? Patient Medication Information???. ?? Copyright, 2023 ?? * Kylee ANDREW, Timbo Wright: PERFORM Event Display: Patient Education Leaflets Authored Date: [id number] Takotsubo Cardiomyopathy (Broken Heart Syndrome) ?? [address] Takotsubo Cardiomyopathy (Broken Heart Syndrome) Takotsubo cardiomyopathy (TCM) is a type of heart condition also known as stress-induced cardiomyopathy or broken heart syndrome. It causes sudden chest pain. The symptoms of TCM can be like those ofa heart attack. The name takotsubo comes from the appearance of the heart muscle on an echocardiogram. The main pumping chamber becomes dilated and the muscle does not move while the base becomes constricted. This shape resembles an old [place] octopus trap that has the same name. With TCM, blood flow to part of the heart is briefly blocked. This might happen if the coronary arteries have a temporary spasm. It might also occur if the smaller blood vessels of the heart don???t get enough blood. Although the symptoms of TCM may feel like a heart attack, the two conditions are different. During a heart attack, a major blockage in one of the coronary arteries from a blood clotor plaque buildup triggers symptoms. In TCM, the blockage is transient. TCM is not very common. It most often occurs in older women. But it can happen to men and younger women. What causes Takotsubo cardiomyopathy? Experts are still trying to understand what causes TCM. Some think it might result from a brief spasm of the coronary arteries. Others think reduced blood flow to the smaller blood vessels of the heart may trigger it. Excess release of stress hormones such as adrenaline may also play a role. Experts do know that intense emotions such as grief, fear, or sadness may trigger TCM. That???s whythe condition is sometimes called broken heart syndrome. A sudden illness may also precede it. TCM might be triggered by: ??? of a loved one ??? Domestic abuse ??? Natural disasters ??? Major financial loss ??? Asthma flare ??? Surgery ??? Chemotherapy ??? Accidental overdose of adrenaline ??? Adrenaline-producingtumor In some cases, experts can???t pinpoint a clear cause for TCM. You may have a higher risk for TCM if one of your family members had it. Having an anxiety disorderalso seems to raise a person???s risk. Traditional risk factors for a heart attack, such as smoking, don't make you more prone to TCM. ?? What are the symptoms of Takotsubo cardiomyopathy? Symptoms of TCM may seem like a heart attack. During an episode, you might have: ??? Sudden, strongchest pain (the most common symptom) ??? Shortness of breath ??? Fainting, dizziness, or lightheadedness ??? Neck or left arm pain ??? Pale appearance ??? Sudden, severe fatigue ??? Sweating ?? How is Takotsubo cardiomyopathy treated? Since TCM may mimic an acute heart attack, it may be treated like a heart attack. This may include giving aspirin, nitroglycerin, blood thinners, and even having heart procedures to look at blood flow in the heart arteries. Part of the diagnosis for symptoms may include an echocardiogram or ultrasound of your heart and a coronary angiogram to make sure you don't have a blocked coronary artery. Blood samples will be checked to evaluate the stress on your heart. You may need to stay in the ICU (intensive care unit) for at least 24 hours. Treatment might include: ??? Oxygen therapy to increase oxygen in your blood ??? IV (intravenous) fluids if your healthcare provider thinks you are dehydrated ??? Beta-thalia medicines to wrapping machine helper heart recovery ??? Angiotensin converting enzyme (CLARK) inhibitor medicines to aid heart recovery ??? Blood-thinner medicines (anticoagulants) to help prevent stroke ??? Psychological therapy to address problems such as anxietyand stress Most people fully recover from TCM in 1 to 4 weeks. But some don't, especially if they are older inage. Short-term risks of heart failure and abnormal heart rhythm can also pose danger to people with TCM, especially early on in the disease. ?? When to call 911 Call 911right away if you have sudden severe chest pain or other signs of a heart attack or TCM. Don't drive yourself to the hospital. ?? Last Reviewed Date: 2021 ?? 3012-4163 [employer]. All rights reserved. This information is not intended as a substitute for professional medical care. Always follow your healthcare professional's instructions. ?? * Event Display: Hemodynamic Procedure Report Authored Date: [id number] History and physical note * Priya Hunter MD: PERFORM Event Display: History and Physical Hospital Authored Date: [id number] Patient: ??VERONICA SCHMIDT ? Age:??83 Years?Sex:??Female?:??1940?? 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 She underwent elective sacroiliac??joint injections, received propofol for sedation, went into PEA cardiac arrest, code lasted 5 min, ROSC was achieved receiving 2 doses of Epi and intubated. Post code she was hypotensive and given Noah pushes transferred to MICU at [facility]. She was seen by Vascular surgery for abdominal aorta atherosclerosis and asa/statin and??out pt follow up were??recommended. She was seen by Cardiology. EKG was w deep T wave inversions in the precordial leads. LAD ischemia was concerned.??Initial ECHO on aforementioned event on 06/30 was w normal BiV??function, LVH. Follow up ECHO in 07/10 revealed decreased EF to 30-35% w mid ant, mid inf, mid ant lat, mid inf septal segments hypokinesis. 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 Takotsubo vs ischemic CMP concern were raised. Pt is not having any new CP. She c/o CP, which is from chest compressions, palpable, reproducible. Otherwise she is asymptomatic, Dr. Kim put in the Cath orders for 07/12. She completed 48 hrs of Hep gtt, Therefore, she is not on anymore hep.?? Review of Systems Comprehensive review neg unless mentioned as above Objective Measurements?? Height: 150 cm (07/11/24) Weight: 64.5 kg (07/11/24) Dry Weight: 64.5 kg (07/11/24) Body Mass Index:??28.67 kg/m2??High (07/11/24) ? Vital Signs?? Temperature: 97.9 DegF (07/11/24 22:15:00) Temperature Route: Oral (07/11/24 22:15:00) Pulse Rate:??97 bpm??High (07/11/24 22:15:00) Respiratory Rate: 18 br/min (07/11/24 22:15:00) Systolic Blood Pressure:??164 mm Hg??High (07/11/24 22:15:00) Diastolic Blood Pressure: 79 mm Hg (07/11/24 22:15:00) Blood pressure sites: Arm, left (07/11/24 22:15:00) Mean Arterial Pressure: 124 mm Hg (07/11/24 17:16:00) Pulse Pressure: 74 mm Hg (07/11/24 17:16:00) Oxygen Saturation: 95 % (07/11/24 22:15:00) Liters per Minute: 4 L/min (07/11/24 22:15:00) Mode of Delivery (Oxygen): Nasal cannula (07/11/24 22:15:00) Early Warning Score: 4 (07/11/24 22:16:22) ? Pain Scores 1 - 10 Pain Scale Score: 4 (18:14) ?? Intake/Output? No Data Available ? Physical Exam Constitutional: Alert, in no distress. Mental Status: Oriented to person, place and time. Head: Normocephalic. Eyes: Pupils are equal, round and reactive to light. Extraocular muscles intact. Ear, Nose and Throat: Oropharynx clear, mucous membranes moist. Trachea midline. Neck: Supple, Full range of motion. Respiratory: Clear to auscultation. No wheezing, rales or rhonchi. Cardiovascular: S1 S2 regular. No murmurs, rubs or gallops.??Palpation??on the ant chest reproducessharp pain.??This is the pain she complains of. Gastrointestinal: Abdomen soft, non-tender, non-distended. Normal bowel sounds. No pulsatile mass. No hepatosplenomegaly. Neurologic: No focal neurological deficits. Flexor plantar response. Moves all extremities spontaneously. Sensation intact bilaterally. Skin: No rashes or lesions. No petechiae or purpura.?? Musculoskeletal: No cyanosis or clubbing. No gross deformities. Normal range of motion. Psychiatric: Normal mood and affect Assessment/Plan ?? Non-ST elevation SC (NSTEMI) ??(I21.4) PEA Arrest as above HFrEF as above ECHO 07/10/24. Plan -Admit to tele -Unable to use asa, since pt is allergic, unknown reaction. Will defer Plavix to our Cardiology team. -Cont statin -Hep gtt used 48 hrs, no more needed -Holding Diltiazem. Likely will need to be changed to Metoprolol. Will defer to Cardiology -PRN EKG -Symptomatic treatment -Dr. Kim to do the cath in am. NPO after MN -I&O, weights for even fluid status -Routine labs ?? HTN (hypertension) ??(I10) Uncontrolled Likely due to loss of meds and pain Plan -Start Amlodipine??10 mg po qd now and daily -Holding Lisinopril 40, will need to restart post cath -Monitor BP trend and use prn IV Hydralazine ?? 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 Chronic GERD ??(K21.9) Plan -Cont h2 blk ?? Chronic pain syndrome ??(G89.4) Fibromyalgia ??(M79.7) ANGELA (generalized anxiety disorder) ??(F41.1) -Cont prn Percocet, low dose po Dilaudid and Tylenol prn -Cont Ling 300 mg po tid -Cont Xanax, Buspirone ?? Hyperlipidemia ??(E78.5) Plan -Atorvastatin 40 mg po hs -Lipid panel and hgba1c in am ?? Hypothyroidism ??(E03.9) Plan -Cont Levothyroxine ?? Insomnia ??(G47.00) Plan -Cont Trazodone prn hs ?? VTE Prophylaxis:??High risk, chemical ?VTE Prophylaxis Assessment:??VTE Prophylaxis Ordered Cardiac diet NPO after MN?? Code Status:??Full code ?Order Code Status:??Code Status Ordered ?? She lives alone. Her kids are??living??far. She has a niece who is her HCP, Bella Dodd at [phone]. She would like to be called before cath to be able to be here while she is getting cath.?? Pt also stated to me Bella is wanting to add pt's children as??to her HCP. ? Histories Allergies Allergies ?(Active and Proposed Allergies Only) metoprolol? (Severity: Unknown severity, Onset: Unknown) Lyrica? (Severity: Unknown severity, Onset: Unknown) penicillin? (Severity: Unknown severity, Onset: Unknown) amoxicillin? (Severity: Unknown severity, Onset: Unknown) alendronate? (Severity: Unknown severity, Onset: Unknown) omeprazole? (Severity: Unknown severity, Onset: 04/21/2023) ?Reactions: Unknown ?Comments: Outside Source Comment: Causes Gas NSAIDs? (Severity: Unknown severity, Onset: Unknown) ?Reactions: Entire stomach aspirin? (Severity: Unknown severity, Onset: 01/28/2023) ?Reactions: Unknown ?? Past Medical History/Problem List Active Problems(4) Anxiety Fibromyalgia Hypertension Hypothyroidism ?? Past Surgical History No surgery history documented. ?? Social History No social history documented. ?? Family History No Family History documented. Medications Home Medications Acetaminophen / Hydrocodone (acetaminophen-hydrocodone 325 mg-10 mg oral tablet)?1?tab(s)?By Mouth?Every 8 hours?as needed?Pain , Moderate Albuterol (albuterol CFC free 90 mcg/inh inhalation aerosol)?2?puff(s)?Inhalation?Every4 hours?as needed?for 30?Days?Wheezing/Shortness of Breath Alprazolam (ALPRAZolam 0.5 mg oral tablet)?0.25?Milligram?0.5?tablet?By Mouth?Daily at bedtime?as needed?Insomnia BusPIRone (busPIRone 10 mg oral tablet)?10?Milligram?1?tablet?By Mouth?2 times a day?as needed?Anxiety Cetirizine?10?Milligram?Daily Diltiazem (DilTIAZem (Eqv-Dilacor XR) 120 mg/24 hours oral capsule, extended release)?1?capsule?120?Milligram?By Mouth?Daily Famotidine (famotidine 20 mg oral tablet)?20?Milligram?1?tablet?By Mouth?Daily Fluticasone Nasal (Flonase)?2?spray(s)?Daily Gabapentin (gabapentin 300 mg oral capsule)?300?Milligram?1?capsule?By Mouth?2 times a day Levothyroxine (levothyroxine 0.112 mg oral tablet)?1?tab(s)?112?Microgram?By Mouth?Daily Lisinopril?40?Milligram?By Mouth?Daily Montelukast?10?Milligram?By Mouth?Daily at bedtime Omeprazole?20?Milligram?By Mouth?Daily Simvastatin?40?Milligram?By Mouth?Daily Trazodone?150?Milligram?By Mouth?Daily at bedtime umeclidinium (Incruse Ellipta 62.5 mcg/inh inhalation powder)?See Instructions?INHALE 1 INHALATION EVERY 24 HOURS INSTR: DOSES SHOULD BE TAKEN AT LEAST 24 HOURS APART (BULK) ?? Inpatient Medications Medications (25) Active SCHEDULED: (11) Breo Ellipta 100 mcg / 25 mcg Inhaler (Breo Ellipta 100 mcg-25 mcg Inhaler) ??1 puffs, Inhalation, Daily BusPIRone 10 mg Tablet (busPIRone 10 mg oral tablet) ??15 mg, By Mouth, Daily at supper Cetirizine 5 mg Tablet (Cetirizine Tablet) ??10 mg, By Mouth, Daily Diltiazem 240 mg/24 hour CD Capsule (Cardizem CD 240 mg/24 hours oral capsule, extended release) ??240 mg, By Mouth, Daily Famotidine 20 mg Tablet (famotidine 20 mg oral tablet) ??20 mg, By Mouth, 2 times a day Gabapentin 300 mg Capsule (gabapentin 300 mg oral capsule) ??300 mg, By Mouth, Every 8 hours Heparin 5000 units/mL Inj (1 mL) (Heparin Inj) ??5,000 units 1 mL, Subcutaneous Injection, 2 times a day Levothyroxine 112 mcg Tablet (levothyroxine 0.112 mg oral tablet) ??112 mcg, By Mouth, Daily Montelukast 10 mg Tablet (montelukast 10 mg oral tablet) ??10 mg, By Mouth, Daily at bedtime NaCl 0.9% Flush 3ml (NaCL 0.9% Flush) ??3 mL, IV Push, Every 8 hours Simvastatin 20 mg Tablet (simvastatin 20 mg oral tablet) ??40 mg, By Mouth, Daily at bedtime CONTINUOUS: (0) PRN: (14) Acetaminophen 325 mg Tablet (Acetaminophen Tablet) ??650 mg, By Mouth, Every 4 hours Albuterol/Ipratropium Inhalation Yaritza 3mL (Duoneb Inhalation Solution) ??1 vials, BAND Nebulizer, Every 4 hours Alprazolam 0.25 mg Tablet (ALPRAZolam 0.25 mg oral tablet) ??0.25 mg, By Mouth, Daily at bedtime Dextromethorphan-Guaifenesin 20 mg-200 mg/10 mL Liqu UD (Robitussin DM Liquid) ??10 mL, By Mouth, Every 4 hours Docusate Sodium 100 mg Capsule (Docusate Sodium Capsule) ??100 mg 1 capsule, By Mouth, 2 times a day hydrALAZINE 20 mg/mL Inj (hydrALAZINE Inj) ??5 mg 0.25 mL, IV Push Slowly, Every 4 hours Hydrocodone 5 mg/Acetaminophen 325 mg Tablet (acetaminophen-HYDROcodone 325 mg-5 mg oral tablet) ??1 tablet, By Mouth, Every 6 hours HYDROmorphone 2 mg Tablet (Dilaudid 2 mg oral tablet) ??1 mg, By Mouth, Every 6 hours Melatonin 3 mg Tablet (Melatonin Tablet) ??3 mg, By Mouth, Daily at bedtime NaCl 0.9% Flush 3ml (NaCL 0.9% Flush) ??3 mL, IV Push, Every 8 hours Polyethylene Glycol 17 Gm Powder (MiraLax Powder) ??17 Gm 1 pack/packet, By Mouth, Daily Senna Tablet ??8.6 mg 1 tablet, By Mouth, 2 times a day Simethicone 80 mg Chewable Tablet (Simethicone Tablet) ??80 mg, Chew, 3 times a day Trazodone 50 mg Tablet (traZODone 50 mg oral tablet) ??150 mg, By Mouth, Daily at bedtime Results Recent Labs CARDIAC High Sensitivity Troponin (HSTnT) 33 ng/L (High)?? 07/11/2024 20:59 ?? Abnormal Labs CARDIAC High Sensitivity Troponin (HSTnT)?33 ng/L (High) ??07/11/2024 20:59 ?? Note: Critical results are displayed in red. ?? CBC, CBC w/Diff?? No qualifying data available. BMP, Mg, and Phos?? No qualifying data available. Coagulation Profile?? No qualifying data available. LFT?? No qualifying data available. Urinalysis?? No qualifying data available. Cardiology Labs High Sensitivity Troponin (HSTnT):??33 ng/L??High (07/11/24 20:59:00) Blood Gases?? No qualifying data available. ? * Event Display: History and Physical Hospital Authored Date: EKG study * Event Display: ECG 12-Lead Authored Date: Please click on pdf link to open report * Event Display: ECG 12-Lead Authored Date: Ventricular Rate: 95 BPM Atrial Rate: 95 BPM P-R Interval: 192 ms QRS Duration: 102 ms Q-T Interval: 406 ms QTC Calculation(Bazett): 510 ms P [place]: 66 degrees R [place]: -57 degrees T [place]: 181 degrees Normal sinus rhythm Incomplete right bundle branch block Left anterior fascicular block Moderate voltage criteria for LVH, may be normal variant ( R in aVL , Britton product ) Anterior infarct (cited on or before 12-JUL-2024) T wave abnormality, consider inferolateral ischemia Abnormal ECG When compared with ECG of 12-JUL-2024 09:33, Serial changes of evolving Anterior infarct Present Confirmed by FRANKLIN ALFARO MD () on 07/12/2024 2:58:54 PM [place]: FRANKLIN ALFARO MD * Event Display: ECG 12-Lead Authored Date: Please click on pdf link to open report * Event Display: ECG 12-Lead Authored Date: Ventricular Rate: 95 BPM Atrial Rate: 95 BPM P-R Interval: 184 ms QRS Duration: 90 ms Q-T Interval: 402 ms QTC Calculation(Bazett): 505 ms P [place]: 60 degrees R [place]: -58 degrees T [place]: 177 degrees Normal sinus rhythm Left anterior fascicular block Moderate voltage criteria for LVH, may be normal variant ( R in aVL , Devon product ) Anterolateral infarct , age undetermined T wave abnormality, consider inferior ischemia Abnormal ECG When compared with ECG of 31-MAR-2023 14:45, Anterolateral infarct is now Present ST no longer depressed in Inferior leads T wave inversion now evident in Anterolateral leads QT has lengthened Confirmed by FRANKLIN ALFARO MD () on 07/12/2024 11:29:47 AM [place]: [facility] Progress note * Berenice Tucker RN: VERIFY, PERFORM, MODIFY, SIGN Event Display: [facility] Authored Date: Patient: VERONICA SCHMIDT Age: 83 years Sex: Female : 1940 Associated Diagnoses: None Author: Berenice Tucker RN Findings Problem Related to Alteration in Cardiac Function (new) : Alteration in Cardiac Function/new 07/13/2024 13:00 EDT Alteration in Cardiac Status Related to Cardiac Procedure, Chest pain Goals & Outcomes, Cardiac Status Pt will resume/maintain adequate cardiac output, Pt will resume/maintain adequate hemodynamic status, Pt will resume/maintain adequate respiratory function, Pt will resume/maintain intact neuro function, Pt will maintain adequate GI/ function appropriate for pt, Pt will maintain adequate nutrition status, Pt/caregiver will state understanding of diagnosis, Pt/caregiver will state strategies to reduce risk factors Cardiac Interventions Implemented Assess/monitor cardiac status, Assess/monitor neuro status, Assess/monitor respiratory status, Teach/encourage deep breath & cough exercises Goals/Interventions, Cardiac Yes Cardiac, Problem Start 07/11/2024 19:54 Reviewed Plan with, Cardiac Status Patient Patient Progression, Cardiac Status Patient progressing according to plan . Evaluation Patient A&O x4. NSR on tele. Denies chest pain, palpitations, and SOB. 6 seconds of SVT; Reinaldo Wright notified, pt asymptomatic and resting. reports repoducable midsternal chest and lower back pain; prn administered & heat. On 1L >94%. OOB with walker and 1 assist. blank cath removed and on voiding trial. DSD intact on right radial, +2 pulses. hearing aids and glasses at bedside. Call johns in reach, bed in locked lowest position, and bed alarm on. See CIS flowsheet for full assessment. . Discharge Information Case Management Discharge Plan : Case Management Discharge Plan Data 07/13/2024 12:57 EDT Discharge Level of Care at Discharge Homehealth/VNA Discharge VNA/Hospice/Home Care [facility] [phone] Discharge Transportation Arranged Family Name of Agency #1 [facility] Service Categories #1 Physical Therapy, Long-Term Service Comments #1 Service Comments #1 * Ewelina Gonzalez RN: PERFORM, SIGN, VERIFY, MODIFY, SIGN Event Display: Progress Note Hospital Authored Date: [id number] Patient: VERONICA SCHMIDT Age: 83 years Sex: Female : 1940 Associated Diagnoses: None Author: Ewelina Gonzalez RN Findings Problem Related to Alteration in Cardiac Function (new) : Alteration in Cardiac Function/new 07/13/2024 0:00 EDT Alteration in Cardiac Status Related to Cardiac Procedure, Chest pain Goals & Outcomes, Cardiac Status Pt will resume/maintain adequate cardiac output, Pt will resume/maintain adequate hemodynamic status, Pt will resume/maintain adequate respiratory function, Pt will resume/maintain intact neuro function, Pt will maintain adequate GI/ function appropriate for pt, Pt will maintain adequate nutrition status, Pt/caregiver will state understanding of diagnosis, Pt/caregiver will state strategies to reduce risk factors Cardiac Interventions Implemented Assess/monitor cardiac status, Assess/monitor neuro status, Assess/monitor respiratory status, Assess for tolerance of IV infusions; verify rate & dose, Document& Monitor O2 Sats; Administer O2 as ordered, Ensure adequate caloric intake, If no bowel movement in 3 days activate bowel regime, Prep pt for treatments & procedures, Teach/encourage deep breath & cough exercises Goals/Interventions, Cardiac Yes Cardiac, Problem Start 07/11/2024 19:54 Reviewed Plan with, Cardiac Status Patient Patient Progression, Cardiac Status Patient progressing according to plan . Evaluation A+Ox4. Lung sounds diminished on 2L NC. Normal sinus rhythm on tele. R radial cath site clean, dry,and intact. +2 radial pulses. Denies h/a, dizziness, SOB, chest pain, N/V. Blank catheter draining clear, yellow urine. 1x asssist w/ walker. Reporting 10/10 pain on R side/back, relieved with PRN tylenol + heat packs. Able to make needs known. Call light and personal items within reach. Safety maintained with bed in lowest position and locked. Nursing care continues. . * Garrett WALDEN, Berenice: PERFORM, SIGN, VERIFY Event Display: Progress Note Hospital Authored Date: Patient: VERONICA SCHMIDT Age: 83 years Sex: Female : 1940 Associated Diagnoses: None Author: Berenice Tucker RN Findings Evaluation Patient A&O x4. NSR on tele. Denies chest pain, palpitations, and SOB. reports ongoing, reproducible midsternal pain, prn administered. hearing aids in, and dentures at bedside. right radial cathprocedure today; TR band removed and DSD applied. no oozing, hematoma, or bleeding noted, +2 radialpulses. EKG performed pre & post cath. On 2L nasal cannula. started on aspirin per M.D. Pichardo request. patient verbalized sided effect in past has been stomach discomfort. made aware on ongoing/worsening anxiety. Blank in place for urinary retention. Call johns in reach, bed in locked lowest position. ambulates with 1 assist & walker. See CIS flowsheet for full assessment. . Patient Care team information Care Team Personnel Name: Eleni Barros RN Position: [facility] RN Member Role: Primary Care Nurse Name: Margot Murphy MD Position: [facility] Outreach Member Role: PCP Address: Address: [address] [place], [place] [address], [place] [address]- Care Team Related Persons Name: BELLA DODD Address: home [address] [place] [address] Name: KARELY LANIER Address: [place] [address]
--- NOTE | 2024-07-14 22:02 | PC.NURSE ---
pt biba from home reporting sob onset approx 2100. 2L NC at baseline pt was found at 86% on 4L NC. hx asthma. had cardiac arrest 2 weeks ago and has broken ribs from cpr. pt was admitted to our icu and discharged home yesterday per pt. pt denies cp but states feels pain in my ribs. pt changed to hospital gown, placed on heart monitor. pt is currently 95% on 4L NC. speaking full clear sentences. ekg and labs obtained. made aware and currently at bedside.
[2024-07-14 22:07] LABS: Basophils Absolute Auto 0.2 X10*3/uL (0.0-0.2); Basophils Percent Auto 1.1 % (0-2); Eosinophils Absolute Auto 0.4 X10*3/uL (0.0-0.4); Eosinophils Percent Auto 2.9 % (0-4); Hematocrit 33.2 % (37.0-47.0); Hemoglobin 11.5 g/dl (12.0-16.0); Imm Gran Abs Auto 0.22 X10*3/uL (0.00-0.03); Imm Gran Pct Auto 1.6 % (0.0-0.4); Lymphocytes Absolute Auto 2.1 X10*3/uL (1.2-4.9); Lymphocytes Percent Auto 14.8 % (20-40); MANUAL DIFF FLAG SCAN; Mean Corpuscular HGB Conc 34.6 g/dl (31.0-35.0); Mean Corpuscular Hemoglobin 29.8 pg (27.0-33.0); Monocytes Absolute Auto 1.5 X10*3/uL (0.1-1.2); Monocytes Percent Auto 10.9 % (2-11); Neutrophils Absolute Auto 9.6 x10*3/uL (2.0-8.3); Neutrophils Percent Auto 68.7 % (45-73); Red Blood Count 3.86 X10*6/uL (4.20-5.50); Red Cell Distribution Width 13.6 % (11.0-16.0); SCAN SMEAR FLAG 1
--- NOTE | 2024-07-14 22:07 | ED_ITS ---
HPI - General Adult General Chief complaint: Dyspnea Stated complaint: SOB Time Seen by Provider: 07/14/24 21:52 History of Present Illness ED Provider: Scott GARCIA narrative: The patient is an 83-year-old woman who comes to the hospital by ambulance for shortness of breath. The patient has been discharged from this hospital 3 days ago. She had come to the hospital 2 weeks ago on June 30 for an outpatient procedure for pain management. She came in for bilateral sacroiliac joint injections. During the procedure the patient developed a cardiac arrest that lasted about 5 minutes. She was resuscitated and admitted to the intensive care unit. She spent a few days on a heparin drip. She was discharged from the intensive care unit on July 03 and went to the medical floor. She was ultimately transferred from this hospital on July 11, 3 days ago, to [facility] for a diagnostic cardiac catheterization. At the cardiac catheterization she had no critical stenoses although there was some disease in the LAD. The overall impression was that the patient might have been experiencing a takotsubo cardiomyopathy. She was discharged from [facility] yesterday. She went home rather than going to rehab. The patient says that this evening while watching TV she felt short of breath. She called an ambulance and was brought to the hospital here. There was no fever, sweats, chills. She has had chest pain ever since she received CPR but she has no new chest pain. No pain or swelling in her legs. No cough or sputum. She received a bronchodilator updraft from paramedics in route to the hospital and was feeling considerably better by the time she got here. Related Data Home Medications ?Medication ?Instructions ?Recorded ?Confirmed alprazolam 0.5 mg tablet 0.5 mg PO DAILY 12/08/23 06/30/24 buspirone 15 mg tablet 15 mg PO TID 12/08/23 06/30/24 gabapentin 300 mg capsule 300 mg PO TID 12/08/23 06/30/24 levothyroxine 112 mcg capsule 112 mcg PO DAILY 12/08/23 06/30/24 montelukast 10 mg tablet 10 mg PO DAILY 12/08/23 06/30/24 trazodone 150 mg tablet 150 mg PO BEDTIME PRN Insomnia 12/08/23 06/30/24 umeclidinium 62.5 mcg/actuation 1 inh inhalation DAILY 04/21/24 06/30/24 blister powder for inhalation (Incruse Ellipta) hydrocodone 10 mg-acetaminophen 1 tab PO QID PRN Pain 06/30/24 06/30/24 325 mg tablet Previous Rx's ?Medication ?Instructions ?Recorded amlodipine 5 mg tablet 5 mg PO DAILY #3 tabs 07/11/24 aspirin 81 mg chewable tablet 81 mg PO DAILY #30 tabs 07/11/24 atorvastatin 40 mg tablet 40 mg PO DAILY #30 tabs 07/11/24 enoxaparin 40 mg/0.4 mL 40 mg (0.4 mL) subcut Q24H #4 mL 07/11/24 subcutaneous syringe fluticasone propionate 50 1 spray intranasal DAILY #16 grams 07/11/24 mcg/actuation nasal spray,suspension ipratropium 0.5 mg-albuterol 3 mg 3 ml inhalation RQ6H WHILE AWAKE 07/11/24 (2.5 mg base)/3 mL nebulization #90 mL soln lisinopril 20 mg tablet 20 mg PO DAILY #30 tabs 07/11/24 metoprolol tartrate 25 mg tablet 25 mg PO BID #60 tabs 07/11/24 omeprazole 20 mg capsule,delayed 20 mg PO DAILY@0630 #30 caps 07/11/24 release cefuroxime axetil 250 mg tablet 250 mg PO BID #10 tabs 07/15/24 Allergies Allergy/AdvReac Type Severity Reaction Status Date / Time alendronate sodium Allergy Unknown Unknown Verified 07/14/24 21:48 pregabalin [From Lyrica] Allergy Unknown Unknown Verified 07/14/24 21:48 metoprolol AdvReac Unknown Unknown Verified 07/14/24 21:48 Review of Systems 2 Review of Systems: Yes all other systems are reviewed and are negative PMFSH Past Medical History Medical History (Updated 07/15/24 @ 03:41 by Galileo Chavez MD) Oxygen dependent COPD (chronic obstructive pulmonary disease) Elevated cholesterol Salivary gland tumor Osteoporosis HTN (hypertension) Hypothyroid Degeneration of lumbar or lumbosacral intervertebral disc Chronic pain syndrome Surgical History Hx of excision of mass History of surgery Social History Social History Household Members: Unknown / Unable to assess Housing: Unknown / Unable to assess Unable to assess alcohol history related to: Unable to respond Patient Tobacco Use Status: Former Tobacco user Advance Directives: Yes Advance Directives Information Provided: Yes Advance Directives on File: Yes Advance Directives Date on File: 07/01/24 service: No Physical Exam ED Vital Signs: Vital Signs - 24 hr 07/14/24 22:52 07/15/24 00:51 07/15/24 01:48 Temperature 97.6 F Pulse Rate 84 86 85 Respiratory Rate 20 16 16 Blood Pressure 137/44 L 153/89 H Pulse Oximetry 96 95 Oxygen Delivery Method Nasal Cannula Nasal Cannula Oxygen Flow Rate 2 2 07/15/24 01:50 07/15/24 03:05 07/15/24 04:25 Temperature 98.9 F Pulse Rate 86 89 89 Respiratory Rate 15 18 18 Blood Pressure 154/80 H 147/74 H 147/74 H Pulse Oximetry 95 95 95 Oxygen Delivery Method Nasal Cannula Nasal Cannula Nasal Cannula Oxygen Flow Rate 2 2 2 BMI result Body Mass Index 26.8 Const Other: The patient is awake and alert. She is a frail looking 83-year-old. Her mental status seems fairly clear. She does not seem in overt distress although she looks quite chronically ill. HENMT Other: Face is symmetrical. Mucous membranes moist. Eyes General: appearance normal, both eyes and all related structures Neck Neck: Yes no JVD Resp Effort & Inspection: normal respiratory effort Auscultation: clear to auscultation bilaterally Cardio Rate: regular rate Rhythm: regular rhythm Heart sounds: S1 normal heart sound present and S2 normal heart sound present GI Other: Abdomen is soft and nontender Skin Other: Skin is pale and dry. Neuro Other: The patient is awake and alert. Face is symmetrical. Eye movements intact. Speech is clear. She moves her extremities symmetrically and appropriately. She seems grossly neurologically intact. Extrem Other: No peripheral edema. No calf swelling or tenderness. No asymmetry. She moves both of her legs easily and well. Medications Administered Discontinued Medications Generic Name Dose Route Start Last Admin Trade Name Freq PRN Reason Stop Dose Admin Albuterol/Ipratropium 3 ml 07/15/24 01:11 07/15/24 01:47 Albuterol/Iprat 2.5/0.5mg 3 Ml Ampul.Neb INHALE 10/26/24 01:12 3 ml ONCE ONE Administration Acetaminophen 1,000 mg in 100 mls @ 400 mls/hr 07/14/24 22:42 07/14/24 23:13 Ofirmev IV 07/14/24 22:56 Infused ONCE ONE Infusion Iohexol 65 ml 07/14/24 23:25 07/14/24 23:26 Iohexol 350 Mg/Ml 100 Ml Infus..Btl IV 07/14/24 23:26 65 ml ONCE ONE Administration Medical Decision Making Medical Decision Making [facility] Narrative: The patient is an 83-year-old woman who was recently hospitalized after a cardiac arrest that occurred during an outpatient injection of her sacroiliac joints. As part of her hospitalization she was ultimately transferred to [facility] for cardiac catheterization. Cardiac catheterization showed some LAD disease which was not critical an overall the cardiac catheterization was consistent with Takotsubo's cardiomyopathy. The patient returned home yesterday and was fine earlier today but this evening felt short of breath and called 911 and was brought to the hospital. There has been no fever. The patient is normally on home oxygen. Clinically the patient did not seem overtly toxic and she had no signs of a DVT. Given the history of a cardiac arrest, the CPR she received, and the fact that she was in the hospital for almost 2 weeks I felt a pulmonary embolism needed to be considered. Her D-dimer was elevated. CT pulmonary angiogram did not show any sign a pulmonary embolism however. There was an incidental finding of a question of a possible splenic infarct that I think is of probably little importance. This seems like a very incidental finding. While in the emergency room the patient did not seem to have ongoing symptoms of shortness of breath and in fact she seemed to be feeling better and was eager to go home. I think her workup in the emergency room today is sufficiently reassuring that discharge home is reasonable. She should follow up with her PCP. Lab Data 07/14/24 21:55 07/14/24 21:55 Labs: Lab Results 07/14/24 07/14/24 07/15/24 Range/Units 21:55 22:03 00:51 WBC 14.0 H (4.8-10.8) X10*3/uL RBC 3.86 L (4.20-5.50) X10*6/uL Hgb 11.5 L (12.0-16.0) g/dl Hct 33.2 L (37.0-47.0) % MCV 86.0 (80.0-98.0) fL MCH 29.8 (27.0-33.0) pg MCHC 34.6 (31.0-35.0) g/dl RDW 13.6 (11.0-16.0) % Plt Count 516 H D (160-400) X10*3/uL MPV 8.8 L (9.4-12.3) fL Immature Gran % (Auto) 1.6 H (0.0-0.4) % Neut % (Auto) 68.7 (45-73) % Lymph % (Auto) 14.8 L (20-40) % [place] % (Auto) 10.9 (2-11) % Eos % (Auto) 2.9 (0-4) % Baso % (Auto) 1.1 (0-2) % Lymph # (Auto) 2.1 (1.2-4.9) X10*3/uL [place] # (Auto) 1.5 H (0.1-1.2) X10*3/uL Eos # (Auto) 0.4 (0.0-0.4) X10*3/uL Baso # (Auto) 0.2 (0.0-0.2) X10*3/uL Abs Immat Gran (auto) 0.22 H (0.00-0.03) X10*3/uL Absolute Neuts (auto) 9.6 H (2.0-8.3) x10*3/uL Absolute Nucleated RBC 0.000 (0.0-0.012) X10*3/uL Nucleated RBC % (auto) 0.0 (0.0-0.2) /100WBC Smear Tech's Comments VERIFIED PT 11.6 (10.9-12.4) SEC INR 1.0 (0.9-1.1) D-Dimer High Sensitivty 1760 NG/ML VBG pH 7.46 H (7.32-7.43) VBG pCO2 33 mmHg VBG pO2 93 mmHg VBG HCO3 24 (22-26) mmol/L VBG O2 Saturation 98.0 % VBG Base Excess 1.2 mmol/L Sodium 132 L (135-145) mmol/L Potassium 4.1 (3.3-5.1) mmol/L Chloride 99 (96-108) mmol/L Carbon Dioxide 21 L (22-29) mmol/L Anion Gap 16 (12-20) BUN 25 H (9-16) mg/dL Creatinine 1.25 (0.5-1.4) mg/dL Estim Creat Clear Calc 28.6 Estimated GFR 41 Random Glucose 99 (60-115) mg/dL Calcium 9.7 (8.4-10.2) mg/dL Total Bilirubin 0.3 (0.0-1.0) mg/dL AST 35 H (5-31) U/L ALT 20 (0-31) U/L Alkaline Phosphatase 123 H (39-117) U/L Troponin I High Sens 47.5 H (<3.5-17.0) ng/L Total Protein 7.0 (6.5-8.0) g/dL Albumin 3.8 (3.5-5.0) g/dL Urine Color Yellow Urine Appearance Clear Urine pH 5.5 (5.0-9.0) Ur Specific [place] 1.020 (1.005-1.025) Urine Protein Negative (Neg-Trace) mg/dL Urine Glucose (UA) Negative (Negative) mg/dL Urine Ketones Negative (Negative) mg/dL Urine Blood Negative (Negative) Urine Nitrite Negative (Negative) Ur Leukocyte Esterase Moderate (2+) H (Negative) Urine RBC 0-2 (0-2) /HPF Urine WBC 21-50 H (0-5) /HPF Ur Squamous Epith Cells 3-5 (0-2) /HPF Urine Bacteria 4+ (None Seen) Hyaline Casts 0-2 (0-2) /LPF Influenza Type A (PCR) NEGATIVE (Negative) Influenza Type B (PCR) NEGATIVE (Negative) RSV RNA Qual (PCR) NEGATIVE (Negative) SARS-CoV-2 RNA (RT-PCR) NEGATIVE (Negative) 07/15/24 Range/Units 01:17 WBC (4.8-10.8) X10*3/uL RBC (4.20-5.50) X10*6/uL Hgb (12.0-16.0) g/dl Hct (37.0-47.0) % MCV (80.0-98.0) fL MCH (27.0-33.0) pg MCHC (31.0-35.0) g/dl RDW (11.0-16.0) % Plt Count (160-400) X10*3/uL MPV (9.4-12.3) fL Immature Gran % (Auto) (0.0-0.4) % Neut % (Auto) (45-73) % Lymph % (Auto) (20-40) % [place] % (Auto) (2-11) % Eos % (Auto) (0-4) % Baso % (Auto) (0-2) % Lymph # (Auto) (1.2-4.9) X10*3/uL [place] # (Auto) (0.1-1.2) X10*3/uL Eos # (Auto) (0.0-0.4) X10*3/uL Baso # (Auto) (0.0-0.2) X10*3/uL Abs Immat Gran (auto) (0.00-0.03) X10*3/uL Absolute Neuts (auto) (2.0-8.3) x10*3/uL Absolute Nucleated RBC (0.0-0.012) X10*3/uL Nucleated RBC % (auto) (0.0-0.2) /100WBC Smear Tech's Comments PT (10.9-12.4) SEC INR (0.9-1.1) D-Dimer High Sensitivty NG/ML VBG pH (7.32-7.43) VBG pCO2 mmHg VBG pO2 mmHg VBG HCO3 (22-26) mmol/L VBG O2 Saturation % VBG Base Excess mmol/L Sodium (135-145) mmol/L Potassium (3.3-5.1) mmol/L Chloride (96-108) mmol/L Carbon Dioxide (22-29) mmol/L Anion Gap (12-20) BUN (9-16) mg/dL Creatinine (0.5-1.4) mg/dL Estim Creat Clear Calc Estimated GFR Random Glucose (60-115) mg/dL Calcium (8.4-10.2) mg/dL Total Bilirubin (0.0-1.0) mg/dL AST (5-31) U/L ALT (0-31) U/L Alkaline Phosphatase (39-117) U/L Troponin I High Sens 46.4 H (<3.5-17.0) ng/L Total Protein (6.5-8.0) g/dL Albumin (3.5-5.0) g/dL Urine Color Urine Appearance Urine pH (5.0-9.0) Ur Specific [place] (1.005-1.025) Urine Protein (Neg-Trace) mg/dL Urine Glucose (UA) (Negative) mg/dL Urine Ketones (Negative) mg/dL Urine Blood (Negative) Urine Nitrite (Negative) Ur Leukocyte Esterase (Negative) Urine RBC (0-2) /HPF Urine WBC (0-5) /HPF Ur Squamous Epith Cells (0-2) /HPF Urine Bacteria (None Seen) Hyaline Casts (0-2) /LPF Influenza Type A (PCR) (Negative) Influenza Type B (PCR) (Negative) RSV RNA Qual (PCR) (Negative) SARS-CoV-2 RNA (RT-PCR) (Negative) Independent Interpretation I performed an independent interpretation of an: EKG Interpretation: EKG at 21:44 shows normal sinus rhythm at 87 beats per minute. There is a left anterior fascicular block. There are T-wave inversions in V3 through V6. Overall the T-wave inversion looks less concerning than on her previous EKG Discharge Plan Discharge Clinical Impression: Shortness of breath, Urinary tract infection Patient Disposition: Home, Self-Care Additional Instructions: Your CT scan does not show any dangerous findings with regard to your lungs or your heart. Your urine test suggest you might have a urinary tract infection. You have been started on a course of an antibiotic called cefuroxime. Please take this 2 times a day. The prescription was sent to the [facility] in [place]. Please follow up soon with your regular doctor and follow up with any other doctor you had been advised to follow up with after your recent hospitalization. If you feel significantly worse at any time return to the emergency room. Prescriptions: New cefuroxime axetil 250 mg tablet 250 mg PO BID Qty: 10 0RF No Action hydrocodone-acetaminophen 10-325 mg tablet 1 tab PO QID PRN (Reason: Pain) ipratropium-albuterol 0.5 mg-3 mg(2.5 mg base)/3 mL Solution For Nebulization 3 ml inhalation RQ6H WHILE AWAKE Qty: 90 0RF omeprazole 20 mg Capsule,Delayed Release(Dr/Ec) 20 mg PO DAILY@0630 Qty: 30 0RF aspirin 81 mg Tablet,Chewable 81 mg PO DAILY Qty: 30 0RF fluticasone propionate 50 mcg/actuation [place],Suspension 1 spray intranasal DAILY Qty: 16 0RF atorvastatin 40 mg Tablet 40 mg PO DAILY Qty: 30 0RF amlodipine 5 mg Tablet 5 mg PO DAILY Qty: 3 0RF Protocol: Hold for SBP< HOLD for SBP < : 90 enoxaparin 40 mg/0.4 mL Syringe 40 mg subcut Q24H Qty: 4 0RF lisinopril 20 mg tablet 20 mg PO DAILY Qty: 30 0RF metoprolol tartrate 25 mg tablet 25 mg PO BID Qty: 60 0RF Incruse Ellipta 62.5 mcg/actuation blister with device 1 inh inhalation DAILY gabapentin 300 mg capsule 300 mg PO TID levothyroxine 112 mcg capsule 112 mcg PO DAILY buspirone 15 mg tablet 15 mg PO TID montelukast 10 mg tablet 10 mg PO DAILY alprazolam 0.5 mg tablet 0.5 mg PO DAILY trazodone 150 mg tablet 150 mg PO BEDTIME PRN (Reason: Insomnia) Referrals: Margot Murphy MD [Primary Care Provider] - (Recently discharged from the hospital, possible UTI) Interventions: ED Discharge Assessment Last Done: 07/15/24 04:25 Discharge Date/Time: 07/15/24 04:25 Print Language: Malaysian
[2024-07-14 22:08] LABS: Venous Blood Gas Refer to POC result
[2024-07-14 22:08] LABS: VBG Base Excess 1.2 mmol/L; VBG HCO3 24 mmol/L (22-26); VBG pCO2 33 mmHg; VBG pH 7.46 (7.32-7.43); VBG pO2 93 mmHg
[2024-07-14 22:18] LABS: Alanine Aminotransferase 20 U/L (0-31); Albumin Level 3.8 g/dL (3.5-5.0); Alkaline Phosphatase 123 U/L (39-117); Anion Gap 16 (12-20); Aspartate Amino Transferase 35 U/L (5-31); Bilirubin Total 0.3 mg/dL (0.0-1.0); Blood Urea Nitrogen 25 mg/dL (9-16); Calcium 9.7 mg/dL (8.4-10.2); Carbon Dioxide 21 mmol/L (22-29); Chloride 99 mmol/L (96-108); Creatinine Clr Calc Pharmacy 28.6; Estimated Glomerular Filt Rate 41; Glucose Random 99 mg/dL (60-115); Potassium 4.1 mmol/L (3.3-5.1); Sodium 132 mmol/L (135-145)
[2024-07-14 22:24] LABS: Troponin-I High Sensitivity 47.5 ng/L (<3.5-17.0)
[2024-07-14 22:26] LABS: Prothrombin Time 11.6 SEC (10.9-12.4)
[2024-07-14 22:29] LABS: Mean Platelet Volume 8.8 fL (9.4-12.3); Platelet Count 516 X10*3/uL (160-400); SLIDE REVIEW VERIFIED
[2024-07-14 22:37] LABS: D Dimer High Sensitivity 1760 NG/ML
[2024-07-14 22:42] LABS: Influenza A PCR NEGATIVE (Negative); Influenza B PCR NEGATIVE (Negative); Resp Syncy Virus RNA Qual PCR NEGATIVE (Negative); SARS COV2 PCR INHOUSE NEGATIVE (Negative)
[2024-07-14 22:52] VITALS: BP 137/44; PULSE 84; RESP 20; TEMP 36.4; O2SAT 96
[2024-07-14] MEDS: Acetaminophen 1,000 MG/100 ML PIGGYBACK 400 MG IV (22:58)
[2024-07-14] MEDS: iohexoL 350 MG/ML 100 ML INFUS..BTL 65 ML IV (23:26)
[2024-07-15 00:51] VITALS: BP 153/89; PULSE 86; RESP 16; O2SAT 95
[2024-07-15 01:17] LABS: Appearance Urine Clear; Color Urine Yellow; Glucose Urine UA Negative (Negative); Leukocyte Esterase Urine Moderate (2+) (Negative); Nitrite Urine Negative (Negative); PH 5.5 (5.0-9.0); UMIC TRIGGER UACC YES; Urine Blood Negative (Negative); Urine Ketones Negative (Negative); Urine Protein Negative (Neg-Trace)
[2024-07-15 01:21] LABS: Bacteria Urine 4+ (None Seen); Hyaline Casts Urine 0-2 /LPF (0-2); RBC Urine 0-2 /HPF (0-2); UACC Culture Trigger YES; WBC Urine 21-50 /HPF (0-5)
[2024-07-15] MEDS: Albuterol/Iprat 2.5/0.5MG 3 ML AMPUL.NEB INHALE (01:47)
[2024-07-15 01:48] VITALS: PULSE 85; RESP 16; O2SAT 94
[2024-07-15 01:49] LABS: Troponin-I High Sensitivity 46.4 ng/L (<3.5-17.0)
[2024-07-15 01:50] VITALS: BP 154/80; PULSE 86; RESP 15; O2SAT 95
[2024-07-15 03:05] VITALS: BP 147/74; PULSE 89; RESP 18; O2SAT 95
[2024-07-15 04:25] VITALS: BP 147/74; PULSE 89; RESP 18; TEMP 37.2; O2SAT 95
== END 2024-07-15 04:25 | disposition home or self-care (01) ==
PROVIDERS: Emergency Provider Emergency Medicine; PCP Family Medicine
DX: R06.00 Dyspnea, unspecified (principal); N39.0 Urinary tract infection, site not specified; R06.02 Shortness of breath; R94.31 Abnormal electrocardiogram [ECG] [EKG]; Z03.818 Encounter for observation for suspected exposure to other biological agents ruled out; Z79.899 Other long term (current) drug therapy
CPT/HCPCS: 0241U; 36415; 51701; 71045; 71275; 80053; 81001; 82803; 84484; 85025; 85379; 85610; 87086; 87088; 87186; 93005; 94640; 99285; J0131; Q9967

== ENCOUNTER → 2024-07-14 21:44 | Outpatient (BNV) | payer OTHER, SELFPAY | PROVIDERS: Emergency Provider Emergency Medicine; PCP Family Medicine; Visit Provider Internal Medicine Cardiovascular Disease | DX: R94.31 Abnormal electrocardiogram [ECG] [EKG] (principal) | CPT/HCPCS: 93010 ==

== ENCOUNTER 2024-07-17 07:54 | Emergency (ER) | payer OTHER, SELFPAY ==
--- NOTE | ~2024-07-17 | XR_ITS ---
EXAMINATION: XR CHEST CLINICAL INFORMATION: Dysuria. COMPARISON: Chest radiograph 07/14/2024. TECHNIQUE: Frontal view of the chest was obtained. FINDINGS: Unchanged appearance of the cardiomediastinal silhouette. Increased reticulonodular markings bilaterally more prominent in the upper lungs and perihilar regions. Unchanged blunting of the left costophrenic angle correlating with compressive atelectasis and prominent epicardial fat pad on recent CT. No significant pleural effusion or pneumothorax. No acute osseous findings. EKG leads overlie the chest. XR/XR chest 1V IMPRESSION: Increased reticulonodular markings which are suspicious for an atypical infectious/inflammatory process within a background of chronic emphysema and interstitial lung disease. Recommend follow-up CT chest in 3 months to ensure resolution. Electronically signed by: Tanya Buitrago MD 07/17/2024 09:49 AM EDT
[2024-07-17 08:02] VITALS: BP 126/71; BP 97/62; PULSE 100; PULSE 96; RESP 12; TEMP 37; O2SAT 92; O2SAT 95; BMI 28.3
--- NOTE | 2024-07-17 08:03 | ECG_ITS ---
Test Reason : cp Blood Pressure : / mmHG Vent. Rate : 093 BPM Atrial Rate : 093 BPM P-R Int : 212 ms QRS Dur : 098 ms QT Int : 402 ms P-R-T Axes : 059 -41 176 degrees QTc Int : 499 ms Sinus rhythm with 1st degree A-V block Left axis deviation Moderate voltage criteria for LVH, may be normal variant ( R in aVL , [place] product ) T wave abnormality, consider inferior ischemia T wave abnormality, consider anterolateral ischemia Prolonged QT Abnormal ECG When compared with ECG of 14-JUL-2024 21:44, No significant change was found Referred By: Yusuf Aden Electronically Signed By:LUIS MANUEL THORNTON
--- NOTE | 2024-07-17 08:05 | ED.GENADULT ---
HPI - General Adult General Chief complaint: General Medical Stated complaint: RETAINING URINE X24H, RECENT PROCEDURE PER EMS Source: patient Mode of arrival: EMS History of Present Illness HPI narrative: 83 YEARS OLD FEMALE WITH HISTORY OF COPD, CORONARY ARTERY DISEASE, CHRONIC PAIN SYNDROME, FIBROMYALGIA CARDIOMYOPATHY PRESENTED TO THE EMERGENCY DEPARTMENT WITH A CHIEF COMPLAINT OF INABILITY TO URINATE SHE CALLED 911 TODAY BECAUSE SHE STATES SHE CAN NOT URINATE. SHE DENIES ANY FEVER CHILLS VOMITING. Onset (ago): day(s) (1) Radiation: non-radiation Severity: mild Relieving factors: none Exacerbating factors: none Associated symptoms: denies other symptoms Related Data Home Medications ?Medication ?Instructions ?Recorded ?Confirmed alprazolam 0.5 mg tablet 0.5 mg PO DAILY 12/08/23 06/30/24 buspirone 15 mg tablet 15 mg PO TID 12/08/23 06/30/24 gabapentin 300 mg capsule 300 mg PO TID 12/08/23 06/30/24 levothyroxine 112 mcg capsule 112 mcg PO DAILY 12/08/23 06/30/24 montelukast 10 mg tablet 10 mg PO DAILY 12/08/23 06/30/24 trazodone 150 mg tablet 150 mg PO BEDTIME PRN Insomnia 12/08/23 06/30/24 umeclidinium 62.5 mcg/actuation 1 inh inhalation DAILY 04/21/24 06/30/24 blister powder for inhalation (Incruse Ellipta) hydrocodone 10 mg-acetaminophen 1 tab PO QID PRN Pain 06/30/24 06/30/24 325 mg tablet Previous Rx's ?Medication ?Instructions ?Recorded amlodipine 5 mg tablet 5 mg PO DAILY #3 tabs 07/11/24 aspirin 81 mg chewable tablet 81 mg PO DAILY #30 tabs 07/11/24 atorvastatin 40 mg tablet 40 mg PO DAILY #30 tabs 07/11/24 enoxaparin 40 mg/0.4 mL 40 mg (0.4 mL) subcut Q24H #4 mL 07/11/24 subcutaneous syringe fluticasone propionate 50 1 spray intranasal DAILY #16 grams 07/11/24 mcg/actuation nasal spray,suspension ipratropium 0.5 mg-albuterol 3 mg 3 ml inhalation RQ6H WHILE AWAKE 07/11/24 (2.5 mg base)/3 mL nebulization #90 mL soln lisinopril 20 mg tablet 20 mg PO DAILY #30 tabs 07/11/24 metoprolol tartrate 25 mg tablet 25 mg PO BID #60 tabs 07/11/24 omeprazole 20 mg capsule,delayed 20 mg PO DAILY@0630 #30 caps 07/11/24 release cefuroxime axetil 250 mg tablet 250 mg PO BID #10 tabs 07/15/24 Allergies Allergy/AdvReac Type Severity Reaction Status Date / Time alendronate sodium Allergy Unknown Unknown Verified 07/17/24 08:05 pregabalin [From Lyrica] Allergy Unknown Unknown Verified 07/17/24 08:05 metoprolol AdvReac Unknown Unknown Verified 07/17/24 08:05 Review of Systems Constitutional: Constitutional: Reports no additional constitutional complaints ENT: Reports system reviewed and no additional complaints, except as documented Genitourinary: Genitourinary: Reports as per [facility] Past Medical History Attestation statement: The following information was validated with the patient. Source: unable to obtain Medical History Oxygen dependent COPD (chronic obstructive pulmonary disease) Elevated cholesterol Salivary gland tumor Osteoporosis HTN (hypertension) Hypothyroid Degeneration of lumbar or lumbosacral intervertebral disc Chronic pain syndrome Surgical History Hx of excision of mass History of surgery Social History Social History Household Members: Unknown / Unable to assess Housing: Unknown / Unable to assess Unable to assess alcohol history related to: Unable to respond Patient Tobacco Use Status: Former Tobacco user Smoked in Last 30 Days: No Use of substances other than those prescribed or required for medical reasons: No Advance Directives: Yes Advance Directives on File: Yes Advance Directives Date on File: 07/01/24 Do you have a plan to hurt others: No Plan service: No Physical Exam ED Vital Signs: Vital Signs - 24 hr 07/17/24 08:02 07/17/24 08:54 07/17/24 12:00 Temperature 98.6 F 98.6 F 98.1 F Pulse Rate 96 92 87 Respiratory Rate 12 21 H 20 Blood Pressure 97/62 136/61 149/79 H Pulse Oximetry 92 96 94 Oxygen Delivery Method Nasal Cannula Nasal Cannula Nasal Cannula Oxygen Flow Rate 3 3 BMI result Body Mass Index 28.3 NOT ACUTE DISTRESS Const General: cooperative Nutritional Appearance: average body habitus Orientation/consciousness: patient oriented x3 Limitations: no limitations HENMT Head: Yes normal to inspection Face and sinus: Yes normal facial exam Mouth: Normal oral and palatal mucosa present Throat: Yes posterior oropharynx normal Neck Neck: Yes normal visual inspection and Yes full ROM Chest Chest palpation & inspection: normal inspection of the chest Resp Effort & Inspection: normal respiratory effort Cardio Jugular venous distension: no JVD Rhythm: regular rhythm GI Inspection: Yes normal to inspection Palpation (GI): Soft to palpation and not firm General: Yes no CVA tenderness Back/Spine/Pelvis Back: no CVA tenderness Skin General skin exam: no rashes or lesions noted, elasticity normal and turgor normal Lesions: no lesions Rashes: no rashes Trauma: no lacerations or abrasions Neuro General: patient oriented x3 Cranial nerves: Yes CN's II-XII intact bilaterally Course Reevaluation(s) Reevaluation #1: Patient remained stable UA showed white cell consistent with UTI but she is on cefuroxime x2 days, culture of growing Klebsiella which is sensitive to cephalosporin. She has no fever white count is better than on July 14, her troponin is chronically elevated, she has a mildly elevated creatinine of 1.6 by she did receive IV fluid in the emergency depart. I think at this point she can be discharged home follow-up with the primary care physician, she is comfortable with the plan of care Time: 12:52 Medications Administered Discontinued Medications Generic Name Dose Route Start Last Admin Trade Name Freq PRN Reason Stop Dose Admin Sodium Chloride 1,000 mls @ 999 mls/hr 07/17/24 08:15 07/17/24 11:29 Ns IVCONT 07/17/24 09:15 Infused .Q1H1M SURYA Infusion Medical Decision Making Medical Decision Making [facility] Narrative: PATIENT PRESENTED WITH THE INABILITY TO URINATE WE WILL DO A BLADDER SCAN CHECK UA LABS INCLUDING BUN AND CREATININE Differential Diagnosis Differential Diagnoses: The differential diagnosis associated with the presentation includes URINARY RETENTION/URINARY TRACT INFECTION/DEHYDRATION Admission/Observation Consideration of admission/observation: Escalation of care including admission/observation considered Lab Data 07/17/24 08:43 07/17/24 08:43 Labs: Lab Results 07/17/24 07/17/24 Range/Units 08:43 11:53 WBC 11.7 H (4.8-10.8) X10*3/uL RBC 3.28 L (4.20-5.50) X10*6/uL Hgb 10.0 L (12.0-16.0) g/dl Hct 29.5 L (37.0-47.0) % MCV 89.9 (80.0-98.0) fL MCH 30.5 (27.0-33.0) pg MCHC 33.9 (31.0-35.0) g/dl RDW 13.9 (11.0-16.0) % Plt Count 442 H (160-400) X10*3/uL MPV 8.7 L (9.4-12.3) fL Immature Gran % (Auto) 1.5 H (0.0-0.4) % Neut % (Auto) 71.0 (45-73) % Lymph % (Auto) 11.9 L (20-40) % Branch % (Auto) 9.4 (2-11) % Eos % (Auto) 5.0 H (0-4) % Baso % (Auto) 1.2 (0-2) % Lymph # (Auto) 1.4 (1.2-4.9) X10*3/uL [place] # (Auto) 1.1 (0.1-1.2) X10*3/uL Eos # (Auto) 0.6 H (0.0-0.4) X10*3/uL Baso # (Auto) 0.1 (0.0-0.2) X10*3/uL Abs Immat Gran (auto) 0.17 H (0.00-0.03) X10*3/uL Absolute Neuts (auto) 8.3 (2.0-8.3) x10*3/uL Absolute Nucleated RBC 0.000 (0.0-0.012) X10*3/uL Nucleated RBC % (auto) 0.0 (0.0-0.2) /100WBC Sodium 132 L (135-145) mmol/L Potassium 4.1 (3.3-5.1) mmol/L Chloride 100 (96-108) mmol/L Carbon Dioxide 23 (22-29) mmol/L Anion Gap 13 (12-20) BUN 28 H (9-16) mg/dL Creatinine 1.61 H (0.5-1.4) mg/dL Estim Creat Clear Calc 21.8 Estimated GFR 31 Random Glucose 112 (60-115) mg/dL Calcium 9.1 D (8.4-10.2) mg/dL Total Bilirubin 0.3 (0.0-1.0) mg/dL AST 25 (5-31) U/L ALT 16 (0-31) U/L Alkaline Phosphatase 134 H (39-117) U/L Troponin I High Sens 33.5 H (<3.5-17.0) ng/L Total Protein 6.3 L (6.5-8.0) g/dL Albumin 3.6 (3.5-5.0) g/dL Urine Color Yellow Urine Appearance Cloudy Urine pH 5.5 (5.0-9.0) Ur Specific [place] 1.010 (1.005-1.025) Urine Protein Trace (Neg-Trace) mg/dL Urine Glucose (UA) Negative (Negative) mg/dL Urine Ketones Negative (Negative) mg/dL Urine Blood Moderate (2+) H (Negative) Urine Nitrite Negative (Negative) Ur Leukocyte Esterase Large (3+) H (Negative) Urine RBC >20 H (0-2) /HPF Urine WBC >50 H (0-5) /HPF Ur Squamous Epith Cells 3-5 (0-2) /HPF Urine Bacteria 1+ (None Seen) Hyaline Casts 3-5 (0-2) /LPF Discharge Plan Discharge Clinical Impression: Acute UTI, Dysuria Patient Disposition: Home, Self-Care Instructions: Dysuria (ED) Additional Instructions: Follow-up with your primary care physician, the urine shows evidence of urinary tract infection by UA already taking antibiotic we will send urine to the labs for culture we will let you know if you need to change antibiotic. Your blood test showed that you were a little bit dehydrated you received 1 L of fluids in the emergency department make sure you drink a lot fluids Prescriptions: No Action cefuroxime axetil 250 mg tablet 250 mg PO BID Qty: 10 0RF hydrocodone-acetaminophen 10-325 mg tablet 1 tab PO QID PRN (Reason: Pain) ipratropium-albuterol 0.5 mg-3 mg(2.5 mg base)/3 mL Solution For Nebulization 3 ml inhalation RQ6H WHILE AWAKE Qty: 90 0RF omeprazole 20 mg Capsule,Delayed Release(Dr/Ec) 20 mg PO DAILY@0630 Qty: 30 0RF aspirin 81 mg Tablet,Chewable 81 mg PO DAILY Qty: 30 0RF fluticasone propionate 50 mcg/actuation [place],Suspension 1 spray intranasal DAILY Qty: 16 0RF atorvastatin 40 mg Tablet 40 mg PO DAILY Qty: 30 0RF amlodipine 5 mg Tablet 5 mg PO DAILY Qty: 3 0RF Protocol: Hold for SBP< HOLD for SBP < : 90 enoxaparin 40 mg/0.4 mL Syringe 40 mg subcut Q24H Qty: 4 0RF lisinopril 20 mg tablet 20 mg PO DAILY Qty: 30 0RF metoprolol tartrate 25 mg tablet 25 mg PO BID Qty: 60 0RF Incruse Ellipta 62.5 mcg/actuation blister with device 1 inh inhalation DAILY gabapentin 300 mg capsule 300 mg PO TID levothyroxine 112 mcg capsule 112 mcg PO DAILY buspirone 15 mg tablet 15 mg PO TID montelukast 10 mg tablet 10 mg PO DAILY alprazolam 0.5 mg tablet 0.5 mg PO DAILY trazodone 150 mg tablet 150 mg PO BEDTIME PRN (Reason: Insomnia) Referrals: Margot Murphy MD [Primary Care Provider] - Print Language: Malay
[2024-07-17] MEDS: 0.9 % Sodium Chloride 1,000 ML 999 ML IVCONT (08:52)
[2024-07-17 08:54] VITALS: BP 136/61; PULSE 92; RESP 21; TEMP 37; O2SAT 96
[2024-07-17 09:02] LABS: MANUAL DIFF FLAG NO
[2024-07-17 09:06] LABS: Basophils Absolute Auto 0.1 X10*3/uL (0.0-0.2); Basophils Percent Auto 1.2 % (0-2); Eosinophils Absolute Auto 0.6 X10*3/uL (0.0-0.4); Hematocrit 29.5 % (37.0-47.0); Imm Gran Abs Auto 0.17 X10*3/uL (0.00-0.03); Imm Gran Pct Auto 1.5 % (0.0-0.4); Lymphocytes Absolute Auto 1.4 X10*3/uL (1.2-4.9); Lymphocytes Percent Auto 11.9 % (20-40); Mean Corpuscular HGB Conc 33.9 g/dl (31.0-35.0); Mean Corpuscular Hemoglobin 30.5 pg (27.0-33.0); Mean Corpuscular Volume 89.9 fL (80.0-98.0); Mean Platelet Volume 8.7 fL (9.4-12.3); Monocytes Absolute Auto 1.1 X10*3/uL (0.1-1.2); Monocytes Percent Auto 9.4 % (2-11); Neutrophils Absolute Auto 8.3 x10*3/uL (2.0-8.3); Platelet Count 442 X10*3/uL (160-400); Red Blood Count 3.28 X10*6/uL (4.20-5.50); Red Cell Distribution Width 13.9 % (11.0-16.0); White Blood Count 11.7 X10*3/uL (4.8-10.8)
[2024-07-17 09:19] LABS: Alanine Aminotransferase 16 U/L (0-31); Albumin Level 3.6 g/dL (3.5-5.0); Alkaline Phosphatase 134 U/L (39-117); Anion Gap 13 (12-20); Aspartate Amino Transferase 25 U/L (5-31); Bilirubin Total 0.3 mg/dL (0.0-1.0); Blood Urea Nitrogen 28 mg/dL (9-16); Calcium 9.1 mg/dL (8.4-10.2); Carbon Dioxide 23 mmol/L (22-29); Chloride 100 mmol/L (96-108); Creatinine Clr Calc Pharmacy 21.8; Estimated Glomerular Filt Rate 31; Glucose Random 112 mg/dL (60-115); Potassium 4.1 mmol/L (3.3-5.1); Sodium 132 mmol/L (135-145); Total Protein 6.3 g/dL (6.5-8.0)
[2024-07-17 09:26] LABS: Troponin-I High Sensitivity 33.5 ng/L (<3.5-17.0)
--- NOTE | 2024-07-17 10:33 | MHC.CM.ED ---
Received notification from [facility] that patient is active with their agency. Return referral made so they can follow for d/c needs.
[2024-07-17 12:00] VITALS: BP 149/79; PULSE 87; RESP 20; TEMP 36.7; O2SAT 94
[2024-07-17 12:03] LABS: Appearance Urine Cloudy; Color Urine Yellow; Glucose Urine UA Negative (Negative); Leukocyte Esterase Urine Large (3+) (Negative); Nitrite Urine Negative (Negative); PH 5.5 (5.0-9.0); UMIC TRIGGER UACC YES; Urine Blood Moderate (2+) (Negative); Urine Ketones Negative (Negative); Urine Protein Trace mg/dL (Neg-Trace)
[2024-07-17 12:16] LABS: Bacteria Urine 1+ (None Seen); RBC Urine >20 /HPF (0-2); UACC Culture Trigger YES; WBC Urine >50 /HPF (0-5)
[2024-07-17 16:00] VITALS: BP 142/86; PULSE 80; RESP 18; TEMP 36.8; O2SAT 95
[2024-07-17 18:39] VITALS: BP 136/82; PULSE 75; RESP 20; TEMP 36.8; O2SAT 95
[2024-07-17 18:40] VITALS: BP 132/82; PULSE 72; RESP 20; TEMP 36.8; O2SAT 95
== END 2024-07-17 18:40 | disposition home or self-care (01) ==
PROVIDERS: Emergency Provider Emergency Medicine; PCP Family Medicine
DX: N39.0 Urinary tract infection, site not specified (principal); B96.1 Klebsiella pneumoniae [K. pneumoniae] as the cause of diseases classified elsewhere; R30.0 Dysuria; I10 Essential (primary) hypertension; E78.00 Pure hypercholesterolemia, unspecified; J44.9 Chronic obstructive pulmonary disease, unspecified; Z99.81 Dependence on supplemental oxygen; Z87.891 Personal history of nicotine dependence
CPT/HCPCS: 36415; 71045; 80053; 81001; 84484; 85025; 87086; 87088; 87186; 93005; 96360; 96361; 99284; 99285

== ENCOUNTER → 2024-07-17 08:03 | Outpatient (BNV) | payer OTHER, SELFPAY | PROVIDERS: Emergency Provider Emergency Medicine; PCP Family Medicine; Visit Provider Internal Medicine | DX: R94.31 Abnormal electrocardiogram [ECG] [EKG] (principal) | CPT/HCPCS: 93010 ==

== ENCOUNTER 2024-07-20 01:04 | Emergency (ER) | payer OTHER, SELFPAY ==
[2024-07-20 01:13] VITALS: BP 165/69; PULSE 84; TEMP 36.6; O2SAT 96
[2024-07-20 01:15] VITALS: BP 144/63; BP 165/69; PULSE 78; PULSE 80; RESP 20; TEMP 36.1; O2SAT 98; BMI 27.7
[2024-07-20 01:55] LABS: Basophils Absolute Auto 0.1 X10*3/uL (0.0-0.2); Basophils Percent Auto 1.7 % (0-2); Eosinophils Absolute Auto 0.7 X10*3/uL (0.0-0.4); Eosinophils Percent Auto 8.2 % (0-4); Hematocrit 30.1 % (37.0-47.0); Hemoglobin 10.1 g/dl (12.0-16.0); Imm Gran Abs Auto 0.09 X10*3/uL (0.00-0.03); Imm Gran Pct Auto 1.1 % (0.0-0.4); Lymphocytes Absolute Auto 1.8 X10*3/uL (1.2-4.9); Lymphocytes Percent Auto 21.6 % (20-40); MANUAL DIFF FLAG NO; Mean Corpuscular HGB Conc 33.6 g/dl (31.0-35.0); Mean Corpuscular Hemoglobin 30.1 pg (27.0-33.0); Mean Corpuscular Volume 89.6 fL (80.0-98.0); Mean Platelet Volume 8.4 fL (9.4-12.3); Monocytes Absolute Auto 0.8 X10*3/uL (0.1-1.2); Monocytes Percent Auto 9.9 % (2-11); Neutrophils Absolute Auto 4.8 x10*3/uL (2.0-8.3); Neutrophils Percent Auto 57.5 % (45-73); Platelet Count 423 X10*3/uL (160-400); Red Blood Count 3.36 X10*6/uL (4.20-5.50); Red Cell Distribution Width 13.8 % (11.0-16.0); White Blood Count 8.3 X10*3/uL (4.8-10.8)
[2024-07-20 02:11] LABS: Alanine Aminotransferase 15 U/L (0-31); Albumin Level 3.9 g/dL (3.5-5.0); Alkaline Phosphatase 143 U/L (39-117); Anion Gap 16 (12-20); Aspartate Amino Transferase 23 U/L (5-31); Bilirubin Total 0.2 mg/dL (0.0-1.0); Blood Urea Nitrogen 14 mg/dL (9-16); Calcium 9.6 mg/dL (8.4-10.2); Carbon Dioxide 25 mmol/L (22-29); Chloride 100 mmol/L (96-108); Creatinine Clr Calc Pharmacy 28.2; Estimated Glomerular Filt Rate 42; Glucose Fasting 111 mg/dL (60-99); Potassium 4.3 mmol/L (3.3-5.1); Sodium 137 mmol/L (135-145); Total Protein 6.8 g/dL (6.5-8.0)
--- NOTE | 2024-07-20 03:34 | PC.NURSE ---
Pt in bed watching tv, no signs of distress. Plan of care ongoing.
--- NOTE | 2024-07-20 03:46 | PC.NURSE ---
Pt assisted to bedside commode. Plan of care ongoing.
--- NOTE | 2024-07-20 04:02 | PC.NURSE ---
Pt cleaned and assisted back into bed. Pt requested and given warm blanket Plan of care ongoing.
[2024-07-20 04:22] VITALS: BP 130/68; PULSE 77; RESP 18; O2SAT 96
--- NOTE | 2024-07-20 04:40 | ED_ITS ---
HPI - General Adult General Chief complaint: General Medical Stated complaint: gas, stomach pain Time Seen by Provider: 07/20/24 04:35 Source: patient and EMS Mode of arrival: EMS Limitations: no limitations History of Present Illness ED Provider: Dr. Singh HPI narrative: Patient feels like her throat is swollen. She is on lisinopril. It all started last night Onset (ago): hour(s) Related Data Home Medications ?Medication ?Instructions ?Recorded ?Confirmed alprazolam 0.5 mg tablet 0.5 mg PO DAILY 12/08/23 06/30/24 buspirone 15 mg tablet 15 mg PO TID 12/08/23 06/30/24 gabapentin 300 mg capsule 300 mg PO TID 12/08/23 06/30/24 levothyroxine 112 mcg capsule 112 mcg PO DAILY 12/08/23 06/30/24 montelukast 10 mg tablet 10 mg PO DAILY 12/08/23 06/30/24 trazodone 150 mg tablet 150 mg PO BEDTIME PRN Insomnia 12/08/23 06/30/24 umeclidinium 62.5 mcg/actuation 1 inh inhalation DAILY 04/21/24 06/30/24 blister powder for inhalation (Incruse Ellipta) hydrocodone 10 mg-acetaminophen 1 tab PO QID PRN Pain 06/30/24 06/30/24 325 mg tablet Previous Rx's ?Medication ?Instructions ?Recorded amlodipine 5 mg tablet 5 mg PO DAILY #3 tabs 07/11/24 aspirin 81 mg chewable tablet 81 mg PO DAILY #30 tabs 07/11/24 atorvastatin 40 mg tablet 40 mg PO DAILY #30 tabs 07/11/24 enoxaparin 40 mg/0.4 mL 40 mg (0.4 mL) subcut Q24H #4 mL 07/11/24 subcutaneous syringe fluticasone propionate 50 1 spray intranasal DAILY #16 grams 07/11/24 mcg/actuation nasal spray,suspension ipratropium 0.5 mg-albuterol 3 mg 3 ml inhalation RQ6H WHILE AWAKE 07/11/24 (2.5 mg base)/3 mL nebulization #90 mL soln lisinopril 20 mg tablet 20 mg PO DAILY #30 tabs 07/11/24 metoprolol tartrate 25 mg tablet 25 mg PO BID #60 tabs 07/11/24 omeprazole 20 mg capsule,delayed 20 mg PO DAILY@0630 #30 caps 07/11/24 release cefuroxime axetil 250 mg tablet 250 mg PO BID #10 tabs 07/15/24 Allergies Allergy/AdvReac Type Severity Reaction Status Date / Time alendronate sodium Allergy Unknown Unknown Verified 07/20/24 01:21 pregabalin [From Lyrica] Allergy Unknown Unknown Verified 07/20/24 01:21 metoprolol AdvReac Unknown Unknown Verified 07/20/24 01:21 Review of Systems 2 Review of Systems: Yes all other systems are reviewed and are negative Neurologic: Denies Sensory deficit (Neuro) [facility] Past Medical History Medical History Oxygen dependent COPD (chronic obstructive pulmonary disease) Elevated cholesterol Salivary gland tumor Osteoporosis HTN (hypertension) Hypothyroid Degeneration of lumbar or lumbosacral intervertebral disc Chronic pain syndrome Surgical History Hx of excision of mass History of surgery Social History Social History Household Members: Unknown / Unable to assess Housing: Unknown / Unable to assess Unable to assess alcohol history related to: Unable to respond Patient Tobacco Use Status: Former Tobacco user Advance Directives: Yes Advance Directives on File: Yes Advance Directives Date on File: 07/01/24 Do you have a plan to hurt others: No Plan service: No Physical Exam ED Vital Signs: Vital Signs - 24 hr 07/20/24 01:13 07/20/24 01:15 07/20/24 04:22 Temperature 97.9 F 97.0 F Pulse Rate 84 78 77 Respiratory Rate 20 18 Blood Pressure 165/69 H 165/69 H 130/68 Pulse Oximetry 96 98 96 Oxygen Delivery Method Nasal Cannula Room Air Room Air Oxygen Flow Rate 2 07/20/24 06:00 Temperature Pulse Rate 79 Respiratory Rate 18 Blood Pressure 188/86 H Pulse Oximetry 96 Oxygen Delivery Method Nasal Cannula Oxygen Flow Rate 2 BMI result Body Mass Index 27.7 Const Other: elderly female in no acute distress General: healthy appearing Nutritional Appearance: average body habitus Orientation/consciousness: oriented to person and patient oriented x3 Limitations: no limitations HENMT Other: lips, tongue, uvula normal, hard pallate with some bogginess to the hard pallate. Airway is clear. Ears: external ears normal General nose exam: Normal external nose present Mouth: Normal oral and palatal mucosa present Throat: Yes posterior oropharynx normal Eyes General: appearance normal, both eyes and all related structures Neck Neck: Yes normal visual inspection Chest Chest palpation & inspection: normal inspection of the chest Resp Auscultation: clear to auscultation bilaterally Cardio Jugular venous distension: no JVD Rate: regular rate Rhythm: regular rhythm Heart sounds: S1 normal heart sound present and S2 normal heart sound present GI Inspection: Yes normal to inspection Palpation (GI): Soft to palpation, nontender and No hepatosplenomegaly present Auscultation: normal bowel sounds General: Yes no CVA tenderness Back/Spine/Pelvis Back: no CVA tenderness Skin General skin exam: no rashes or lesions noted Neuro General: oriented to person and patient oriented x3 Cranial nerves: Yes CN's II-XII intact bilaterally Motor exam (neuro): 5/5 motor strength present throughout Sensory Exam: No Sensory deficit (Neuro) Extrem General: Yes normal to inspection Psych Appearance: grossly normal Course Reevaluation(s) Reevaluation #1: Patient now improved will take her off her lisinopril, likely atypical angio edema. Time: 07:43 Medications Administered Discontinued Medications Generic Name Dose Route Start Last Admin Trade Name Freq PRN Reason Stop Dose Admin Diphenhydramine HCl 25 mg 07/20/24 04:42 07/20/24 05:27 Diphenhydramine Hcl 50 Mg/Ml Vial IVPUSH 07/20/24 04:43 25 mg ONCE ONE Administration Methylprednisolone Sodium Succinate 125 mg 07/20/24 04:42 07/20/24 05:27 Methylprednisolone Sod Succ 125 Mg/2 Ml Vial IVPUSH 07/20/24 04:43 125 mg ONCE ONE Administration Medical Decision Making Differential Diagnosis Differential Diagnoses: The differential diagnosis associated with the presentation includes (angioedema, allergic reaction, medication reaction) Admission/Observation Consideration of admission/observation: Escalation of care including admission/observation considered (upon arrival admission was considered) Lab Data 07/20/24 01:51 07/20/24 01:51 Labs: Lab Results 07/20/24 07/20/24 Range/Units 01:51 06:10 WBC 8.3 (4.8-10.8) X10*3/uL RBC 3.36 L (4.20-5.50) X10*6/uL Hgb 10.1 L (12.0-16.0) g/dl Hct 30.1 L (37.0-47.0) % MCV 89.6 (80.0-98.0) fL MCH 30.1 (27.0-33.0) pg MCHC 33.6 (31.0-35.0) g/dl RDW 13.8 (11.0-16.0) % Plt Count 423 H (160-400) X10*3/uL MPV 8.4 L (9.4-12.3) fL Immature Gran % (Auto) 1.1 H (0.0-0.4) % Neut % (Auto) 57.5 (45-73) % Lymph % (Auto) 21.6 (20-40) % [place] % (Auto) 9.9 (2-11) % Eos % (Auto) 8.2 H (0-4) % Baso % (Auto) 1.7 (0-2) % Lymph # (Auto) 1.8 (1.2-4.9) X10*3/uL [place] # (Auto) 0.8 (0.1-1.2) X10*3/uL Eos # (Auto) 0.7 H (0.0-0.4) X10*3/uL Baso # (Auto) 0.1 (0.0-0.2) X10*3/uL Abs Immat Gran (auto) 0.09 H (0.00-0.03) X10*3/uL Absolute Neuts (auto) 4.8 (2.0-8.3) x10*3/uL Absolute Nucleated RBC 0.000 (0.0-0.012) X10*3/uL Nucleated RBC % (auto) 0.0 (0.0-0.2) /100WBC Sodium 137 (135-145) mmol/L Potassium 4.3 (3.3-5.1) mmol/L Chloride 100 (96-108) mmol/L Carbon Dioxide 25 (22-29) mmol/L Anion Gap 16 (12-20) BUN 14 (9-16) mg/dL Creatinine 1.23 (0.5-1.4) mg/dL Estim Creat Clear Calc 28.2 Estimated GFR 42 Fasting Glucose 111 H (60-99) mg/dL Calcium 9.6 (8.4-10.2) mg/dL Total Bilirubin 0.2 (0.0-1.0) mg/dL AST 23 (5-31) U/L ALT 15 (0-31) U/L Alkaline Phosphatase 143 H (39-117) U/L Total Protein 6.8 (6.5-8.0) g/dL Albumin 3.9 (3.5-5.0) g/dL Urine Color Yellow Urine Appearance Clear Urine pH 6.5 (5.0-9.0) Ur Specific [place] 1.010 (1.005-1.025) Urine Protein Negative (Neg-Trace) mg/dL Urine Glucose (UA) Negative (Negative) mg/dL Urine Ketones Negative (Negative) mg/dL Urine Blood Negative (Negative) Urine Nitrite Negative (Negative) Ur Leukocyte Esterase Negative (Negative) Urine RBC 3-5 H (0-2) /HPF Urine WBC 0-5 (0-5) /HPF Ur Squamous Epith Cells 0-2 (0-2) /HPF Urine Bacteria None Seen (None Seen) Hyaline Casts 0-2 (0-2) /LPF Urine Yeast Present Independent Historian Clinical information obtained from an independent historian. History obtained from or confirmed by: EMS Prescription Management I considered prescription management with: Antibiotic (no evidence of infection) Chronic Conditions Patient?s care impacted by: Hypertension Discharge Plan Discharge Clinical Impression: Angioedema Patient Disposition: Home, Self-Care Instructions: Angioedema (ED) Additional Instructions: must stop your lisinopril. Never take it again Prescriptions: No Action cefuroxime axetil 250 mg tablet 250 mg PO BID Qty: 10 0RF hydrocodone-acetaminophen 10-325 mg tablet 1 tab PO QID PRN (Reason: Pain) ipratropium-albuterol 0.5 mg-3 mg(2.5 mg base)/3 mL Solution For Nebulization 3 ml inhalation RQ6H WHILE AWAKE Qty: 90 0RF omeprazole 20 mg Capsule,Delayed Release(Dr/Ec) 20 mg PO DAILY@0630 Qty: 30 0RF aspirin 81 mg Tablet,Chewable 81 mg PO DAILY Qty: 30 0RF fluticasone propionate 50 mcg/actuation [place],Suspension 1 spray intranasal DAILY Qty: 16 0RF atorvastatin 40 mg Tablet 40 mg PO DAILY Qty: 30 0RF amlodipine 5 mg Tablet 5 mg PO DAILY Qty: 3 0RF Protocol: Hold for SBP< HOLD for SBP < : 90 enoxaparin 40 mg/0.4 mL Syringe 40 mg subcut Q24H Qty: 4 0RF lisinopril 20 mg tablet 20 mg PO DAILY Qty: 30 0RF metoprolol tartrate 25 mg tablet 25 mg PO BID Qty: 60 0RF Incruse Ellipta 62.5 mcg/actuation blister with device 1 inh inhalation DAILY gabapentin 300 mg capsule 300 mg PO TID levothyroxine 112 mcg capsule 112 mcg PO DAILY buspirone 15 mg tablet 15 mg PO TID montelukast 10 mg tablet 10 mg PO DAILY alprazolam 0.5 mg tablet 0.5 mg PO DAILY trazodone 150 mg tablet 150 mg PO BEDTIME PRN (Reason: Insomnia) Referrals: Margot Murphy MD [Primary Care Provider] - 3 days Print Language: Greenlandic
[2024-07-20] MEDS: diphenhydrAMINE HCL 50 MG/ML VIAL 25 MG IVPUSH (05:27)
[2024-07-20] MEDS: methylPREDNISolone Sod Succ 125 MG/2 ML VIAL IVPUSH (05:27)
--- NOTE | 2024-07-20 05:30 | PC.NURSE ---
Pt medicated per nov. Plan of care ongoing.
[2024-07-20 06:00] VITALS: BP 188/86; PULSE 79; RESP 18; O2SAT 96
[2024-07-20 07:05] LABS: Appearance Urine Clear; Color Urine Yellow; Glucose Urine UA Negative (Negative); Leukocyte Esterase Urine Negative (Negative); Nitrite Urine Negative (Negative); PH 6.5 (5.0-9.0); Urine Blood Negative (Negative); Urine Ketones Negative (Negative); Urine Protein Negative (Neg-Trace)
[2024-07-20 07:23] LABS: Bacteria Urine None Seen (None Seen); Hyaline Casts Urine 0-2 /LPF (0-2); Squamous Epithelial Cell Urine 0-2 /HPF (0-2); WBC Urine 0-5 /HPF (0-5)
[2024-07-20] MEDS: LORazepam 1 MG TABLET 2 MG PO (09:10)
[2024-07-20 10:54] VITALS: BP 160/98; PULSE 74; RESP 15; TEMP 36.9; O2SAT 95
[2024-07-20 10:58] VITALS: BP 160/98; PULSE 74; RESP 15; TEMP 36.9; O2SAT 95
== END 2024-07-20 11:00 | disposition home or self-care (01) ==
PROVIDERS: Emergency Provider Emergency Medicine; PCP Family Medicine
DX: R22.0 Localized swelling, mass and lump, head (principal); J02.9 Acute pharyngitis, unspecified; Z79.899 Other long term (current) drug therapy; I10 Essential (primary) hypertension; J44.9 Chronic obstructive pulmonary disease, unspecified; E03.9 Hypothyroidism, unspecified
CPT/HCPCS: 36415; 80053; 81001; 85025; 96374; 96375; 99284; J1200; J2919

== ENCOUNTER 2024-08-04 11:03 | Outpatient (AMB) | payer OTHER, SELFPAY ==
[2024-08-04 11:13] VITALS: BP 198/85; PULSE 77; O2SAT 89
--- NOTE | 2024-08-04 11:13 | MHC.OFFVIS ---
Vital Signs 08/04/24 11:13 08/04/24 11:57 Weight 136 lb BP 198/85 H 213/91 H Blood Pressure Location Rt brachial Position Sitting Sitting Respiration 19 Pulse 77 71 Pulse Source Pulse Oximeter Pulse Oximetry (%) 89 L 94 Oxygen Delivery Method Nasal Cannula Nasal Cannula Oxygen Flow Rate 4 4 Intake Visit Reasons: S/p B/l SIJ Inj 06/30/24 Allergies alendronate sodium Allergy (Unknown, Verified 08/04/24 11:14) Unknown pregabalin [From Lyrica] Allergy (Unknown, Verified 08/04/24 11:14) Unknown metoprolol Adverse Reaction (Unknown, Verified 08/04/24 11:14) Unknown Medication List - Last Reconciled 08/04/24 by Salome Roa PASSENGER FLAGMAN, LEASE OPERATOR alprazolam 0.5 mg PO DAILY amlodipine 5 mg See Protocol PO DAILY aspirin 81 mg PO DAILY atorvastatin 40 mg PO DAILY buspirone 15 mg PO TID cefuroxime axetil 250 mg PO BID diltiazem HCl CD 360 mg PO DAILY enoxaparin 40 mg (0.4 mL) subcut Q24H fluticasone propionate 50 mcg/actuation 1 spray intranasal DAILY gabapentin 300 mg PO TID hydrocodone-acetaminophen 10-325 mg 1 tab PO QID PRN ipratropium-albuterol 0.5 mg-3 mg(2.5 mg base)/3 mL 3 mL inhalation RQ6H WHILE AWAKE levothyroxine 112 mcg PO DAILY metoprolol tartrate 25 mg PO BID montelukast 10 mg PO DAILY omeprazole 20 mg PO DAILY@0630 trazodone 150 mg PO BEDTIME PRN umeclidinium 62.5 mcg/actuation (Incruse Ellipta) 1 inh inhalation DAILY HPI Comments Details: Patient presents back to the office today for follow-up, 1 month status post bilateral therapeutic sacroiliac joint injections Review of procedure documentation, at close of procedure patient coded, CPR was performed. She was admitted to the ICU. Subsequently underwent cardiac catheterization. Today patient arrived complaining of some shortness of breath and feeling ?unwell?. On arrival oxygen was 80% on 2 L nasal cannula. Oxygen was increased to 4 L with improvement of saturation. Blood pressure elevated at 213/91, patient complaining of dizziness, blurry vision, chest pain. Patient was recently admitted to the emergency room for angioedema, lisinopril was stopped. She followed up with her primary care doctor 3 days ago and they may changes to her blood pressure medication. As far as her sacroiliac joint injections she is unable to tell how much improvement in pain she received. She does state that now that she is out of the hospital the pain has improved and she is able to walk better. Though after the injections she was admitted to the hospital for 2 weeks, was stuck in bed with limited mobility and therefore it is hard to her determine if the injections were successful or not. Prior: Patient presents back to the office today for follow-up, one-week status post bilateral diagnostic sacroiliac joint injections Reports 100% pain relief in the 8 hours after the procedure. 24 hours after the procedure patient had 90% pain relief with improvement in functional mobility. She was able to assist the visual presentation manager with cleaning of the home and she has been walking more. Denies any untoward effects of the injection She would like to proceed with therapeutic injections with sedation Prior: Kait is a very pleasant 83-year-old female who presents the office today for evaluation management of her chronic lower back pain. Patient was seen at [facility], she was referred here for treatment. Complaining of pain across the lower back into bilateral thighs. This has been going on for 3 years and started after a fall. Pain is worse with sitting, standing, walking. Increased pain with lumbar extension Denies pain past the level of the knee, denies shooting, stinging, burning numbness or tingling. Patient has tried [id number] medications, nonsteroidal anti-inflammatory medications, physical therapy, reports that it does not work. She is doing home exercise program but reports difficulty secondary to pain. Up into 1 year ago she was going to a chiropractor which did provide a little help. She is currently taking gabapentin and Vicodin for pain. Recently discussed with her primary care doctor and Vicodin dose was increased. She states that she has been on Vicodin for many years and is not receiving much benefit from the medication. Pain today is rated as 10/10, aching and stabbing. She was offered injections with local anesthetic at [facility], she states she has tried that in the past and suffering terribly. She requested referral here to have injections under sedation and also for potential radiofrequency ablation to treat the lumbar arthropathy. Patient denies red flag symptoms including new loss of bowel, bladder or saddle anesthesia In terms of muscle damage condition is described as aching, stabbing, dull, sore, hurting, heavy. Pain is negatively impacting patient's sleep, ability to perform activities of daily living, ability to function normally. Patient has a history of COPD, she is currently using oxygen at 2 L nasal cannula while at rest and 4 L nasal cannula with ambulation [facility] Medical History Oxygen dependent COPD (chronic obstructive pulmonary disease) Elevated cholesterol Salivary gland tumor Osteoporosis HTN (hypertension) Hypothyroid Degeneration of lumbar or lumbosacral intervertebral disc Chronic pain syndrome Surgical History Hx of excision of mass History of surgery Social History Household Members: Unknown / Unable to assess Housing: Unknown / Unable to assess Unable to assess alcohol history related to: Unable to respond Patient Tobacco Use Status: Former Tobacco user Advance Directives Date on File: 07/01/24 service: No Review of Systems Const All systems reviewed & are unremarkable except as noted in HPI and below Physical Exam Vital Signs: Last Vital Signs Pulse 77 08/04/24 11:13 BP 198/85 H 08/04/24 11:13 Pulse Ox 89 L 08/04/24 11:13 Oxygen Delivery Method Nasal Cannula 08/04/24 11:13 Oxygen Flow Rate 4 08/04/24 11:13 General: awake, alert, oriented. Answers questions appropriately. Fully engaged in examination. Skin: warm, dry, intact HEENT: Normocephalic. Hearing intact. Cardiac: External chest normal in appearance. Respiratory: No cough, audible wheezing or stridor. Wearing continuous oxygen at 2 L nasal cannula, 4 L with ambulation Abdomen: without gross distension. MS: No obvious swelling or deformities. Neurological: Oriented to person, place, time and situation. Thought process intact. Utilizing wheelchair Psychiatric: Appropriate mood and affect. Good judgment and insight. Results Reviewed Results Reviewed: Assessment & Plan Assessment & Plan (1) Sacroiliac joint dysfunction of both sides: Code(s): M53.3 - Sacrococcygeal disorders, not elsewhere classified Category: Medical (2) Lumbar spondylosis: Code(s): M47.816 - Spondylosis without myelopathy or radiculopathy, lumbar region Category: Medical Plan Patient presented to the office today for follow-up, 1 month status post bilateral therapeutic sacroiliac joint injections. On arrival patient's oxygen was 80% on 2 L. This improved to 94% on 4 L. blood pressure was elevated at 213/91. She is symptomatic complaining of chest pain, blurry vision, dizziness. Patient was referred to the emergency room for evaluation and management. Patient agreeable to the plan EMS was called for patient transport, report was provided to [facility]. Patient was advised to follow up in our office once pain returns. She is aware that procedures well no longer be performed with sedation, we can offer her local anesthetic with oral Ativan if needed. Coding Level of Care Code Est Pt Level 3 (66883) Complex EM visit Add On G2211 Diagnoses Sacroiliac joint dysfunction of both sides M53.3 Lumbar spondylosis M47.816
[2024-08-04 11:57] VITALS: BP 213/91; PULSE 71; RESP 19; O2SAT 94
== END 2024-08-04 11:58 | disposition home or self-care (01) ==
PROVIDERS: PCP Family Medicine; Visit Provider Registered Nurse Emergency
DX: M53.3 Sacrococcygeal disorders, not elsewhere classified (principal); M47.816 Spondylosis without myelopathy or radiculopathy, lumbar region
CPT/HCPCS: 99213; G2211

== ENCOUNTER → 2024-08-04 11:03 | Outpatient (BNVA) | payer OTHER, SELFPAY | PROVIDERS: PCP Family Medicine; Visit Provider Registered Nurse Emergency | DX: M53.3 Sacrococcygeal disorders, not elsewhere classified (principal); M47.816 Spondylosis without myelopathy or radiculopathy, lumbar region | CPT/HCPCS: 99212 ==

== ENCOUNTER 2024-08-24 13:00 | Outpatient (AMB) | payer OTHER, SELFPAY ==
--- NOTE | 2024-08-24 13:06 | MHC.OFFVIS ---
Vital Signs 08/24/24 13:07 Height 4 ft 11 in Weight 130 lb 1.164 oz BMI 26.3 BP 138/80 Blood Pressure Location Lt brachial Position Sitting Pulse 97 Intake Visit Reasons: [facility] admission Intake Note: Follow-up post admission has not had echo yet Horticulture/Floriculture Teacher Required: No Utility Pipe Layer: Utility Pipe Layer Present Accompanied by: Family/Other Allergies alendronate sodium Allergy (Unknown, Verified 08/04/24 11:14) Unknown pregabalin [From Lyrica] Allergy (Unknown, Verified 08/04/24 11:14) Unknown metoprolol Adverse Reaction (Unknown, Verified 08/04/24 11:14) Unknown Medication List - Last Reconciled 08/24/24 by Ej Kraft MD alprazolam 0.5 mg PO DAILY amlodipine 5 mg See Protocol PO DAILY aspirin 81 mg PO DAILY atorvastatin 40 mg PO DAILY buspirone 15 mg PO TID diltiazem HCl CD 360 mg PO DAILY enoxaparin 40 mg (0.4 mL) subcut Q24H fluticasone propionate 50 mcg/actuation 1 spray intranasal DAILY gabapentin 300 mg PO TID hydrocodone-acetaminophen 10-325 mg 1 tab PO QID PRN ipratropium-albuterol 0.5 mg-3 mg(2.5 mg base)/3 mL 3 mL inhalation RQ6H WHILE AWAKE levothyroxine 112 mcg PO DAILY metoprolol tartrate 25 mg PO BID montelukast 10 mg PO DAILY omeprazole 20 mg PO DAILY@0630 trazodone 150 mg PO BEDTIME PRN umeclidinium 62.5 mcg/actuation (Incruse Ellipta) 1 inh inhalation DAILY HPI Comments Details: Kait comes for follow-up after recent hospitalization after outpatient procedure she had a pulseless electrical activity cardiac arrest with severe hypoxemia. She was revived quickly and unfortunately had to be on a mechanical ventilation and in ICU for some time. Subsequent EKGs revealed deep T-wave inversion anterior leads with elevated troponins with wall motion abnormality and was subsequently referred for cardiac catheterization which showed nonobstructive LAD disease, wall motion abnormality was in LAD territory with diffuse disease in the other segments with PDA out 85% stenosis not explaining of wall motion abnormality. She was then decided to be treated with medical therapy. Her EKG changes in the LAD territory wall motion abnormality were not explained by her CAD lesion was suspected that this could be stress-induced cardiomyopathy related to acute medical issue. She has not had a follow-up echocardiogram. Ever since this acute event she says she feels more tired and naps frequently. She also has foggy feeling in his brain since her hypoxic arrest. She denies any focal neurologic deficits. Denies any orthopnea, PND. Uses oxygen regularly. REPLACED BY [facility] Medical History Oxygen dependent COPD (chronic obstructive pulmonary disease) Elevated cholesterol Salivary gland tumor Osteoporosis HTN (hypertension) Hypothyroid Degeneration of lumbar or lumbosacral intervertebral disc Chronic pain syndrome Surgical History Hx of excision of mass History of surgery Social History Household Members: Unknown / Unable to assess Housing: Unknown / Unable to assess Unable to assess alcohol history related to: Unable to respond Patient Tobacco Use Status: Former Tobacco user Advance Directives Date on File: 07/01/24 service: No Review of Systems Const Denies chills, Denies fatigue, Denies fever(s), Denies frequent falls, Denies weakness, Denies weight gain and Denies weight loss ENT Denies dizziness Card Denies chest pain, Denies leg edema, Denies lightheadedness, Denies palpitations, Denies dyspnea, Denies dyspnea on exertion, Denies orthopnea and Denies other (loss of consciousness) Resp Denies cough, Denies dyspnea and Denies dyspnea on exertion GI Denies hematochezia and Denies change in stool character Musc Denies abnormal gait, Denies muscle weakness, Denies numbness, Denies radiating pain into limb and Denies tingling Neuro Denies abnormal gait, Denies dizziness, Denies frequent falls, Denies numbness, Denies tingling and Denies weakness Endo Denies fatigue and Denies palpitations Physical Exam Vital Signs: Last Vital Signs Pulse 97 08/24/24 13:07 BP 138/80 08/24/24 13:07 BMI result Body Mass Index 26.3 Const General: cooperative, comfortable, alert and awake Nutritional Appearance: thin and other (Frail appearing elderly woman) Orientation/consciousness: patient oriented x3 Neck Neck: Yes trachea midline, Yes supple and Yes no JVD Resp Effort & Inspection: normal respiratory effort Auscultation: no rales, no wheezes and diminished lung sounds Cardio Jugular venous distension: no JVD Rate: regular rate Rhythm: regular rhythm Heart sounds: S1 normal heart sound present, S2 normal heart sound present, no click, no gallops and no murmurs GI Auscultation: normal bowel sounds Neuro General: patient oriented x3 and no focal motor deficits Extrem General: Yes no clubbing, cyanosis or edema Assessment & Plan Assessment & Plan (1) NSTEMI (non-ST elevated myocardial infarction): Code(s): I21.4 - Non-ST elevation (NSTEMI) myocardial infarction Category: Medical Plan: Recent findings suggestive of NSTEMI with elevated troponin EKG changes with nonobstructive disease in the LAD, suggested that 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 Recommend follow-up limited echocardiogram near future to assess for improvement in LV ejection fraction. If there has persistent LV systolic dysfunction then her Cardizem will need to be discontinued. However she is currently noted to be both on amlodipine and Cardizem therapy question addition of amlodipine after her recent allergic reaction to lisinopril. This will need to be changed and I would consider switching her amlodipine to hydralazine 25 mg b.i.d. for LV systolic function is within normal limits. Continue to aggressively manage her high blood pressure. Advised to monitor blood pressure at home maintain a log. Continue low-dose aspirin therapy for life. Continue high-intensity statin therapy with target goal LDL less than 70 mg/dL which will be pursued through your office. Recommend continued oxygen therapy for her respiratory failure. Continue metoprolol therapy. Overall given her significant advanced lung disease her prognosis is guarded. Will follow up in the clinic in 1 year's time, sooner p.r.n.. Thank you for allowing me to partake in her care Orders: Orders CA Echo Limited Today I21.4 - Non-ST elevation (NSTEMI) myocardial infarction Coding Level of Care Code Est Pt Level 4 (57739) Complex EM visit Add On G2211 Diagnoses NSTEMI (non-ST elevated myocardial infarction) I21.4
[2024-08-24 13:07] VITALS: BP 138/80; PULSE 97; BMI 26.3
--- OUTSIDE RECORDS SUMMARY | 2024-08-30 02:17 | XMS_ITS | Data Portability ---
Author Organization [facility], [place] - [facility] Address [address] [place] [phone] Care Team Providers Care Division Chief Name Role Phone HIM CCA OTHER Assessment Encounter Date Assessment Date Assessment LastModified by Organization Details LastModified Time 09/28/2023 09/28/2023 service called for burning on urination found 83 oleksandr hx COPD fibromyalgia HTN HL arthritis CKD Stage II c/o 4d urinary frequency, burning, suprapubic pain, R CVA tenderness last UTI 3 months ago no fevers, chills, able conitnue regular activities, PO intake All: PCN Meds alprazolam gabapetin simvas albu lisinopril singulair levothyroxine famotadine reported exam abd non tender, +R CVAT #Acute UTI cipro 500 mg PO bid 10d f/up UCx otherwise return to primary team vkudesia Not available 09/28/2023 17:02:06 Plan of Treatment Reminders Order Date Submit Date Provider Last Modified By Organization Details Last Modified Time Details Appointments None recorded. Lab culture, urine 2023 024 [facility], [facility] [place], [id number], 4 11:05:14 urinalysis, dipstick 2023 024 [facility], [address] [place] [address], [phone], 4 09:38:44 rapid SARS CoV 2 Ag, QL IA, respiratory specimen 2023 024 [facility], [address] [place] [address], [phone], 4 18:29:56 rapid flu (A+B) 2023 024 [facility], [address] [place] [address], [id number], 4 18:29:58 urinalysis, dipstick 2023 024 [facility], [address] [place] [address], [phone], 4 18:30:00 Referral None recorded. Procedures None recorded. Surgeries None recorded. Imaging None recorded. Medication Orders ciprofloxac in 500 mg tablet 2023 024 [facility], [address] [place] [address], [id number], 4 16:59:14 doxycycline hyclate 100 mg tablet 2023 024 [facility]206, [address] [place] [address], [id number], 4 18:29:53 doxycycline hyclate 100 mg capsule 2023 024 [facility], [address] [place] [address], [id number], 4 18:30:01 Patient TargetsNo targets recorded. Patient InstructionsNo instructions recorded. Reason for Referral None Reported. Results Created Date Observation Date Name Description Value Unit Range Abnormal Flag Note LastModifiedBy Organization Detail LastModifiedTime 09/28/19 24 09/28/2023 URINE CULTU RE special requests NONE Not Available [facility] [address] [place], [id number], 10/01/2023 11:05:14 09/28/19 24 09/29/2023 URINE CULTU RE specimen description URINE Not Available [facility] [address] [place], [id number], 10/01/2023 11:05:14 09/28/19 24 10/01/2023 URINE CULTU RE culture abnormal 50-10 0,000 COL/M L PROTE US MIRAB ILIS This isola te was ident ified using Maldi -TOF syste m These AST resul ts were perfo rmed on the Vitek 2 ID and AST syste m Not Available [facility] [address] [place], [id number], 10/01/2023 11:05:14 09/28/19 24 10/01/2023 URINE CULTU RE report status FINAL 2023 Not Available [facility] [address] [place], [address], 10/01/2023 11:05:14 09/28/19 24 10/01/2023 URINE CULTU RE organism ORGAN ISM 50-10 0,000 COL/M L PROTE US MIRAB ILIS This isola te was ident ified using Maldi -TOF syste m These AST resul ts were perfo rmed on the Vitek 2 ID and AST syste m Not Available [facility] [address] [place], [address], 10/01/2023 11:05:14 09/28/19 24 10/01/2023 URINE CULTU RE method METHOD MIN. INHIB. CONC. (MCG/M L) Not Available [facility] [address] [place], [address], 10/01/2023 11:05:14 09/28/19 24 10/01/2023 URINE CULTU RE ampicillin AMPICI LLIN SUSCEP TIBLE susceptib le Not Available [facility] [address] [place], [address], 10/01/2023 11:05:14 09/28/19 24 10/01/2023 URINE CULTU RE ampicillin/s ulbactam AMPICI LLIN/S ULBACT AM SUSCEP TIBLE susceptib le Not Available [facility] [address] [place], [address], 10/01/2023 11:05:14 09/28/19 24 10/01/2023 URINE CULTU RE cefazolin CEFAZO JAELYN SUSCEP TIBLE susceptib le Not Available [facility] [address] [place], [address], 10/01/2023 11:05:14 09/28/19 24 10/01/2023 URINE CULTU RE cefepime CEFEPI ME SUSCEP TIBLE susceptib le Not Available [facility] [address] [place], [address], 10/01/2023 11:05:14 09/28/19 24 10/01/2023 URINE CULTU RE ceftriaxone CEFTRI AXONE SUSCEP TIBLE susceptib le Not Available [facility] [address] [place], [address], 10/01/2023 11:05:14 09/28/19 24 10/01/2023 URINE CULTU RE ciprofloxaci n CIPROF LOXACI N SUSCEP TIBLE susceptib le Not Available [facility] [address] [place], [address], 10/01/2023 11:05:14 09/28/19 24 10/01/2023 URINE CULTU RE ertapenem ERTAPE NEM SUSCEP TIBLE susceptib le Not Available [facility] [address] [place], [address], 10/01/2023 11:05:14 09/28/19 24 10/01/2023 URINE CULTU RE gentamicin GENTAM ICIN SUSCEP TIBLE susceptib le Not Available [facility] [address] [place], [address], 10/01/2023 11:05:14 09/28/19 24 10/01/2023 URINE CULTU RE levofloxacin LEVOFL OXACIN SUSCEP TIBLE susceptib le Not Available [facility] [address] [place], [address], 10/01/2023 11:05:14 09/28/19 24 10/01/2023 URINE CULTU RE nitrofuranto in NITROF URANTO IN RESIST ANT resistant Not Available [facility] [address] [place], [address], 10/01/2023 11:05:14 09/28/19 24 10/01/2023 URINE CULTU RE piperacillin /tazobactam PIPERA CILLIN /TAZOB AC SUSCEP TIBLE susceptib le Not Available [facility] [address] [place], [address], 10/01/2023 11:05:14 09/28/19 24 10/01/2023 URINE CULTU RE trimeth/sulf amethox TRIMET H/SULF AMETHO X SUSCEP TIBLE susceptib le Not Available [facility] [address] [place], [address], 10/01/2023 11:05:14 04/08/20 24 04/08/2024 urina lysis , dipst ick Leukocytes neg Not Available [facility] [address] [place] [address], [phone], 04/08/2024 18:20:43 04/08/20 24 04/08/2024 urina lysis , dipst ick Nitrite negati ve Not Available [facility] [address] [place] [address], [phone], 04/08/2024 18:20:43 04/08/20 24 04/08/2024 urina lysis , dipst ick Blood + trace Not Available [facility] [address] [place] [address], [phone], 04/08/2024 18:20:43 04/08/20 24 04/08/2024 urina lysis , dipst ick Bilirubin neg Not Available [facility] [address] [place] [address], [phone], 04/08/2024 18:20:43 04/08/20 24 04/08/2024 urina lysis , dipst ick Appearance clear Not Available [facility] [address] [place] [address], [phone], 04/08/2024 18:20:43 04/08/20 24 04/08/2024 urina lysis , dipst ick Color yellow Not Available [facility] - [facility] [address] [place] [address], [phone], 04/08/2024 18:20:43 04/08/20 24 04/08/2024 rapid flu (A+B) Flu negati ve Not Available [facility] [address] [place] [address], [phone], 04/08/2024 18:20:38 04/08/20 24 04/08/2024 rapid SARS CoV 2 Ag, QL IA, respi rator y speci men rapid SARS CoV 2 Ag, QL IA, respiratory specimen negati ve Not Available [facility] [address] [place] [address], [phone], 04/08/2024 18:20:33 Result Notes None recorded. Medical Equipment None Reported. Allergies Allergen ID Allergen Name Allergen Category Reaction Reaction Severity Criticality Documentation Date Start Date Code Code System Note Provider Name and Address Organization Details Recorded Time 4315 Medicinal product containin g penicilli n and acting as antibacte rial agent (product) medicatio n Not available Not available Not available 09/28/2023 22116 05 SNOMED Not Available [facility] - production 4 03:54:49 9361 metoprolo l Not available Not available Not available Not available 07/18/2024 6918 RxNorm Not Available [facility] - production 4 03:54:49 9362 omeprazol e medicatio n Not available Not available Not available 07/18/2024 7646 RxNorm Not Available [facility] - production 4 03:54:49 Medications Name Sig Start Date Stop Date Status Note LastModified by Organization Details LastModified Time doxycycline hyclate 100 mg capsule TAKE 1 CAPSULE BY MOUTH TWICE DAILY FOR 10 DAYS active Not Available Not Available No t Available tizanidine 2 mg tablet TAKE 1 TABLET BY MOUTH EVERY 8 HOURS active Not Available Not Available No t Available cetirizine 10 mg tablet TAKE 1 TABLET BY MOUTH EVERY DAY active Not Available Not Available No t Available diltiazem CD 240 mg capsule,ext ended release 24 hr active Not Available Not Available Not Available famotidine 40 mg tablet active Not Available Not Available Not Available prednisone 20 mg tablet active Not Available Not Available Not Available meclizine 12.5 mg tablet active Not Available Not Available Not Available ciprofloxac in 500 mg tablet TAKE 1 TABLET BY MOUTH EVERY 12 HOURS FOR 10 DAYS active Not Available Not Available No t Available sulfamethox azole 800 mg-trimetho prim 160 mg tablet 09/28 completed Not Available Not Available Not Available hydrocodone 10 mg-acetamin ophen 325 mg tablet TAKE 1 TABLET BY MOUTH THREE TIMES A DAY FOR 14 DAYS active Not Available Not Available No t Available simvastatin 40 mg tablet TAKE 1 TABLET BY MOUTH EVERY DAY IN THE EVENING active Not Available Not Available No t Available alprazolam 0.5 mg tablet TAKE 1 TABLET BY MOUTH EVERY DAY active Not Available Not Available No t Available trazodone 150 mg tablet TAKE 1 TABLET BY MOUTH EVERYDAY AT BEDTIME active Not Available Not Available No t Available buspirone 10 mg tablet TAKE 1 TABLET BY MOUTH TWICE A DAY active Not Available Not Available No t Available hydrochloro thiazide 12.5 mg capsule TAKE 1 CAPSULE BY MOUTH EVERY DAY active Not Available Not Available No t Available gabapentin 300 mg capsule TAKE 1 CAPSULE BY MOUTH TWICE A DAY FOR 30 DAYS active Not Available Not Available No t Available omeprazole 20 mg capsule,del ayed release TAKE 1 CAPSULE BY MOUTH DAILY 30 MINUTES BEFORE BREAKFAST active Not Available Not Available No t Available diltiazem CD 120 mg capsule,ext ended release 24 hr active Not Available Not Available Not Available montelukast 10 mg tablet TAKE 1 TABLET BY MOUTH EVERY DAY active Not Available Not Available No t Available lisinopril 40 mg tablet TAKE 1 TABLET BY MOUTH EVERY DAY active Not Available Not Available No t Available fluticasone propionate 50 mcg/actuati on nasal spray,suspe nsion SPRAY 1 SPRAY NASALLY EVERY DAY active Not Available Not Available No t Available doxycycline hyclate 100 mg tablet Take 1 tablet by oral route. 2023 active Not Available Not Available Not Avai lable loratadine 10 mg tablet active Not Available Not Available Not Available levothyroxi ne 112 mcg tablet TAKE 1 TABLET BY MOUTH EVERY MORNING ON EMPTY STOMACH active Not Available Not Available No t Available Ventolin HFA 90 mcg/actuati on aerosol inhaler INHALE 2 PUFFS INTO THE LUNGS EVERY 4 HOURS NEEDED FOR WHEEZING OR SHORTNESS OF BREATH active Not Available Not Available No t Available buspirone 15 mg tablet active Not Available Not Available Not Available nitrofurant oin monohydrate /macrocryst als 100 mg capsule TAKE 1 CAPSULE BY MOUTH EVERY 12 HOURS FOR 7 DAYS active Not Available Not Available No t Available tizanidine 2 mg capsule active Not Available Not Available Not Available diclofenac 1 % topical gel active Not Available Not Available Not Available Eye Itch Relief 0.025 % (0.035 %) drops active Not Available Not Available Not Available Incruse Ellipta 62.5 mcg/actuati on powder for inhalation active Not Available Not Available N ot Available OxyContin 10 mg tablet,new h resistant,e xtended release TAKE 1 TABLET BY MOUTH EVERY 12 HOURS FOR 14 DAYS active Not Available Not Available No t Available naloxone 4 mg/actuatio n nasal spray active Not Available Not Available Not Available Flowflex COVID-19 Antigen Home Test kit active Not Available Not Available Not Available Vitals Date Recorded Oxygen saturation Oxygen saturation in Arterial blood by Pulse oximetry Inhaled oxygen flow rate Body weight Respiratory rate Body temperature Heart rate Body height Systolic blood pressure Diastolic blood pressure Provider Name and Address Organization Details Last Updated DateTime 4 92 % 92 % 2 L/min 56662.7 76 g 16 /min 97.1 [degF] 76 /min 152.4 cm 150 mm[Hg] 72 mm[Hg] Not Available [employer] 4 16:49:08 Date Recorded Respiratory rate Body height Oxygen saturation Oxygen saturation in Arterial blood by Pulse oximetry Inhaled oxygen flow rate Heart rate Body weight Body temperature Systolic blood pressure Diastolic blood pressure Provider Name and Address Organization Details Last Updated DateTime 4 18 /min 149.86 cm 93 % 93 % 2 L/min 64 /min 04532.6 96 g 97.4 [degF] 168 mm[Hg] 88 mm[Hg] Not Available [employer] 4 18:12:14 Social History None recorded. Functional Status None recorded. Mental Status None recorded. Family History Nothing Reported. Medical History No medical history recorded. Gynecological HistoryNo gynecological history recorded. Obstetrics History GPAL:G 0 P 0 0 0 0 Past Encounters Encounter ID Performer Location Encounter Start Date Encounter Closed Date Diagnosis/Indication Diagnosis SNOMED-CT Code Diagnosis ICD10 Code [id number] Susana Reynolds MD [facility] [address] [place] [phone] 09/28/2023 16:49:04 09/29/2023 11:01:21 Urinary symptoms 209543486 R39.9 Acute urin epifanio tract infection 151317151 N39.0 [id number] Leslie Haro MD Main - [address] [phone] 04/08/2024 18:12:09 04/09/2024 09:28:10 Acute sinusitis 50510175 J01.90 Health Concerns Section Related Observation LastModified by Organization Detai ls LastModified Time None Recorded Concern Status LastModified by Organization Details LastModified Time None Recorded Advance Directives Directive None Recorded Payers Encounter Date Sequence Insurance Name Policy Number Policy Horvath Covered Member ID Horvath Member ID Guarantor Name 09/28/2023 1 [facility] - DOS ON OR AFTER 2022 - DUAL ELIGIBLE - [employer]IONS AND ONE CARE (MEDICARE REPLACEMENT/AD VANTAGE - HMO) Kait Pickard [id number] Kait Pickard 04/08/2024 1 [facility] ON [facility] AFTER 2022 - DUAL ELIGIBLE - SHELTER OPTIONS AND ONE CARE (MEDICARE REPLACEMENT/AD VANTAGE - HMO) Kait Pickard [id number] Kait Pickard Notes Date Note Type Note Provider Name and Address Organization Details Recorded Time 09/28/2023 text/html HPI: Pt is with symptoms that started yesterday. Pt has frequency/urgency, burning with urination and a discomfort in her bladder. Pt denied fever and hematuria .................. .................. .................. .................. .................. .................. .................. ............... [facility] Nurse Triage Notes (Jeanne Comer): Comments: CRC RN does not need additional information to process visit -Merle Reynolds MD [address] [facility],[address], [place], [phone], SHEKHAR - [employer] KELLIE 09/28/2023 17:02:18 04/08/2024 text/html [facility] Nurse Triage Notes (Anthony Fitzpatrick): Reason For Request: Pt reporting a suspected sinus infection w/associated lightheadedness>no ting problems with her kidneys and is experiencing urinary frequency Chief Complaints: Kidney Related, UTI/Pyelonephritis , ENT PMH: COPD/Asthma Allergies: Metoprolol, Omeprazole, Penicillin Comments: [employer] verified the member's name//address and phone number. Mbr calling stating she believes she has a sinus infection, states pain across bridge of her nose. Mbr also reports headache and feeling lightheaded today. Mbr also concerned she could have a kidney infection. Mbr states decreased urinary output today. Education provided on the response time and the member was advised to monitor reported s/s and seek emergency treatment if needed -Lillie Fitzpatrick, RN Regulatory Affairs Spec POC Test Results from Viviana Cote - ALS Urine Dipstick (1) [18:26] Urine leukocytes: - WILLIAM Urine nitrites: - NIT Urine urobilinogen: 0.2 URO Urine protein: - PRO Urine pH: 7.0 pH Urine blood: + BLO Urine specific gravity: 1.010 SG Urine ketones: - KET Urine bilirubin: - LASHONDA Urine glucose: - GLU .................. .................. .................. .................. .................. .................. .................. ............... Regulatory Affairs Spec Note From Cote, Viviana: Sent to a call for a pt complaining of sinus pain and possible UTI. SC12 arrives on scene, pt is alert and oriented, airway is patent. Pt states she had left ear pain 1-1.5 weeks ago, used Cipro-Dex drops x 1 week, and followed up with PCP who said left ear was clear of infection. Pt complains of bilateral sinus pressure/congestio n x 4 days, increased urinary frequency x 2 days (resolved today), and headache/worsening sinus pressure today. Pt denies cough, cp, sob, n/v/d, abd pain, hematuria, urinary urgency/incontinen ce, dysuria, or fever. BP:168/88, P:64, RR:18, SpO2:93% O2 at 2lpm, T:97.4; Head: no sinus tenderness; Lung sounds: clear bilaterally; Abdomen: soft, non-tender, no distention; Back: no CVA tenderness; Extremities: unremarkable; Skin: pink, warm, dry; Rapid covid test: neg; Rapid flu test: neg; Urine dip: neg; [facility] [place] and orders Doxycycline 100mg PO. [facility] [place] script to pt's pharmacy for Doxycycline. Doxycycline 100mg PO administered without incident. Red flags discussed. Pt has no further questions. .................. .................. .................. .................. .................. .................. .................. ............... Disposition: Fulfilled Leslie Haro MD [address] [facility],[address], [place], [phone], [employer] 04/08/2024 19:45:43 OBGyn Episode No OBEpisode recorded.
== END 2024-08-24 13:30 | disposition home or self-care (01) ==
PROVIDERS: PCP Family Medicine; Visit Provider Internal Medicine Cardiovascular Disease
DX: I21.4 Non-ST elevation (NSTEMI) myocardial infarction (principal)
CPT/HCPCS: 99214; G2211

== ENCOUNTER → 2024-08-24 13:00 | Outpatient (BNVA) | payer OTHER, SELFPAY | PROVIDERS: PCP Family Medicine; Visit Provider Internal Medicine Cardiovascular Disease | DX: I21.4 Non-ST elevation (NSTEMI) myocardial infarction (principal) | CPT/HCPCS: 99212 ==

== ENCOUNTER 2024-09-08 17:48 | Emergency (ER) | payer OTHER, SELFPAY ==
[2024-09-08] VITALS (10 sets, daily range): BP systolic 164–213; BP diastolic 63–109; PULSE 81–99; RESP 14–20; TEMP 36.6–36.7; O2SAT 93–97; BMI 27.2
--- NOTE | ~2024-09-08 | CT_ITS ---
EXAMINATION: CT HEAD WITHOUT CONTRAST CLINICAL INFORMATION: Headache. COMPARISON: None available. TECHNIQUE: Contiguous axial imaging was performed from the skull base to vertex without intravenous administration of contrast. This CT examination was performed using dose optimization techniques as appropriate, variously including the following: *Automated exposure control *Adjustment of mA and/or kV according to patient size (this includes techniques or standardized protocols for targeted exams where dose is matched to indication/reason for exam; i.e. extremities or head) *Use of iterative reconstruction technique DLP: 587 mGy-cm FINDINGS: The ventricles and sulci are enlarged consistent with diffuse atrophy. No visualized masses or midline shift are seen. There is no intra-axial or extra-axial hemorrhage. There are no fluid collections. Decreased attenuation is seen in the periventricular white matter compatible with chronic small vessel ischemic disease. The jones-white discrimination is preserved. The included paranasal sinuses and mastoid air cells are well aerated. The calvarium is intact. CT/CT head/brain wo IV con IMPRESSION: No intracranial hemorrhage or mass effect. Generalized atrophy and chronic small vessel white matter ischemic changes. Electronically signed by: Jose Bernard MD 09/08/2024 10:03 PM [facility]
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
--- NOTE | 2024-09-08 18:32 | ED_ITS ---
HPI - General Adult General Chief complaint: General Medical Stated complaint: HTN, PER EMS Time Seen by Provider: 09/08/24 21:35 Source: patient Mode of arrival: ambulatory Limitations: no limitations History of Present Illness ED Provider: Dr. Nohemi Major HPI narrative: Patient comes to the emergency room complaining of high blood pressure and a headache. Patient went to see her PCP today, patient was noted to have a high blood pressure. PCP recommended the patient to go to the ER but patient refused and went home. Patient states that she kept checking her blood pressure at home, still high, decided to come to the ED. patient states that she recently got prescribed hydralazine. Patient denies any visual changes. In his any chest pain or shortness of breath. Related Data Home Medications ?Medication ?Instructions ?Recorded ?Confirmed alprazolam 0.5 mg tablet 0.5 mg PO DAILY 12/08/23 08/24/24 buspirone 15 mg tablet 15 mg PO TID 12/08/23 08/24/24 gabapentin 300 mg capsule 300 mg PO TID 12/08/23 08/24/24 levothyroxine 112 mcg capsule 112 mcg PO DAILY 12/08/23 08/24/24 montelukast 10 mg tablet 10 mg PO DAILY 12/08/23 08/24/24 trazodone 150 mg tablet 150 mg PO BEDTIME PRN Insomnia 12/08/23 08/24/24 umeclidinium 62.5 mcg/actuation 1 inh inhalation DAILY 04/21/24 08/24/24 blister powder for inhalation (Incruse Ellipta) hydrocodone 10 mg-acetaminophen 1 tab PO QID PRN Pain 06/30/24 08/24/24 325 mg tablet diltiazem HCl 360 mg 360 mg PO DAILY 08/04/24 08/24/24 capsule,extended release 24 hr Previous Rx's ?Medication ?Instructions ?Recorded amlodipine 5 mg tablet 5 mg PO DAILY #3 tabs 07/11/24 aspirin 81 mg chewable tablet 81 mg PO DAILY #30 tabs 07/11/24 atorvastatin 40 mg tablet 40 mg PO DAILY #30 tabs 07/11/24 enoxaparin 40 mg/0.4 mL 40 mg (0.4 mL) subcut Q24H #4 mL 07/11/24 subcutaneous syringe fluticasone propionate 50 1 spray intranasal DAILY #16 grams 07/11/24 mcg/actuation nasal spray,suspension ipratropium 0.5 mg-albuterol 3 mg 3 ml inhalation RQ6H WHILE AWAKE 07/11/24 (2.5 mg base)/3 mL nebulization #90 mL soln metoprolol tartrate 25 mg tablet 25 mg PO BID #60 tabs 07/11/24 omeprazole 20 mg capsule,delayed 20 mg PO DAILY@0630 #30 caps 07/11/24 release hydralazine 25 mg tablet 25 mg PO BID 30 days #60 tabs 08/28/24 carvedilol 12.5 mg tablet 12.5 mg PO BID #60 tabs 09/09/24 Allergies Allergy/AdvReac Type Severity Reaction Status Date / Time alendronate sodium Allergy Unknown Unknown Verified 09/08/24 18:20 pregabalin [From Lyrica] Allergy Unknown Unknown Verified 09/08/24 18:20 metoprolol AdvReac Unknown Unknown Verified 09/08/24 18:20 lisinopril AdvReac Severe angioedema Uncoded 09/09/24 00:38 Review of Systems 2 Review of Systems: Constitutional : No Weight loss, No Fever, No Chills, No Night Sweats, No Fatigue, No Malaise ENT/Mouth : No Hearing loss, No Ear Pain, No Nasal Congestion, No Sinus Pain, No Hoarseness, No sore throat, No Rhinorrhea, No Swallowing Difficulty Eyes: No Eye Pain, No Swelling, No Redness, No Foreign Body, No Discharge, No Vision Changes Cardiovascular : Complaining of high blood pressure, No Chest Pain, No SOB, No Dyspnea on Exertion, No Orthopnea, No Edema, No Palpitations Respiratory : No Cough, No Sputum, No Wheezing, No Smoke Exposure, No Dyspnea Gastrointestinal : No Nausea, No Vomiting, No Diarrhea, No Constipation, No abdominal Pain, No Hematochezia, No Melena Genitourinary : no irregular bleeding, No Dysuria, No Urinary Frequency, No Hematuria, No Urinary Incontinence, No Urgency, No Flank Pain, No Urinary Flow Changes, No Hesitancy Musculoskeletal : No joint pain, No Myalgias, No Joint Swelling Skin : No Skin Lesions, No rash Neuro : No Weakness, No Numbness, No Paresthesias, No Loss of Consciousness, No Dizziness, complaining of Headache Psych : No Anxiety/Panic, No Depression, No SI/HI/AH/VH, No Social Issues, Heme/Lymph: No Bruising, No Bleeding,No Lymphadenopathy Endocrine : No Polyuria, No Polydipsia, No Temperature Intolerance [facility] Past Medical History Medical History Oxygen dependent COPD (chronic obstructive pulmonary disease) Elevated cholesterol Salivary gland tumor Osteoporosis HTN (hypertension) Hypothyroid Degeneration of lumbar or lumbosacral intervertebral disc Chronic pain syndrome Surgical History Hx of excision of mass History of surgery Social History Social History Household Members: Unknown / Unable to assess Housing: Unknown / Unable to assess Unable to assess alcohol history related to: Unable to respond Patient Tobacco Use Status: Former Tobacco user Smoked in Last 30 Days: No Use of substances other than those prescribed or required for medical reasons: No Advance Directives: Yes Advance Directives on File: Yes Advance Directives Date on File: 07/01/24 Do you have a plan to hurt others: No Plan service: No Physical Exam ED Vital Signs: Vital Signs - 24 hr 09/08/24 18:19 09/08/24 18:23 09/08/24 18:32 Temperature 97.8 F 97.8 F Pulse Rate 99 99 95 Respiratory Rate 20 20 18 Blood Pressure 201/109 H 201/109 H 213/97 H Pulse Oximetry 95 95 95 Oxygen Delivery Method Nasal Cannula Nasal Cannula Nasal Cannula Oxygen Flow Rate 3 09/08/24 18:40 09/08/24 20:22 09/08/24 22:04 Temperature 98.1 F Pulse Rate 94 94 Respiratory Rate 14 14 Blood Pressure 202/94 H 201/99 H 207/63 H Pulse Oximetry 96 97 Oxygen Delivery Method Nasal Cannula Room Air Oxygen Flow Rate 3 09/08/24 23:17 09/08/24 23:46 09/08/24 23:53 Temperature 98.1 F Pulse Rate 81 89 82 Respiratory Rate 16 Blood Pressure 164/65 H 202/85 H 171/82 H Pulse Oximetry 95 93 95 Oxygen Delivery Method Nasal Cannula Nasal Cannula Nasal Cannula Oxygen Flow Rate 3 3 3 BMI result Body Mass Index 27.2 Const Other: Appearance: Alert. Oriented X3. No acute distress. Well-appearing Eyes: Pupils equal, round and reactive to light. ENT: Pharynx normal. Neck: Normal inspection. Neck supple. No lymph nodes noted. No crepitus CVS: Normal heart rate and rhythm. Pulses normal. Normal S1 and S2 Respiratory: No respiratory distress. Breath sounds normal. No Wheezing. No rales Abdomen: Soft and nontender. No rigidity. No distention. Skin: Skin warm and dry. Normal skin color. Normal skin turgor. Extremities: No lower extremity edema. No Lacerations. No Rash Neuro: Oriented X 3. No motor deficit. No sensory deficit. Moving all extremities. No slurred speech. CN 2 through 12 grossly intact Psych: calm, cooperative, normal affect Medications Administered Discontinued Medications Generic Name Dose Route Start Last Admin Trade Name Jesus PRN Reason Stop Dose Admin Acetaminophen 975 mg 09/08/24 21:44 09/08/24 22:04 Acetaminophen 325 Mg Tablet PO 09/08/24 21:45 975 mg ONCE ONE Administration Amlodipine Besylate 10 mg 09/08/24 21:43 09/08/24 22:04 Amlodipine Besylate 10 Mg Tablet PO 09/08/24 21:44 10 mg ONCE ONE Administration Protocol Medical Decision Making Medical Decision Making MDM Narrative: My interpretation of labs: Patient's hematology is at baseline, chemistry shows a potassium slightly reduced at 3.2, repleted p.o. troponin 20.6 which better than baseline for the patient Patient came in with a blood pressure of 213/97. Patient was given amlodipine, patient's blood pressure now 171/82. Patient was also given Tylenol. Patient denies any headache, no chest pain or shortness of breath. Per patient's list of medications, patient takes hydralazine 25 mg b.i.d., carvedilol 6.25 mg b.i.d., diltiazem 360 mg daily. Patient was taking lisinopril until she developed angioedema Interpretation of head CT, no intracranial hemorrhage or mass effect Patient's carvedilol is being increased to 12.5 mg daily. Patient needs close follow-up with her primary care physician. Differential Diagnosis Differential Diagnoses: The differential diagnosis associated with the presentation includes (Hypertensive urgency) Admission/Observation Consideration of admission/observation: Escalation of care including admission/observation considered (Given patient's elevated blood pressure, admission/observation was considered) Lab Data MDM Lab Attestation statement: I reviewed the patient's lab results. 09/08/24 18:39 09/08/24 18:39 Labs: Lab Results 09/08/24 Range/Units 18:39 WBC 8.0 (4.8-10.8) X10*3/uL RBC 4.09 L D (4.20-5.50) X10*6/uL Hgb 11.9 L (12.0-16.0) g/dl Hct 35.6 L (37.0-47.0) % MCV 87.0 (80.0-98.0) fL MCH 29.1 (27.0-33.0) pg MCHC 33.4 (31.0-35.0) g/dl RDW 14.6 (11.0-16.0) % Plt Count 331 (160-400) X10*3/uL MPV 8.9 L (9.4-12.3) fL Immature Gran % (Auto) 0.5 H (0.0-0.4) % Neut % (Auto) 60.2 (45-73) % Lymph % (Auto) 25.8 (20-40) % [place] % (Auto) 8.9 (2-11) % Eos % (Auto) 3.1 (0-4) % Baso % (Auto) 1.5 (0-2) % Lymph # (Auto) 2.1 (1.2-4.9) X10*3/uL [place] # (Auto) 0.7 (0.1-1.2) X10*3/uL Eos # (Auto) 0.3 (0.0-0.4) X10*3/uL Baso # (Auto) 0.1 (0.0-0.2) X10*3/uL Abs Immat Gran (auto) 0.04 H (0.00-0.03) X10*3/uL Absolute Neuts (auto) 4.8 (2.0-8.3) x10*3/uL Absolute Nucleated RBC 0.000 (0.0-0.012) X10*3/uL Nucleated RBC % (auto) 0.0 (0.0-0.2) /100WBC PT 11.2 (10.9-12.4) SEC INR 1.0 (0.9-1.1) Sodium 140 (135-145) mmol/L Potassium 3.2 L D (3.3-5.1) mmol/L Chloride 103 (96-108) mmol/L Carbon Dioxide 27 (22-29) mmol/L Anion Gap 13 (12-20) BUN 13 (9-16) mg/dL Creatinine 1.13 (0.5-1.4) mg/dL Estim Creat Clear Calc 30.4 Estimated GFR 46 Random Glucose 110 (60-115) mg/dL Calcium 9.3 (8.4-10.2) mg/dL Total Bilirubin 0.3 (0.0-1.0) mg/dL AST 18 (5-31) U/L ALT < 6 (0-31) U/L Alkaline Phosphatase 89 (39-117) U/L Troponin I High Sens 20.6 H (<3.5-17.0) ng/L Total Protein 7.1 (6.5-8.0) g/dL Albumin 4.0 (3.5-5.0) g/dL Independent Interpretation I performed an independent interpretation of an: CT Scan Interpretation: The ventricles and sulci are enlarged consistent with diffuse atrophy. No visualized masses or midline shift are seen. There is no intra-axial or extra-axial hemorrhage. There are no fluid collections. Decreased attenuation is seen in the periventricular white matter compatible with chronic small vessel ischemic disease. The jones-white discrimination is preserved. The included paranasal sinuses and mastoid air cells are well aerated. The calvarium is intact. CT/CT head/brain wo IV con IMPRESSION: No intracranial hemorrhage or mass effect. Generalized atrophy and chronic small vessel white matter ischemic changes. Critical Care Time Critical Care Time Critical Care Time: Yes Total Critical Care Time: 60 Attestation: I have personally provided critical care time. Time includes review of lab data, radiology results, discussion with consultants, and monitoring for potential decompensation. Intervention performed as documented. Discharge Plan Discharge Clinical Impression: Hypertensive urgency Patient Disposition: Home, Self-Care Instructions: Hypertensive Crisis (ED) Additional Instructions: Your dose of carvedilol has been increased to 12.5 mg daily twice a day. A prescription has been sent to your pharmacy. Please follow-up with your primary care physician tomorrow. If you have any worsening or new symptoms, please return to the emergency room or call 911 Prescriptions: New carvedilol 12.5 mg tablet 12.5 mg PO BID Qty: 60 0RF Rx Instructions: must administer with a meal/food No Action hydralazine 25 mg tablet 25 mg PO BID 30 Days Qty: 60 2RF hydrocodone-acetaminophen 10-325 mg tablet 1 tab PO QID PRN (Reason: Pain) ipratropium-albuterol 0.5 mg-3 mg(2.5 mg base)/3 mL Solution For Nebulization 3 ml inhalation RQ6H WHILE AWAKE Qty: 90 0RF omeprazole 20 mg Capsule,Delayed Release(Dr/Ec) 20 mg PO DAILY@0630 Qty: 30 0RF aspirin 81 mg Tablet,Chewable 81 mg PO DAILY Qty: 30 0RF fluticasone propionate 50 mcg/actuation [place],Suspension 1 spray intranasal DAILY Qty: 16 0RF atorvastatin 40 mg Tablet 40 mg PO DAILY Qty: 30 0RF amlodipine 5 mg Tablet 5 mg PO DAILY Qty: 3 0RF Protocol: Hold for SBP< HOLD for SBP < : 90 enoxaparin 40 mg/0.4 mL Syringe 40 mg subcut Q24H Qty: 4 0RF metoprolol tartrate 25 mg tablet 25 mg PO BID Qty: 60 0RF Incruse Ellipta 62.5 mcg/actuation blister with device 1 inh inhalation DAILY diltiazem HCl 360 mg capsule,extended release 24hr 360 mg PO DAILY gabapentin 300 mg capsule 300 mg PO TID levothyroxine 112 mcg capsule 112 mcg PO DAILY buspirone 15 mg tablet 15 mg PO TID montelukast 10 mg tablet 10 mg PO DAILY alprazolam 0.5 mg tablet 0.5 mg PO DAILY trazodone 150 mg tablet 150 mg PO BEDTIME PRN (Reason: Insomnia) Print Language: [place]
[2024-09-08 18:45] LABS: MANUAL DIFF FLAG NO
[2024-09-08 18:51] LABS: Prothrombin Time 11.2 SEC (10.9-12.4)
[2024-09-08 18:59] LABS: Basophils Absolute Auto 0.1 X10*3/uL (0.0-0.2); Basophils Percent Auto 1.5 % (0-2); Eosinophils Absolute Auto 0.3 X10*3/uL (0.0-0.4); Eosinophils Percent Auto 3.1 % (0-4); Hematocrit 35.6 % (37.0-47.0); Hemoglobin 11.9 g/dl (12.0-16.0); Imm Gran Abs Auto 0.04 X10*3/uL (0.00-0.03); Imm Gran Pct Auto 0.5 % (0.0-0.4); Lymphocytes Absolute Auto 2.1 X10*3/uL (1.2-4.9); Lymphocytes Percent Auto 25.8 % (20-40); Mean Corpuscular HGB Conc 33.4 g/dl (31.0-35.0); Mean Corpuscular Hemoglobin 29.1 pg (27.0-33.0); Mean Platelet Volume 8.9 fL (9.4-12.3); Monocytes Absolute Auto 0.7 X10*3/uL (0.1-1.2); Monocytes Percent Auto 8.9 % (2-11); Neutrophils Absolute Auto 4.8 x10*3/uL (2.0-8.3); Neutrophils Percent Auto 60.2 % (45-73); Platelet Count 331 X10*3/uL (160-400); Red Blood Count 4.09 X10*6/uL (4.20-5.50); Red Cell Distribution Width 14.6 % (11.0-16.0)
[2024-09-08 19:10] LABS: Alanine Aminotransferase < 6 U/L (0-31); Alkaline Phosphatase 89 U/L (39-117); Anion Gap 13 (12-20); Aspartate Amino Transferase 18 U/L (5-31); Bilirubin Total 0.3 mg/dL (0.0-1.0); Blood Urea Nitrogen 13 mg/dL (9-16); Calcium 9.3 mg/dL (8.4-10.2); Carbon Dioxide 27 mmol/L (22-29); Chloride 103 mmol/L (96-108); Creatinine Clr Calc Pharmacy 30.4; Estimated Glomerular Filt Rate 46; Glucose Random 110 mg/dL (60-115); Potassium 3.2 mmol/L (3.3-5.1); Sodium 140 mmol/L (135-145); Total Protein 7.1 g/dL (6.5-8.0)
[2024-09-08] MEDS: amLODIPine Besylate 10 MG TABLET PO (22:04)
[2024-09-08] MEDS: Acetaminophen 325 MG TABLET 975 MG PO (22:04)
[2024-09-08 22:12] LABS: Troponin-I High Sensitivity 20.6 ng/L (<3.5-17.0)
--- NOTE | 2024-09-08 22:16 | PC.NURSE ---
assist pt with purewick placement
--- NOTE | 2024-09-08 23:54 | PC.NURSE ---
assist with repositioning onto R side
--- NOTE | 2024-09-09 00:40 | ECG_ITS ---
Test Reason : HYPERTENSION Blood Pressure : / mmHG Vent. Rate : 093 BPM Atrial Rate : 093 BPM P-R Int : 194 ms QRS Dur : 098 ms QT Int : 386 ms P-R-T Axes : 069 -44 189 degrees QTc Int : 479 ms Normal sinus rhythm Left axis deviation Moderate voltage criteria for LVH, may be normal variant ( R in aVL , [place] product ) ST & Marked T wave abnormality, consider anterolateral ischemia Prolonged QT Abnormal ECG When compared with ECG of 17-JUL-2024 08:13, No significant change was found Referred By: Nohemi Major Electronically Signed By:LUIS MANUEL THORNTON
[2024-09-09 01:12] VITALS: BP 176/81; PULSE 92; RESP 16; TEMP 36.8; O2SAT 96
--- NOTE | 2024-09-09 01:27 | PC.NURSE ---
pt awaiting EMS transport home d/t oxygen
--- NOTE | 2024-09-09 03:00 | PC.NURSE ---
ems here for pt
== END 2024-09-09 03:15 | disposition home or self-care (01) ==
PROVIDERS: Physician Assistant; Emergency Provider Emergency Medicine
DX: I16.0 Hypertensive urgency (principal); R51.9 Headache, unspecified; I10 Essential (primary) hypertension; E03.9 Hypothyroidism, unspecified; J44.9 Chronic obstructive pulmonary disease, unspecified; Z79.899 Other long term (current) drug therapy
CPT/HCPCS: 36415; 70450; 80053; 84484; 85025; 85610; 93005; 99284; 99285

== ENCOUNTER → 2024-09-09 00:40 | Outpatient (BNV) | payer OTHER, SELFPAY | PROVIDERS: Emergency Provider Emergency Medicine; Visit Provider Internal Medicine | DX: R94.31 Abnormal electrocardiogram [ECG] [EKG] (principal) | CPT/HCPCS: 93010 ==

== ENCOUNTER → 2024-10-02 12:54 | Outpatient (REF) | payer OTHER, SELFPAY ==
--- NOTE | 2024-10-02 12:58 | CA_ITS ---
Transthoracic Echocardiogram Patient (Last, First, Middle): Kait Pickard, Gender: Female Date of : 1940 Age: 84 Procedure Date: 10/02/2024 Procedure Type: Transthoracic Echocardiogram Location: OP Height: 149.86 cm Weight: 58.06 kg BSA: 1.53 m2 Heart Rate: bpm BP: 118 / 60 mmHg Vice President Of Recruiting: Referring MD: Ej Kraft MD Symptoms: I21.4 - Non-ST elevation (NSTEMI) myocardial infarction Study Quality: Good ECG Rhythm: Sinus Conclusions: - The left ventricular systolic function is normal. The calculated ejection fraction is 67% by biplane method. Findings Left Ventricle Normal left ventricular cavity size. There is mildly increased left ventricular wall thickness. The left ventricular systolic function is normal. The calculated ejection fraction is 67% by biplane method. There is no evidence of regional wall motion abnormalities. Right Ventricle Normal right ventricular cavity size and systolic function. Venous The inferior vena cava is normal in size and collapses greater than 50% with inspiration. Prior Study Comparison Changes noted compared to prior study dated: 07/10/2024. LVEF/wall motion abnormalities normalized. Measurements 2D Linear Measurements IVSd: 1.23 0.6-0.9/0.6-1.0 cm LVIDd: 4.31 3.9-5.3/4.2-5.9 cm LVIDd Index: 2.82 2.4-3.2/2.2-3.1 cm/m2 LVIDs: 2.34 2.0-3.6 cm LVPWd: 1.26 0.7-1.1 cm LV Mass: 243.74 67-162/88-224 g LV Mass Index: 159.31 43-95/49-115 g/m2 2D Systolic Function EF 4C: 67.90 >55% EF 2C: 66.50 >55% EF BiP: 66.50 >55% Updated in Other Vendor System with Status of Final Vern Watkins MD electronically signed on 10/03/2024 9:35:33 AM with status of Final
--- OUTSIDE RECORDS SUMMARY | 2024-10-02 15:06 | XMS_ITS | Continuity of Care Document ---
Author Organization [facility] Address [address] [place] [address] Phone Care Team Providers Care Rotary Furnace Tender Name Role Phone Carlito Longoria MD Unavailable [...] CER/THOR SECOND LEVEL C/T THIRD ADDTL LEVELS [id number] FACET INJ LUMBAR/SACRAL FLUORO INCLUDED LUM/SAC SECOND LEVEL THIRD AND ADDT LEVEL [id number] FACET INJ LUMBAR/SACRAL FLUORO INCLUDED LUM/SAC SECOND LEVEL THIRD AND ADDT LEVEL [id number] Office/outpatient visit, est MRI Thoracic Spine Office/outpatient visit, est IUNIT TORADOL 15 MG [id number] THORACIC SPINE AP AND LATERAL 8 X-RAY LUMBAR BENDING MIN 4 VIEWS/FLEXION /EXTENSION X-RAY SACROILIAC FACET INJ LUMBAR/SACRAL FLUORO INCLUDED LUM/SAC SECOND LEVEL THIRD AND ADDT LEVEL [id number] Office/outpt Visit LSO BRACE INJ SI JOINT (FLUORO INCLD) [id number] INJ SI JOINT (FLUORO INCLD) [id number] Xray Hip Unilat 2-3 Views MRI Thoracic Spine THORACIC SPINE AP AND LATERAL 5 Office/outpatient visit, est POSTUROGRAPHY Office/outpt New Advance Directives Directive Yes / No Effective Date File Name No Information Encounters Encounter Description Practice Location Reason(s) For Visit Diagnoses Date Provider Providers Copied on Encounter Office/outpa tient visit, est [facility], [address] [place], [place], [id number], [place] tel:[phone] [facility] Facial Pain (chief complaint) Body mass index (BMI) 26.0-26.9, adultOther headache syndrome - [address] [place], [address], [place]. tel:[phone] Referring Provider: Carlito Longoria MD, [address] [place], [address]. tel:[phone] Office/outpt New [facility], [address], [place], [place], [id number], [place] tel:[phone] [facility] Facial Pain (chief complaint) Body mass index (BMI) 26.0-26.9, adultOther headache syndromeChron ic pain syndrome [address], [place], [address], [place]. tel:[phone] Referring Provider: Jose Maya, [address] [place] [address], [address]. tel:[phone] [facility], [address], [place], [place], [id number], [place] tel:[phone] [facility] Upper back pain (chief complaint) Pain in thoracic spineSpondylo sis w/o myelopathy of thoracic region [address], [place], [place], [id number], [place]. tel:[phone] Referring Provider: Hardy Locke, [address], [place], [address] . tel:[phone] [facility], [address], [place], [place], [id number], [place] tel:[phone] [facility] Lower back pain (chief complaint) Spondylosis without myelopathy or radiculopathy , lumbar regionLow back painOther intervertebra l disc displacement, lumbar regionOther intervertebra l disc degeneration, lumbosacral regionOther spondylosis, lumbar regionOther specified dorsopathies, lumbar regionSacroil iitisScoliosi s Nov- Cornelia Maganao. [address], [place], [place], [id number], [place]. tel:[phone] Referring Provider: Hardy Locke, [address], [place], [address] . tel:[phone] [facility], [address], [place], [id number], [place] tel:[phone] [facility] Lower back pain (chief complaint) Spondylosis without myelopathy or radiculopathy , lumbar regionLow back painOther intervertebra l disc displacement, lumbar regionOther intervertebra l disc degeneration, lumbosacral regionBody mass index (BMI) 26.0-26.9, adult Sep-2 [address], [place], [place], [id number], [place]. tel:[phone] Referring Provider: Hardy Locke, [address], [place], [address] . tel:[phone] Office/outpa tient visit, est [facility], [address], [place], [place], [id number], [place] tel:[phone] [facility] low back pain (chief complaint) Other specified dorsopathies, lumbar regionOther spondylosis, lumbar regionOther intervertebra l disc degeneration, thoracic regionBody mass index (BMI) 26.0-26.9, adult 8 No Information Referring Provider: Hardy Locke, [address], [place], [address] . tel:[phone] [facility], [address], [place], [place], [id number], [place] tel:[phone] [facility] No Information Cornelia Dash. [address], [place], [place], [id number], [place]. tel:[phone] Referring Provider: Hardy Locke, [address], [place], [address] . tel:[phone] Office/outpa tient visit, [facility], [address], [place], [place], [id number], [place] tel:[phone] [facility] low back pain (chief complaint) Body mass index (BMI) 26.0-26.9, adultSacroili itisLow back painPain in thoracic spine No Information Referring Provider: Jose Maya, [address] [place] [address], [place], [address]. tel:[phone] [facility], [address], [place], [place], [address], [place] tel:[phone] [facility] No Information Cornelia Dash. [address], [place], [place], [id number], [place]. tel:[phone] Referring Provider: Hardy Locke, [address], [place], [address] . tel:[phone] [facility], [address], [place], [id number], [place] tel:[phone] [facility] Lower back pain (chief complaint) Spondylosis without myelopathy or radiculopathy , lumbar regionSacroil iitisLow back pain 2 [address], [place], [place], [id number], [place]. tel:[phone] Referring Provider: Hardy Locke, [address], [place], [address] . tel:[phone] Office/outpt Visit [facility], [address], [place], [place], [id number], [place] tel:[phone] [facility] low back pain (chief complaint) Low back painOther intervertebra l disc displacement, lumbar regionScolios isPrimary OA of left hip 0 6 No Information Referring Provider: Hardy Locke, [address], [place], [address] . tel:[phone] [facility], [address], [place], [place], [address], [place] tel:[phone] [facility] No Information 6 No Information Referring Provider: Hardy Locke, [address], [place], [address] . tel:[phone] [facility], [address], [place], [id number], [place] tel:[phone] [facility] Lower back pain (chief complaint) SacroiliitisL ow back pain [address], [place], [id number], [place]. tel:[phone] Referring Provider: Hardy Locke, [address], [place], [address] . tel:[phone] [facility], [address], [place], [id number], [place] tel:[phone] [facility] Lower back pain (chief complaint) Low back painSacroilii tisOther dorsalgiaScol iosisPain in left hip [address], [place], [id number], [place]. tel:[phone] Referring Provider: Hardy Locke, [address], [place], [address] . tel:[phone] [facility], [address], [place], [id number], [place] tel:[phone] [facility] No Information [address], [place], [id number], [place]. tel:[phone] Referring Provider: Hardy Locke, [address], [place], [address] . tel:[phone] [facility], [address], [place], [place], [id number], [place] tel:[phone] [facility] No Information [address], [place], [place], [id number], [place]. tel:[phone] Referring Provider: Hardy Locke, [address], [place], [address] . tel:[phone] [facility], [address], [place], [place], [id number], [place] tel:[phone] [facility] No Information [address], [place], [id number], [place]. tel:[phone] Referring Provider: Hardy Locke, [address], [place], [address] . tel:[phone] Office/outpa tient visit, [facility], [address], [place], [place], [id number], [place] tel:[phone] [facility] low back pain (chief complaint) movement disorder (chief complaint) Other dorsalgiaLow back painPain in thoracic spineOther muscle spasmSacroili itisVertigoSc oliosis 5 No Information Referring Provider: Sakina Michaud, [address], [address] . tel:[phone] Office/outpt [facility], [address] [place], [id number], [place] tel:[phone] [facility] back pain (chief complaint) Backache 5 Syl Bustillos. [address] [place] [address], [id number], [place]. tel:[phone] Referring Provider: Miguel Delgado, [address] [place], [address]. tel:[phone] [facility], [address] [place], [address], [place] tel:[phone] [facility] Allergic Rhinitis NosAnxietyDep ressionMyalgi a And Myositis NosHyperlipid emia Nec/nosHypert ension, UnspecifiedRe nal Insufficiency , AcuteDisorder Of Thyroid NosLumbagoINS OMNIA IN OTHER DISDiffuse Cystic Mastopathy 5 Syl Bustillos. [address] [place] [address], [id number], [place]. tel:[phone] Family History Family Member Type Diagnosis Age [...] r Payers Payer name Insurance type Covered republican ID Emilie christopher(s) [employer] MB [id number] Ref From Dr Maya Medicaid Crossover Claims [id number] Social History Type Description Quantity Date Captured [...] to Other specified dorsopathies, lumbar region Prescribed diet education Relate d to Body [...] done-- results were wnl. Related to Vertigo SI joint injection Related to Sa croiliitis physical therapy Related to Low back pain MRI thoracic spineth oracic xraysphysical therapy Related [...] Mental Status Date Cognitive Assessment Orientation - [place] ed to time, place, person, situation.Cognitive Orientation - follows commands, yes Patient Care Teams Name Effective Dates (start - stop) Status Members No Information
== END ==
LOC: HO.CARD 12:54
PROVIDERS: Visit Provider Internal Medicine Cardiovascular Disease
DX: I21.4 Non-ST elevation (NSTEMI) myocardial infarction (principal)
CPT/HCPCS: 93308

== ENCOUNTER → 2024-10-02 12:58 | Outpatient (BNV) | payer OTHER, SELFPAY | PROVIDERS: Visit Provider Internal Medicine | DX: I21.4 Non-ST elevation (NSTEMI) myocardial infarction (principal) | CPT/HCPCS: 93308 ==

== ENCOUNTER 2025-06-09 22:48 | Emergency (ER) | payer OTHER, SELFPAY ==
--- NOTE | ~2025-06-09 | CT_ITS ---
CLINICAL HISTORY: Severe right side headache CT head without contrast Comparison: CT head 09/08/2024 Findings: No intra-axial mass, midline shift, hydrocephalus, or acute hemorrhage. [id number] atrophy-like change and white matter disease. There is no sinus or mastoid fluid. The orbits are unremarkable. There is no acute fracture. IMPRESSION: 1. No acute intracranial findings. This document has been electronically signed by: Cynthia Tate MD on 06/10/2025 02:35:49
[2025-06-09 23:04] VITALS: BP 178/83; PULSE 74; O2SAT 93; BMI 28.2
--- NOTE | 2025-06-09 23:08 | ED.HA ---
HPI - Headache General Chief Complaint: General Medical Stated Complaint: SOB and dizzy worried about a GARZA she 3 days ago Time Seen by Provider: 06/09/25 23:00 History of Present Illness ED Provider: Henri Martinez MD HPI Narrative: 84-year-old female on baseline oxygen with multiple comorbid medical conditions reports moderate to severe right-sided temporoparietal headache about 3 days ago this lasted several hours it was in the context of no trauma or any other clear provoking incident she can think of. She has been on her baseline oxygen denies to me chest pain or difficulty breathing no abdominal pain. Denies visual symptoms. Currently headache is gone. Related Data Home Medications ?Medication ?Instructions ?Recorded ?Confirmed alprazolam 0.5 mg tablet 0.5 mg PO DAILY 12/08/23 08/24/24 buspirone 15 mg tablet 15 mg PO TID 12/08/23 08/24/24 gabapentin 300 mg capsule 300 mg PO TID 12/08/23 08/24/24 levothyroxine 112 mcg capsule 112 mcg PO DAILY 12/08/23 08/24/24 montelukast 10 mg tablet 10 mg PO DAILY 12/08/23 08/24/24 trazodone 150 mg tablet 150 mg PO BEDTIME PRN Insomnia 12/08/23 08/24/24 umeclidinium 62.5 mcg/actuation 1 inh inhalation DAILY 04/21/24 08/24/24 blister powder for inhalation (Incruse Ellipta) hydrocodone 10 mg-acetaminophen 1 tab PO QID PRN Pain 06/30/24 08/24/24 325 mg tablet diltiazem HCl 360 mg 360 mg PO DAILY 08/04/24 08/24/24 capsule,extended release 24 hr Previous Rx's ?Medication ?Instructions ?Recorded amlodipine 5 mg tablet 5 mg PO DAILY #3 tabs 07/11/24 aspirin 81 mg chewable tablet 81 mg PO DAILY #30 tabs 07/11/24 atorvastatin 40 mg tablet 40 mg PO DAILY #30 tabs 07/11/24 enoxaparin 40 mg/0.4 mL 40 mg (0.4 mL) subcut Q24H #4 mL 07/11/24 subcutaneous syringe fluticasone propionate 50 1 spray intranasal DAILY #16 grams 07/11/24 mcg/actuation nasal spray,suspension ipratropium 0.5 mg-albuterol 3 mg 3 ml inhalation RQ6H WHILE AWAKE 07/11/24 (2.5 mg base)/3 mL nebulization #90 mL soln metoprolol tartrate 25 mg tablet 25 mg PO BID #60 tabs 07/11/24 omeprazole 20 mg capsule,delayed 20 mg PO DAILY@0630 #30 caps 07/11/24 release hydralazine 25 mg tablet 25 mg PO BID 30 days #60 tabs 08/28/24 carvedilol 12.5 mg tablet 12.5 mg PO BID #60 tabs 09/09/24 Allergies Allergy/AdvReac Type Severity Reaction Status Date / Time alendronate sodium Allergy Unknown Unknown Verified 06/09/25 23:07 pregabalin (From Lyrica) Allergy Unknown Unknown Verified 06/09/25 23:07 metoprolol AdvReac Unknown Unknown Verified 06/09/25 23:07 lisinopril AdvReac Severe angioedema Uncoded 06/09/25 23:07 [facility] Past Medical History Medical History Oxygen dependent COPD (chronic obstructive pulmonary disease) Elevated cholesterol Salivary gland tumor Osteoporosis HTN (hypertension) Hypothyroid Degeneration of lumbar or lumbosacral intervertebral disc Chronic pain syndrome Surgical History Hx of excision of mass History of surgery Social History Social History Household Members: Unknown / Unable to assess Housing: Unknown / Unable to assess Unable to assess alcohol history related to: Unable to respond Patient Tobacco Use Status: Former Tobacco user Smoked in Last 30 Days: No Use of substances other than those prescribed or required for medical reasons: No Advance Directives: Yes Advance Directives on File: Yes Advance Directives Date on File: 07/01/24 service: No Physical Exam Exam: Exam: GENERAL: Well appearing. No apparent distress. Alert. HEAD/NECK: Normal to inspection. Neck supple. No cervical lymphadenopathy. EYES: Normal to inspection. Sclera non-icteric. ENMT: External nose normal. RESPIRATORY: Respiratory effort normal. Lungs clear to auscultation bilaterally. Patient is on 2 L nasal cannula CARDIOVASCULAR: Regular rate. Normal rhythm. No murmur. No rubs. GI: Soft, non-tender, non-distended. No rebound or guarding. No masses palpable. No hepatosplenomegaly. SKIN: No jaundice. NEUROLOGICAL: Alert. PSYCHIATRIC: Alert. Appearance appropriate for situation. Attitude cooperative. OTHER: Comprehensive Neuro exam: Face symmetric, tongue midline, strong symmetric eye closure, pupils symmetric and reactive to light, intact sensation to the face throughout, intact strong face deviation and shoulder shrug. Sensation intact to light touch throughout 5 out of 5 strength in bilateral upper extremities, 5 and 5 strength in lower extremities Vital Signs: Vital Signs: Last Vital Signs Temp 97.6 F 06/10/25 04:51 Pulse 74 06/10/25 04:51 Resp 18 06/10/25 04:51 BP 150/75 H 06/10/25 04:51 Pulse Ox 92 06/10/25 04:51 O2 Del Method Nasal Cannula 06/10/25 04:51 O2 Flow Rate 2 06/10/25 04:51 BMI result Body Mass Index 28.2 Medical Decision Making Medical Decision Making MDM Narrative: Medical Decision Makin-year-old female with abrupt onset headache about 3 days ago in the right frontotemporal region. No head strike she has had a mild headache since that time but mainly came in concerned about possibility of this severe headache she had few days ago being something serious. No vomiting no seizure activity she has been eating and drinking okay otherwise at her normal baseline including baseline oxygen requirement. Preliminary Favored Differential Diagnosis: ICH, mass, tension headache, migraine headache, dehydration among additional considered etiologies Testing Interpreted Independently: ?See below for details Radiology or Lab testing Results Reviewed: ?See below for details Consults: ?See below for details Independent Historians/External Chart Reviews: ?See below for details Social Determinants of Health Impacting MDM/Planning: ?See below for details Lab Data 06/09/25 23:21 06/09/25 23:21 Labs: Lab Results 06/09/25 Range/Units 23:21 WBC 10.9 H (4.8-10.8) X10*3/uL RBC 4.32 (4.20-5.50) X10*6/uL Hgb 12.7 (12.0-16.0) g/dl Hct 37.2 (37.0-47.0) % MCV 86.1 (80.0-98.0) fL MCH 29.4 (27.0-33.0) pg MCHC 34.1 (31.0-35.0) g/dl RDW 14.3 (11.0-16.0) % Plt Count 312 (160-400) X10*3/uL MPV 8.3 L (9.4-12.3) fL Immature Gran % (Auto) 0.9 H (0.0-0.4) % Neut % (Auto) 64.0 (45-73) % Lymph % (Auto) 20.5 (20-40) % [place] % (Auto) 8.2 (2-11) % Eos % (Auto) 5.1 H (0-4) % Baso % (Auto) 1.3 (0-2) % Lymph # (Auto) 2.2 (1.2-4.9) X10*3/uL [place] # (Auto) 0.9 (0.1-1.2) X10*3/uL Eos # (Auto) 0.6 H (0.0-0.4) X10*3/uL Baso # (Auto) 0.1 (0.0-0.2) X10*3/uL Abs Immat Gran (auto) 0.10 H (0.00-0.03) X10*3/uL Absolute Neuts (auto) 7.0 (2.0-8.3) x10*3/uL Absolute Nucleated RBC 0.000 (0.0-0.012) X10*3/uL Nucleated RBC % (auto) 0.0 (0.0-0.2) /100WBC Sodium 135 (135-145) mmol/L Potassium 4.3 D (3.3-5.1) mmol/L Chloride 96 (96-108) mmol/L Carbon Dioxide 27 (22-29) mmol/L Anion Gap 16 (12-20) BUN 13 (9-16) mg/dL Creatinine 1.22 (0.5-1.4) mg/dL Estim Creat Clear Calc 29.4 Estimated GFR 42 Random Glucose 114 (60-115) mg/dL Calcium 9.8 (8.4-10.2) mg/dL Total Bilirubin 0.4 (0.0-1.0) mg/dL AST 23 (5-31) U/L ALT 15 (0-31) U/L Alkaline Phosphatase 93 (39-117) U/L Total Protein 7.6 (6.5-8.0) g/dL Albumin 4.6 (3.5-5.0) g/dL Discharge Plan Discharge Clinical Impression: Headache Patient Disposition: Home, Self-Care Instructions: Acute Headache (DC) Additional Instructions: You were evaluated for headache. CT scan of the brain did not show any acute severe or emergent abnormalities. Is unclear at this time what cause your headache however we see no indication to admit you to the hospital at this time. Call your primary doctor discuss your headache as you may need further outpatient workup of this. Prescriptions: No Action hydralazine 25 mg tablet 25 mg PO BID 30 Days Qty: 60 2RF hydrocodone-acetaminophen 10-325 mg tablet 1 tab PO QID PRN (Reason: Pain) ipratropium-albuterol 0.5 mg-3 mg(2.5 mg base)/3 mL Solution For Nebulization 3 ml inhalation RQ6H WHILE AWAKE Qty: 90 0RF omeprazole 20 mg Capsule,Delayed Release(Dr/Ec) 20 mg PO DAILY@0630 Qty: 30 0RF aspirin 81 mg Tablet,Chewable 81 mg PO DAILY Qty: 30 0RF fluticasone propionate 50 mcg/actuation [place],Suspension 1 spray intranasal DAILY Qty: 16 0RF atorvastatin 40 mg Tablet 40 mg PO DAILY Qty: 30 0RF amlodipine 5 mg Tablet 5 mg PO DAILY Qty: 3 0RF Protocol: Hold for SBP< HOLD for SBP < : 90 enoxaparin 40 mg/0.4 mL Syringe 40 mg subcut Q24H Qty: 4 0RF metoprolol tartrate 25 mg tablet 25 mg PO BID Qty: 60 0RF carvedilol 12.5 mg tablet 12.5 mg PO BID Qty: 60 0RF Rx Instructions: must administer with a meal/food Incruse Ellipta 62.5 mcg/actuation blister with device 1 inh inhalation DAILY diltiazem HCl 360 mg capsule,extended release 24hr 360 mg PO DAILY gabapentin 300 mg capsule 300 mg PO TID levothyroxine 112 mcg capsule 112 mcg PO DAILY buspirone 15 mg tablet 15 mg PO TID montelukast 10 mg tablet 10 mg PO DAILY alprazolam 0.5 mg tablet 0.5 mg PO DAILY trazodone 150 mg tablet 150 mg PO BEDTIME PRN (Reason: Insomnia) Interventions: ED Discharge Assessment Last Done: 06/10/25 04:51 Discharge Date/Time: 06/10/25 04:30 Print Language: Belarusian
[2025-06-09 23:09] VITALS: BP 157/75; PULSE 78; RESP 20; TEMP 36.8; O2SAT 93
[2025-06-09 23:26] LABS: MANUAL DIFF FLAG NO
[2025-06-09 23:27] LABS: Hematocrit 37.2 % (37.0-47.0); Hemoglobin 12.7 g/dl (12.0-16.0); Imm Gran Abs Auto 0.10 X10*3/uL (0.00-0.03); Imm Gran Pct Auto 0.9 % (0.0-0.4); Lymphocytes Absolute Auto 2.2 X10*3/uL (1.2-4.9); Mean Corpuscular HGB Conc 34.1 g/dl (31.0-35.0); Mean Corpuscular Hemoglobin 29.4 pg (27.0-33.0); Mean Corpuscular Volume 86.1 fL (80.0-98.0); NRBC Abs Auto 0.000 X10*3/uL (0.0-0.012); NRBC Pct Auto 0.0 /100WBC (0.0-0.2); Platelet Count 312 X10*3/uL (160-400); Red Blood Count 4.32 X10*6/uL (4.20-5.50); White Blood Count 10.9 X10*3/uL (4.8-10.8)
[2025-06-09 23:49] LABS: Alanine Aminotransferase 15 U/L (0-31); Albumin Level 4.6 g/dL (3.5-5.0); Alkaline Phosphatase 93 U/L (39-117); Anion Gap 16 (12-20); Aspartate Amino Transferase 23 U/L (5-31); Blood Urea Nitrogen 13 mg/dL (9-16); Calcium 9.8 mg/dL (8.4-10.2); Carbon Dioxide 27 mmol/L (22-29); Chloride 96 mmol/L (96-108); Creatinine Clr Calc Pharmacy 29.4; Estimated Glomerular Filt Rate 42; Potassium 4.3 mmol/L (3.3-5.1); Sodium 135 mmol/L (135-145); Total Protein 7.6 g/dL (6.5-8.0)
--- NOTE | 2025-06-10 01:14 | PC.NURSE ---
Pt up to bedside commode with one assist. Pt to CT scan and back to room.
[2025-06-10 01:16] VITALS: BP 183/72; PULSE 73; RESP 17; TEMP 36.4; O2SAT 92
--- OUTSIDE RECORDS SUMMARY | 2025-06-10 02:48 | XMS_ITS | Continuity of Care Document ---
Author Name Calos Nogueira Address [address] [place] [address] Organization Unknown Address [address] [place] [address] Medications No known medications Problems No known problems
--- OUTSIDE RECORDS SUMMARY | 2025-06-10 02:48 | XMS_ITS | Clinical Summary ---
Author Organization [facility] Address [address] [place] [address] Phone Care Team Providers Care Patcher Helper Name Role Phone Margot Murphy MD Primary Care Provider Encounters Date Type Department Care Team Description 04/24/2025 Documentation Only [facility], [address] [address] Gianni Aguila MA from Last 3 Months Social History Tobacco Use Types Packs/Day Years Used Date Smoking Tobacco: Never Assessed Comments Unknown Sex and Gender Information Value Date Recorded Sex Assigned at Not on file Legal Sex Female 1:28 PM EDT Gender Identity Not on file Sexual Orientation Not on file Plan of Treatment Health Maintenance Due Date Last Done Comments Pneumococcal Vaccine: 50+ Ye ars (1 of 2 - PCV) 1959 Influenza Vaccine (#1) 2025 Hepatitis B Vaccine Aged Out No longe r eligible based on patient's age to complete this topic Insurance [employer] Dual SNP ([id number]) [place] [id number] Care Teams Patcher Helper Relationship Specialty Start Date End Date Margot Murphy MD [address] [place] [address] PCP - General Family Medicine 04/24/25
--- OUTSIDE RECORDS SUMMARY | 2025-06-10 02:48 | XMS_ITS | Encounter Summary ---
Author Organization [facility] Address [address] [place] [address] Encounters * CPT with Calos Nogueira at [email or web address] on 2025-03-26 { reasonForRequest : Patient is Dizzy, and feels pressure in her Forehead and feels dehydrated. , patientReports : Head pain greater than 8 hours -unrelated to falls or injury; Dizziness with positional change; Palpitations, feeling dizzy , denies :[ Worst Headache of life , New onset of vision loss , Sudden onset -unilateral weakness/gait disturbance , Fall with head strike and altered LOC , New onset of Slurred speech or difficulty finding words , Sudden Mental status changes ,"Head pain with fever chills and neck pain , Seizure activity , Head pain not relieved by medication greater than 8 hours , Head pain with nausea vomiting , Sensitive to light , History of Heart Attack, in the setting of active chest pain ,"Active Chest pain, radiates to neck jaw and or arm , Diaphoretic/Sweating , Describes as crushing , Sudden onset of nausea/Vomiting and shortness of breath. , Shortness of Breath , Unable to speak in full sentences without distress ,"Chest pain, increased fatigue , CHF history, increased swelling and edema , We akness/tachycardia ], chiefComplaints : Dizziness, Headache , pmh&quot ;: COPD/Asthma, Chronic Obstructive Pulmonary Disease (COPD), Hypertension, Hyperlipidemia, Chronic Kidney Disease, Fibromyalgia, Rheumatoid Arthritis , allergies : Metoprolol, Omeprazole, Penicillins , otherAllergies :null, painAssessment : &qu ot;, visitOutcome : , additionalComments : 84 y.o female complains of Dizziness, Headache\nPatients STRUCTURAL ARCHITECT placing referral.\nPatient complaining of dizziness, headache and pressure in her head states she feels like shes dehydrated. hx vertigo\nBP obtained during call and it is 164/59 took her blood pressure medications\ndenies any chest pain or shortness of breath, nausea or vomiting, no abdominal pain. She is able to void and move her bowel movement last bowelmovement yesterday. reviewed red flags\n\nI provided information on the mobile health provider response time and advised the patient and/or caregiver to monitor reported signs and symptoms. I discussed the warning signs of when to seek emergency care. } Pt chief complaint today of a headache as well as facial pressure. Pt reports all signs and symptoms to have begun a current for approx w weeks prior to kin arrival at scene today. Pt states that shehas a chronic history of sinus infections. Pt has recently stopped taking her over the counter antihistamine medication since being placed on many other medications and not wanting to have any counteract. Pt has been using Flonase as well as sinus flushing to assist however recently this is not enough to assist, pt rates the pressure buildup at a 9/10 with no real relief being found. Pt today would appreciate a general assessment as well as possible treatment. Pt denies any cp, sob. NVD, dizziness or blurry vision. Pt allergies noted. Non neural focal exam, afebrile, vitals are WNL for the baseline of the pt. Lungs present as clear bilaterally on auscultation. ( o2 sat is with 2 lpm). Benign abdominal assessment, no new or worsening signs of Lower extremity edema. Upon slight palpation of the sinus???s the pt notes some small relief in pressure. No post nasal drip or cough noted. Pt is CAOX4 with a GCS of 15. Pain is not radiating away from above mentioned area. Negative covid/ flu test. [facility] Melany baeza consulted. Pt is inform of findings. Pt is told she may continue to use her otc antihistamine without fear of medication reaction. Pt is told to however make a follow up erica with her pcp as needed . Pt is educated on red flag S&S and told to contact emergency services if any present. IV_(FLUIDS_AND/OR_MEDICATION), MEDICATION_IM, EKG, POC_BLOODWORK, POC_FLU_STREP, COVID_TEST, ORTHOSTATIC_VITAL_SIGNS, PO_MEDICATION Written by Calos Nogueira on 2025-03-26
--- OUTSIDE RECORDS SUMMARY | 2025-06-10 02:48 | XMS_ITS | Encounter Summary ---
Author Organization [facility] Address [address] [place] [address] Phone Care Team Providers Care Community Planning Technician Name Role Phone Margot Murphy MD Primary Care Provider [phone] Encounter Details Date Type Department Care Team (Late st Contact Info) Description 04/24/2025 Documentation Only [facility], [address] [place] [address] [place] [address] [place] [address] Social History Tobacco Use Types Packs/Day Years Used Date Smoking Tobacco: Never Assessed Comments Unknown Sex and Gender Information Value Date Recorded Sex Assigned at Not on file Legal Sex Female 1:28 PM EDT Gender Identity Not on file Sexual Orientation Not on file documented as of this encounter Plan of Treatment Not on file documented as of this encounter Visit Diagnoses Not on filedocumented in this encounter Care Teams Community Planning Technician Relationship Specialty Start Date End Date Margot Murphy MD [address] [place] [address] PCP - General Family Medicine 04/24/25 documented as of this encounter
--- OUTSIDE RECORDS SUMMARY | 2025-06-10 02:48 | XMS_ITS | Patient Health Record ---
Author Organization [facility] Address [address] [place] [address] Care Team Providers Care In Process Inspector Name Role Phone Hermilo Mcgraw D.O. Primary Care Provider Dee Davis Unavailable Allergies Allergen (clinical drug ingredient) Drug/Non Drug Allergy documented on EMR Reaction Allergy Type Onset Date Status alendronate Alendronate Sodium Unknown Drug Allergy Active metoprolol Lopressor Unknown Drug Allergy Active pregabalin Lyrica Unknown Drug Allergy Active Metoprolol Succinate Unknown Drug Allergy Active Motrin Unknown Drug Allergy Active amoxicillin Amoxicillin Unknown Drug Allergy Act yamil aspirin Aspirin Unknown Drug Allergy Active Reason For Referral No Information Medications Medication SIG (Take, Route, Frequency, Duration) Notes Start Date End Date Status HYDROcodone-Acetaminophen 10-325 MG 1 tablet as needed Orally every 6 hrs Active Fluticasone Propionate 50 MCG/ACT 1 spray in each nostril Nasal Twice a day Active ALPRAZolam 0.5 MG 1 tablet Orally qd Active busPIRone HCl 10 MG Oral; Duration: 90 Active Cetirizine HCl 10 MG 1 tablet Orally Onc e a day Active Albuterol Sulfate (2.5 MG/3ML) 0.083% INHALE 1 VIAL VIA NEBULIZER THREE TIMES DAILY Inhalation; Duration: 30 Active Albuterol Sulfate HFA 108 (90 Base) MCG/ACT INHALE TWO PUFFS BY MOUTH EVERY 4 HOURS NEEDED FOR SHORTNESS OF BREATH Diagnosis Unavailable Inhalation; Duration: 50 Active Gabapentin 300 MG 1 capsule Orally twi ce daily Active Lisinopril 40 MG 1 tablet Orally twic e daily; Duration: 90 days Active traZODone HCl 150 MG 1 tablet at bedtime Oral Once a day Active Simvastatin 40 MG TAKE ONE TABLET BY M OUTH ONCE DAILY IN THE EVENING Diagnosis Unavailable Oral; Duration: 90 Active Levothyroxine Sodium 125 MCG TAKE ONE TABLET BY MOUTH IN THE MORNING ON AN EMPTY STOMACH FOR 90 DAYS Oral; Duration: 90 Active Social History Tobacco Use: Social History Observation Description Date Details (start date - stop date) Former Smoker NA - NA Tobacco Use/Smoking Question Answer Notes Are you a former smoker Problems Problem Type SNOMED Code ICD Code Onset Dates Problem Status W/U Status Risk Notes Problem Angina pectoris (687681725) Angina pectoris, unspecified (I20.9) Active confirmed Problem Palpitations (51842022) Palpitat ions (R00.2) Active confirmed Problem Angina pectoris (614500472) Angina pectoris (I20.9) Active confirmed Problem COPD - Chronic obstructive pulmonary disease (84327435) Chronic obstructive pulmonary disease, unspecified COPD type (J44.9) Active confirmed Problem Pure hypercholesterolemia (544651621) Pure hypercholester olemia, unspecified (E78.00) Active confirmed Problem Primary hypertension (78466338) Primary hypertension (I10) Active confirmed Problem Fibromyalgia (743111297) Fibromyalgia affecting multiple sites (M79.7) Active confirmed Problem History of lymphoma (390988241) History of lymphoma (Z85.79) Active confirmed Plan Of Treatment Pending Test Test Name Order Date Echocardiogram 10/08/2021 Insurance Providers Payer Name Payer Address Payer Phone Subscriber Number Group Number Insured Name Patient Relationship to Insured Coverage Start Date Coverage End Date [employer] ADV [address] [address] [place] [id number] [id number] VERONICA SCHMIDT Self - patient is the insured 0 Medical (General) History Medical History History ICD Code hypertension hyperlipidemia Hypothyroidism gastroesophageal reflux disease (GERD) chronic obstructive pulmonary disease (C OPD) osteoporosis lymphoma Surgical History Surgery Date(Month/Year) carpal tunnel release right knee arthroscopy
[2025-06-10 04:26] VITALS: BP 150/75; PULSE 74; RESP 18; TEMP 36.4; O2SAT 92
[2025-06-10 04:51] VITALS: BP 150/75; PULSE 74; RESP 18; TEMP 36.4; O2SAT 92
== END 2025-06-10 04:30 | disposition home or self-care (01) ==
PROVIDERS: Emergency Provider Emergency Medicine
DX: R51.9 Headache, unspecified (principal); R06.02 Shortness of breath; R42 Dizziness and giddiness; Z79.899 Other long term (current) drug therapy
CPT/HCPCS: 36415; 70450; 80053; 85025; 99284

== ENCOUNTER → 2025-06-10 01:04 | Outpatient (BNV) | payer OTHER, SELFPAY | PROVIDERS: Emergency Provider Emergency Medicine; Visit Provider Radiology Diagnostic Radiology | DX: R51.9 Headache, unspecified (principal) | CPT/HCPCS: 70450 ==